=== PATIENT | female | born 1935 | race Caucasian/White ===

== ENCOUNTER → 2016-08-26 | Outpatient (CLI) | payer MEDICARE, BC ==
--- NOTE | 2016-08-26 12:56 | ECHOF ---
Referral Reason:Valvular Heart Disease I51.9 MEASUREMENTS -------- HEIGHT: 160.0 cm WEIGHT: 65.8 kg BP: 171/73 RVIDd: 2.7 cm (< 3.3) IVSd: 1.0 cm (0.6 - 1.1) LVIDd: 4.8 cm (3.9 - 5.3) LVPWd: 1.1 cm (0.6 - 1.1) IVSs: 1.6 cm LVIDs: 3.1 cm LVPWs: 1.4 cm LA Diam: 3.8 cm (2.7 - 3.8) LAESV Index (A-L): 23.24 ml/m Ao Diam: 3.0 cm (2.0 - 3.7) MV EXCURSION: 14.924 mm (> 18.000) MV EF SLOPE: 31 mm/s (70 - 150) EPSS: 1.2 cm MV E Tato: 1.25 m/s MV DecT: 300 ms MV A Tato: 0.86 m/s MV E/A Ratio: 1.45 AV maxP.49 mmHg AV meanP.32 mmHg RAP: 5.00 mmHg RVSP: 31.30 mmHg FINDINGS -------- Sinus rhythm. This was a technically adequate study. The left ventricular size is normal. Left ventricular wall thickness is normal. Overall left ventricular systolic function is normal with, an EF between 60 - 65 %. The right ventricle is normal in size. The left atrium is normal in size. Normal LA size by volume 22+/-6 ml/m2. The right atrium is normal in size. Trace amount of aortic regurgitation. Peak/mean gradient across the Aortic Valve is 22.49mmHg / 12.32mmHg. Normally functioning mechanical prosthetic valve. The mitral valve leaflets are mildly thickened. Mild mitral annular calcification present. Mild mitral regurgitation is present. Mild tricuspid regurgitation present. Right ventricular systolic pressure is normal at < 35 mmHg. The pulmonic valve was not well visualized. The aortic root size is normal. Normal inferior vena cava with normal inspiratory collapse consistent with estimated right atrial pressure of 5 mmHg. There is no pericardial effusion. CONCLUSIONS -------- 1. Sinus rhythm. 2. Peak/mean gradient across the Aortic Valve is 22.49mmHg / 12.32mmHg. 3. Normally functioning mechanical prosthetic valve. 4. The mitral valve leaflets are mildly thickened. 5. Mild mitral annular calcification present. 6. Mild mitral regurgitation is present. 7. Mild tricuspid regurgitation present. 8. Right ventricular systolic pressure is normal at < 35 mmHg. 9. The pulmonic valve was not well visualized. 10. The aortic root size is normal. 11. Normal inferior vena cava with normal inspiratory collapse consistent with estimated right atrial pressure of 5 mmHg. 12. This was a technically adequate study. 13. There is no pericardial effusion. 14. The left ventricular size is normal. 15. Left ventricular wall thickness is normal. 16. Overall left ventricular systolic function is normal with, an EF between 60 - 65 %. 17. The right ventricle is normal in size. 18. Normal LA size by volume 22+/-6 ml/m2. 19. The right atrium is normal in size. 20. Trace amount of aortic regurgitation. HOUSE DECORATOR: Gini Harry RDCS
== END | disposition home or self-care (01) ==
LOC: RADECHMAIN 11:22
PROVIDERS: ATTEND Internal Medicine Cardiovascular Disease
DX: I08.3 Combined rheumatic disorders of mitral, aortic and tricuspid valves (principal)
CPT/HCPCS: 93306

== ENCOUNTER → 2017-02-16 | Outpatient (CLI) | payer MEDICARE, BC ==
--- NOTE | 2017-02-17 09:28 | ECHOF ---
Referral Reason:I27.0 pulmonary hypertention MEASUREMENTS -------- HEIGHT: 160.0 cm WEIGHT: 65.8 kg BP: 133/63 IVSd: 1.3 cm (0.6 - 1.1) LVIDd: 3.2 cm (3.9 - 5.3) LVPWd: 1.3 cm (0.6 - 1.1) IVSs: 1.8 cm LVIDs: 1.6 cm LVPWs: 1.9 cm LAESV Index (A-L): 21.55 ml/m Ao Diam: 3.4 cm (2.0 - 3.7) AV Cusp: 1.8 cm (1.5 - 2.6) LA Diam: 3.4 cm (2.7 - 3.8) MV EXCURSION: 12.148 mm (> 18.000) MV EF SLOPE: 64 mm/s (70 - 150) EPSS: 1.3 cm MV E Tato: 1.34 m/s MV DecT: 246 ms MV A Tato: 0.53 m/s MV E/A Ratio: 2.53 AV maxP.93 mmHg AV meanP.58 mmHg AR PHT: 245 ms RAP: 5.00 mmHg RVSP: 44.89 mmHg FINDINGS -------- Sinus rhythm. This was a technically good study. There is mild concentric left ventricular hypertrophy. Overall left ventricular systolic function is normal with, an EF between 55 - 60 %. The right ventricle is normal in size and function. Normal LA size by volume 22+/-6 ml/m2. The right atrium is normal in size. Peak/mean gradient across the Aortic Valve is 23.93mmHg / 13.58mmHg. Normally functioning mechanical prosthetic valve. The mitral valve leaflets are mildly thickened. Moderate mitral regurgitation is present. Moderate to severe tricuspid regurgitation present. There is mild pulmonary hypertension. The right ventricular systolic pressure, as measured by Doppler, is 44.89mmHg. Pulmonic valve appears structurally normal. The aortic root size is normal. There is a small, generalized pericardial effusion present. CONCLUSIONS -------- 1. Sinus rhythm. 2. The mitral valve leaflets are mildly thickened. 3. Moderate mitral regurgitation is present. 4. Moderate to severe tricuspid regurgitation present. 5. There is mild pulmonary hypertension. 6. The right ventricular systolic pressure, as measured by Doppler, is 44.89mmHg. 7. Pulmonic valve appears structurally normal. 8. The aortic root size is normal. 9. There is a small, generalized pericardial effusion present. 10. This was a technically good study. 11. There is mild concentric left ventricular hypertrophy. 12. Overall left ventricular systolic function is normal with, an EF between 55 - 60 %. 13. The right ventricle is normal in size and function. 14. Normal LA size by volume 22+/-6 ml/m2. 15. The right atrium is normal in size. 16. Peak/mean gradient across the Aortic Valve is 23.93mmHg / 13.58mmHg. 17. Normally functioning mechanical prosthetic valve. JAMB CUTTER: Anabela Sinclair RDCS
== END | disposition home or self-care (01) ==
LOC: RADECHMAIN 14:38
PROVIDERS: ATTEND Internal Medicine Cardiovascular Disease
DX: I27.2 Other secondary pulmonary hypertension (principal); I08.1 Rheumatic disorders of both mitral and tricuspid valves; Z95.2 Presence of prosthetic heart valve
CPT/HCPCS: 93306

== ENCOUNTER 2017-04-12 13:58 | Inpatient (IN) | payer MEDICARE, BC ==
[2017-04-12 14:55] LABS: Blood Urea Nitrogen 18 mg/dL (7-17); Non-African American GFR(MDRD) >60 (>60 ml/min/1.73 sqM)
[2017-04-12 15:50] LABS: Glucose,Whole Blood 241 mg/dL (75-99)
[2017-04-12] MEDS ORDERED: ENALAPRILAT 1.25 MG/ML 1 ML VIAL IVP STA (15:50)
[2017-04-12] MEDS ORDERED: IPRATROPIUM-ALBUTEROL 3 ML NEB INHALATION STA ×2 (15:50→16:21)
--- NOTE | 2017-04-12 16:05 | ED ---
General Adult HPI - General Chief complaint: Arrhythmia/Palpitations Source: patient, RN/MD, RN notes reviewed, old records reviewed Mode of arrival: wheelchair Limitations: no limitations - History of Present Illness Initial comments: This is an 81-year-old female the ER for evaluation. This patient presents to ER for evaluation regarding syncopal event unresponsive at [facility] patient was down in CAT scan. Patient was in outpatient CAT scan per records for evaluation and possible recent CVA. She was seen by her family doctor and scheduled for outpatient CAT scan earlier today. Patient in per witness and patient had a unresponsive episode while she was being delivered out of CAT scan after the CAT scan was finished, she began to stop breathing and change color. Patient never lost pulse. Code BLue was paged - Related Data Home Medications Medication Instructions Recorded Confirmed ALPRAZolam [Xanax] 0.25 mg PO TID PRN 04/12/17 04/12/17 Aspirin 81 mg PO DAILY 04/12/17 04/12/17 Donepezil [Aricept] 5 mg PO HS 04/12/17 04/12/17 Furosemide [Lasix] 20 mg PO DAILY 04/12/17 04/12/17 Glimepiride [Amaryl] 2 mg PO [id number] 04/12/17 04/12/17 Levothyroxine Sodium [Synthroid] 88 mcg PO DAILY 04/12/17 04/12/17 Liothyronine Sodium [Cytomel] 5 mcg PO DAILY 04/12/17 04/12/17 Losartan/Hydrochlorothiazide 1 tab PO DAILY 04/12/17 04/12/17 [Hyzaar 100-25 Tablet] Meclizine [Antivert] 12.5 mg PO HS PRN 04/12/17 04/12/17 Metoprolol Tartrate [Lopressor] 75 mg PO TID 04/12/17 04/12/17 Ranitidine HCl [Zantac] 150 mg PO BID 04/12/17 04/12/17 Simvastatin [Zocor] 20 mg PO HS 04/12/17 04/12/17 Verapamil HCl [Verelan Pm] 300 mg PO HS 04/12/17 04/12/17 Warfarin [Coumadin] 2.5 mg PO HS 04/12/17 04/12/17 metFORMIN HCL [Glucophage] 1,000 mg PO BID 04/12/17 04/12/17 Allergies Allergy/AdvReac Type Severity Reaction Status Date / Time codeine AdvReac Unknown Verified 04/12/17 16:20 Review of Systems ROS Statement: Those systems with pertinent positive or pertinent negative responses have been documented in the HPI. ROS Other: All systems not noted in ROS Statement are negative. Past Medical History Past Medical History: Atrial Fibrillation, CVA/TIA, Diabetes Mellitus History of Any Multi-Drug Resistant Organisms: None Reported Past Surgical History: Heart Catheterization With Stent, Pacemaker Past Psychological History: No Psychological Hx Reported Smoking Status: Current every day smoker Past Alcohol Use History: None Reported Past Drug Use History: None Reported General Exam Limitations: no limitations General appearance: alert, in no apparent distress, anxious, in distress Head exam: Present: atraumatic, normocephalic, normal inspection Eye exam: Present: normal appearance, PERRL, EOMI. Absent: scleral icterus, conjunctival injection, periorbital swelling ENT exam: Present: normal exam, mucous membranes moist Neck exam: Present: normal inspection. Absent: tenderness, meningismus, lymphadenopathy Respiratory exam: Present: respiratory distress, wheezes, accessory muscle use, decreased breath sounds, prolonged expiratory. Absent: rales, rhonchi, stridor Cardiovascular Exam: Present: tachycardia, irregular rhythm, normal heart sounds. Absent: systolic murmur, diastolic murmur, rubs, gallop, clicks GI/Abdominal exam: Present: soft, normal bowel sounds. Absent: distended, tenderness, guarding, rebound, rigid Extremities exam: Present: normal inspection, full ROM, normal capillary refill. Absent: tenderness, pedal edema, joint swelling, calf tenderness Back exam: Present: normal inspection Neurological exam: Present: alert, oriented X3, CN II-XII intact Psychiatric exam: Present: normal affect, normal mood Skin exam: Present: warm, dry, intact, normal color. Absent: rash Course Vital Signs 04/12/17 04/12/17 04/12/17 15:48 16:04 16:10 Pulse Rate 107 H 94 93 Respiratory 22 24 Rate Blood Pressure 235/121 152/78 O2 Sat by Pulse 96 98 Oximetry 04/12/17 04/12/17 04/12/17 16:14 16:15 16:26 Pulse Rate 86 86 88 Respiratory Rate Blood Pressure O2 Sat by Pulse Oximetry - Reevaluation(s) Reevaluation #1: 04/12/17 16:52 Patient was resuscitated with bag valve mask for 5 minutes during syncopal event , during this event patient was cyanotic and unresponsive. As patient's color improved and mentation improved she began to breathe again on her own. This happened while patient was getting outpatient CAT scan. Reevaluation #2: 04/12/17 16:54 This is improving breathing with breathing treatments, by [id number] DuoNeb breathing treatments, oxygenation is improving, patient is denying headache denying chest pain denies significant abdominal pain and states shortness of breath is continuing to improve EKG Findings - EKG Comments: EKG Findings:: EKG shows A. fib with RVR rate 110, QRS 82, QTc 522 Medical Decision Making - Medical Decision Making A1cNow date ER after syncopal, unresponsive and cyanotic event, hypoxic event, patient will be admitted for monitoring of arrhythmia versus severe COPD exacerbation with hypoxia, computed tomography scan was negative, chest x-ray is negative - Lab Data Result diagrams: 04/12/17 15:51 04/12/17 15:51 Lab Results 04/12/17 04/12/17 04/12/17 Range/Units 14:40 15:40 15:51 WBC (3.8-10.6) k/uL RBC (3.80-5.40) m/uL Hgb (11.4-16.0) gm/dL Hct (34.0-46.0) % MCV (80.0-100.0) fL MCH (25.0-35.0) pg MCHC (31.0-37.0) g/dL RDW (11.5-15.5) % Plt Count (150-450) k/uL PT (9.0-12.0) sec INR (<1.2) APTT (22.0-30.0) sec Sodium (137-145) mmol/L Potassium (3.5-5.1) mmol/L Chloride (98-107) mmol/L Carbon Dioxide (22-30) mmol/L Anion Gap mmol/L BUN 18 H (7-17) mg/dL Creatinine 0.70 (0.52-1.04) mg/dL Est GFR (MDRD) Af Amer >60 (>60 ml/min/1.73 sqM) Est GFR (MDRD) Non-Af >60 (>60 ml/min/1.73 sqM) Glucose (74-99) mg/dL POC Glucose (mg/dL) 241 H (75-99) mg/dL POC Glu Plastic Eye Technician ID Keya Guerrier Calcium (8.4-10.2) mg/dL Phosphorus (2.5-4.5) mg/dL Magnesium (1.6-2.3) mg/dL Total Bilirubin (0.2-1.3) mg/dL AST (14-36) U/L ALT (9-52) U/L Alkaline Phosphatase (38-126) U/L Total Creatine Kinase 24 L (30-135) U/L CK-MB (CK-2) 0.5 (0.0-2.4) ng/mL CK-MB (CK-2) Rel Index 2.1 Troponin I <0.012 (0.000-0.034) ng/mL Total Protein (6.3-8.2) g/dL Albumin (3.5-5.0) g/dL 04/12/17 04/12/17 04/12/17 Range/Units 15:51 15:51 15:51 WBC 11.3 H (3.8-10.6) k/uL RBC 4.74 (3.80-5.40) m/uL Hgb 13.5 (11.4-16.0) gm/dL Hct 41.9 (34.0-46.0) % MCV 88.4 (80.0-100.0) fL MCH 28.5 (25.0-35.0) pg MCHC 32.2 (31.0-37.0) g/dL RDW 14.7 (11.5-15.5) % Plt Count 456 H (150-450) k/uL PT 14.7 H (9.0-12.0) sec INR 1.5 H (<1.2) APTT 24.0 (22.0-30.0) sec Sodium 130 L (137-145) mmol/L Potassium 3.0 L* (3.5-5.1) mmol/L Chloride 90 L (98-107) mmol/L Carbon Dioxide 30 (22-30) mmol/L Anion Gap 10 mmol/L BUN 17 (7-17) mg/dL Creatinine 0.60 (0.52-1.04) mg/dL Est GFR (MDRD) Af Amer >60 (>60 ml/min/1.73 sqM) Est GFR (MDRD) Non-Af >60 (>60 ml/min/1.73 sqM) Glucose 251 H (74-99) mg/dL POC Glucose (mg/dL) (75-99) mg/dL POC Glu Plastic Eye Technician ID Calcium 8.7 (8.4-10.2) mg/dL Phosphorus 4.0 (2.5-4.5) mg/dL Magnesium 1.3 L (1.6-2.3) mg/dL Total Bilirubin 0.6 (0.2-1.3) mg/dL AST 22 (14-36) U/L ALT 27 (9-52) U/L Alkaline Phosphatase 86 (38-126) U/L Total Creatine Kinase (30-135) U/L CK-MB (CK-2) (0.0-2.4) ng/mL CK-MB (CK-2) Rel Index Troponin I (0.000-0.034) ng/mL Total Protein 6.0 L (6.3-8.2) g/dL Albumin 3.5 (3.5-5.0) g/dL - Radiology Data Radiology results: report reviewed (X-ray and CT brain are negative for acute disease), image reviewed Critical Care Time Critical Care Time: Yes Disposition Clinical Impression: Atrial fibrillation, TIA (transient ischemic attack), Hypoxia, Syncope, COPD ( chronic obstructive pulmonary disease) Disposition: ADMITTED IP TO THIS HOSP Condition: Fair Referrals: Loni Saxena DO [Primary Care Provider] - 1-2 days
[2017-04-12 16:09] LABS: ALT 27 U/L (9-52); AST 22 U/L (14-36); Alkaline Phosphatase 86 U/L (38-126); Anion Gap 10 mmol/L; Blood Urea Nitrogen 17 mg/dL (7-17); Calcium 8.7 mg/dL (8.4-10.2); Carbon Dioxide 30 mmol/L (22-30); Chloride 90 mmol/L (98-107); Glucose 251 mg/dL (74-99); Magnesium 1.3 mg/dL (1.6-2.3); Non-African American GFR(MDRD) >60 (>60 ml/min/1.73 sqM); Sodium 130 mmol/L (137-145); Total Bilirubin 0.6 mg/dL (0.2-1.3)
[2017-04-12 16:10] LABS: INR 1.5 (<1.2); Prothrombin Time 14.7 sec (9.0-12.0)
[2017-04-12] MEDS ORDERED: POTASSIUM BICARB-CITRIC ACID 25 MEQ TABLET.EFF PO STA (16:13)
[2017-04-12] MEDS ORDERED: MAGNESIUM OXIDE 400 MG TAB PO STA (16:13)
[2017-04-12 16:20] LABS: Creatine Kinase 24 U/L (30-135)
--- NOTE | 2017-04-12 16:20 | XR ---
EXAMINATION TYPE: XR chest 1V portable DATE OF EXAM: 04/12/2017 COMPARISON: NONE HISTORY: Shortness of breath TECHNIQUE: Single frontal view of the chest is obtained. FINDINGS: There is no focal air space opacity, pleural effusion, or pneumothorax seen. The cardiac silhouette size is within normal limits. Patient is post median sternotomy. Pacemaker leads are prese nt in the right atrium and ventricle, generator in the left pectoral region. The osseous structures are intact. IMPRESSION: No acute process.
--- NOTE | 2017-04-12 16:21 | CT ---
EXAMINATION TYPE: CT brain w con DATE OF EXAM: 04/12/2017 COMPARISON: NONE HISTORY: Numbness/Tingling upper extremities CT DLP: 892.1 mGycm Automated exposure control for dose reduction was used. CONTRAST: CT scan of the head is performed with IV Contrast, patient injected with 100 mL of Omnipaque 300. FINDINGS: There is no abnormal enhancing mass or midline shift identified. The ventricles and sulci are within normal limits in size. There is cortical atrophy. White matter low attenuation likely due to chronic small vessel ischemia. The globes are intact and the visualized sinuses are clear. IMPRESSION: Age-related changes of atrophy and probable chronic small vessel ischemia.
[2017-04-12 16:28] LABS: Basophils # (A) 0.1 k/uL (0-0.2); Basophils % (A) 1 %; CH 27.8; CHCM 31.6; Eosinophils # (A) 0.1 k/uL (0-0.7); Eosinophils % (A) 1 %; HCT 41.9 % (34.0-46.0); HDW 3.12; HGB 13.5 gm/dL (11.4-16.0); Hypochromasia Moderate; Luc % (Auto) 3; Lymphocytes # (A) 5.8 k/uL (1.0-4.8); Lymphocytes % (A) 51 %; MCH 28.5 pg (25.0-35.0); MCHC 32.2 g/dL (31.0-37.0); MCV 88.4 fL (80.0-100.0); Monocytes # (A) 0.2 k/uL (0-1.0); Monocytes % (A) 2 %; Neutrophils # (A) 4.9 k/uL (1.3-7.7); Neutrophils % (A) 43 %; RBC 4.74 m/uL (3.80-5.40); RDW 14.7 % (11.5-15.5); WBC 11.3 k/uL (3.8-10.6); WBC (Perox) 10.97
[2017-04-12 16:33] LABS: Creatine Kinase MB 0.5 ng/mL (0.0-2.4); Troponin I <0.012 ng/mL (0.000-0.034)
[2017-04-12] MEDS ORDERED: ASPIRIN 81 MG CHEW PO STA (16:45)
[2017-04-12] MEDS ORDERED: NITROGLYCERIN SL TABS 0.4 MG TAB SUBLINGUAL PRN (16:45)
[2017-04-12] MEDS ORDERED: methylPREDNISolone SOD SUCCI 125 MG/2 ML VIAL IV STA (16:45)
[2017-04-12] MEDS: POTASSIUM CHLORIDE 10 MEQ, LIDOCAINE 2% INJ 10 MG in SODIUM CHLORIDE 0.9% 100 ML IVPB SCH ×4 (16:45→20:10)
[2017-04-12] MEDS: MAGNESIUM SULFATE-D5W PMX 1 GM in DEXTROSE/WATER 1 100ML.BAG IVPB SCH ×2 (16:47→17:48)
[2017-04-12 16:51] LABS: Manual Review Performed
[2017-04-12] MEDS ORDERED: RX INFO: IV CONTRAST WAS GIVEN 1 EACH MISC MISCELLANE PRN (18:24)
[2017-04-12 20:59] LABS: Appearance,Urine Clear (Clear); Bacteria,Urine Occasional /hpf; Bilirubin,Urine Negative (Negative); Glucose,Urine (UA) 1+ (Negative); Ketones,Urine Negative (Negative); Leukocyte Esterase,Urine Trace (Negative); Mucus,Urine Rare /hpf; Nitrite,Urine Negative (Negative); Particle Count 59066; Protein,Urine Negative (Negative); RBC,Urine 4 /hpf (0-5); Squamous Epithelial Cell,Urine 3 /hpf (0-4); UA Billing (MACRO vs. MICRO) MICRO; Urobilinogen,Urine <2.0 mg/dL (<2.0); WBC,Urine 5 /hpf (0-5)
[2017-04-12 21:02] LABS: Glucose,Whole Blood 332 mg/dL (75-99)
--- NOTE | 2017-04-12 21:19 | US ---
EXAMINATION TYPE: US carotid duplex BILAT DATE OF EXAM: 04/12/2017 COMPARISON: NONE CLINICAL HISTORY: Stenosis. Syncope EXAM MEASUREMENTS: RIGHT: Peak Systolic Velocity (PSV) cm/sec ----- Right CCA: 49.6 ----- Right ICA: 115.1 ----- Right ECA: 68.5 ICA/CCA ratio: 2.3 RIGHT: End Diastole cm/sec ----- Right CCA: 11.3 ----- Right ICA: 30.9 ----- Right ECA: 0 LEFT: Peak Systolic Velocity (PSV) cm/sec ----- Left CCA: 46.1 ----- Left ICA: 106.0 ----- Left ECA: 52.9 ICA/CCA ratio: 2.3 LEFT: End Diastole cm/sec ----- Left CCA: 12.0 ----- Left ICA: 36.1 ----- Left ECA: 0 VERTEBRALS (direction of flow): Right Vertebral: Antegrade Left Vertebral: Antegrade Valiente scale plaquing is noted within both internal carotid arteries and carotid bulbs. 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 Further evaluation with CTA neck could be performed if clinically indicated.
[2017-04-12 21:56] LABS: Creatine Kinase MB 0.9 ng/mL (0.0-2.4)
[2017-04-12 21:59] LABS: Troponin I 0.161 ng/mL (0.000-0.034)
[2017-04-12] MEDS ORDERED: MECLIZINE 12.5 MG TAB PO PRN (23:15)
[2017-04-13] MEDS: methylPREDNISolone SOD SUCCI 125 MG/2 ML VIAL IV SCH ×4 (00:27→17:16)
[2017-04-13] MEDS: INSULIN LISPRO (humaLOG) 300 UNIT/3 ML VIAL SQ SCH ×4 (03:03→17:14)
[2017-04-13 03:53] LABS: ALT 21 U/L (9-52); AST 26 U/L (14-36); Alkaline Phosphatase 65 U/L (38-126); Anion Gap 9 mmol/L; Blood Urea Nitrogen 23 mg/dL (7-17); Calcium 8.8 mg/dL (8.4-10.2); Carbon Dioxide 27 mmol/L (22-30); Chloride 93 mmol/L (98-107); Cholesterol 110 mg/dL (<200); Glucose 384 mg/dL (74-99); HDL Cholesterol 49 mg/dL (40-60); Non-African American GFR(MDRD) >60 (>60 ml/min/1.73 sqM); Sodium 129 mmol/L (137-145); Total Bilirubin 0.6 mg/dL (0.2-1.3); Total Protein 5.8 g/dL (6.3-8.2)
[2017-04-13 04:11] LABS: Creatine Kinase MB 0.9 ng/mL (0.0-2.4)
[2017-04-13 04:13] LABS: Troponin I 0.322 ng/mL (0.000-0.034)
[2017-04-13 06:03] LABS: Glucose,Whole Blood 389 mg/dL (75-99)
[2017-04-13] MEDS: LEVOTHYROXINE 88 MCG TAB PO SCH (06:26)
[2017-04-13] MEDS: metFORMIN 500 MG TAB PO SCH ×2 (06:27→17:16)
[2017-04-13] MEDS ORDERED: GLIMEPIRIDE 2 MG TAB PO SCH (07:30)
[2017-04-13] MEDS: LOSARTAN-HCTZ 50-12.5 MG 1 EACH TAB PO SCH (08:11)
[2017-04-13] MEDS: LIOTHYRONINE SODIUM 5 MCG TAB PO SCH (08:11)
[2017-04-13] MEDS: METOPROLOL TARTRATE 25 MG TAB PO SCH ×3 (08:12→20:37)
[2017-04-13] MEDS: FAMOTIDINE 20 MG TAB PO SCH ×2 (08:12→20:37)
[2017-04-13] MEDS: IPRATROPIUM-ALBUTEROL 3 ML NEB INHALATION PRN ×2 (08:57→20:06)
[2017-04-13] MEDS ORDERED: ASPIRIN 325 MG TAB PO SCH (09:00)
[2017-04-13] MEDS ORDERED: FUROSEMIDE 20 MG TAB PO SCH (09:00)
[2017-04-13 09:04] LABS: Basophils % (A) 0 %; CH 27.6; CHCM 31.4; Eosinophils % (A) 0 %; HCT 34.7 % (34.0-46.0); HDW 3.05; HGB 11.1 gm/dL (11.4-16.0); Hypochromasia Moderate; Luc # (Auto) 0.05; Luc % (Auto) 1; Lymphocytes # (A) 0.5 k/uL (1.0-4.8); Lymphocytes % (A) 5 %; MCH 28.3 pg (25.0-35.0); MCHC 32.1 g/dL (31.0-37.0); MCV 88.1 fL (80.0-100.0); Mean Platelet Volume 7.6; Monocytes # (A) 0.1 k/uL (0-1.0); Monocytes % (A) 1 %; Neutrophils # (A) 9.4 k/uL (1.3-7.7); Neutrophils % (A) 92 %; RBC 3.94 m/uL (3.80-5.40); RDW 14.7 % (11.5-15.5); WBC 10.2 k/uL (3.8-10.6); WBC (Perox) 10.63
[2017-04-13 09:11] LABS: INR 1.4 (<1.2); Prothrombin Time 13.6 sec (9.0-12.0)
[2017-04-13] MEDS ORDERED: LACTULOSE 20 GM/30 ML CUP PO ONE (11:14)
--- NOTE | 2017-04-13 11:25 | P.CRDCN ---
History of Present Illness Consult date: 04/13/17 Requesting physician: Mary Weston Consult reason: [email or web address] Chief complaint: Syncope History of present illness: This is a pleasant 81-year-old female with history of aortic valve replacement 20 years ago, hypertension, hypothyroidism, permanent pacemaker, nicotine dependence, who follows with Dr. Melton for her cardiac needs. Patient was in CAT scan yesterday having an outpatient CAT scan performed, she states that following the CAT scan, they had taken her IV out and she was sitting in a chair when all of a sudden she began seeing floaters before her eyes, and she states she was seeing black dots, she told the nurse she didn't feel well, became extremely dizzy and then couldn't breathe, and passed out. She denies having any chest discomfort. For this reason patient was admitted to the hospital for further evaluation. EKG on arrival here showed atrial fibrillation with nonspecific ST-T wave changes and occasional PVCs. Repeat EKG this morning showed a normal sinus rhythm with nonspecific ST-T wave changes. Blood pressure on arrival here to 35/120, heart rate of 107. White blood cell count on arrival 11.3, platelet count 456, d-dimer 0.9, INR 1.4, potassium on arrival 3.0, 4.0 this morning. Sodium 129. Glucose on arrival 332 , 389 this morning. Magnesium on arrival 1.3, 2.0 this morning. Troponins 0.012, 0.161, 0.322. CAT scan of the brain revealed age-related changes of atrophy and small vessel ischemia. Chest x-ray no acute process. Carotid Doppler study revealed bilateral stenosis of 50%. Patient did have an echocardiogram with Doppler study performed in January which revealed an ejection fraction of 55-60%, moderate MR, severe TR, normally functioning mechanical prosthetic valve. Past Medical History Past Medical History: Atrial Fibrillation, Asthma, CVA/TIA, Dementia, Diabetes Mellitus, Eye Disorder, GERD/Reflux, Hyperlipidemia, Hypertension, Pneumonia, Thyroid Disorder Additional Past Medical History / Comment(s): Cataract removal History of Any Multi-Drug Resistant Organisms: None Reported Past Surgical History: Appendectomy, Cardiac Valve Replacement, Pacemaker, Tonsillectomy Additional Past Surgical History / Comment(s): Aortic valve replacement Past Anesthesia/Blood Transfusion Reactions: No Reported Reaction Type of Cardiac Device: Unknown Device Placement Date:: unsure Past Psychological History: No Psychological Hx Reported Smoking Status: Current every day smoker Past Alcohol Use History: None Reported Past Drug Use History: None Reported - Past Family History Father Family Medical History: Myocardial Infarction ([place]) Sister(s) Family Medical History: Cancer Medications and Allergies Home Medications Medication Instructions Recorded Confirmed Type ALPRAZolam [Xanax] 0.25 mg PO TID PRN 04/12/17 04/12/17 History Aspirin 81 mg PO DAILY 04/12/17 04/12/17 History Donepezil [Aricept] 5 mg PO HS 04/12/17 04/12/17 History Furosemide [Lasix] 20 mg PO DAILY 04/12/17 04/12/17 History Glimepiride [Amaryl] 2 mg PO AC-BRKFST 04/12/17 04/12/17 History Levothyroxine Sodium [Synthroid] 88 mcg PO DAILY 04/12/17 04/12/17 History Liothyronine Sodium [Cytomel] 5 mcg PO DAILY 04/12/17 04/12/17 History Losartan/Hydrochlorothiazide 1 tab PO DAILY 04/12/17 04/12/17 History [Hyzaar 100-25 Tablet] Meclizine [Antivert] 12.5 mg PO HS PRN 04/12/17 04/12/17 History Metoprolol Tartrate [Lopressor] 75 mg PO TID 04/12/17 04/12/17 History Ranitidine HCl [Zantac] 150 mg PO BID 04/12/17 04/12/17 History Simvastatin [Zocor] 20 mg PO HS 04/12/17 04/12/17 History Verapamil HCl [Verelan Pm] 300 mg PO HS 04/12/17 04/12/17 History Warfarin [Coumadin] 2.5 mg PO HS 04/12/17 04/12/17 History metFORMIN HCL [Glucophage] 1,000 mg PO BID 04/12/17 04/12/17 History Allergies Allergy/AdvReac Type Severity Reaction Status Date / Time codeine AdvReac Unknown Verified 04/12/17 16:20 Physical Exam Vitals: Vital Signs Temp Pulse Pulse Resp BP BP Pulse Ox 04/13/17 09:06 94 04/13/17 08:59 94 04/13/17 08:00 98.2 F 95 16 143/65 98 04/13/17 04:00 98.2 F 94 16 144/64 96 04/13/17 00:00 98.0 F 95 18 148/65 98 04/12/17 20:00 98.8 F 80 18 122/56 98 04/12/17 18:52 97.1 F L 77 18 152/68 100 04/12/17 17:46 98.8 F 80 16 122/56 98 04/12/17 17:00 97.5 F L 04/12/17 16:50 81 20 133/69 100 04/12/17 16:26 88 04/12/17 16:15 86 04/12/17 16:14 86 04/12/17 16:10 93 24 152/78 98 04/12/17 16:04 94 04/12/17 15:48 107 H 22 235/121 96 Intake and Output 04/12/17 04/13/17 04/13/17 22:59 06:59 14:59 Output Total 100 200 Balance -100 -200 Output: Urine 100 200 Other: Voiding Method Bedpan Bedpan Bedpan # Voids 1 2 Weight 68.039 kg 65.5 kg PHYSICAL EXAMINATION: HEENT: Head is atraumatic, normocephalic. Pupils equal, round. Neck is supple. There is no elevated jugular venous pressure. HEART EXAMINATION: Heart S1 and S2 systolic murmur is heard. CHEST EXAMINATION: Lungs are clear to auscultation and precussion. No chest wall tenderness is noted on palpation or with deep breathing. ABDOMEN: Soft, nontender. Bowel sounds are heard. No organomegaly noted. EXTREMITIES: 2+ peripheral pulses with trace evidence of peripheral edema and no calf tenderness noted. NEUROLOGIC [patient is awake, alert and oriented -3.] . Results 04/13/17 03:22 04/13/17 03:22 Cardiac Enzymes 04/12/17 04/12/17 04/12/17 Range/Units 15:51 15:51 21:05 AST 22 (14-36) U/L CK-MB (CK-2) 0.5 0.9 (0.0-2.4) ng/mL Troponin I <0.012 0.161 H* (0.000-0.034) ng/mL 04/13/17 04/13/17 Range/Units 03:22 03:22 AST 26 (14-36) U/L CK-MB (CK-2) 0.9 (0.0-2.4) ng/mL Troponin I 0.322 H* (0.000-0.034) ng/mL Coagulation 04/12/17 04/13/17 Range/Units 15:51 03:22 PT 14.7 H 13.6 H (9.0-12.0) sec APTT 24.0 (22.0-30.0) sec Lipids 04/13/17 Range/Units 03:22 Triglycerides 43 (<150) mg/dL Cholesterol 110 (<200) mg/dL HDL Cholesterol 49 (40-60) mg/dL CBC 04/12/17 04/13/17 Range/Units 15:51 03:22 WBC 11.3 H 10.2 (3.8-10.6) k/uL RBC 4.74 3.94 (3.80-5.40) m/uL Hgb 13.5 11.1 L (11.4-16.0) gm/dL Hct 41.9 34.7 (34.0-46.0) % Plt Count 456 H 410 (150-450) k/uL Comprehensive Metabolic Panel 04/12/17 04/12/17 04/13/17 Range/Units 14:40 15:51 03:22 Sodium 130 L 129 L (137-145) mmol/L Potassium 3.0 L* 4.0 (3.5-5.1) mmol/L Chloride 90 L 93 L (98-107) mmol/L Carbon Dioxide 30 27 (22-30) mmol/L BUN 18 H 17 23 H (7-17) mg/dL Creatinine 0.70 0.60 0.70 (0.52-1.04) mg/dL Glucose 251 H 384 H (74-99) mg/dL Calcium 8.7 8.8 (8.4-10.2) mg/dL AST 22 26 (14-36) U/L ALT 27 21 (9-52) U/L Alkaline Phosphatase 86 65 (38-126) U/L Total Protein 6.0 L 5.8 L (6.3-8.2) g/dL Albumin 3.5 3.3 L (3.5-5.0) g/dL Current Medications Generic Name Dose Route Start Last Admin Trade Name Freq PRN Reason Stop Dose Admin Albuterol/Ipratropium 3 ml 04/12/17 16:45 04/13/17 08:57 Duoneb 0.5 Mg-3 Mg/3 Ml Soln INHALATION 3 ml RT-Q4H PRN Administration Shortness Of Breath Or Wheezing Alprazolam 0.25 mg 04/12/17 23:15 Xanax PO TID PRN Anxiety Aspirin 325 mg 04/13/17 09:00 04/13/17 08:12 Aspirin PO 325 mg DAILY JUSTINA Administration Atorvastatin Calcium 10 mg 04/13/17 21:00 Lipitor PO HS JUSTINA Donepezil HCl 5 mg 04/13/17 21:00 Aricept PO HS JUSTINA Famotidine 20 mg 04/13/17 09:00 04/13/17 08:12 Pepcid PO 20 mg BID JUSTINA Administration Furosemide 20 mg 04/13/17 09:00 04/13/17 08:12 Lasix PO 20 mg DAILY JUSTINA Administration Glimepiride 2 mg 04/13/17 07:30 04/13/17 06:27 Amaryl PO 2 mg AC-BRKFST JUSTINA Administration HCTZ/Losartan Potassium 2 each 04/13/17 09:00 04/13/17 08:11 Hyzaar 50-12.5 PO 2 each DAILY JUSTINA Administration Insulin Human Lispro 0 unit 04/12/17 23:22 04/13/17 06:27 Humalog SQ 8 unit ACHS JUSTINA Administration Protocol Levothyroxine Sodium 88 mcg 04/13/17 06:30 04/13/17 06:26 Synthroid PO 88 mcg 0630 JUSTINA Administration Liothyronine Sodium 5 mcg 04/13/17 09:00 04/13/17 08:11 Cytomel PO 5 mcg DAILY JUSTINA Administration Meclizine HCl 12.5 mg 04/12/17 23:15 Antivert PO HS PRN Vertigo Metformin HCl 1,000 mg 04/13/17 07:30 04/13/17 06:27 Glucophage PO 1,000 mg AC-BID JUSTINA Administration Methylprednisolone Sodium Succinate 60 mg 04/13/17 00:00 04/13/17 05:54 Solu-Medrol IV 60 mg Q6HR JUSTINA Administration Metoprolol Tartrate 75 mg 04/13/17 09:00 04/13/17 08:12 Lopressor PO 75 mg TID JUSTINA Administration Miscellaneous Information 1 each 04/12/17 18:24 Rx Info: Iv Contrast Was Given MISCELLANE 04/14/17 18:24 DAILY PRN Per Protocol Nitroglycerin 0.4 mg 04/12/17 16:45 Nitrostat SUBLINGUAL Q5M PRN Chest Pain Verapamil HCl 360 mg 04/13/17 21:00 Isoptin Sr PO HS JUSTINA Intake and Output 04/12/17 04/13/17 04/13/17 22:59 06:59 14:59 Output Total 100 200 Balance -100 -200 Output: Urine 100 200 Other: Voiding Method Bedpan Bedpan Bedpan # Voids 1 2 Weight 68.039 kg 65.5 kg 04/13/17 03:22 04/13/17 03:22 EKG Interpretations (text) Initial EKG shows atrial fibrillation with occasional PVCs and nonspecific ST-T wave changes. EKG from this morning shows a normal sinus rhythm with nonspecific ST-T wave changes Assessment and Plan Plan: Assessment and plan #1 syncope, rule out cardiac causes #2 history of aortic valve replacement 20 years ago, subtherapeutic on Coumadin #3 paroxysmal atrial fibrillation, on Coumadin, #4 accelerated hypertension #5 diabetes #6 hyperlipidemia #7 nicotine dependence #8 hypothyroidism #9 asthma #10 hypokalemia, replaced #11 hypomagnesemia, replaced #12 abnormal troponins, patient denies having any chest discomfort. Upward trend concerning for possible acute coronary syndrome. #13 abnormal d-dimer #14 pacemaker Plan We will repeat an echocardiogram with Doppler study, most recent echo was performed in January which revealed an ejection fraction of 55-60%. Moderate MR and moderate to severe TR, normally functioning mechanical valve. We will also start the patient on IV heparin as she is subtherapeutic with her Coumadin. We will interrogate the patient's pacemaker. Obtain records from her senior c web developer. Patient has been recommended to undergo stress test tomorrow, Kandi scan will be ordered. We'll continue to monitor for any arrhythmias. Decrease aspirin to 81 mg daily. Further recommendations to follow. DNP note has been reviewed, I agree with a documented findings and plan of care. Patient was seen and examined.
[2017-04-13] MEDS ORDERED: HEPARIN SODIUM,PORCINE 5,000 UNIT/ML 1 ML VIAL IV PRN (11:26)
[2017-04-13] MEDS ORDERED: HEPARIN SODIUM,PORCINE 5,000 UNIT/ML 1 ML VIAL IV ONE (11:30)
[2017-04-13 11:46] LABS: Hemoglobin A1C 9.1 % (4.2-6.1)
[2017-04-13] MEDS: DOCUSATE 100 MG CAP PO SCH ×2 (11:47→22:48)
[2017-04-13] MEDS: NYSTATIN 100,000 UNIT/ML SUSP 500,000 UNIT/5 ML CUP PO SCH ×2 (11:47→17:18)
[2017-04-13] MEDS: SODIUM CHLORIDE 0.9% 1,000 ML IV SCH (11:50)
[2017-04-13] MEDS: NICOTINE 14MG/24HR PATCH TRANSDERM SCH (11:50)
--- NOTE | 2017-04-13 11:50 | P.HPIM ---
History of Present Illness H&P Date: 04/13/17 Chief Complaint: Syncope This is a 81-year-old female, patient of [facility]. She has a known past medical history of paroxysmal atrial fibrillation, aortic valve replacement, hypertension, hypothyroidism, permanent pacemaker, nicotine dependence, coronary artery disease with stent, diabetes mellitus type 2, and CVA. Patient was having an outpatient computed tomography scan of the brain with IV contrast completed. Computed tomography scan was being performed because patient has been having numbness in her fingertips and some drooling from the right side of her mouth. Computed tomography scan was completed IV was taken outpatient setting up in the bench and then was a seated in her wheelchair. She started to see floaters in her eyes and seeing black dots. She told the nurse that she didn't feel well and that she might pass out. And then she started having difficulty breathing and passed out. Patient had passed out for a few seconds. However she continued to be have difficulty breathing and became hypoxic. A CODE BLUE was called. The patient was brought into the emergency admitted to the hospital. She was brought to the sixth floor. Cardiology and neurology consulted. EKG on arrival had shown atrial fibrillation with occasional PVCs. She did convert back to normal sinus rhythm. Patient did have elevation in her troponin 0.61-0.3-2. Denies any chest pain. White count was 11.3, d-dimer elevated at 0.94, sodium 129 and she was subtherapeutic on her INR of 1.4. Echo shows an EF of 55-60% and moderate mitral regurgitation with moderate to severe tricuspid regurgitation and mild pulmonary hypertension noted on echo from January 2017. Patient was also started on IV steroids in the emergency room. Carotid Doppler shows bilateral stenosis of 50%. Computed tomography scan of the brain shows age-related changes of atrophy and probable chronic small vessel ischemia. Patient denies any fevers chills or sweats. Denies any cough. Denies any chest pain. Denies any nausea or vomiting. Denies any bowel movement changes or urinary symptoms. Shortness of breath has improved. Case discussed with cardiology. Since patient's INR is subtherapeutic and there is concern about acute coronary syndrome patient will be started on IV heparin and they're planning on stress test tomorrow. D- dimer elevated VQ scan will be ordered patient just had IV dye to CT Scan of the brain yesterday. Review of Systems Please refer to HPI otherwise unremarkable Past Medical History Past Medical History: Atrial Fibrillation, Asthma, CVA/TIA, Dementia, Diabetes Mellitus, Eye Disorder, GERD/Reflux, Hyperlipidemia, Hypertension, Pneumonia, Thyroid Disorder Additional Past Medical History / Comment(s): Cataract removal History of Any Multi-Drug Resistant Organisms: None Reported Past Surgical History: Appendectomy, Cardiac Valve Replacement, Pacemaker, Tonsillectomy Additional Past Surgical History / Comment(s): Aortic valve replacement Past Anesthesia/Blood Transfusion Reactions: No Reported Reaction Type of Cardiac Device: Unknown Device Placement Date:: unsure Past Psychological History: No Psychological Hx Reported Smoking Status: Current every day smoker Past Alcohol Use History: None Reported Past Drug Use History: None Reported - Past Family History Father Family Medical History: Myocardial Infarction ([place]) Sister(s) Family Medical History: Cancer Medications and Allergies Home Medications Medication Instructions Recorded Confirmed Type ALPRAZolam [Xanax] 0.25 mg PO TID PRN 04/12/17 04/12/17 History Aspirin 81 mg PO DAILY 04/12/17 04/12/17 History Donepezil [Aricept] 5 mg PO HS 04/12/17 04/12/17 History Furosemide [Lasix] 20 mg PO DAILY 04/12/17 04/12/17 History Glimepiride [Amaryl] 2 mg PO AC-BRKFST 04/12/17 04/12/17 History Levothyroxine Sodium [Synthroid] 88 mcg PO DAILY 04/12/17 04/12/17 History Liothyronine Sodium [Cytomel] 5 mcg PO DAILY 04/12/17 04/12/17 History Losartan/Hydrochlorothiazide 1 tab PO DAILY 04/12/17 04/12/17 History [Hyzaar 100-25 Tablet] Meclizine [Antivert] 12.5 mg PO HS PRN 04/12/17 04/12/17 History Metoprolol Tartrate [Lopressor] 75 mg PO TID 04/12/17 04/12/17 History Ranitidine HCl [Zantac] 150 mg PO BID 04/12/17 04/12/17 History Simvastatin [Zocor] 20 mg PO HS 04/12/17 04/12/17 History Verapamil HCl [Verelan Pm] 300 mg PO HS 04/12/17 04/12/17 History Warfarin [Coumadin] 2.5 mg PO HS 04/12/17 04/12/17 History metFORMIN HCL [Glucophage] 1,000 mg PO BID 04/12/17 04/12/17 History Allergies Allergy/AdvReac Type Severity Reaction Status Date / Time codeine AdvReac Unknown Verified 04/12/17 16:20 Physical Exam Vitals: Vital Signs Temp Pulse Pulse Resp BP BP Pulse Ox 04/13/17 09:06 94 04/13/17 08:59 94 04/13/17 08:00 98.2 F 95 16 143/65 98 04/13/17 04:00 98.2 F 94 16 144/64 96 04/13/17 00:00 98.0 F 95 18 148/65 98 04/12/17 20:00 98.8 F 80 18 122/56 98 04/12/17 18:52 97.1 F L 77 18 152/68 100 04/12/17 17:46 98.8 F 80 16 122/56 98 04/12/17 17:00 97.5 F L 04/12/17 16:50 81 20 133/69 100 04/12/17 16:26 88 04/12/17 16:15 86 04/12/17 16:14 86 04/12/17 16:10 93 24 152/78 98 04/12/17 16:04 94 04/12/17 15:48 107 H 22 235/121 96 Intake and Output 04/12/17 04/13/17 04/13/17 22:59 06:59 14:59 Output Total 100 200 Balance -100 -200 Output: Urine 100 200 Other: Voiding Method Bedpan Bedpan Bedpan # Voids 1 2 Weight 68.039 kg 65.5 kg Head normocephalic Neck supple Lungs clear to auscultation bilaterally no wheezing or crackles Heart regular rate and rhythm S1-S2, no rub or gallop Abdomen is soft nontender nondistended positive bowel sounds no hepatosplenomegaly Extremities no edema Neuro alert and orientated to 3 Results CBC & Chem 7: 04/13/17 03:22 04/13/17 03:22 Labs: Abnormal Lab Results - Last 24 Hours (Table) 04/12/17 04/12/17 04/12/17 Range/Units 14:40 15:40 15:51 WBC (3.8-10.6) k/uL Hgb (11.4-16.0) gm/dL Plt Count (150-450) k/uL Neutrophils # (1.3-7.7) k/uL Lymphocytes # (1.0-4.8) k/uL PT (9.0-12.0) sec INR (<1.2) D-Dimer (<0.60) mg/L FEU Sodium (137-145) mmol/L Potassium (3.5-5.1) mmol/L Chloride (98-107) mmol/L BUN 18 H (7-17) mg/dL Glucose (74-99) mg/dL POC Glucose (mg/dL) 241 H (75-99) mg/dL Magnesium (1.6-2.3) mg/dL Total Creatine Kinase 24 L (30-135) U/L Troponin I (0.000-0.034) ng/mL Total Protein (6.3-8.2) g/dL Albumin (3.5-5.0) g/dL Ur Specific [place] (1.001-1.035) Urine Glucose (UA) (Negative) Ur Leukocyte Esterase (Negative) Urine Bacteria (None) /hpf Urine Mucus (None) /hpf 04/12/17 04/12/17 04/12/17 Range/Units 15:51 15:51 15:51 WBC 11.3 H (3.8-10.6) k/uL Hgb (11.4-16.0) gm/dL Plt Count 456 H (150-450) k/uL Neutrophils # (1.3-7.7) k/uL Lymphocytes # 5.8 H (1.0-4.8) k/uL PT 14.7 H (9.0-12.0) sec INR 1.5 H (<1.2) D-Dimer (<0.60) mg/L FEU Sodium 130 L (137-145) mmol/L Potassium 3.0 L* (3.5-5.1) mmol/L Chloride 90 L (98-107) mmol/L BUN (7-17) mg/dL Glucose 251 H (74-99) mg/dL POC Glucose (mg/dL) (75-99) mg/dL Magnesium 1.3 L (1.6-2.3) mg/dL Total Creatine Kinase (30-135) U/L Troponin I (0.000-0.034) ng/mL Total Protein 6.0 L (6.3-8.2) g/dL Albumin (3.5-5.0) g/dL Ur Specific [place] (1.001-1.035) Urine Glucose (UA) (Negative) Ur Leukocyte Esterase (Negative) Urine Bacteria (None) /hpf Urine Mucus (None) /hpf 04/12/17 04/12/17 04/12/17 Range/Units 15:51 20:15 21:00 WBC (3.8-10.6) k/uL Hgb (11.4-16.0) gm/dL Plt Count (150-450) k/uL Neutrophils # (1.3-7.7) k/uL Lymphocytes # (1.0-4.8) k/uL PT (9.0-12.0) sec INR (<1.2) D-Dimer 0.94 H (<0.60) mg/L FEU Sodium (137-145) mmol/L Potassium (3.5-5.1) mmol/L Chloride (98-107) mmol/L BUN (7-17) mg/dL Glucose (74-99) mg/dL POC Glucose (mg/dL) 332 H (75-99) mg/dL Magnesium (1.6-2.3) mg/dL Total Creatine Kinase (30-135) U/L Troponin I (0.000-0.034) ng/mL Total Protein (6.3-8.2) g/dL Albumin (3.5-5.0) g/dL Ur Specific [place] 1.050 H (1.001-1.035) Urine Glucose (UA) 1+ H (Negative) Ur Leukocyte Esterase Trace H (Negative) Urine Bacteria Occasional H (None) /hpf Urine Mucus Rare H (None) /hpf 04/12/17 04/13/17 04/13/17 Range/Units 21:05 03:22 03:22 WBC (3.8-10.6) k/uL Hgb (11.4-16.0) gm/dL Plt Count (150-450) k/uL Neutrophils # (1.3-7.7) k/uL Lymphocytes # (1.0-4.8) k/uL PT (9.0-12.0) sec INR (<1.2) D-Dimer (<0.60) mg/L FEU Sodium 129 L (137-145) mmol/L Potassium (3.5-5.1) mmol/L Chloride 93 L (98-107) mmol/L BUN 23 H (7-17) mg/dL Glucose 384 H (74-99) mg/dL POC Glucose (mg/dL) (75-99) mg/dL Magnesium (1.6-2.3) mg/dL Total Creatine Kinase 29 L (30-135) U/L Troponin I 0.161 H* 0.322 H* (0.000-0.034) ng/mL Total Protein 5.8 L (6.3-8.2) g/dL Albumin 3.3 L (3.5-5.0) g/dL Ur Specific [place] (1.001-1.035) Urine Glucose (UA) (Negative) Ur Leukocyte Esterase (Negative) Urine Bacteria (None) /hpf Urine Mucus (None) /hpf 04/13/17 04/13/17 04/13/17 Range/Units 03:22 03:22 06:00 WBC (3.8-10.6) k/uL Hgb 11.1 L (11.4-16.0) gm/dL Plt Count (150-450) k/uL Neutrophils # 9.4 H (1.3-7.7) k/uL Lymphocytes # 0.5 L (1.0-4.8) k/uL PT 13.6 H (9.0-12.0) sec INR 1.4 H (<1.2) D-Dimer (<0.60) mg/L FEU Sodium (137-145) mmol/L Potassium (3.5-5.1) mmol/L Chloride (98-107) mmol/L BUN (7-17) mg/dL Glucose (74-99) mg/dL POC Glucose (mg/dL) 389 H (75-99) mg/dL Magnesium (1.6-2.3) mg/dL Total Creatine Kinase (30-135) U/L Troponin I (0.000-0.034) ng/mL Total Protein (6.3-8.2) g/dL Albumin (3.5-5.0) g/dL Ur Specific [place] (1.001-1.035) Urine Glucose (UA) (Negative) Ur Leukocyte Esterase (Negative) Urine Bacteria (None) /hpf Urine Mucus (None) /hpf Microbiology - Last 24 Hours (Table) 04/12/17 20:15 Urine Culture - Preliminary Urine,Voided Thrombosis Risk Factor Assmnt - Choose All That Apply Any of the Below Risk Factors Present?: Yes Each Factor Represents 1 point: Abnormal pulmonary function (COPD), Medical pt on bed rest Other Risk Factors: Yes Each Risk Factor Represents 3 Points: Age 75 years or older Thrombosis Risk Factor Assessment Total Risk Factor Score: 5 Thrombosis Risk Factor Assessment Level: High Risk Assessment and Plan Plan: 1. Syncopal episode: Rule out cardiac causes. Cardiology and neurology consulted. Continue telemetry monitoring. Pacemaker interrogation ordered by cardiology. Carotid Doppler shows bilateral stenosis of 50% 2. Elevated troponins with concern of a possible acute coronary syndrome. Patient started on IV heparin and cardiology has ordered a stress test 3. Elevated d-dimer with shortness of breath and subtherapeutic INR. Order VQ scan. Patient recently received IV dye with her computed tomography scan of the brain. 4. Accelerated hypertension on admission. Now resolved. 5. Nicotine dependence: Discussed smoking cessation. Order nicotine patch. 6. History of mechanical aortic valve replacement with subtherapeutic INR 7. History of paroxysmal atrial fibrillation 8. History of CVA with concerns of a possible stroke outpatient due to the numbness at the tip of her fingers on the right hand and drooling from the right side of her mouth. 9. Hyponatremia: Sodium 129. Hold Lasix. start Normal saline at 50 mL an hour. Repeat labs in a.m. 10. Acute COPD exacerbation with hypoxia: Patient started on IV steroids in the emergency room. And given nebulizer treatments. Symptoms have improved. 11. Diabetes mellitus type 2 with elevated blood sugars secondary to steroids. Blood sugars are remaining in the 300s. Add insulin drip. 12. Constipation add Colace and lactulose 13. Oral thrush start nystatin swish and swallow DVT prophylaxis IV heparin Time with Patient: Greater than 30 (Greater than 50% of the total time spent in counseling and coordination of care.I performed an examination of the patient and discussed their management with the physician Modeling Instructor. I have reviewed the Physician Modeling Instructor's notes and agree with the documented findings and plan of care)
[2017-04-13 11:54] LABS: Glucose,Whole Blood 386 mg/dL (75-99)
[2017-04-13 12:39] LABS: Basophils % (A) 0 %; CHCM 30.3; Eosinophils % (A) 0 %; HCT 36.7 % (34.0-46.0); HDW 3.01; HGB 11.1 gm/dL (11.4-16.0); Hypochromasia Marked; Luc # (Auto) 0.15; Luc % (Auto) 1; Lymphocytes % (A) 4 %; MCH 27.9 pg (25.0-35.0); MCHC 30.2 g/dL (31.0-37.0); MCV 92.6 fL (80.0-100.0); Mean Platelet Volume 8.3; Monocytes # (A) 0.6 k/uL (0-1.0); Monocytes % (A) 2 %; Neutrophils # (A) 24.6 k/uL (1.3-7.7); Neutrophils % (A) 94 %; RBC 3.96 m/uL (3.80-5.40); WBC (Perox) 27.48
[2017-04-13 12:42] LABS: WBC 26.3 k/uL (3.8-10.6)
[2017-04-13 12:43] LABS: INR 1.6 (<1.2); Prothrombin Time 15.2 sec (9.0-12.0)
--- NOTE | 2017-04-13 12:44 | P.CRDCN ---
History of Present Illness History of present illness: Episode of syncope after a computed tomography scan but without any skin reaction. She complained of shortness of breath she was found to be in atrial fibrillation. 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 Past Medical History Past Medical History: Atrial Fibrillation, Asthma, CVA/TIA, Dementia, Diabetes Mellitus, Eye Disorder, GERD/Reflux, Hyperlipidemia, Hypertension, Pneumonia, Thyroid Disorder Additional Past Medical History / Comment(s): Cataract removal History of Any Multi-Drug Resistant Organisms: None Reported Past Surgical History: Appendectomy, Cardiac Valve Replacement, Pacemaker, Tonsillectomy Additional Past Surgical History / Comment(s): Aortic valve replacement Past Anesthesia/Blood Transfusion Reactions: No Reported Reaction Type of Cardiac Device: Unknown Device Placement Date:: unsure Past Psychological History: No Psychological Hx Reported Smoking Status: Current every day smoker Past Alcohol Use History: None Reported Past Drug Use History: None Reported - Past Family History Father Family Medical History: Myocardial Infarction (MD) Sister(s) Family Medical History: Cancer Medications and Allergies Home Medications Medication Instructions Recorded Confirmed Type ALPRAZolam [Xanax] 0.25 mg PO TID PRN 04/12/17 04/12/17 History Aspirin 81 mg PO DAILY 04/12/17 04/12/17 History Donepezil [Aricept] 5 mg PO HS 04/12/17 04/12/17 History Furosemide [Lasix] 20 mg PO DAILY 04/12/17 04/12/17 History Glimepiride [Amaryl] 2 mg PO AC-BRKFST 04/12/17 04/12/17 History Levothyroxine Sodium [Synthroid] 88 mcg PO DAILY 04/12/17 04/12/17 History Liothyronine Sodium [Cytomel] 5 mcg PO DAILY 04/12/17 04/12/17 History Losartan/Hydrochlorothiazide 1 tab PO DAILY 04/12/17 04/12/17 History [Hyzaar 100-25 Tablet] Meclizine [Antivert] 12.5 mg PO HS PRN 04/12/17 04/12/17 History Metoprolol Tartrate [Lopressor] 75 mg PO TID 04/12/17 04/12/17 History Ranitidine HCl [Zantac] 150 mg PO BID 04/12/17 04/12/17 History Simvastatin [Zocor] 20 mg PO HS 04/12/17 04/12/17 History Verapamil HCl [Verelan Pm] 300 mg PO HS 04/12/17 04/12/17 History Warfarin [Coumadin] 2.5 mg PO HS 04/12/17 04/12/17 History metFORMIN HCL [Glucophage] 1,000 mg PO BID 04/12/17 04/12/17 History Allergies Allergy/AdvReac Type Severity Reaction Status Date / Time codeine AdvReac Unknown Verified 04/12/17 16:20 Physical Exam Vitals: Vital Signs Temp Pulse Pulse Resp BP BP Pulse Ox 04/13/17 12:00 98.2 F 90 16 134/62 94 L 04/13/17 09:06 94 04/13/17 08:59 94 04/13/17 08:00 98.2 F 95 16 143/65 98 04/13/17 04:00 98.2 F 94 16 144/64 96 04/13/17 00:00 98.0 F 95 18 148/65 98 04/12/17 20:00 98.8 F 80 18 122/56 98 04/12/17 18:52 97.1 F L 77 18 152/68 100 04/12/17 17:46 98.8 F 80 16 122/56 98 04/12/17 17:00 97.5 F L 04/12/17 16:50 81 20 133/69 100 04/12/17 16:26 88 04/12/17 16:15 86 04/12/17 16:14 86 04/12/17 16:10 93 24 152/78 98 04/12/17 16:04 94 04/12/17 15:48 107 H 22 235/121 96 Intake and Output 04/12/17 04/13/17 04/13/17 22:59 06:59 14:59 Intake Total 350 Output Total 100 200 300 Balance -100 -200 50 Intake: Intake, IV Titration 350 Amount Sodium Chloride 0.9% 1, 350 000 ml @ 50 mls/hr IV . Q20H [facility] Rx#:[id number] Output: Urine 100 200 300 Other: Voiding Method Bedpan Bedpan Bedpan # Voids 1 2 1 # Bowel Movements 1 Weight 68.039 kg 65.5 kg Results 04/13/17 11:57 04/13/17 03:22 Cardiac Enzymes 04/12/17 04/12/17 04/12/17 Range/Units 15:51 15:51 21:05 AST 22 (14-36) U/L CK-MB (CK-2) 0.5 0.9 (0.0-2.4) ng/mL Troponin I <0.012 0.161 H* (0.000-0.034) ng/mL 04/13/17 04/13/17 Range/Units 03:22 03:22 AST 26 (14-36) U/L CK-MB (CK-2) 0.9 (0.0-2.4) ng/mL Troponin I 0.322 H* (0.000-0.034) ng/mL Coagulation 04/12/17 04/13/17 Range/Units 15:51 03:22 PT 14.7 H 13.6 H (9.0-12.0) sec APTT 24.0 (22.0-30.0) sec Lipids 04/13/17 Range/Units 03:22 Triglycerides 43 (<150) mg/dL Cholesterol 110 (<200) mg/dL HDL Cholesterol 49 (40-60) mg/dL CBC 04/12/17 04/13/17 04/13/17 Range/Units 15:51 03:22 11:57 WBC 11.3 H 10.2 26.3 H* (3.8-10.6) k/uL RBC 4.74 3.94 3.96 (3.80-5.40) m/uL Hgb 13.5 11.1 L 11.1 L (11.4-16.0) gm/dL Hct 41.9 34.7 36.7 (34.0-46.0) % Plt Count 456 H 410 379 (150-450) k/uL Comprehensive Metabolic Panel 04/12/17 04/12/17 04/13/17 Range/Units 14:40 15:51 03:22 Sodium 130 L 129 L (137-145) mmol/L Potassium 3.0 L* 4.0 (3.5-5.1) mmol/L Chloride 90 L 93 L (98-107) mmol/L Carbon Dioxide 30 27 (22-30) mmol/L BUN 18 H 17 23 H (7-17) mg/dL Creatinine 0.70 0.60 0.70 (0.52-1.04) mg/dL Glucose 251 H 384 H (74-99) mg/dL Calcium 8.7 8.8 (8.4-10.2) mg/dL AST 22 26 (14-36) U/L ALT 27 21 (9-52) U/L Alkaline Phosphatase 86 65 (38-126) U/L Total Protein 6.0 L 5.8 L (6.3-8.2) g/dL Albumin 3.5 3.3 L (3.5-5.0) g/dL Current Medications Generic Name Dose Route Start Last Admin Trade Name Freq PRN Reason Stop Dose Admin Albuterol/Ipratropium 3 ml 04/12/17 16:45 04/13/17 08:57 Duoneb 0.5 Mg-3 Mg/3 Ml Soln INHALATION 3 ml RT-Q4H PRN Administration Shortness Of Breath Or Wheezing Alprazolam 0.25 mg 04/12/17 23:15 Xanax PO TID PRN Anxiety Aspirin 81 mg 04/14/17 09:00 Aspirin PO DAILY [facility] Atorvastatin Calcium 10 mg 04/13/17 21:00 Lipitor PO HS [facility] Docusate Sodium 100 mg 04/13/17 11:15 04/13/17 11:47 Colace PO 100 mg BID [facility] Administration Donepezil HCl 5 mg 04/13/17 21:00 Aricept PO HS [facility] Famotidine 20 mg 04/13/17 09:00 04/13/17 08:12 Pepcid PO 20 mg BID [facility] Administration Glimepiride 2 mg 04/13/17 07:30 04/13/17 06:27 Amaryl PO 2 mg AC-BRKFST [facility] Administration HCTZ/Losartan Potassium 2 each 04/13/17 09:00 04/13/17 08:11 Hyzaar 50-12.5 PO 2 each DAILY [facility] Administration Heparin Sodium (Porcine) 0 unit 04/13/17 11:26 Heparin IV PER PROTOCOL PRN Low PTT Protocol Sodium Chloride 1,000 mls @ 50 mls/hr 04/13/17 11:30 04/13/17 11:50 Saline 0.9% IV 50 mls/hr .Q20H [facility] Administration Heparin Sodium/Dextrose 25,000 500 mls @ 15.72 mls/hr 04/13/17 12:00 unit/ IV Solution IV .Q24H [facility] Protocol 12 UNITS/KG/HR Insulin Human Lispro 0 unit 04/12/17 23:22 04/13/17 11:55 Humalog SQ 8 unit ACHS [facility] Administration Protocol Levothyroxine Sodium 88 mcg 04/13/17 06:30 04/13/17 06:26 Synthroid PO 88 mcg 0630 [facility] Administration Liothyronine Sodium 5 mcg 04/13/17 09:00 04/13/17 08:11 Cytomel PO 5 mcg DAILY [facility] Administration Meclizine HCl 12.5 mg 04/12/17 23:15 Antivert PO HS PRN Vertigo Metformin HCl 1,000 mg 04/13/17 07:30 04/13/17 06:27 Glucophage PO 1,000 mg AC-BID [facility] Administration Methylprednisolone Sodium Succinate 60 mg 04/13/17 00:00 04/13/17 11:52 Solu-Medrol IV 60 mg Q6HR [facility] Administration Metoprolol Tartrate 75 mg 04/13/17 09:00 04/13/17 08:12 Lopressor PO 75 mg TID [facility] Administration Miscellaneous Information 1 each 04/12/17 18:24 Rx Info: Iv Contrast Was Given MISCELLANE 04/14/17 18:24 DAILY PRN Per Protocol Nicotine 1 patch 04/13/17 11:30 04/13/17 11:50 Habitrol 14mg/24hr Patch TRANSDERM 1 patch DAILY [facility] Administration Nitroglycerin 0.4 mg 04/12/17 16:45 Nitrostat SUBLINGUAL Q5M PRN Chest Pain Nystatin 500,000 unit 04/13/17 13:00 04/13/17 11:47 Mycostatin Oral Susp PO 500,000 unit QID [facility] Administration Verapamil HCl 360 mg 04/13/17 21:00 Isoptin Sr PO HS [facility] Intake and Output 04/12/17 04/13/17 04/13/17 22:59 06:59 14:59 Intake Total 350 Output Total 100 200 300 Balance -100 -200 50 Intake: Intake, IV Titration 350 Amount Sodium Chloride 0.9% 1, 350 000 ml @ 50 mls/hr IV . Q20H [facility] Rx#:[id number] Output: Urine 100 200 300 Other: Voiding Method Bedpan Bedpan Bedpan # Voids 1 2 1 # Bowel Movements 1 Weight 68.039 kg 65.5 kg 04/13/17 11:57 04/13/17 03:22
--- NOTE | 2017-04-13 12:44 | ECHOF ---
Referral Reason:Thrombus MEASUREMENTS -------- HEIGHT: 160.0 cm WEIGHT: 65.3 kg BP: 144/64 RVIDd: 2.3 cm (< 3.3) IVSd: 1.2 cm (0.6 - 1.1) LVIDd: 3.9 cm (3.9 - 5.3) LVPWd: 1.2 cm (0.6 - 1.1) IVSs: 2.0 cm LVIDs: 2.6 cm LVPWs: 1.6 cm LAESV Index (A-L): 27.80 ml/m MV EXCURSION: 18.221 mm (> 18.000) MV EF SLOPE: 87 mm/s (70 - 150) EPSS: 1.1 cm MV E Tato: 1.54 m/s MV DecT: 272 ms MV A Tato: 1.20 m/s MV E/A Ratio: 1.27 AV maxP.78 mmHg AV meanP.84 mmHg RAP: 5.00 mmHg RVSP: 50.68 mmHg FINDINGS -------- Resting tachycardia (HR>100bpm). This was a technically adequate study. There is mild concentric left ventricular hypertrophy. Overall left ventricular systolic function is normal with, an EF between 55 - 60 %. The right ventricle is normal in size and function. LA is midly dilated 29-33ml/m2. The right atrium is normal in size. Contrast study was performed with 1 iv injection of 8 ccs of agitated normal saline at rest. There is mild aortic valve sclerosis. There is no evidence of aortic regurgitation. There is no evidence of aortic stenosis. Normally functioning mechanical prosthetic valve. The mitral valve leaflets are moderately thickened. Mild mitral annular calcification present. Mild mitral regurgitation is present. Mild tricuspid regurgitation present. There is mild to moderate pulmonary hypertension. The right ventricular systolic pressure, as measured by Doppler, is 50.68mmHg. The pulmonic valve was not well visualized. The aortic root size is normal. Normal inferior vena cava with less than 50% inspiratory collapse consistent with estimated right atrial pressure of 15 mmHg. The pericardium is normal. There is no pericardial effusion. CONCLUSIONS -------- 1. Resting tachycardia (HR>100bpm). 2. Mild mitral annular calcification present. 3. Mild mitral regurgitation is present. 4. Mild tricuspid regurgitation present. 5. There is mild to moderate pulmonary hypertension. 6. The right ventricular systolic pressure, as measured by Doppler, is 50.68mmHg. 7. The pulmonic valve was not well visualized. 8. The aortic root size is normal. 9. There is no pericardial effusion. 10. This was a technically adequate study. 11. There is mild concentric left ventricular hypertrophy. 12. Overall left ventricular systolic function is normal with, an EF between 55 - 60 %. 13. LA is midly dilated 29-33ml/m2. 14. Contrast study was performed with 1 iv injection of 8 ccs of agitated normal saline at rest and with cough. 15. There is mild aortic valve sclerosis. 16. Normally functioning mechanical prosthetic valve. 17. The mitral valve leaflets are moderately thickened. [employer]ORE MANAGER: Lauri Byrd RDCS
[2017-04-13 12:51] LABS: Partial Thromboplastin Time 155.5 sec (22.0-30.0)
[2017-04-13] MEDS ORDERED: INSULIN REGULAR BOLUS (FROM DRIP BAG) IV ONE (14:25)
[2017-04-13 15:35] LABS: Glucose,Whole Blood 358 mg/dL (75-99)
[2017-04-13] MEDS: INSULIN REGULAR 100 UNIT in SODIUM CHLORIDE 0.9% 100 ML IV SCH (15:41)
--- NOTE | 2017-04-13 15:50 | NM ---
EXAMINATION TYPE: NM pul vent and perfuse DATE OF EXAM: 04/13/2017 COMPARISON: NONE HISTORY: Chest pain concern for pulmonary embolus. TECHNIQUE: Utilizing inhalation of 71.5 mCi Tc 99m DTPA aerosol and intravenous injection of 5.48 mC i of Tc 99m MAA, ventilation and perfusion images are acquired post injection in multiple projections . FINDINGS: Radiotracer clumping is seen within the large airways, partially limiting evaluation. Patchy radiotra cer distribution on ventilation imaging is seen throughout both lungs and paucity of radiotracer in t he lung apices is thought to relate to air trapping. Multifocal small segment defects bilaterally are appreciated as well as moderate matched defects on t he left with no radiographic correlate. IMPRESSION: Intermediate probability for pulmonary embolism. Scattered nonsegmental defects, radiotracer clumping , and apical air trapping also favor underlying COPD.
[2017-04-13] MEDS: HEPARIN SODIUM,PORCINE/D5W PMX 25,000 UNIT in DEXTROSE/WATER 1 500ML.BAG IV SCH (16:16)
[2017-04-13 16:30] LABS: Glucose,Whole Blood 350 mg/dL (75-99)
[2017-04-13 17:26] LABS: Glucose,Whole Blood 292 mg/dL (75-99)
[2017-04-13 17:38] LABS: Glucose,Whole Blood 266 mg/dL (75-99)
[2017-04-13 18:25] LABS: Glucose,Whole Blood 237 mg/dL (75-99)
[2017-04-13 18:52] LABS: Glucose,Whole Blood 244 mg/dL (75-99)
[2017-04-13 20:09] LABS: Glucose,Whole Blood 141 mg/dL (75-99)
[2017-04-13] MEDS: ATORVASTATIN 10 MG TAB PO SCH (20:36)
[2017-04-13] MEDS: VERAPAMIL SR 180 MG TABLET.ER PO SCH (20:37)
[2017-04-13] MEDS: DONEPEZIL 5 MG TAB PO SCH (20:37)
[2017-04-13 22:27] LABS: Glucose,Whole Blood 118 mg/dL (75-99)
[2017-04-14 00:15] LABS: Glucose,Whole Blood 94 mg/dL (75-99)
[2017-04-14] MEDS: methylPREDNISolone SOD SUCCI 125 MG/2 ML VIAL IV SCH ×3 (00:52→12:15)
[2017-04-14] MEDS: NYSTATIN 100,000 UNIT/ML SUSP 500,000 UNIT/5 ML CUP PO SCH ×5 (00:52→21:39)
[2017-04-14 02:06] LABS: Glucose,Whole Blood 120 mg/dL (75-99)
[2017-04-14 04:38] LABS: Glucose,Whole Blood 239 mg/dL (75-99)
[2017-04-14] MEDS: IPRATROPIUM-ALBUTEROL 3 ML NEB INHALATION PRN (06:07)
[2017-04-14 06:08] LABS: Glucose,Whole Blood 241 mg/dL (75-99)
[2017-04-14 06:39] LABS: Basophils % (A) 0 %; CH 28.4; CHCM 31.8; Eosinophils % (A) 0 %; HCT 32.4 % (34.0-46.0); HDW 3.04; HGB 10.2 gm/dL (11.4-16.0); Hypochromasia Slight; Luc % (Auto) 1; Lymphocytes % (A) 4 %; MCH 28.2 pg (25.0-35.0); MCHC 31.5 g/dL (31.0-37.0); MCV 89.5 fL (80.0-100.0); Monocytes # (A) 0.9 k/uL (0-1.0); Monocytes % (A) 3 %; Neutrophils # (A) 25.2 k/uL (1.3-7.7); Neutrophils % (A) 92 %; RBC 3.62 m/uL (3.80-5.40); RDW 15.4 % (11.5-15.5); WBC (Perox) 29.25
[2017-04-14 06:48] LABS: WBC 27.3 k/uL (3.8-10.6)
[2017-04-14 07:05] LABS: INR 1.3 (<1.2); Partial Thromboplastin Time 51.2 sec (22.0-30.0); Prothrombin Time 13.2 sec (9.0-12.0)
[2017-04-14 07:06] LABS: ALT 27 U/L (9-52); AST 35 U/L (14-36); Alkaline Phosphatase 64 U/L (38-126); Anion Gap 10 mmol/L; Blood Urea Nitrogen 26 mg/dL (7-17); Calcium 9.1 mg/dL (8.4-10.2); Carbon Dioxide 27 mmol/L (22-30); Chloride 95 mmol/L (98-107); Glucose 220 mg/dL (74-99); Non-African American GFR(MDRD) >60 (>60 ml/min/1.73 sqM); Potassium 3.1 mmol/L (3.5-5.1); Sodium 132 mmol/L (137-145); Total Bilirubin 0.8 mg/dL (0.2-1.3); Total Protein 5.8 g/dL (6.3-8.2)
[2017-04-14 08:00] LABS: Glucose,Whole Blood 168 mg/dL (75-99)
[2017-04-14] MEDS: HEPARIN SODIUM,PORCINE/D5W PMX 25,000 UNIT in DEXTROSE/WATER 1 500ML.BAG IV SCH (08:05)
[2017-04-14] MEDS: INSULIN REGULAR 100 UNIT in SODIUM CHLORIDE 0.9% 100 ML IV SCH (08:06)
[2017-04-14] MEDS: SODIUM CHLORIDE 0.9% 1,000 ML IV SCH (08:09)
[2017-04-14] MEDS: INSULIN LISPRO (humaLOG) 300 UNIT/3 ML VIAL SQ SCH ×3 (08:20→17:31)
[2017-04-14] MEDS ORDERED: REGADENOSON 0.4 MG/5 ML SYRINGE IV ONE (09:29)
[2017-04-14] MEDS ORDERED: AMINOPHYLLINE 500 MG/20 ML VIAL IV PRN (09:29)
[2017-04-14 10:04] LABS: Glucose,Whole Blood 149 mg/dL (75-99)
[2017-04-14 10:15] LABS: % Iron Saturation 6.9 % (20-50)
[2017-04-14] MEDS: metFORMIN 500 MG TAB PO SCH ×2 (10:19→17:30)
[2017-04-14] MEDS: LIOTHYRONINE SODIUM 5 MCG TAB PO SCH (10:19)
[2017-04-14] MEDS: NICOTINE 14MG/24HR PATCH TRANSDERM SCH (10:19)
[2017-04-14] MEDS: LOSARTAN-HCTZ 50-12.5 MG 1 EACH TAB PO SCH (10:19)
[2017-04-14] MEDS: METOPROLOL TARTRATE 25 MG TAB PO SCH ×3 (10:19→21:39)
[2017-04-14] MEDS: DOCUSATE 100 MG CAP PO SCH ×2 (10:20→22:21)
[2017-04-14] MEDS: ASPIRIN 81 MG CHEW PO SCH (10:20)
[2017-04-14] MEDS: LEVOTHYROXINE 88 MCG TAB PO SCH (10:20)
[2017-04-14] MEDS: FAMOTIDINE 20 MG TAB PO SCH ×2 (10:21→21:38)
[2017-04-14] MEDS ORDERED: POTASSIUM CHLORIDE ER 20 MEQ TAB.ER PO STA (11:59)
[2017-04-14 12:00] LABS: Glucose,Whole Blood 315 mg/dL (75-99)
--- NOTE | 2017-04-14 12:06 | P.PN ---
Subjective This is a 81-year-old female, patient of [facility]. She has a known past medical history of paroxysmal atrial fibrillation, aortic valve replacement, hypertension, hypothyroidism, permanent pacemaker, nicotine dependence, coronary artery disease with stent, diabetes mellitus type 2, and CVA. Patient was having an outpatient computed tomography scan of the brain with IV contrast completed. Computed tomography scan was being performed because patient has been having numbness in her fingertips and some drooling from the right side of her mouth. Computed tomography scan was completed IV was taken outpatient setting up in the bench and then was a seated in her wheelchair. She started to see floaters in her eyes and seeing black dots. She told the nurse that she didn't feel well and that she might pass out. And then she started having difficulty breathing and passed out. Patient had passed out for a few seconds. However she continued to be have difficulty breathing and became hypoxic. A CODE BLUE was called. The patient was brought into the emergency admitted to the hospital. She was brought to the sixth floor. Cardiology and neurology consulted. EKG on arrival had shown atrial fibrillation with occasional PVCs. She did convert back to normal sinus rhythm. Patient did have elevation in her troponin 0.61-0.3-2. Denies any chest pain. White count was 11.3, d-dimer elevated at 0.94, sodium 129 and she was subtherapeutic on her INR of 1.4. Echo shows an EF of 55-60% and moderate mitral regurgitation with moderate to severe tricuspid regurgitation and mild pulmonary hypertension noted on echo from January 2017. Patient was also started on IV steroids in the emergency room. Carotid Doppler shows bilateral stenosis of 50%. Computed tomography scan of the brain shows age-related changes of atrophy and probable chronic small vessel ischemia. Patient denies any fevers chills or sweats. Denies any cough. Denies any chest pain. Denies any nausea or vomiting. Denies any bowel movement changes or urinary symptoms. Shortness of breath has improved. Case discussed with cardiology. Since patient's INR is subtherapeutic and there is concern about acute coronary syndrome patient will be started on IV heparin and they're planning on stress test tomorrow. D- dimer elevated VQ scan will be ordered patient just had IV dye to CT Scan of the brain yesterday. 04/14/2017 patient lying in bed comfortably. She occasionally has shortness of breath. Requiring oxygen. VQ scan shows intermediate probability for PE. Patient has stress test scheduled for Monday. Started on antibiotics today for UTI. Patient denies any chest pain. Denies any nausea or vomiting. Denies any bowel movement changes or urinary symptoms. Objective - Vital Signs Vital signs: Vital Signs Temp 97.3 F L 04/14/17 11:50 Pulse 89 04/14/17 11:50 Resp 18 04/14/17 11:50 BP 140/60 04/14/17 11:50 Pulse Ox 98 04/14/17 11:50 Intake & Output 04/13/17 04/14/17 04/14/17 18:59 06:59 18:59 Intake Total 711.617 523.464 695.453 Output Total 700 Balance 11.617 523.464 695.453 Weight 65.8 kg Intake: IV 567 Heparin Sodium,Porcine/ 160 D5w Pmx 25,000 unit In Dextrose/Water 1 500ml. bag @ 12 UNITS/KG/HR 15. 72 mls/hr IV .Q24H [facility] Rx #:[id number] Insulin Regular 100 unit 7 In Sodium Chloride 0.9% 100 ml @ Titrate IV .Q0M [facility] Rx#:[id number] Sodium Chloride 0.9% 1, 400 000 ml @ 50 mls/hr IV . Q20H [facility] Rx#:[id number] Intake, IV Titration 371.617 198.464 128.453 Amount Heparin Sodium,Porcine/ 154.056 118.228 D5w Pmx 25,000 unit In Dextrose/Water 1 500ml. bag @ 12 UNITS/KG/HR 15. 72 mls/hr IV .Q24H [facility] Rx #:[id number] Insulin Regular 100 unit 21.617 44.408 10.225 In Sodium Chloride 0.9% 100 ml @ Titrate IV .Q0M [facility] Rx#:[id number] Sodium Chloride 0.9% 1, 350 000 ml @ 50 mls/hr IV . Q20H [facility] Rx#:[id number] Oral 340 325 Output: Urine 700 Other: Voiding Method Bedpan Toilet Toilet # Voids 1 2 # Bowel Movements 1 - Exam Head normocephalic Neck supple Lungs wheezing bilaterally Heart regular rate and rhythm S1-S2, no rub or gallop Abdomen is soft nontender nondistended positive bowel sounds no hepatosplenomegaly Extremities no edema Neuro alert and orientated to 3 - Labs CBC & Chem 7: 04/14/17 06:18 04/14/17 06:18 Labs: Abnormal Lab Results - Last 24 Hours (Table) 04/13/17 04/13/17 04/13/17 Range/Units 03:22 11:57 11:57 WBC 26.3 H* (3.8-10.6) k/uL RBC (3.80-5.40) m/uL Hgb 11.1 L (11.4-16.0) gm/dL Hct (34.0-46.0) % MCHC 30.2 L (31.0-37.0) g/dL Neutrophils # 24.6 H (1.3-7.7) k/uL PT 15.2 H (9.0-12.0) sec INR 1.6 H (<1.2) APTT 155.5 H* (22.0-30.0) sec Sodium (137-145) mmol/L Potassium (3.5-5.1) mmol/L Chloride (98-107) mmol/L BUN (7-17) mg/dL Glucose (74-99) mg/dL POC Glucose (mg/dL) (75-99) mg/dL Hemoglobin A1c 9.1 H (4.2-6.1) % Iron (37-170) ug/dL % Saturation (20-50) % Total Protein (6.3-8.2) g/dL Albumin (3.5-5.0) g/dL TSH (0.465-4.680) mIU/L 04/13/17 04/13/17 04/13/17 Range/Units 11:57 14:21 15:32 WBC (3.8-10.6) k/uL RBC (3.80-5.40) m/uL Hgb (11.4-16.0) gm/dL Hct (34.0-46.0) % MCHC (31.0-37.0) g/dL Neutrophils # (1.3-7.7) k/uL PT (9.0-12.0) sec INR (<1.2) APTT 41.7 H (22.0-30.0) sec Sodium (137-145) mmol/L Potassium (3.5-5.1) mmol/L Chloride (98-107) mmol/L BUN (7-17) mg/dL Glucose (74-99) mg/dL POC Glucose (mg/dL) 358 H (75-99) mg/dL Hemoglobin A1c (4.2-6.1) % Iron (37-170) ug/dL % Saturation (20-50) % Total Protein (6.3-8.2) g/dL Albumin (3.5-5.0) g/dL TSH 0.250 L (0.465-4.680) mIU/L 04/13/17 04/13/17 04/13/17 Range/Units 16:20 17:10 17:36 WBC (3.8-10.6) k/uL RBC (3.80-5.40) m/uL Hgb (11.4-16.0) gm/dL Hct (34.0-46.0) % MCHC (31.0-37.0) g/dL Neutrophils # (1.3-7.7) k/uL PT (9.0-12.0) sec INR (<1.2) APTT (22.0-30.0) sec Sodium (137-145) mmol/L Potassium (3.5-5.1) mmol/L Chloride (98-107) mmol/L BUN (7-17) mg/dL Glucose (74-99) mg/dL POC Glucose (mg/dL) 350 H 292 H 266 H (75-99) mg/dL Hemoglobin A1c (4.2-6.1) % Iron (37-170) ug/dL % Saturation (20-50) % Total Protein (6.3-8.2) g/dL Albumin (3.5-5.0) g/dL TSH (0.465-4.680) mIU/L 04/13/17 04/13/17 04/13/17 Range/Units 18:10 18:34 20:00 WBC (3.8-10.6) k/uL RBC (3.80-5.40) m/uL Hgb (11.4-16.0) gm/dL Hct (34.0-46.0) % MCHC (31.0-37.0) g/dL Neutrophils # (1.3-7.7) k/uL PT (9.0-12.0) sec INR (<1.2) APTT (22.0-30.0) sec Sodium (137-145) mmol/L Potassium (3.5-5.1) mmol/L Chloride (98-107) mmol/L BUN (7-17) mg/dL Glucose (74-99) mg/dL POC Glucose (mg/dL) 237 H 244 H 141 H (75-99) mg/dL Hemoglobin A1c (4.2-6.1) % Iron (37-170) ug/dL % Saturation (20-50) % Total Protein (6.3-8.2) g/dL Albumin (3.5-5.0) g/dL TSH (0.465-4.680) mIU/L 04/13/17 04/13/17 04/14/17 Range/Units 22:15 22:39 02:04 WBC (3.8-10.6) k/uL RBC (3.80-5.40) m/uL Hgb (11.4-16.0) gm/dL Hct (34.0-46.0) % MCHC (31.0-37.0) g/dL Neutrophils # (1.3-7.7) k/uL PT (9.0-12.0) sec INR (<1.2) APTT 34.6 H (22.0-30.0) sec Sodium (137-145) mmol/L Potassium (3.5-5.1) mmol/L Chloride (98-107) mmol/L BUN (7-17) mg/dL Glucose (74-99) mg/dL POC Glucose (mg/dL) 118 H 120 H (75-99) mg/dL Hemoglobin A1c (4.2-6.1) % Iron (37-170) ug/dL % Saturation (20-50) % Total Protein (6.3-8.2) g/dL Albumin (3.5-5.0) g/dL TSH (0.465-4.680) mIU/L 04/14/17 04/14/17 04/14/17 Range/Units 04:00 06:07 06:18 WBC 27.3 H* (3.8-10.6) k/uL RBC 3.62 L (3.80-5.40) m/uL Hgb 10.2 L (11.4-16.0) gm/dL Hct 32.4 L (34.0-46.0) % MCHC (31.0-37.0) g/dL Neutrophils # 25.2 H (1.3-7.7) k/uL PT (9.0-12.0) sec INR (<1.2) APTT (22.0-30.0) sec Sodium (137-145) mmol/L Potassium (3.5-5.1) mmol/L Chloride (98-107) mmol/L BUN (7-17) mg/dL Glucose (74-99) mg/dL POC Glucose (mg/dL) 239 H 241 H (75-99) mg/dL Hemoglobin A1c (4.2-6.1) % Iron (37-170) ug/dL % Saturation (20-50) % Total Protein (6.3-8.2) g/dL Albumin (3.5-5.0) g/dL TSH (0.465-4.680) mIU/L 04/14/17 04/14/17 04/14/17 Range/Units 06:18 06:18 06:18 WBC (3.8-10.6) k/uL RBC (3.80-5.40) m/uL Hgb (11.4-16.0) gm/dL Hct (34.0-46.0) % MCHC (31.0-37.0) g/dL Neutrophils # (1.3-7.7) k/uL PT 13.2 H (9.0-12.0) sec INR 1.3 H (<1.2) APTT 51.2 H (22.0-30.0) sec Sodium 132 L (137-145) mmol/L Potassium 3.1 L (3.5-5.1) mmol/L Chloride 95 L (98-107) mmol/L BUN 26 H (7-17) mg/dL Glucose 220 H (74-99) mg/dL POC Glucose (mg/dL) (75-99) mg/dL Hemoglobin A1c (4.2-6.1) % Iron 27 L (37-170) ug/dL % Saturation 6.9 L (20-50) % Total Protein 5.8 L (6.3-8.2) g/dL Albumin 3.3 L (3.5-5.0) g/dL TSH (0.465-4.680) mIU/L 04/14/17 04/14/17 04/14/17 Range/Units 07:59 10:02 11:59 WBC (3.8-10.6) k/uL RBC (3.80-5.40) m/uL Hgb (11.4-16.0) gm/dL Hct (34.0-46.0) % MCHC (31.0-37.0) g/dL Neutrophils # (1.3-7.7) k/uL PT (9.0-12.0) sec INR (<1.2) APTT (22.0-30.0) sec Sodium (137-145) mmol/L Potassium (3.5-5.1) mmol/L Chloride (98-107) mmol/L BUN (7-17) mg/dL Glucose (74-99) mg/dL POC Glucose (mg/dL) 168 H 149 H 315 H (75-99) mg/dL Hemoglobin A1c (4.2-6.1) % Iron (37-170) ug/dL % Saturation (20-50) % Total Protein (6.3-8.2) g/dL Albumin (3.5-5.0) g/dL TSH (0.465-4.680) mIU/L Microbiology - Last 24 Hours (Table) 04/12/17 20:15 Urine Culture - Preliminary Urine,Voided Gram Neg Bacilli Assessment and Plan Plan: 1. Syncopal episode: Rule out cardiac causes. Cardiology and neurology consulted. Continue telemetry monitoring. Pacemaker was interrogated. Showed evidence of atrial fibrillation.. Carotid Doppler shows bilateral stenosis of 50%. Echo shows an EF of 55-60% and moderate pulmonary hypertension 2. Elevated troponins with concern of a possible acute coronary syndrome. Patient started on IV heparin and cardiology has ordered a stress test 3. VQ scan showing intermediate probability of PE: Continue IV heparin. Await pulmonary service evaluation . Elevated d-dimer with shortness of breath and subtherapeutic INR. Order VQ scan. Patient recently received IV dye with her computed tomography scan of the brain. 4. Accelerated hypertension on admission. Now resolved. 5. Nicotine dependence: Discussed smoking cessation. Order nicotine patch. 6. History of mechanical aortic valve replacement with subtherapeutic INR area did will give Coumadin 5 mg tonight. Check PT/INR in a.m. 7. History of paroxysmal atrial fibrillation 8. History of CVA with concerns of a possible stroke outpatient due to the numbness at the tip of her fingers on the right hand and drooling from the right side of her mouth. 9. Hyponatremia: Sodium 129. Hold Lasix. start Normal saline at 50 mL an hour. Repeat labs in a.m. 10. Acute COPD exacerbation with hypoxia: Patient started on IV steroids in the emergency room. And given nebulizer treatments. Patient still having some wheezing. Awaiting cardiology evaluation 11. Diabetes mellitus type 2 with elevated blood sugars secondary to steroids. Blood sugars are remaining in the 300s. Add insulin drip. Blood sugars have shown improvement after adding insulin drip 12. Constipation add Colace and lactulose 13. Oral thrush start nystatin swish and swallow 14 UTI start patient on Rocephin urine culture growing gram-negative bacilli DVT prophylaxis IV heparin I performed an examination of the patient and discussed their management with the physician Cellar Pumper. I have reviewed the Physician Cellar Pumper's notes and agree with the documented findings and plan of care
[2017-04-14 12:08] VITALS: BMI 25.7
--- NOTE | 2017-04-14 12:36 | P.CNPUL ---
History of Present Illness Consult date: 04/14/17 Requesting physician: Mary Weston Reason for consult: dyspnea (Abnormal VQ scan) Chief complaint: Shortness of breath History of present illness: This is a very pleasant 81-year-old female patient who follows at Dr. Saxena' s office for her primary care needs. She has a history of diabetes mellitus, CVA/TIA, coronary artery disease with previous stent placement, atrial fibrillation, mechanical aortic valve replacement chronically on warfarin, lower extremity edema. She also has a history of chronic obstructive pulmonary disease and has chronic and ongoing tobacco dependence. She was recently started on nebulized treatments for increasing shortness of breath. Recently she had complaints of tingling and numbness of the right hand and right face and she was sent here for an outpatient computed tomography scan of the brain on 04/12/2017 and as she was being removed from the CAT scan machine she became unresponsive stopped breathing and was cyanotic. According to staff she never lost her pulse and she was seen in the emergency room subsequent to that. EKG revealed nonspecific ST and T-wave abnormalities. Chest x-ray revealed no acute process. Computed tomography scan of the brain revealed no acute intracranial process. Carotid Dopplers revealed bilateral 50% stenosis. Echocardiogram revealed preserved left ventricular systolic function with estimated ejection fraction 55-60%. There was noted mild to moderate pulmonary hypertension with an RVSP of 50.68 mmHg. Mechanical aortic valve functioning normally. She was found to be subtherapeutic with an INR of 1.5. There was a d -dimer of 0.94 and a VQ scan revealed in intermediate probability for pulmonary embolism in the nonsegmental branches. There is also apical air trapping consistent with chronic obstructive pulmonary disease. We're consulted for the same. She is seen today in consultation on the selective care unit. She is awake and alert in no acute distress. She denies any worsening shortness of breath, cough or congestion. She denies any recent travels, no recent surgery, no cancer, no previous history of PE/DVT. She has had ongoing issues with lower extremity edema being treated with diuretics in the outpatient setting. She does have some dyspnea on exertion but able to carry on conversation. She is up ambulating in the hallway without distress. She is maintaining good O2 saturations in the high 90s on 2 L/m per nasal cannula. She is afebrile. Hemodynamically stable. She remains on heparin drip for now. Current INR 1.3. Cardiology is on the case and was planning a stress test based on borderline troponin elevation. She denies any chest pain, palpitations, lightheadedness or dizziness. She is also noted to have gram-negative bacilli in her urine. She is on Rocephin. Due to the initial shortness of breath and wheezing the patient was initiated on IV Solu-Medrol. She has had significant leukocytosis and hyperglycemia and is currently on a insulin drip at 7.5 units per hour. Review of Systems 14 point review of system was conducted. All negative other than as mentioned in HPI. Past Medical History Past Medical History: Atrial Fibrillation, Asthma, CVA/TIA, Dementia, Diabetes Mellitus, Eye Disorder, GERD/Reflux, Hyperlipidemia, Hypertension, Pneumonia, Thyroid Disorder, Vascular Disorder (Aortic mechanical valve replacement) Additional Past Medical History / Comment(s): Cataract removal History of Any Multi-Drug Resistant Organisms: None Reported Past Surgical History: Appendectomy, Cardiac Valve Replacement, Pacemaker, Tonsillectomy Additional Past Surgical History / Comment(s): Aortic valve replacement Past Anesthesia/Blood Transfusion Reactions: No Reported Reaction Type of Cardiac Device: Unknown Device Placement Date:: unsure Past Psychological History: No Psychological Hx Reported Smoking Status: Current every day smoker Past Alcohol Use History: None Reported Past Drug Use History: None Reported - Past Family History Father Family Medical History: Myocardial Infarction ([place]) Sister(s) Family Medical History: Cancer Medications and Allergies Home Medications Medication Instructions Recorded Confirmed Type ALPRAZolam [Xanax] 0.25 mg PO TID PRN 04/12/17 04/12/17 History Aspirin 81 mg PO DAILY 04/12/17 04/12/17 History Donepezil [Aricept] 5 mg PO HS 04/12/17 04/12/17 History Furosemide [Lasix] 20 mg PO DAILY 04/12/17 04/12/17 History Glimepiride [Amaryl] 2 mg PO [id number] 04/12/17 04/12/17 History Levothyroxine Sodium [Synthroid] 88 mcg PO DAILY 04/12/17 04/12/17 History Liothyronine Sodium [Cytomel] 5 mcg PO DAILY 04/12/17 04/12/17 History Losartan/Hydrochlorothiazide 1 tab PO DAILY 04/12/17 04/12/17 History [Hyzaar 100-25 Tablet] Meclizine [Antivert] 12.5 mg PO HS PRN 04/12/17 04/12/17 History Metoprolol Tartrate [Lopressor] 75 mg PO TID 04/12/17 04/12/17 History Ranitidine HCl [Zantac] 150 mg PO BID 04/12/17 04/12/17 History Simvastatin [Zocor] 20 mg PO HS 04/12/17 04/12/17 History Verapamil HCl [Verelan Pm] 300 mg PO HS 04/12/17 04/12/17 History Warfarin [Coumadin] 2.5 mg PO HS 04/12/17 04/12/17 History metFORMIN HCL [Glucophage] 1,000 mg PO BID 04/12/17 04/12/17 History Allergies Allergy/AdvReac Type Severity Reaction Status Date / Time codeine AdvReac Unknown Verified 04/12/17 16:20 Physical Exam Vitals: Vital Signs Temp Pulse Pulse Resp BP BP Pulse Ox 04/14/17 11:50 97.3 F L 89 18 140/60 98 04/14/17 11:49 84 18 04/14/17 08:00 97.0 F L 84 18 122/56 98 04/14/17 06:18 63 04/14/17 06:07 68 04/14/17 04:00 97.4 F L 85 18 135/63 90 L 04/14/17 00:00 84 16 120/61 96 04/13/17 20:17 112 H 04/13/17 20:06 111 H 04/13/17 20:00 98.2 F 98 16 122/65 95 04/13/17 16:00 98.6 F 104 H 16 138/78 95 Intake and Output 04/13/17 04/14/17 04/14/17 22:59 06:59 14:59 Intake Total 586.617 198.464 697.303 Output Total 400 Balance 186.617 198.464 697.303 Intake: IV 567 Heparin Sodium,Porcine/ 160 D5w Pmx 25,000 unit In Dextrose/Water 1 500ml. bag @ 12 UNITS/KG/HR 15. 72 mls/hr IV .Q24H [facility] Rx #:[id number] Insulin Regular 100 unit 7 In Sodium Chloride 0.9% 100 ml @ Titrate IV .Q0M [facility] Rx#:[id number] Sodium Chloride 0.9% 1, 400 000 ml @ 50 mls/hr IV . Q20H [facility] Rx#:[id number] Intake, IV Titration 21.617 198.464 130.303 Amount Heparin Sodium,Porcine/ 154.056 118.228 D5w Pmx 25,000 unit In Dextrose/Water 1 500ml. bag @ 12 UNITS/KG/HR 15. 72 mls/hr IV .Q24H [facility] Rx #:[id number] Insulin Regular 100 unit 21.617 44.408 12.075 In Sodium Chloride 0.9% 100 ml @ Titrate IV .Q0M [facility] Rx#:[id number] Oral 565 Output: Urine 400 Other: Voiding Method Bedpan Toilet Toilet # Voids 1 2 # Bowel Movements 1 Weight 65.8 kg 65.8 kg Patient Weight 04/15/17 06:59 Weight 65.8 kg GENERAL EXAM: Alert, active, comfortable in no apparent distress. HEAD: Normocephalic. EYES: Normal reaction of pupils, equal size. NOSE: Clear with pink turbinates. THROAT: No erythema or exudates. NECK: No masses, no JVD. CHEST: No chest wall deformity. LUNGS: Equal air entry with no crackles, wheeze, rhonchi or dullness. Diminished. CVS: S1 and S2 normal with no audible murmurs, regular rhythm. Click. ABDOMEN: No hepatosplenomegaly, normal bowel sounds, no guarding or rigidity. SPINE: No scoliosis or deformity SKIN: No rashes CENTRAL NERVOUS SYSTEM: No focal deficits, tone is normal in all 4 extremities. Extremities: There is no significant peripheral edema. No clubbing, no cyanosis. Peripheral pulses are intact. Results - Laboratory Findings CBC and BMP: 04/14/17 06:18 04/14/17 06:18 PT/INR, D-dimer PT 13.2 sec (9.0-12.0) H 04/14/17 06:18 INR 1.3 (<1.2) H 04/14/17 06:18 D-Dimer 0.94 mg/L FEU (<0.60) H 04/12/17 15:51 Abnormal lab findings: Abnormal Labs 04/12/17 04/12/17 04/12/17 14:40 15:40 15:51 WBC RBC Hgb Hct MCHC Plt Count Neutrophils # Lymphocytes # PT INR APTT D-Dimer Sodium Potassium Chloride BUN 18 H Glucose POC Glucose (mg/dL) 241 H Hemoglobin A1c Magnesium Iron % Saturation Total Creatine Kinase 24 L Troponin I Total Protein Albumin TSH Ur Specific Keo Urine Glucose (UA) Ur Leukocyte Esterase Urine Bacteria Urine Mucus 04/12/17 04/12/17 04/12/17 15:51 15:51 15:51 WBC 11.3 H RBC Hgb Hct MCHC Plt Count 456 H Neutrophils # Lymphocytes # 5.8 H PT 14.7 H INR 1.5 H APTT D-Dimer Sodium 130 L Potassium 3.0 L* Chloride 90 L BUN Glucose 251 H POC Glucose (mg/dL) Hemoglobin A1c Magnesium 1.3 L Iron % Saturation Total Creatine Kinase Troponin I Total Protein 6.0 L Albumin TSH Ur Specific Keo Urine Glucose (UA) Ur Leukocyte Esterase Urine Bacteria Urine Mucus 04/12/17 04/12/17 04/12/17 15:51 20:15 21:00 WBC RBC Hgb Hct MCHC Plt Count Neutrophils # Lymphocytes # PT INR APTT D-Dimer 0.94 H Sodium Potassium Chloride BUN Glucose POC Glucose (mg/dL) 332 H Hemoglobin A1c Magnesium Iron % Saturation Total Creatine Kinase Troponin I Total Protein Albumin TSH Ur Specific Keo 1.050 H Urine Glucose (UA) 1+ H Ur Leukocyte Esterase Trace H Urine Bacteria Occasional H Urine Mucus Rare H 04/12/17 04/13/17 04/13/17 21:05 03:22 03:22 WBC RBC Hgb Hct MCHC Plt Count Neutrophils # Lymphocytes # PT INR APTT D-Dimer Sodium 129 L Potassium Chloride 93 L BUN 23 H Glucose 384 H POC Glucose (mg/dL) Hemoglobin A1c Magnesium Iron % Saturation Total Creatine Kinase 29 L Troponin I 0.161 H* 0.322 H* Total Protein 5.8 L Albumin 3.3 L TSH Ur Specific Keo Urine Glucose (UA) Ur Leukocyte Esterase Urine Bacteria Urine Mucus 04/13/17 04/13/17 04/13/17 03:22 03:22 03:22 WBC RBC Hgb 11.1 L Hct MCHC Plt Count Neutrophils # 9.4 H Lymphocytes # 0.5 L PT 13.6 H INR 1.4 H APTT D-Dimer Sodium Potassium Chloride BUN Glucose POC Glucose (mg/dL) Hemoglobin A1c 9.1 H Magnesium Iron % Saturation Total Creatine Kinase Troponin I Total Protein Albumin TSH Ur Specific Keo Urine Glucose (UA) Ur Leukocyte Esterase Urine Bacteria Urine Mucus 04/13/17 04/13/17 04/13/17 06:00 11:52 11:57 WBC 26.3 H* RBC Hgb 11.1 L Hct MCHC 30.2 L Plt Count Neutrophils # 24.6 H Lymphocytes # PT INR APTT D-Dimer Sodium Potassium Chloride BUN Glucose POC Glucose (mg/dL) 389 H 386 H Hemoglobin A1c Magnesium Iron % Saturation Total Creatine Kinase Troponin I Total Protein Albumin TSH Ur Specific Keo Urine Glucose (UA) Ur Leukocyte Esterase Urine Bacteria Urine Mucus 04/13/17 04/13/17 04/13/17 11:57 11:57 14:21 WBC RBC Hgb Hct MCHC Plt Count Neutrophils # Lymphocytes # PT 15.2 H INR 1.6 H APTT 155.5 H* 41.7 H D-Dimer Sodium Potassium Chloride BUN Glucose POC Glucose (mg/dL) Hemoglobin A1c Magnesium Iron % Saturation Total Creatine Kinase Troponin I Total Protein Albumin TSH 0.250 L Ur Specific Keo Urine Glucose (UA) Ur Leukocyte Esterase Urine Bacteria Urine Mucus 04/13/17 04/13/17 04/13/17 15:32 16:20 17:10 WBC RBC Hgb Hct MCHC Plt Count Neutrophils # Lymphocytes # PT INR APTT D-Dimer Sodium Potassium Chloride BUN Glucose POC Glucose (mg/dL) 358 H 350 H 292 H Hemoglobin A1c Magnesium Iron % Saturation Total Creatine Kinase Troponin I Total Protein Albumin TSH Ur Specific Keo Urine Glucose (UA) Ur Leukocyte Esterase Urine Bacteria Urine Mucus 04/13/17 04/13/17 04/13/17 17:36 18:10 18:34 WBC RBC Hgb Hct MCHC Plt Count Neutrophils # Lymphocytes # PT INR APTT D-Dimer Sodium Potassium Chloride BUN Glucose POC Glucose (mg/dL) 266 H 237 H 244 H Hemoglobin A1c Magnesium Iron % Saturation Total Creatine Kinase Troponin I Total Protein Albumin TSH Ur Specific Keo Urine Glucose (UA) Ur Leukocyte Esterase Urine Bacteria Urine Mucus 04/13/17 04/13/17 04/13/17 20:00 22:15 22:39 WBC RBC Hgb Hct MCHC Plt Count Neutrophils # Lymphocytes # PT INR APTT 34.6 H D-Dimer Sodium Potassium Chloride BUN Glucose POC Glucose (mg/dL) 141 H 118 H Hemoglobin A1c Magnesium Iron % Saturation Total Creatine Kinase Troponin I Total Protein Albumin TSH Ur Specific Keo Urine Glucose (UA) Ur Leukocyte Esterase Urine Bacteria Urine Mucus 04/14/17 04/14/17 04/14/17 02:04 04:00 06:07 WBC RBC Hgb Hct MCHC Plt Count Neutrophils # Lymphocytes # PT INR APTT D-Dimer Sodium Potassium Chloride BUN Glucose POC Glucose (mg/dL) 120 H 239 H 241 H Hemoglobin A1c Magnesium Iron % Saturation Total Creatine Kinase Troponin I Total Protein Albumin TSH Ur Specific Keo Urine Glucose (UA) Ur Leukocyte Esterase Urine Bacteria Urine Mucus 04/14/17 04/14/17 04/14/17 06:18 06:18 06:18 WBC 27.3 H* RBC 3.62 L Hgb 10.2 L Hct 32.4 L MCHC Plt Count Neutrophils # 25.2 H Lymphocytes # PT 13.2 H INR 1.3 H APTT 51.2 H D-Dimer Sodium 132 L Potassium 3.1 L Chloride 95 L BUN 26 H Glucose 220 H POC Glucose (mg/dL) Hemoglobin A1c Magnesium Iron % Saturation Total Creatine Kinase Troponin I Total Protein 5.8 L Albumin 3.3 L TSH Ur Specific Keo Urine Glucose (UA) Ur Leukocyte Esterase Urine Bacteria Urine Mucus 04/14/17 04/14/17 04/14/17 06:18 07:59 10:02 WBC RBC Hgb Hct MCHC Plt Count Neutrophils # Lymphocytes # PT INR APTT D-Dimer Sodium Potassium Chloride BUN Glucose POC Glucose (mg/dL) 168 H 149 H Hemoglobin A1c Magnesium Iron 27 L % Saturation 6.9 L Total Creatine Kinase Troponin I Total Protein Albumin TSH Ur Specific Keo Urine Glucose (UA) Ur Leukocyte Esterase Urine Bacteria Urine Mucus 04/14/17 11:59 WBC RBC Hgb Hct MCHC Plt Count Neutrophils # Lymphocytes # PT INR APTT D-Dimer Sodium Potassium Chloride BUN Glucose POC Glucose (mg/dL) 315 H Hemoglobin A1c Magnesium Iron % Saturation Total Creatine Kinase Troponin I Total Protein Albumin TSH Ur Specific Keo Urine Glucose (UA) Ur Leukocyte Esterase Urine Bacteria Urine Mucus - Diagnostic Findings Chest x-ray: image reviewed Assessment and Plan Plan: Impression: #1 Acute hypoxic respiratory failure with syncopal and unresponsive episode following a computed tomography scan of the brain. Suspect IV contrast reaction. #2 Tingling and numbness of the right hand, suspect CVA/TIA. Computed tomography scan of the brain showed no acute intracranial process. #3 Troponin leak. #4 Mildly elevated d-dimer with VQ scan revealing an intermediate probability for pulmonary embolism. #5 Chronic atrial fibrillation, status post pacemaker insertion, anticoagulated with warfarin, subtherapeutic. #6 History of mechanical aortic valve replacement, anticoagulated with warfarin , subtherapeutic. #7 Chronic and ongoing tobacco dependence with suspected chronic obstructive pulmonary disease. #8 Diabetes mellitus with steroid-induced hyperglycemia requiring insulin drip. #9 Coronary artery disease with previous stent placement. Plan: The patient was seen and evaluated by Dr. George. Her chest x-ray VQ scan and labs were all reviewed. She remains on a heparin drip for now. Cardiology is planning a stress test to rule out recurrent coronary artery disease based on her syncopal episode. Her INR was subtherapeutic and she remains on warfarin as well. Cannot totally exclude pulmonary embolism. A venous Doppler of the lower extremities could be performed however the patient is committed to lifelong anticoagulation based on her atrial fibrillation and mechanical valve anyways. We will decrease her IV Solu-Medrol as she is not wheezing currently. She has had issues with significant leukocytosis and hyperglycemia. She remains on ceftriaxone for her gram-negative bacilli urinary tract infection. Will increase her activity as tolerated. She would benefit from a workup in our office including full pulmonary function testing to evaluate the severity of her COPD and make recommendations for maintenance medications. She'll continue on bronchodilators for now. She is educated regarding the importance of complete smoking cessation. A NicoDerm patch will be applied. We will continue to follow make further recommendations based on her clinical status. Time with Patient: Greater than 30
[2017-04-14] MEDS: IPRATROPIUM-ALBUTEROL 3 ML NEB INHALATION SCH ×4 (13:20→23:40)
[2017-04-14 14:22] LABS: Glucose,Whole Blood 166 mg/dL (75-99)
--- NOTE | 2017-04-14 15:09 | P.PN ---
Subjective Principal diagnosis: This is a pleasant 81-year-old female with history of aortic valve replacement 20 years ago, hypertension, hypothyroidism, permanent pacemaker, nicotine dependence, who follows with Dr. Melton for her cardiac needs. Patient had an outpatient CAT scan performed, she states that following the CAT scan, they had taken her IV out and she was sitting in a chair when all of a sudden she began seeing floaters before her eyes, and she states she was seeing black dots, she told the nurse she didn't feel well, became extremely dizzy and then couldn't breathe, and passed out. She denies having any chest discomfort. For this reason patient was admitted to the hospital for further evaluation. EKG on arrival here showed atrial fibrillation with nonspecific ST-T wave changes and occasional PVCs. Repeat EKG this morning showed a normal sinus rhythm with nonspecific ST-T wave changes. Blood pressure on arrival here to 35 /120, heart rate of 107. White blood cell count on arrival 11.3, platelet count 456, d-dimer 0.9, INR 1.4, potassium on arrival 3.0, 4.0 this morning. Sodium 129. Glucose on arrival 332, 389 this morning. Magnesium on arrival 1.3 , 2.0 this morning. Troponins 0.012, 0.161, 0.322. CAT scan of the brain revealed age-related changes of atrophy and small vessel ischemia. Chest x- ray no acute process. Carotid Doppler study revealed bilateral stenosis of 50% . A VQ scan showed intermediate probability for PE and patient is being treated appropriately with heparin she is on Coumadin at home however her INR is subtherapeutic. Patient did have an echocardiogram with Doppler study performed in January which revealed an ejection fraction of 55-60%, moderate MR, severe TR, normally functioning mechanical prosthetic valve. Objective - Vital Signs Vital signs: Vital Signs Temp 97.3 F L 04/14/17 11:50 Pulse 98 04/14/17 13:22 Resp 18 04/14/17 11:50 BP 140/60 04/14/17 11:50 Pulse Ox 98 04/14/17 11:50 Intake & Output 04/13/17 04/14/17 04/14/17 18:59 06:59 18:59 Intake Total 711.617 523.464 892.303 Output Total 700 Balance 11.617 523.464 892.303 Weight 65.8 kg 65.8 kg Intake: IV 567 Heparin Sodium,Porcine/ 160 D5w Pmx 25,000 unit In Dextrose/Water 1 500ml. bag @ 12 UNITS/KG/HR 15. 72 mls/hr IV .Q24H [facility] Rx #:[id number] Insulin Regular 100 unit 7 In Sodium Chloride 0.9% 100 ml @ Titrate IV .Q0M [facility] Rx#:[id number] Sodium Chloride 0.9% 1, 400 000 ml @ 50 mls/hr IV . Q20H [facility] Rx#:[id number] Intake, IV Titration 371.617 198.464 145.303 Amount Heparin Sodium,Porcine/ 154.056 118.228 D5w Pmx 25,000 unit In Dextrose/Water 1 500ml. bag @ 12 UNITS/KG/HR 15. 72 mls/hr IV .Q24H [facility] Rx #:[id number] Insulin Regular 100 unit 21.617 44.408 27.075 In Sodium Chloride 0.9% 100 ml @ Titrate IV .Q0M [facility] Rx#:[id number] Sodium Chloride 0.9% 1, 350 000 ml @ 50 mls/hr IV . Q20H [facility] Rx#:[id number] Oral 340 325 180 Output: Urine 700 Other: Voiding Method Bedpan Toilet Toilet # Voids 1 2 # Bowel Movements 1 - Exam PHYSICAL EXAMINATION: HEENT: Head is atraumatic, normocephalic. Pupils equal, round. Neck is supple. There is no elevated jugular venous pressure. HEART EXAMINATION: Heart sounds regular, S1 and S2 normal with a systolic murmur. CHEST EXAMINATION: Lungs expiratory wheezing throughout. No chest wall tenderness is noted on palpation or with deep breathing. ABDOMEN: Soft, nontender. Bowel sounds are heard. No organomegaly noted. EXTREMITIES: 2+ peripheral pulses with no evidence of peripheral edema and no calf tenderness noted. NEUROLOGIC patient is awake, alert and oriented x3. . - Labs CBC & Chem 7: 04/14/17 06:18 04/14/17 06:18 Labs: Abnormal Lab Results - Last 24 Hours (Table) 04/13/17 04/13/17 04/13/17 Range/Units 15:32 16:20 17:10 WBC (3.8-10.6) k/uL RBC (3.80-5.40) m/uL Hgb (11.4-16.0) gm/dL Hct (34.0-46.0) % Neutrophils # (1.3-7.7) k/uL PT (9.0-12.0) sec INR (<1.2) APTT (22.0-30.0) sec Sodium (137-145) mmol/L Potassium (3.5-5.1) mmol/L Chloride (98-107) mmol/L BUN (7-17) mg/dL Glucose (74-99) mg/dL POC Glucose (mg/dL) 358 H 350 H 292 H (75-99) mg/dL Iron (37-170) ug/dL % Saturation (20-50) % Total Protein (6.3-8.2) g/dL Albumin (3.5-5.0) g/dL 04/13/17 04/13/17 04/13/17 Range/Units 17:36 18:10 18:34 WBC (3.8-10.6) k/uL RBC (3.80-5.40) m/uL Hgb (11.4-16.0) gm/dL Hct (34.0-46.0) % Neutrophils # (1.3-7.7) k/uL PT (9.0-12.0) sec INR (<1.2) APTT (22.0-30.0) sec Sodium (137-145) mmol/L Potassium (3.5-5.1) mmol/L Chloride (98-107) mmol/L BUN (7-17) mg/dL Glucose (74-99) mg/dL POC Glucose (mg/dL) 266 H 237 H 244 H (75-99) mg/dL Iron (37-170) ug/dL % Saturation (20-50) % Total Protein (6.3-8.2) g/dL Albumin (3.5-5.0) g/dL 04/13/17 04/13/17 04/13/17 Range/Units 20:00 22:15 22:39 WBC (3.8-10.6) k/uL RBC (3.80-5.40) m/uL Hgb (11.4-16.0) gm/dL Hct (34.0-46.0) % Neutrophils # (1.3-7.7) k/uL PT (9.0-12.0) sec INR (<1.2) APTT 34.6 H (22.0-30.0) sec Sodium (137-145) mmol/L Potassium (3.5-5.1) mmol/L Chloride (98-107) mmol/L BUN (7-17) mg/dL Glucose (74-99) mg/dL POC Glucose (mg/dL) 141 H 118 H (75-99) mg/dL Iron (37-170) ug/dL % Saturation (20-50) % Total Protein (6.3-8.2) g/dL Albumin (3.5-5.0) g/dL 04/14/17 04/14/17 04/14/17 Range/Units 02:04 04:00 06:07 WBC (3.8-10.6) k/uL RBC (3.80-5.40) m/uL Hgb (11.4-16.0) gm/dL Hct (34.0-46.0) % Neutrophils # (1.3-7.7) k/uL PT (9.0-12.0) sec INR (<1.2) APTT (22.0-30.0) sec Sodium (137-145) mmol/L Potassium (3.5-5.1) mmol/L Chloride (98-107) mmol/L BUN (7-17) mg/dL Glucose (74-99) mg/dL POC Glucose (mg/dL) 120 H 239 H 241 H (75-99) mg/dL Iron (37-170) ug/dL % Saturation (20-50) % Total Protein (6.3-8.2) g/dL Albumin (3.5-5.0) g/dL 04/14/17 04/14/17 04/14/17 Range/Units 06:18 06:18 06:18 WBC 27.3 H* (3.8-10.6) k/uL RBC 3.62 L (3.80-5.40) m/uL Hgb 10.2 L (11.4-16.0) gm/dL Hct 32.4 L (34.0-46.0) % Neutrophils # 25.2 H (1.3-7.7) k/uL PT 13.2 H (9.0-12.0) sec INR 1.3 H (<1.2) APTT 51.2 H (22.0-30.0) sec Sodium 132 L (137-145) mmol/L Potassium 3.1 L (3.5-5.1) mmol/L Chloride 95 L (98-107) mmol/L BUN 26 H (7-17) mg/dL Glucose 220 H (74-99) mg/dL POC Glucose (mg/dL) (75-99) mg/dL Iron (37-170) ug/dL % Saturation (20-50) % Total Protein 5.8 L (6.3-8.2) g/dL Albumin 3.3 L (3.5-5.0) g/dL 04/14/17 04/14/17 04/14/17 Range/Units 06:18 07:59 10:02 WBC (3.8-10.6) k/uL RBC (3.80-5.40) m/uL Hgb (11.4-16.0) gm/dL Hct (34.0-46.0) % Neutrophils # (1.3-7.7) k/uL PT (9.0-12.0) sec INR (<1.2) APTT (22.0-30.0) sec Sodium (137-145) mmol/L Potassium (3.5-5.1) mmol/L Chloride (98-107) mmol/L BUN (7-17) mg/dL Glucose (74-99) mg/dL POC Glucose (mg/dL) 168 H 149 H (75-99) mg/dL Iron 27 L (37-170) ug/dL % Saturation 6.9 L (20-50) % Total Protein (6.3-8.2) g/dL Albumin (3.5-5.0) g/dL 04/14/17 04/14/17 Range/Units 11:59 14:20 WBC (3.8-10.6) k/uL RBC (3.80-5.40) m/uL Hgb (11.4-16.0) gm/dL Hct (34.0-46.0) % Neutrophils # (1.3-7.7) k/uL PT (9.0-12.0) sec INR (<1.2) APTT (22.0-30.0) sec Sodium (137-145) mmol/L Potassium (3.5-5.1) mmol/L Chloride (98-107) mmol/L BUN (7-17) mg/dL Glucose (74-99) mg/dL POC Glucose (mg/dL) 315 H 166 H (75-99) mg/dL Iron (37-170) ug/dL % Saturation (20-50) % Total Protein (6.3-8.2) g/dL Albumin (3.5-5.0) g/dL Microbiology - Last 24 Hours (Table) 04/12/17 20:15 Urine Culture - Preliminary Urine,Voided Gram Neg Bacilli Assessment and Plan Plan: Assessment and plan #1 syncope, VQ scan showed intermediate probability for PE, patient is being treated appropriately #2 history of aortic valve replacement 20 years ago 3 paroxysmal atrial fibrillation, on Coumadin, INR subtherapeutic #4 hypertension #5 diabetes #6 hyperlipidemia #7 nicotine dependence #8 hypothyroidism #9 asthma #10 hypokalemia, replaced #11 hypomagnesemia, replaced #12 pacemaker From cardiology's perspective, continue treatment for PE. From our standpoint, patient may be discharged home once INR is therapeutic. She has a follow-up appointment scheduled with her lacing cutter within the next one to 2 weeks. She will keep that appointment and pursue further cardiac workup as directed by Dr. Melton. We will see the patient on an as-needed basis for the remainder of this admission. Please do not hesitate to contact us with questions. MACHINE SANDER note has been reviewed, I agree with a documented findings and plan of care. Patient was seen and examined.
[2017-04-14 16:10] LABS: Glucose,Whole Blood 126 mg/dL (75-99)
[2017-04-14 17:16] LABS: Glucose,Whole Blood 185 mg/dL (75-99)
[2017-04-14] MEDS ORDERED: WARFARIN 5 MG TAB PO ONE (18:00)
[2017-04-14 18:01] LABS: Glucose,Whole Blood 206 mg/dL (75-99)
[2017-04-14 20:05] LABS: Glucose,Whole Blood 111 mg/dL (75-99)
[2017-04-14] MEDS: ATORVASTATIN 10 MG TAB PO SCH (21:38)
[2017-04-14] MEDS: VERAPAMIL SR 180 MG TABLET.ER PO SCH (21:38)
[2017-04-14] MEDS: DONEPEZIL 5 MG TAB PO SCH (21:39)
[2017-04-14] MEDS: methylPREDNISolone SOD SUCCI 40 MG/ML 1 ML VIAL IV SCH (21:43)
[2017-04-14 22:04] LABS: Glucose,Whole Blood 158 mg/dL (75-99)
[2017-04-14] MEDS: ALPRAZolam 0.25 MG TAB PO PRN (22:21)
[2017-04-15 00:08] LABS: Glucose,Whole Blood 238 mg/dL (75-99)
[2017-04-15 02:13] LABS: Glucose,Whole Blood 255 mg/dL (75-99)
[2017-04-15] MEDS: IPRATROPIUM-ALBUTEROL 3 ML NEB INHALATION SCH ×6 (03:11→23:26)
[2017-04-15 04:17] LABS: Glucose,Whole Blood 194 mg/dL (75-99)
[2017-04-15] MEDS: LEVOTHYROXINE 88 MCG TAB PO SCH (06:05)
[2017-04-15 06:21] LABS: Glucose,Whole Blood 36 mg/dL (75-99)
[2017-04-15 06:21] LABS: Glucose,Whole Blood 42 mg/dL (75-99)
[2017-04-15 06:43] LABS: Basophils % (A) 0 %; CH 28.1; Eosinophils # (A) 0.1 k/uL (0-0.7); Eosinophils % (A) 0 %; HCT 31.5 % (34.0-46.0); HDW 3.07; HGB 9.7 gm/dL (11.4-16.0); Hypochromasia Moderate; Luc # (Auto) 0.18; Luc % (Auto) 1; Lymphocytes # (A) 1.9 k/uL (1.0-4.8); Lymphocytes % (A) 13 %; MCH 27.9 pg (25.0-35.0); MCHC 30.7 g/dL (31.0-37.0); MCV 90.8 fL (80.0-100.0); Mean Platelet Volume 7.9; Monocytes # (A) 0.7 k/uL (0-1.0); Monocytes % (A) 5 %; Neutrophils # (A) 12.2 k/uL (1.3-7.7); Neutrophils % (A) 81 %; RBC 3.47 m/uL (3.80-5.40); RDW 15.5 % (11.5-15.5); WBC 15.1 k/uL (3.8-10.6); WBC (Perox) 15.58
[2017-04-15] MEDS: INSULIN LISPRO (humaLOG) 300 UNIT/3 ML VIAL SQ SCH ×6 (06:48→23:19)
[2017-04-15] MEDS: metFORMIN 500 MG TAB PO SCH ×3 (06:48→17:44)
[2017-04-15 06:53] LABS: INR 1.3 (<1.2)
[2017-04-15 06:57] LABS: Glucose,Whole Blood 52 mg/dL (75-99)
[2017-04-15 07:04] LABS: ALT 30 U/L (9-52); AST 22 U/L (14-36); Alkaline Phosphatase 58 U/L (38-126); Anion Gap 9 mmol/L; Blood Urea Nitrogen 25 mg/dL (7-17); Calcium 9.2 mg/dL (8.4-10.2); Carbon Dioxide 24 mmol/L (22-30); Chloride 100 mmol/L (98-107); Non-African American GFR(MDRD) >60 (>60 ml/min/1.73 sqM); Potassium 3.5 mmol/L (3.5-5.1); Sodium 133 mmol/L (137-145); Total Bilirubin 0.7 mg/dL (0.2-1.3); Total Protein 5.5 g/dL (6.3-8.2)
[2017-04-15 07:17] LABS: Glucose 40 mg/dL (74-99)
[2017-04-15 07:19] LABS: Glucose,Whole Blood 126 mg/dL (75-99)
[2017-04-15] MEDS: methylPREDNISolone SOD SUCCI 40 MG/ML 1 ML VIAL IV SCH ×2 (08:53→21:40)
[2017-04-15] MEDS: NYSTATIN 100,000 UNIT/ML SUSP 500,000 UNIT/5 ML CUP PO SCH ×3 (08:53→17:44)
[2017-04-15] MEDS: NICOTINE 14MG/24HR PATCH TRANSDERM SCH (08:53)
[2017-04-15] MEDS: HEPARIN SODIUM,PORCINE/D5W PMX 25,000 UNIT in DEXTROSE/WATER 1 500ML.BAG IV SCH (08:54)
[2017-04-15] MEDS: FAMOTIDINE 20 MG TAB PO SCH ×2 (08:54→21:39)
[2017-04-15] MEDS: LOSARTAN-HCTZ 50-12.5 MG 1 EACH TAB PO SCH (08:54)
[2017-04-15] MEDS: ASPIRIN 81 MG CHEW PO SCH (08:54)
[2017-04-15] MEDS: DOCUSATE 100 MG CAP PO SCH ×2 (08:54→21:51)
[2017-04-15] MEDS: METOPROLOL TARTRATE 25 MG TAB PO SCH ×3 (08:54→21:39)
[2017-04-15] MEDS: LIOTHYRONINE SODIUM 5 MCG TAB PO SCH (08:55)
[2017-04-15] MEDS: SODIUM CHLORIDE 0.9% 1,000 ML IV SCH (08:55)
[2017-04-15 11:07] LABS: Glucose,Whole Blood 340 mg/dL (75-99)
--- NOTE | 2017-04-15 12:25 | P.PN ---
Subjective This is a very pleasant 81-year-old female patient who follows at Dr. Saxena' s office for her primary care needs. She has a history of diabetes mellitus, CVA/TIA, coronary artery disease with previous stent placement, atrial fibrillation, mechanical aortic valve replacement chronically on warfarin, lower extremity edema. She also has a history of chronic obstructive pulmonary disease and has chronic and ongoing tobacco dependence. She was recently started on nebulized treatments for increasing shortness of breath. Recently she had complaints of tingling and numbness of the right hand and right face and she was sent here for an outpatient computed tomography scan of the brain on 04/12/2017 and as she was being removed from the CAT scan machine she became unresponsive stopped breathing and was cyanotic. According to staff she never lost her pulse and she was seen in the emergency room subsequent to that. EKG revealed nonspecific ST and T-wave abnormalities. Chest x-ray revealed no acute process. Computed tomography scan of the brain revealed no acute intracranial process. Carotid Dopplers revealed bilateral 50% stenosis. Echocardiogram revealed preserved left ventricular systolic function with estimated ejection fraction 55-60%. There was noted mild to moderate pulmonary hypertension with an RVSP of 50.68 mmHg. Mechanical aortic valve functioning normally. She was found to be subtherapeutic with an INR of 1.5. There was a d -dimer of 0.94 and a VQ scan revealed in intermediate probability for pulmonary embolism in the nonsegmental branches. There is also apical air trapping consistent with chronic obstructive pulmonary disease. We're consulted for the same. She is seen today in consultation on the selective care unit. She is awake and alert in no acute distress. She denies any worsening shortness of breath, cough or congestion. She denies any recent travels, no recent surgery, no cancer, no previous history of PE/DVT. She has had ongoing issues with lower extremity edema being treated with diuretics in the outpatient setting. She does have some dyspnea on exertion but able to carry on conversation. She is up ambulating in the hallway without distress. She is maintaining good O2 saturations in the high 90s on 2 L/m per nasal cannula. She is afebrile. Hemodynamically stable. She remains on heparin drip for now. Current INR 1.3. Cardiology is on the case and was planning a stress test based on borderline troponin elevation. She denies any chest pain, palpitations, lightheadedness or dizziness. She is also noted to have gram-negative bacilli in her urine. She is on Rocephin. Due to the initial shortness of breath and wheezing the patient was initiated on IV Solu-Medrol. She has had significant leukocytosis and hyperglycemia and is currently on a insulin drip at 7.5 units per hour. The patient is seen again today 04/15/2017 in follow-up on the selective care unit area she is awake and alert in no acute distress. She is sitting up in the chair at the bedside. She has no pulmonary complaints at this time. She is maintaining good O2 saturations in the high 90s on room air. She is afebrile. Her white count has improved to 15.1. Hemoglobin 9.7. INR 1.3. She remains on a heparin drip. She denies any further tingling or numbness of the extremities. The plan is for stress test on Monday. Objective - Vital Signs Vital signs: Vital Signs Temp 97.0 F L 04/15/17 12:00 Pulse 96 04/15/17 12:00 Resp 18 04/15/17 12:00 BP 140/76 04/15/17 12:00 Pulse Ox 98 04/15/17 12:00 Intake & Output 04/14/17 04/15/17 04/15/17 18:59 06:59 18:59 Intake Total 1766.745 483.751 888.972 Output Total 450 900 Balance 1316.745 483.751 -11.028 Weight 65.8 kg 67 kg Intake: IV 807 240 Heparin Sodium,Porcine/ 160 D5w Pmx 25,000 unit In Dextrose/Water 1 500ml. bag @ 12 UNITS/KG/HR 15. 72 mls/hr IV .Q24H [facility] Rx #:[id number] Insulin Regular 100 unit 7 In Sodium Chloride 0.9% 100 ml @ Titrate IV .Q0M [facility] Rx#:[id number] Sodium Chloride 0.9% 1, 640 240 000 ml @ 50 mls/hr IV . Q20H [facility] Rx#:[id number] Intake, IV Titration 199.745 483.751 88.972 Amount Heparin Sodium,Porcine/ 118.228 448.675 38.972 D5w Pmx 25,000 unit In Dextrose/Water 1 500ml. bag @ 12 UNITS/KG/HR 15. 72 mls/hr IV .Q24H [facility] Rx #:[id number] Insulin Regular 100 unit 31.517 35.076 In Sodium Chloride 0.9% 100 ml @ Titrate IV .Q0M [facility] Rx#:[id number] cefTRIAXone 1,000 mg In 50 50 Sodium Chloride 0.9% 50 ml @ 100 mls/hr IVPB Q24HR [facility] Rx#:[id number] Oral 760 560 Output: Urine 450 900 Other: Voiding Method Toilet Toilet Toilet # Voids 1 2 2 # Bowel Movements 1 3 - Exam GENERAL EXAM: Alert, active, comfortable in no apparent distress. HEAD: Normocephalic. EYES: Normal reaction of pupils, equal size. NOSE: Clear with pink turbinates. THROAT: No erythema or exudates. NECK: No masses, no JVD. CHEST: No chest wall deformity. LUNGS: Equal air entry with no crackles, wheeze, rhonchi or dullness. Diminished. CVS: S1 and S2 normal with no audible murmurs, regular rhythm. Click. ABDOMEN: No hepatosplenomegaly, normal bowel sounds, no guarding or rigidity. SPINE: No scoliosis or deformity SKIN: No rashes CENTRAL NERVOUS SYSTEM: No focal deficits, tone is normal in all 4 extremities. Extremities: There is no significant peripheral edema. No clubbing, no cyanosis. Peripheral pulses are intact. - Labs CBC & Chem 7: 04/15/17 05:53 04/15/17 05:53 Labs: Abnormal Lab Results - Last 24 Hours (Table) 04/14/17 04/14/17 04/14/17 Range/Units 14:20 15:58 17:14 WBC (3.8-10.6) k/uL RBC (3.80-5.40) m/uL Hgb (11.4-16.0) gm/dL Hct (34.0-46.0) % MCHC (31.0-37.0) g/dL Neutrophils # (1.3-7.7) k/uL PT (9.0-12.0) sec INR (<1.2) APTT (22.0-30.0) sec Sodium (137-145) mmol/L BUN (7-17) mg/dL Glucose (74-99) mg/dL POC Glucose (mg/dL) 166 H 126 H 185 H (75-99) mg/dL Total Protein (6.3-8.2) g/dL Albumin (3.5-5.0) g/dL 04/14/17 04/14/17 04/14/17 Range/Units 17:59 20:04 22:02 WBC (3.8-10.6) k/uL RBC (3.80-5.40) m/uL Hgb (11.4-16.0) gm/dL Hct (34.0-46.0) % MCHC (31.0-37.0) g/dL Neutrophils # (1.3-7.7) k/uL PT (9.0-12.0) sec INR (<1.2) APTT (22.0-30.0) sec Sodium (137-145) mmol/L BUN (7-17) mg/dL Glucose (74-99) mg/dL POC Glucose (mg/dL) 206 H 111 H 158 H (75-99) mg/dL Total Protein (6.3-8.2) g/dL Albumin (3.5-5.0) g/dL 04/14/17 04/15/17 04/15/17 Range/Units 23:56 02:05 04:15 WBC (3.8-10.6) k/uL RBC (3.80-5.40) m/uL Hgb (11.4-16.0) gm/dL Hct (34.0-46.0) % MCHC (31.0-37.0) g/dL Neutrophils # (1.3-7.7) k/uL PT (9.0-12.0) sec INR (<1.2) APTT (22.0-30.0) sec Sodium (137-145) mmol/L BUN (7-17) mg/dL Glucose (74-99) mg/dL POC Glucose (mg/dL) 238 H 255 H 194 H (75-99) mg/dL Total Protein (6.3-8.2) g/dL Albumin (3.5-5.0) g/dL 04/15/17 04/15/17 04/15/17 Range/Units 05:53 05:53 05:53 WBC 15.1 H (3.8-10.6) k/uL RBC 3.47 L (3.80-5.40) m/uL Hgb 9.7 L (11.4-16.0) gm/dL Hct 31.5 L (34.0-46.0) % MCHC 30.7 L (31.0-37.0) g/dL Neutrophils # 12.2 H (1.3-7.7) k/uL PT 13.0 H (9.0-12.0) sec INR 1.3 H (<1.2) APTT 49.0 H (22.0-30.0) sec Sodium 133 L (137-145) mmol/L BUN 25 H (7-17) mg/dL Glucose 40 L* (74-99) mg/dL POC Glucose (mg/dL) (75-99) mg/dL Total Protein 5.5 L (6.3-8.2) g/dL Albumin 3.1 L (3.5-5.0) g/dL 04/15/17 04/15/17 04/15/17 Range/Units 06:17 06:19 06:36 WBC (3.8-10.6) k/uL RBC (3.80-5.40) m/uL Hgb (11.4-16.0) gm/dL Hct (34.0-46.0) % MCHC (31.0-37.0) g/dL Neutrophils # (1.3-7.7) k/uL PT (9.0-12.0) sec INR (<1.2) APTT (22.0-30.0) sec Sodium (137-145) mmol/L BUN (7-17) mg/dL Glucose (74-99) mg/dL POC Glucose (mg/dL) 36 L 42 L 52 L (75-99) mg/dL Total Protein (6.3-8.2) g/dL Albumin (3.5-5.0) g/dL 04/15/17 04/15/17 Range/Units 07:09 11:02 WBC (3.8-10.6) k/uL RBC (3.80-5.40) m/uL Hgb (11.4-16.0) gm/dL Hct (34.0-46.0) % MCHC (31.0-37.0) g/dL Neutrophils # (1.3-7.7) k/uL PT (9.0-12.0) sec INR (<1.2) APTT (22.0-30.0) sec Sodium (137-145) mmol/L BUN (7-17) mg/dL Glucose (74-99) mg/dL POC Glucose (mg/dL) 126 H 340 H (75-99) mg/dL Total Protein (6.3-8.2) g/dL Albumin (3.5-5.0) g/dL Microbiology - Last 24 Hours (Table) 04/12/17 20:15 Urine Culture - Final Urine,Voided Escherichia coli Assessment and Plan Plan: Impression: #1 Acute hypoxic respiratory failure with syncopal and unresponsive episode following a computed tomography scan of the brain. Suspect IV contrast reaction. #2 Tingling and numbness of the right hand, suspect CVA/TIA. Computed tomography scan of the brain showed no acute intracranial process. #3 Troponin leak. #4 Mildly elevated d-dimer with VQ scan revealing an intermediate probability for pulmonary embolism. #5 Chronic atrial fibrillation, status post pacemaker insertion, anticoagulated with warfarin, subtherapeutic. #6 History of mechanical aortic valve replacement, anticoagulated with warfarin , subtherapeutic. #7 Chronic and ongoing tobacco dependence with suspected chronic obstructive pulmonary disease. #8 Diabetes mellitus with steroid-induced hyperglycemia requiring insulin drip. #9 Coronary artery disease with previous stent placement. Plan: The patient was seen and evaluated by Dr. George. She is stable from the pulmonary standpoint. It is still unclear whether there is specifically pulmonary emboli or not. Anyway the patient remains anticoagulated on heparin. The plan is for stress test per cardiology on Monday. In the interim we'll continue to follow make further recommendations based on her clinical status.
--- NOTE | 2017-04-15 13:46 | P.PN ---
Subjective Patient is a 81-year-old female, patient of [facility]. She has a known past medical history of paroxysmal atrial fibrillation, aortic valve replacement, hypertension, hypothyroidism, permanent pacemaker, nicotine dependence, coronary artery disease with stent, diabetes mellitus type 2, and CVA. Patient was having an outpatient computed tomography scan of the brain with IV contrast completed. Computed tomography scan was being performed because patient has been having numbness in her fingertips and some drooling from the right side of her mouth. Computed tomography scan was completed IV was taken outpatient setting up in the bench and then was a seated in her wheelchair. She started to see floaters in her eyes and seeing black dots. She told the nurse that she didn't feel well and that she might pass out. And then she started having difficulty breathing and passed out. Patient had passed out for a few seconds. However she continued to be have difficulty breathing and became hypoxic. A CODE BLUE was called. The patient was brought into the emergency admitted to the hospital. She was brought to the sixth floor. Cardiology and neurology consulted. EKG on arrival had shown atrial fibrillation with occasional PVCs. She did convert back to normal sinus rhythm. Patient did have elevation in her troponin 0.61-0.3-2. Denies any chest pain. White count was 11.3, d-dimer elevated at 0.94, sodium 129 and she was subtherapeutic on her INR of 1.4. Echo shows an EF of 55-60% and moderate mitral regurgitation with moderate to severe tricuspid regurgitation and mild pulmonary hypertension noted on echo from January 2017. Patient was also started on IV steroids in the emergency room. Carotid Doppler shows bilateral stenosis of 50%. Computed tomography scan of the brain shows age-related changes of atrophy and probable chronic small vessel ischemia. Patient denies any fevers chills or sweats. Denies any cough. Denies any chest pain. Denies any nausea or vomiting. Denies any bowel movement changes or urinary symptoms. Shortness of breath has improved. Case discussed with cardiology. Since patient's INR is subtherapeutic and there is concern about acute coronary syndrome patient will be started on IV heparin and they're planning on stress test tomorrow. D- dimer elevated VQ scan will be ordered patient just had IV dye to CT Scan of the brain yesterday. 04/14/2017 patient lying in bed comfortably. She occasionally has shortness of breath. Requiring oxygen. VQ scan shows intermediate probability for PE. Patient has stress test scheduled for Monday. Started on antibiotics today for UTI. Patient denies any chest pain. Denies any nausea or vomiting. Denies any bowel movement changes or urinary symptoms. On 04/15/2017 patient sitting up in a chair she states she is having shortness of breath while ambulating otherwise she denies any symptoms there is no chest pain no shortness of breath at rest no cough no nausea or vomiting no abdominal pain and no urinary symptoms. Objective - Vital Signs Vital signs: Vital Signs Temp 97.0 F L 04/15/17 12:00 Pulse 96 04/15/17 12:00 Resp 18 04/15/17 12:00 BP 140/76 04/15/17 12:00 Pulse Ox 98 04/15/17 12:00 Intake & Output 04/14/17 04/15/17 04/15/17 18:59 06:59 18:59 Intake Total 1766.745 551.507 0932.972 Output Total 450 900 Balance 1316.745 483.751 168.972 Weight 65.8 kg 67 kg Intake: IV 807 240 Heparin Sodium,Porcine/ 160 D5w Pmx 25,000 unit In Dextrose/Water 1 500ml. bag @ 12 UNITS/KG/HR 15. 72 mls/hr IV .Q24H [facility] Rx #:[id number] Insulin Regular 100 unit 7 In Sodium Chloride 0.9% 100 ml @ Titrate IV .Q0M [facility] Rx#:[id number] Sodium Chloride 0.9% 1, 640 240 000 ml @ 50 mls/hr IV . Q20H [facility] Rx#:[id number] Intake, IV Titration 199.745 483.751 88.972 Amount Heparin Sodium,Porcine/ 118.228 448.675 38.972 D5w Pmx 25,000 unit In Dextrose/Water 1 500ml. bag @ 12 UNITS/KG/HR 15. 72 mls/hr IV .Q24H [facility] Rx #:[id number] Insulin Regular 100 unit 31.517 35.076 In Sodium Chloride 0.9% 100 ml @ Titrate IV .Q0M [facility] Rx#:[id number] cefTRIAXone 1,000 mg In 50 50 Sodium Chloride 0.9% 50 ml @ 100 mls/hr IVPB Q24HR [facility] Rx#:[id number] Oral 760 740 Output: Urine 450 900 Other: Voiding Method Toilet Toilet Toilet # Voids 1 2 2 # Bowel Movements 1 3 - Exam In general patient is alert and oriented 3 in no apparent distress HEENT head normocephalic and atraumatic Neck is supple no JVD no goiter no lymphadenopathy Chest exam reveals a scattered crackles in both bases no wheezing Cardiac exam reveals regular heart sounds S1 and S2 no gallops no murmurs Abdomen is soft nontender no organomegaly with normal bowel sounds Extremity exam reveals no edema no cyanosis or clubbing - Labs CBC & Chem 7: 04/15/17 05:53 04/15/17 05:53 Labs: Abnormal Lab Results - Last 24 Hours (Table) 04/14/17 04/14/17 04/14/17 Range/Units 14:20 15:58 17:14 WBC (3.8-10.6) k/uL RBC (3.80-5.40) m/uL Hgb (11.4-16.0) gm/dL Hct (34.0-46.0) % MCHC (31.0-37.0) g/dL Neutrophils # (1.3-7.7) k/uL PT (9.0-12.0) sec INR (<1.2) APTT (22.0-30.0) sec Sodium (137-145) mmol/L BUN (7-17) mg/dL Glucose (74-99) mg/dL POC Glucose (mg/dL) 166 H 126 H 185 H (75-99) mg/dL Total Protein (6.3-8.2) g/dL Albumin (3.5-5.0) g/dL 04/14/17 04/14/17 04/14/17 Range/Units 17:59 20:04 22:02 WBC (3.8-10.6) k/uL RBC (3.80-5.40) m/uL Hgb (11.4-16.0) gm/dL Hct (34.0-46.0) % MCHC (31.0-37.0) g/dL Neutrophils # (1.3-7.7) k/uL PT (9.0-12.0) sec INR (<1.2) APTT (22.0-30.0) sec Sodium (137-145) mmol/L BUN (7-17) mg/dL Glucose (74-99) mg/dL POC Glucose (mg/dL) 206 H 111 H 158 H (75-99) mg/dL Total Protein (6.3-8.2) g/dL Albumin (3.5-5.0) g/dL 04/14/17 04/15/17 04/15/17 Range/Units 23:56 02:05 04:15 WBC (3.8-10.6) k/uL RBC (3.80-5.40) m/uL Hgb (11.4-16.0) gm/dL Hct (34.0-46.0) % MCHC (31.0-37.0) g/dL Neutrophils # (1.3-7.7) k/uL PT (9.0-12.0) sec INR (<1.2) APTT (22.0-30.0) sec Sodium (137-145) mmol/L BUN (7-17) mg/dL Glucose (74-99) mg/dL POC Glucose (mg/dL) 238 H 255 H 194 H (75-99) mg/dL Total Protein (6.3-8.2) g/dL Albumin (3.5-5.0) g/dL 04/15/17 04/15/17 04/15/17 Range/Units 05:53 05:53 05:53 WBC 15.1 H (3.8-10.6) k/uL RBC 3.47 L (3.80-5.40) m/uL Hgb 9.7 L (11.4-16.0) gm/dL Hct 31.5 L (34.0-46.0) % MCHC 30.7 L (31.0-37.0) g/dL Neutrophils # 12.2 H (1.3-7.7) k/uL PT 13.0 H (9.0-12.0) sec INR 1.3 H (<1.2) APTT 49.0 H (22.0-30.0) sec Sodium 133 L (137-145) mmol/L BUN 25 H (7-17) mg/dL Glucose 40 L* (74-99) mg/dL POC Glucose (mg/dL) (75-99) mg/dL Total Protein 5.5 L (6.3-8.2) g/dL Albumin 3.1 L (3.5-5.0) g/dL 04/15/17 04/15/17 04/15/17 Range/Units 06:17 06:19 06:36 WBC (3.8-10.6) k/uL RBC (3.80-5.40) m/uL Hgb (11.4-16.0) gm/dL Hct (34.0-46.0) % MCHC (31.0-37.0) g/dL Neutrophils # (1.3-7.7) k/uL PT (9.0-12.0) sec INR (<1.2) APTT (22.0-30.0) sec Sodium (137-145) mmol/L BUN (7-17) mg/dL Glucose (74-99) mg/dL POC Glucose (mg/dL) 36 L 42 L 52 L (75-99) mg/dL Total Protein (6.3-8.2) g/dL Albumin (3.5-5.0) g/dL 04/15/17 04/15/17 Range/Units 07:09 11:02 WBC (3.8-10.6) k/uL RBC (3.80-5.40) m/uL Hgb (11.4-16.0) gm/dL Hct (34.0-46.0) % MCHC (31.0-37.0) g/dL Neutrophils # (1.3-7.7) k/uL PT (9.0-12.0) sec INR (<1.2) APTT (22.0-30.0) sec Sodium (137-145) mmol/L BUN (7-17) mg/dL Glucose (74-99) mg/dL POC Glucose (mg/dL) 126 H 340 H (75-99) mg/dL Total Protein (6.3-8.2) g/dL Albumin (3.5-5.0) g/dL Microbiology - Last 24 Hours (Table) 04/12/17 20:15 Urine Culture - Final Urine,Voided Escherichia coli Assessment and Plan Plan: 1. Syncopal episode: Rule out cardiac causes. Cardiology and neurology consulted. Continue telemetry monitoring. Pacemaker was interrogated. Showed evidence of atrial fibrillation.. Carotid Doppler shows bilateral stenosis of 50%. Echo shows an EF of 55-60% and moderate pulmonary hypertension 2. Elevated troponins with concern of a possible acute coronary syndrome. Patient started on IV heparin and cardiology has ordered a stress test 3. VQ scan showing intermediate probability of PE: Continue IV heparin. Await pulmonary service evaluation . Elevated d-dimer with shortness of breath and subtherapeutic INR. Order VQ scan. Patient recently received IV dye with her computed tomography scan of the brain. 4. Accelerated hypertension on admission. Now resolved. 5. Nicotine dependence: Discussed smoking cessation. Order nicotine patch. 6. History of mechanical aortic valve replacement with subtherapeutic INR area did will give Coumadin 5 mg tonight. Check PT/INR in a.m. 7. History of paroxysmal atrial fibrillation 8. History of CVA with concerns of a possible stroke outpatient due to the numbness at the tip of her fingers on the right hand and drooling from the right side of her mouth. 9. Hyponatremia: Sodium 129. Hold Lasix. start Normal saline at 50 mL an hour. Repeat labs in a.m. 10. Acute COPD exacerbation with hypoxia: Patient started on IV steroids in the emergency room. And given nebulizer treatments. Patient still having some wheezing. Awaiting cardiology evaluation 11. Diabetes mellitus type 2 with elevated blood sugars secondary to steroids. Blood sugars are remaining in the 300s. Add insulin drip. Blood sugars have shown improvement after adding insulin drip, insulin drip discontinued this morning due to hypoglycemia 12. Constipation add Colace and lactulose 13. Oral thrush start nystatin swish and swallow 14 UTI start patient on Rocephin urine culture growing gram-negative bacilli DVT prophylaxis IV heparin
[2017-04-15 16:59] LABS: Glucose,Whole Blood 306 mg/dL (75-99)
[2017-04-15] MEDS ORDERED: WARFARIN 7.5 MG TAB PO ONE (18:00)
[2017-04-15 21:26] LABS: Glucose,Whole Blood 282 mg/dL (75-99)
[2017-04-15] MEDS: ATORVASTATIN 10 MG TAB PO SCH (21:38)
[2017-04-15] MEDS: VERAPAMIL SR 180 MG TABLET.ER PO SCH (21:39)
[2017-04-15] MEDS: ALPRAZolam 0.25 MG TAB PO PRN (23:42)
[2017-04-16] MEDS: NYSTATIN 100,000 UNIT/ML SUSP 500,000 UNIT/5 ML CUP PO SCH ×5 (01:44→21:03)
[2017-04-16] MEDS: DONEPEZIL 5 MG TAB PO SCH ×2 (02:18→21:03)
[2017-04-16 02:46] LABS: Glucose,Whole Blood 172 mg/dL (75-99)
[2017-04-16] MEDS: IPRATROPIUM-ALBUTEROL 3 ML NEB INHALATION SCH ×7 (03:51→22:35)
[2017-04-16 06:09] LABS: Glucose,Whole Blood 294 mg/dL (75-99)
[2017-04-16] MEDS: LEVOTHYROXINE 88 MCG TAB PO SCH (06:31)
[2017-04-16] MEDS: metFORMIN 500 MG TAB PO SCH ×2 (06:31→17:28)
[2017-04-16 06:52] LABS: Basophils % (A) 0 %; CH 28.1; CHCM 31.6; Eosinophils % (A) 0 %; HCT 31.8 % (34.0-46.0); HDW 2.98; HGB 9.9 gm/dL (11.4-16.0); Hypochromasia Slight; Luc # (Auto) 0.28; Luc % (Auto) 2; Lymphocytes # (A) 1.6 k/uL (1.0-4.8); Lymphocytes % (A) 12 %; MCH 27.9 pg (25.0-35.0); MCHC 31.2 g/dL (31.0-37.0); MCV 89.4 fL (80.0-100.0); Mean Platelet Volume 8.1; Monocytes # (A) 0.8 k/uL (0-1.0); Monocytes % (A) 6 %; Neutrophils # (A) 10.7 k/uL (1.3-7.7); Neutrophils % (A) 80 %; RBC 3.55 m/uL (3.80-5.40); RDW 15.3 % (11.5-15.5); WBC 13.4 k/uL (3.8-10.6); WBC (Perox) 14.22
[2017-04-16 07:00] LABS: Partial Thromboplastin Time 65.2 sec (22.0-30.0); Prothrombin Time 19.4 sec (9.0-12.0)
[2017-04-16] MEDS: INSULIN LISPRO (humaLOG) 300 UNIT/3 ML VIAL SQ SCH ×7 (07:12→21:25)
[2017-04-16 07:26] LABS: ALT 33 U/L (9-52); AST 22 U/L (14-36); Alkaline Phosphatase 58 U/L (38-126); Anion Gap 7 mmol/L; Blood Urea Nitrogen 20 mg/dL (7-17); Calcium 9.2 mg/dL (8.4-10.2); Carbon Dioxide 27 mmol/L (22-30); Chloride 96 mmol/L (98-107); Glucose 256 mg/dL (74-99); Non-African American GFR(MDRD) >60 (>60 ml/min/1.73 sqM); Potassium 3.9 mmol/L (3.5-5.1); Sodium 130 mmol/L (137-145); Total Bilirubin 0.7 mg/dL (0.2-1.3); Total Protein 5.4 g/dL (6.3-8.2)
[2017-04-16] MEDS: methylPREDNISolone SOD SUCCI 40 MG/ML 1 ML VIAL IV SCH ×2 (08:53→21:03)
[2017-04-16] MEDS: NICOTINE 14MG/24HR PATCH TRANSDERM SCH (08:53)
[2017-04-16] MEDS: DOCUSATE 100 MG CAP PO SCH ×2 (08:53→21:04)
[2017-04-16] MEDS: FAMOTIDINE 20 MG TAB PO SCH ×2 (08:54→21:03)
[2017-04-16] MEDS: LOSARTAN-HCTZ 50-12.5 MG 1 EACH TAB PO SCH (08:54)
[2017-04-16] MEDS: ASPIRIN 81 MG CHEW PO SCH (08:54)
[2017-04-16] MEDS: LIOTHYRONINE SODIUM 5 MCG TAB PO SCH (08:54)
[2017-04-16] MEDS: METOPROLOL TARTRATE 25 MG TAB PO SCH (08:54)
[2017-04-16] MEDS: SODIUM CHLORIDE 0.9% 1,000 ML IV SCH ×2 (09:03→17:28)
[2017-04-16] MEDS: HEPARIN SODIUM,PORCINE/D5W PMX 25,000 UNIT in DEXTROSE/WATER 1 500ML.BAG IV SCH (09:08)
[2017-04-16] MEDS ORDERED: Magnesium Replacement Protocol 1 EACH MISC MISCELLANE PRN (10:14)
--- NOTE | 2017-04-16 11:01 | P.PN ---
Subjective Progress note dated 04/16/2017 81-year-old female doing well. Resting comfortably on 6 selective. Sitting up at at the bedside. She has no pulmonary complaints at this time. Saturations on room air in the mid to high 90s. She's afebrile. Hemoglobin is stable. INR is not back yet. White count is stable. She remains on the heparin drip. No further tingling or numbness of her extremities.. The plan is for a stress test on Monday. Her diagnoses include hypoxemic respiratory failure with syncope,, possibly related to IV contrast reaction, tingling and numbness of the right hand with suspected CVA/TIA although computed tomography scan of the brain was negative, troponin leak, mildly elevated d-dimer with an indeterminate VQ scan, atrial fibrillation, pacemaker insertion, mechanical aortic valve, chronic and ongoing tobacco dependence, diabetes, and CAD with previous stent placement. Objective - Vital Signs Vital signs: Vital Signs Temp 97.0 F L 04/16/17 08:00 Pulse 68 04/16/17 08:52 Resp 18 04/16/17 08:00 BP 127/67 04/16/17 08:00 Pulse Ox 97 04/16/17 08:00 Intake & Output 04/15/17 04/16/17 04/16/17 18:59 06:59 18:59 Intake Total 1548.972 601.185 Output Total 1150 Balance 398.972 601.185 Intake: IV 240 Sodium Chloride 0.9% 1, 240 000 ml @ 50 mls/hr IV . Q20H [facility] Rx#:[id number] Intake, IV Titration 88.972 476.185 Amount Heparin Sodium,Porcine/ 38.972 476.185 D5w Pmx 25,000 unit In Dextrose/Water 1 500ml. bag @ 12 UNITS/KG/HR 15. 72 mls/hr IV .Q24H [facility] Rx #:[id number] cefTRIAXone 1,000 mg In 50 Sodium Chloride 0.9% 50 ml @ 100 mls/hr IVPB Q24HR [facility] Rx#:[id number] Oral 1220 125 Output: Urine 1150 Other: Voiding Method Toilet Toilet Toilet # Voids 1 2 # Bowel Movements 3 1 - Exam No acute distress, oriented 3. HEENT examination is grossly unremarkable. Next memory to moist. No oral lesions. Pupils equal round and respond to light. Neck supple. Full range of motion. No adenopathy or thyromegaly. Neck veins are flat. Cardiovascular examination reveals regular rhythm rate. S1-S2 normal. No murmur. Systolic click is noted. Lungs reveal clear breath sounds. No wheezes or rhonchi. No crackles. Breath sounds are equal bilaterally. Abdomen soft bowel sounds are heard. Extremities are intact. No cyanosis clubbing or edema. Skin without rash. Neurologic examination is now normal. - Labs CBC & Chem 7: 04/16/17 05:52 04/16/17 05:52 Labs: Abnormal Lab Results - Last 24 Hours (Table) 04/15/17 04/15/17 04/15/17 Range/Units 11:02 16:57 21:24 WBC (3.8-10.6) k/uL RBC (3.80-5.40) m/uL Hgb (11.4-16.0) gm/dL Hct (34.0-46.0) % Neutrophils # (1.3-7.7) k/uL PT (9.0-12.0) sec INR (<1.2) APTT (22.0-30.0) sec Sodium (137-145) mmol/L Chloride (98-107) mmol/L BUN (7-17) mg/dL Glucose (74-99) mg/dL POC Glucose (mg/dL) 340 H 306 H 282 H (75-99) mg/dL Magnesium (1.6-2.3) mg/dL Total Protein (6.3-8.2) g/dL Albumin (3.5-5.0) g/dL 04/16/17 04/16/17 04/16/17 Range/Units 02:44 05:52 05:52 WBC 13.4 H (3.8-10.6) k/uL RBC 3.55 L (3.80-5.40) m/uL Hgb 9.9 L (11.4-16.0) gm/dL Hct 31.8 L (34.0-46.0) % Neutrophils # 10.7 H (1.3-7.7) k/uL PT (9.0-12.0) sec INR (<1.2) APTT (22.0-30.0) sec Sodium 130 L (137-145) mmol/L Chloride 96 L (98-107) mmol/L BUN 20 H (7-17) mg/dL Glucose 256 H (74-99) mg/dL POC Glucose (mg/dL) 172 H (75-99) mg/dL Magnesium (1.6-2.3) mg/dL Total Protein 5.4 L (6.3-8.2) g/dL Albumin 3.1 L (3.5-5.0) g/dL 04/16/17 04/16/17 04/16/17 Range/Units 05:52 05:52 06:04 WBC (3.8-10.6) k/uL RBC (3.80-5.40) m/uL Hgb (11.4-16.0) gm/dL Hct (34.0-46.0) % Neutrophils # (1.3-7.7) k/uL PT 19.4 H (9.0-12.0) sec INR 2.0 H (<1.2) APTT 65.2 H (22.0-30.0) sec Sodium (137-145) mmol/L Chloride (98-107) mmol/L BUN (7-17) mg/dL Glucose (74-99) mg/dL POC Glucose (mg/dL) 294 H (75-99) mg/dL Magnesium 1.3 L (1.6-2.3) mg/dL Total Protein (6.3-8.2) g/dL Albumin (3.5-5.0) g/dL Assessment and Plan (1) CAD (coronary artery disease) Status: Acute (2) Pacemaker Status: Acute (3) Diabetes Status: Acute (4) H/O aortic valve replacement Status: Acute (5) Atrial fibrillation Status: Acute (6) COPD (chronic obstructive pulmonary disease) Status: Acute (7) Syncope Status: Acute (8) TIA (transient ischemic attack) Status: Acute Plan: Plan dated 04/16/2017 The patient seemed be doing relatively well. Stable from the pulmonary standpoint. Likely not a pulmonary embolism present in this patient. The patient remains anticoagulated on heparin. Stress test per cardiology on Monday. We will continue to follow. Additional recommendations suggestions are forthcoming. Time with Patient: Less than 30
[2017-04-16] MEDS: MAGNESIUM SULFATE-D5W PMX 1 GM in DEXTROSE/WATER 1 100ML.BAG IVPB SCH ×3 (11:03→14:15)
[2017-04-16 12:02] LABS: Glucose,Whole Blood 174 mg/dL (75-99)
--- NOTE | 2017-04-16 13:11 | P.PN ---
Subjective Patient is a 81-year-old female, patient of [facility]. She has a known past medical history of paroxysmal atrial fibrillation, aortic valve replacement, hypertension, hypothyroidism, permanent pacemaker, nicotine dependence, coronary artery disease with stent, diabetes mellitus type 2, and CVA. Patient was having an outpatient computed tomography scan of the brain with IV contrast completed. Computed tomography scan was being performed because patient has been having numbness in her fingertips and some drooling from the right side of her mouth. Computed tomography scan was completed IV was taken outpatient setting up in the bench and then was a seated in her wheelchair. She started to see floaters in her eyes and seeing black dots. She told the nurse that she didn't feel well and that she might pass out. And then she started having difficulty breathing and passed out. Patient had passed out for a few seconds. However she continued to be have difficulty breathing and became hypoxic. A CODE BLUE was called. The patient was brought into the emergency admitted to the hospital. She was brought to the sixth floor. Cardiology and neurology consulted. EKG on arrival had shown atrial fibrillation with occasional PVCs. She did convert back to normal sinus rhythm. Patient did have elevation in her troponin 0.61-0.3-2. Denies any chest pain. White count was 11.3, d-dimer elevated at 0.94, sodium 129 and she was subtherapeutic on her INR of 1.4. Echo shows an EF of 55-60% and moderate mitral regurgitation with moderate to severe tricuspid regurgitation and mild pulmonary hypertension noted on echo from January 2017. Patient was also started on IV steroids in the emergency room. Carotid Doppler shows bilateral stenosis of 50%. Computed tomography scan of the brain shows age-related changes of atrophy and probable chronic small vessel ischemia. Patient denies any fevers chills or sweats. Denies any cough. Denies any chest pain. Denies any nausea or vomiting. Denies any bowel movement changes or urinary symptoms. Shortness of breath has improved. Case discussed with cardiology. Since patient's INR is subtherapeutic and there is concern about acute coronary syndrome patient will be started on IV heparin and they're planning on stress test tomorrow. D- dimer elevated VQ scan will be ordered patient just had IV dye to CT Scan of the brain yesterday. 04/14/2017 patient lying in bed comfortably. She occasionally has shortness of breath. Requiring oxygen. VQ scan shows intermediate probability for PE. Patient has stress test scheduled for Monday. Started on antibiotics today for UTI. Patient denies any chest pain. Denies any nausea or vomiting. Denies any bowel movement changes or urinary symptoms. On 04/15/2017 patient sitting up in a chair she states she is having shortness of breath while ambulating otherwise she denies any symptoms there is no chest pain no shortness of breath at rest no cough no nausea or vomiting no abdominal pain and no urinary symptoms. On 04/16/2017 patient is doing well she complained of an episode of nausea and upset stomach this morning otherwise she denies any chest pain no shortness of breath no cough and no urinary symptoms Objective - Vital Signs Vital signs: Vital Signs Temp 97.6 F 04/16/17 12:00 Pulse 84 04/16/17 12:00 Resp 18 04/16/17 12:00 BP 142/66 04/16/17 12:00 Pulse Ox 97 04/16/17 08:00 Intake & Output 04/15/17 04/16/17 04/16/17 18:59 06:59 18:59 Intake Total 4046.372 6978.185 Output Total 1150 300 Balance 768.475 6421.185 Intake: IV 240 420 Sodium Chloride 0.9% 1, 240 420 000 ml @ 50 mls/hr IV . Q20H [facility] Rx#:[id number] Intake, IV Titration 88.972 826.185 Amount Heparin Sodium,Porcine/ 38.972 476.185 D5w Pmx 25,000 unit In Dextrose/Water 1 500ml. bag @ 12 UNITS/KG/HR 15. 72 mls/hr IV .Q24H [facility] Rx #:[id number] Magnesium Sulfate-D5w Pmx 300 1 gm In Dextrose/Water 1 100ml.bag @ 100 mls/hr IVPB Q1H [facility] Rx#: [id number] cefTRIAXone 1,000 mg In 50 50 Sodium Chloride 0.9% 50 ml @ 100 mls/hr IVPB Q24HR [facility] Rx#:[id number] Oral 1220 325 Output: Urine 1150 300 Other: Voiding Method Toilet Toilet Toilet # Voids 1 2 1 # Bowel Movements 3 1 1 - Exam In general patient is alert and oriented 3 in no apparent distress HEENT head normocephalic and atraumatic Neck is supple no JVD no goiter no lymphadenopathy Chest exam reveals a scattered crackles in both bases no wheezing Cardiac exam reveals regular heart sounds S1 and S2 no gallops no murmurs Abdomen is soft nontender no organomegaly with normal bowel sounds Extremity exam reveals no edema no cyanosis or clubbing - Labs CBC & Chem 7: 04/16/17 05:52 04/16/17 05:52 Labs: Abnormal Lab Results - Last 24 Hours (Table) 04/15/17 04/15/17 04/16/17 Range/Units 16:57 21:24 02:44 WBC (3.8-10.6) k/uL RBC (3.80-5.40) m/uL Hgb (11.4-16.0) gm/dL Hct (34.0-46.0) % Neutrophils # (1.3-7.7) k/uL PT (9.0-12.0) sec INR (<1.2) APTT (22.0-30.0) sec Sodium (137-145) mmol/L Chloride (98-107) mmol/L BUN (7-17) mg/dL Glucose (74-99) mg/dL POC Glucose (mg/dL) 306 H 282 H 172 H (75-99) mg/dL Magnesium (1.6-2.3) mg/dL Total Protein (6.3-8.2) g/dL Albumin (3.5-5.0) g/dL 04/16/17 04/16/17 04/16/17 Range/Units 05:52 05:52 05:52 WBC 13.4 H (3.8-10.6) k/uL RBC 3.55 L (3.80-5.40) m/uL Hgb 9.9 L (11.4-16.0) gm/dL Hct 31.8 L (34.0-46.0) % Neutrophils # 10.7 H (1.3-7.7) k/uL PT 19.4 H (9.0-12.0) sec INR 2.0 H (<1.2) APTT 65.2 H (22.0-30.0) sec Sodium 130 L (137-145) mmol/L Chloride 96 L (98-107) mmol/L BUN 20 H (7-17) mg/dL Glucose 256 H (74-99) mg/dL POC Glucose (mg/dL) (75-99) mg/dL Magnesium (1.6-2.3) mg/dL Total Protein 5.4 L (6.3-8.2) g/dL Albumin 3.1 L (3.5-5.0) g/dL 04/16/17 04/16/17 04/16/17 Range/Units 05:52 06:04 12:00 WBC (3.8-10.6) k/uL RBC (3.80-5.40) m/uL Hgb (11.4-16.0) gm/dL Hct (34.0-46.0) % Neutrophils # (1.3-7.7) k/uL PT (9.0-12.0) sec INR (<1.2) APTT (22.0-30.0) sec Sodium (137-145) mmol/L Chloride (98-107) mmol/L BUN (7-17) mg/dL Glucose (74-99) mg/dL POC Glucose (mg/dL) 294 H 174 H (75-99) mg/dL Magnesium 1.3 L (1.6-2.3) mg/dL Total Protein (6.3-8.2) g/dL Albumin (3.5-5.0) g/dL Assessment and Plan Plan: 1. Syncopal episode: Rule out cardiac causes. Cardiology and neurology consulted. Continue telemetry monitoring. Pacemaker was interrogated. Showed evidence of atrial fibrillation.. Carotid Doppler shows bilateral stenosis of 50%. Echo shows an EF of 55-60% and moderate pulmonary hypertension 2. Elevated troponins with concern of a possible acute coronary syndrome. Patient started on IV heparin and cardiology has ordered a stress test. Patient is scheduled for a stress test tomorrow, further management will depend on test results 3. VQ scan showing intermediate probability of PE: Continue IV heparin. Await pulmonary service evaluation . Elevated d-dimer with shortness of breath and subtherapeutic INR. Order VQ scan. Patient recently received IV dye with her computed tomography scan of the brain. 4. Accelerated hypertension on admission. Now resolved. 5. Nicotine dependence: Discussed smoking cessation. Order nicotine patch. 6. History of mechanical aortic valve replacement with subtherapeutic INR area did will give Coumadin 5 mg tonight. Check PT/INR in a.m. 7. History of paroxysmal atrial fibrillation 8. History of CVA with concerns of a possible stroke outpatient due to the numbness at the tip of her fingers on the right hand and drooling from the right side of her mouth. 9. Hyponatremia: Sodium 129. Hold Lasix. start Normal saline at 50 mL an hour. Repeat labs in a.m. 10. Acute COPD exacerbation with hypoxia: Patient started on IV steroids in the emergency room. And given nebulizer treatments. Patient still having some wheezing. Awaiting cardiology evaluation 11. Diabetes mellitus type 2 with elevated blood sugars secondary to steroids. Blood sugars are remaining in the 300s. Add insulin drip. Blood sugars have shown improvement after adding insulin drip, insulin drip discontinued this morning due to hypoglycemia 12. Constipation add Colace and lactulose 13. Oral thrush start nystatin swish and swallow 14 UTI start patient on Rocephin urine culture growing gram-negative bacilli DVT prophylaxis IV heparin
--- NOTE | 2017-04-16 13:52 | P.PN ---
Subjective This patient is a 81 year old female being evaluated for syncope and collapse. As noted earlier the patient was undergoing CAT scan of the brain and following this had a CODE BLUE called due to unresponsive state. She does have history of atrial fibrillation with frequent PVCs and is being followed closely by cardiology at this time. She underwent a carotid Doppler ultrasound which revealed only 50% stenosis. Computed tomography scan of the brain was done and revealed only age-related atrophy and chronic small vessel ischemic changes. Her d-dimer was elevated and she underwent a VQ scan which showed intermediate probability for PE. Patient is to undergo a stress test on Monday. She is currently on antibiotics for treatment of a urinary tract infection. Patient has been having some mild shortness of breath. We will continue close neurological follow-up of this patient during this admission. Objective - Vital Signs Vital signs: Vital Signs Temp 97.0 F L 04/15/17 14:59 Pulse 115 H 04/15/17 20:17 Resp 18 04/15/17 15:20 BP 148/70 04/15/17 14:59 Pulse Ox 97 04/15/17 14:59 Intake & Output 04/15/17 04/15/17 04/16/17 06:59 18:59 06:59 Intake Total 672.171 3844.972 Output Total 1150 Balance 483.751 398.972 Weight 67 kg Intake: IV 240 Sodium Chloride 0.9% 1, 240 000 ml @ 50 mls/hr IV . Q20H [facility] Rx#:[id number] Intake, IV Titration 483.751 88.972 Amount Heparin Sodium,Porcine/ 448.675 38.972 D5w Pmx 25,000 unit In Dextrose/Water 1 500ml. bag @ 12 UNITS/KG/HR 15. 72 mls/hr IV .Q24H [facility] Rx #:[id number] Insulin Regular 100 unit 35.076 In Sodium Chloride 0.9% 100 ml @ Titrate IV .Q0M [facility] Rx#:[id number] cefTRIAXone 1,000 mg In 50 Sodium Chloride 0.9% 50 ml @ 100 mls/hr IVPB Q24HR [facility] Rx#:[id number] Oral 1220 Output: Urine 1150 Other: Voiding Method Toilet Toilet # Voids 2 1 # Bowel Movements 1 3 - Exam Physical Examination: PHYSICAL EXAMINATION: Patient is resting comfortably in bed. VITAL SIGNS: Blood pressure is [148/70]. Heart rate is [110]. Respiration is [18 ]. Temperature is [97.0]. HEENT: Head is atraumatic, neck is supple, there were no carotid bruits. CHEST: Lungs are clear to auscultation and percussion. CARDIAC: S1, S2 normal rate and rhythm. There is no murmur. ABDOMEN: Soft and nontender. Bowel sounds are present. EXTREMITIES: There is no pedal edema. Peripheral pulses are present. Neurological examination: Patient's neurological examination is unchanged from yesterday. - Labs CBC & Chem 7: 04/16/17 05:52 04/16/17 05:52 Labs: Abnormal Lab Results - Last 24 Hours (Table) 04/14/17 04/15/17 04/15/17 Range/Units 23:56 02:05 04:15 WBC (3.8-10.6) k/uL RBC (3.80-5.40) m/uL Hgb (11.4-16.0) gm/dL Hct (34.0-46.0) % MCHC (31.0-37.0) g/dL Neutrophils # (1.3-7.7) k/uL PT (9.0-12.0) sec INR (<1.2) APTT (22.0-30.0) sec Sodium (137-145) mmol/L BUN (7-17) mg/dL Glucose (74-99) mg/dL POC Glucose (mg/dL) 238 H 255 H 194 H (75-99) mg/dL Total Protein (6.3-8.2) g/dL Albumin (3.5-5.0) g/dL 04/15/17 04/15/17 04/15/17 Range/Units 05:53 05:53 05:53 WBC 15.1 H (3.8-10.6) k/uL RBC 3.47 L (3.80-5.40) m/uL Hgb 9.7 L (11.4-16.0) gm/dL Hct 31.5 L (34.0-46.0) % MCHC 30.7 L (31.0-37.0) g/dL Neutrophils # 12.2 H (1.3-7.7) k/uL PT 13.0 H (9.0-12.0) sec INR 1.3 H (<1.2) APTT 49.0 H (22.0-30.0) sec Sodium 133 L (137-145) mmol/L BUN 25 H (7-17) mg/dL Glucose 40 L* (74-99) mg/dL POC Glucose (mg/dL) (75-99) mg/dL Total Protein 5.5 L (6.3-8.2) g/dL Albumin 3.1 L (3.5-5.0) g/dL 04/15/17 04/15/17 04/15/17 Range/Units 06:17 06:19 06:36 WBC (3.8-10.6) k/uL RBC (3.80-5.40) m/uL Hgb (11.4-16.0) gm/dL Hct (34.0-46.0) % MCHC (31.0-37.0) g/dL Neutrophils # (1.3-7.7) k/uL PT (9.0-12.0) sec INR (<1.2) APTT (22.0-30.0) sec Sodium (137-145) mmol/L BUN (7-17) mg/dL Glucose (74-99) mg/dL POC Glucose (mg/dL) 36 L 42 L 52 L (75-99) mg/dL Total Protein (6.3-8.2) g/dL Albumin (3.5-5.0) g/dL 04/15/17 04/15/17 04/15/17 Range/Units 07:09 11:02 16:57 WBC (3.8-10.6) k/uL RBC (3.80-5.40) m/uL Hgb (11.4-16.0) gm/dL Hct (34.0-46.0) % MCHC (31.0-37.0) g/dL Neutrophils # (1.3-7.7) k/uL PT (9.0-12.0) sec INR (<1.2) APTT (22.0-30.0) sec Sodium (137-145) mmol/L BUN (7-17) mg/dL Glucose (74-99) mg/dL POC Glucose (mg/dL) 126 H 340 H 306 H (75-99) mg/dL Total Protein (6.3-8.2) g/dL Albumin (3.5-5.0) g/dL 04/15/17 Range/Units 21:24 WBC (3.8-10.6) k/uL RBC (3.80-5.40) m/uL Hgb (11.4-16.0) gm/dL Hct (34.0-46.0) % MCHC (31.0-37.0) g/dL Neutrophils # (1.3-7.7) k/uL PT (9.0-12.0) sec INR (<1.2) APTT (22.0-30.0) sec Sodium (137-145) mmol/L BUN (7-17) mg/dL Glucose (74-99) mg/dL POC Glucose (mg/dL) 282 H (75-99) mg/dL Total Protein (6.3-8.2) g/dL Albumin (3.5-5.0) g/dL Microbiology - Last 24 Hours (Table) 04/12/17 20:15 Urine Culture - Final Urine,Voided Escherichia coli Assessment and Plan (1) Atrial fibrillation Status: Acute Code(s): I48.91 - UNSPECIFIED ATRIAL FIBRILLATION (2) Diabetes Status: Acute Code(s): E11.9 - TYPE 2 DIABETES MELLITUS WITHOUT COMPLICATIONS (3) Syncope Status: Acute Code(s): R55 - SYNCOPE AND COLLAPSE (4) TIA (transient ischemic attack) Status: Acute Code(s): G45.9 - TRANSIENT CEREBRAL ISCHEMIC ATTACK, UNSPECIFIED Plan: This patient is a 81-year-old female who is being evaluated for episode of syncope and possible cardiogenic syncope. Patient has been seen by cardiology. She underwent a V/Q scan which reveals intermediate probability for PE. She is to undergo further cardiac workup with a stress test on Monday. We will obtain an EEG for further evaluation to rule out partial seizure as a cause of her recent episode. She does have a history of paroxysmal atrial fibrillation and will await further recommendations from cardiology. Her overall prognosis at this time remains very guarded. Time with Patient: Greater than 30
[2017-04-16 17:46] LABS: Glucose,Whole Blood 224 mg/dL (75-99)
[2017-04-16] MEDS ORDERED: WARFARIN 2.5 MG TAB PO ONE (18:00)
[2017-04-16] MEDS: VERAPAMIL SR 180 MG TABLET.ER PO SCH (21:03)
[2017-04-16] MEDS: ATORVASTATIN 10 MG TAB PO SCH (21:03)
[2017-04-16] MEDS: METOPROLOL SUCCINATE (ER) 100 MG TAB.ER.24H PO SCH (21:03)
[2017-04-16] MEDS: ALPRAZolam 0.25 MG TAB PO PRN (21:11)
[2017-04-16 21:20] LABS: Glucose,Whole Blood 71 mg/dL (75-99)
[2017-04-16] MEDS ORDERED: IPRATROPIUM-ALBUTEROL 3 ML NEB INHALATION PRN (22:35)
--- NOTE | 2017-04-17 00:25 | P.PN ---
Subjective This patient is a 81 year old female being evaluated for syncope and collapse. As noted earlier the patient was undergoing CAT scan of the brain and following this had a CODE BLUE called due to unresponsive state. She does have history of atrial fibrillation with frequent PVCs and is being followed closely by cardiology at this time. She underwent a carotid Doppler ultrasound which revealed only 50% stenosis. Computed tomography scan of the brain was done and revealed only age-related atrophy and chronic small vessel ischemic changes. Her d-dimer was elevated and she underwent a VQ scan which showed intermediate probability for PE. Patient is to undergo a stress test on Monday. She is currently on antibiotics for treatment of a urinary tract infection. Patient has been having some mild shortness of breath. The patient states she is scheduled to undergo a stress test tomorrow. She will be following up with her regular loss prevention lead who is in [place] for further management once she is discharged. Patient has had no further episodes of syncope or collapse. We will continue close neurological follow-up of this patient during this admission. Objective - Vital Signs Vital signs: Vital Signs Temp 97.6 F 04/16/17 12:00 Pulse 84 04/16/17 12:00 Resp 18 04/16/17 12:00 BP 142/66 04/16/17 12:00 Pulse Ox 97 04/16/17 08:00 Intake & Output 04/15/17 04/16/17 04/16/17 18:59 06:59 18:59 Intake Total 7235.077 1265.185 Output Total 1150 300 Balance 782.093 7685.185 Intake: IV 240 420 Sodium Chloride 0.9% 1, 240 420 000 ml @ 50 mls/hr IV . Q20H [facility] Rx#:[id number] Intake, IV Titration 88.972 826.185 Amount Heparin Sodium,Porcine/ 38.972 476.185 D5w Pmx 25,000 unit In Dextrose/Water 1 500ml. bag @ 12 UNITS/KG/HR 15. 72 mls/hr IV .Q24H [facility] Rx #:[id number] Magnesium Sulfate-D5w Pmx 300 1 gm In Dextrose/Water 1 100ml.bag @ 100 mls/hr IVPB Q1H [facility] Rx#: [id number] cefTRIAXone 1,000 mg In 50 50 Sodium Chloride 0.9% 50 ml @ 100 mls/hr IVPB Q24HR [facility] Rx#:[id number] Oral 1220 325 Output: Urine 1150 300 Other: Voiding Method Toilet Toilet Toilet # Voids 1 2 1 # Bowel Movements 3 1 1 - Exam Physical Examination: PHYSICAL EXAMINATION: Patient is resting comfortably in bed. VITAL SIGNS: Blood pressure is [135/62]. Heart rate is [81]. Respiration is [18] . Temperature is [97.0]. HEENT: Head is atraumatic, neck is supple, there were no carotid bruits. CHEST: Lungs are clear to auscultation and percussion. CARDIAC: S1, S2 normal rate and rhythm. There is no murmur. ABDOMEN: Soft and nontender. Bowel sounds are present. EXTREMITIES: There is no pedal edema. Peripheral pulses are present. Neurological examination: Patient's neurological examination is unchanged from yesterday. - Labs CBC & Chem 7: 04/16/17 05:52 04/16/17 05:52 Labs: Abnormal Lab Results - Last 24 Hours (Table) 04/15/17 04/15/17 04/16/17 Range/Units 16:57 21:24 02:44 WBC (3.8-10.6) k/uL RBC (3.80-5.40) m/uL Hgb (11.4-16.0) gm/dL Hct (34.0-46.0) % Neutrophils # (1.3-7.7) k/uL PT (9.0-12.0) sec INR (<1.2) APTT (22.0-30.0) sec Sodium (137-145) mmol/L Chloride (98-107) mmol/L BUN (7-17) mg/dL Glucose (74-99) mg/dL POC Glucose (mg/dL) 306 H 282 H 172 H (75-99) mg/dL Magnesium (1.6-2.3) mg/dL Total Protein (6.3-8.2) g/dL Albumin (3.5-5.0) g/dL 04/16/17 04/16/17 04/16/17 Range/Units 05:52 05:52 05:52 WBC 13.4 H (3.8-10.6) k/uL RBC 3.55 L (3.80-5.40) m/uL Hgb 9.9 L (11.4-16.0) gm/dL Hct 31.8 L (34.0-46.0) % Neutrophils # 10.7 H (1.3-7.7) k/uL PT 19.4 H (9.0-12.0) sec INR 2.0 H (<1.2) APTT 65.2 H (22.0-30.0) sec Sodium 130 L (137-145) mmol/L Chloride 96 L (98-107) mmol/L BUN 20 H (7-17) mg/dL Glucose 256 H (74-99) mg/dL POC Glucose (mg/dL) (75-99) mg/dL Magnesium (1.6-2.3) mg/dL Total Protein 5.4 L (6.3-8.2) g/dL Albumin 3.1 L (3.5-5.0) g/dL 04/16/17 04/16/17 04/16/17 Range/Units 05:52 06:04 12:00 WBC (3.8-10.6) k/uL RBC (3.80-5.40) m/uL Hgb (11.4-16.0) gm/dL Hct (34.0-46.0) % Neutrophils # (1.3-7.7) k/uL PT (9.0-12.0) sec INR (<1.2) APTT (22.0-30.0) sec Sodium (137-145) mmol/L Chloride (98-107) mmol/L BUN (7-17) mg/dL Glucose (74-99) mg/dL POC Glucose (mg/dL) 294 H 174 H (75-99) mg/dL Magnesium 1.3 L (1.6-2.3) mg/dL Total Protein (6.3-8.2) g/dL Albumin (3.5-5.0) g/dL Assessment and Plan (1) Atrial fibrillation Status: Acute Code(s): I48.91 - UNSPECIFIED ATRIAL FIBRILLATION (2) Diabetes Status: Acute Code(s): E11.9 - TYPE 2 DIABETES MELLITUS WITHOUT COMPLICATIONS (3) Syncope Status: Acute Code(s): R55 - SYNCOPE AND COLLAPSE (4) TIA (transient ischemic attack) Status: Acute Code(s): G45.9 - TRANSIENT CEREBRAL ISCHEMIC ATTACK, UNSPECIFIED Plan: This patient is a 81-year-old female who is being evaluated for episode of syncope and possible cardiogenic syncope. Patient has been seen by cardiology. She underwent a V/Q scan which reveals intermediate probability for PE. She is to undergo further cardiac workup with a stress test on Monday. We will obtain an EEG for further evaluation to rule out partial seizure as a cause of her recent episode. She does have a history of paroxysmal atrial fibrillation and will await further recommendations from cardiology. The patient states she is being scheduled for a stress test tomorrow. We will need to await those results and further recommendations from cardiology. Her overall prognosis at this time remains very guarded.
[2017-04-17 05:46] LABS: Glucose,Whole Blood 418 mg/dL (75-99)
[2017-04-17 05:49] LABS: Glucose,Whole Blood 391 mg/dL (75-99)
[2017-04-17] MEDS: IPRATROPIUM-ALBUTEROL 3 ML NEB INHALATION SCH ×4 (06:00→20:22)
[2017-04-17] MEDS: DOCUSATE 100 MG CAP PO SCH ×2 (06:03→21:27)
[2017-04-17] MEDS: LOSARTAN-HCTZ 50-12.5 MG 1 EACH TAB PO SCH (06:07)
[2017-04-17] MEDS: LIOTHYRONINE SODIUM 5 MCG TAB PO SCH (06:07)
[2017-04-17] MEDS: METOPROLOL SUCCINATE (ER) 100 MG TAB.ER.24H PO SCH ×2 (06:07→21:28)
[2017-04-17] MEDS: LEVOTHYROXINE 88 MCG TAB PO SCH (06:07)
[2017-04-17] MEDS: ASPIRIN 81 MG CHEW PO SCH (06:07)
[2017-04-17] MEDS: FAMOTIDINE 20 MG TAB PO SCH (06:07)
[2017-04-17] MEDS: INSULIN LISPRO (humaLOG) 300 UNIT/3 ML VIAL SQ SCH ×5 (06:39→21:29)
[2017-04-17] MEDS: NICOTINE 14MG/24HR PATCH TRANSDERM SCH (06:40)
[2017-04-17] MEDS: ALPRAZolam 0.25 MG TAB PO PRN ×2 (06:41→21:27)
[2017-04-17 07:02] LABS: Basophils % (A) 0 %; CH 26.9; CHCM 29.9; Eosinophils % (A) 0 %; HCT 33.5 % (34.0-46.0); HDW 2.96; HGB 10.4 gm/dL (11.4-16.0); Hypochromasia Marked; Luc # (Auto) 0.11; Luc % (Auto) 1; Lymphocytes # (A) 0.9 k/uL (1.0-4.8); Lymphocytes % (A) 8 %; MCH 28.1 pg (25.0-35.0); MCHC 31.1 g/dL (31.0-37.0); MCV 90.3 fL (80.0-100.0); Monocytes # (A) 0.3 k/uL (0-1.0); Monocytes % (A) 3 %; Neutrophils # (A) 9.9 k/uL (1.3-7.7); Neutrophils % (A) 88 %; RBC 3.71 m/uL (3.80-5.40); WBC 11.3 k/uL (3.8-10.6); WBC (Perox) 12.16
[2017-04-17 07:11] LABS: ALT 74 U/L (9-52); AST 66 U/L (14-36); Alkaline Phosphatase 62 U/L (38-126); Anion Gap 11 mmol/L; Blood Urea Nitrogen 27 mg/dL (7-17); Calcium 9.5 mg/dL (8.4-10.2); Carbon Dioxide 22 mmol/L (22-30); Chloride 97 mmol/L (98-107); Glucose 432 mg/dL (74-99); Magnesium 1.7 mg/dL (1.6-2.3); Non-African American GFR(MDRD) >60 (>60 ml/min/1.73 sqM); Potassium 5.7 mmol/L (3.5-5.1); Sodium 130 mmol/L (137-145); Total Bilirubin 0.7 mg/dL (0.2-1.3); Total Protein 5.7 g/dL (6.3-8.2)
[2017-04-17 07:25] LABS: INR 2.5 (<1.2); Prothrombin Time 23.6 sec (9.0-12.0)
[2017-04-17] MEDS ORDERED: SODIUM POLYSTYRENE SULFONATE 15 GM/60 ML BOTTLE PO STA (08:10)
[2017-04-17] MEDS ORDERED: AMINOPHYLLINE 500 MG/20 ML VIAL IV PRN (09:00)
[2017-04-17] MEDS ORDERED: REGADENOSON 0.4 MG/5 ML SYRINGE IV ONE (09:00)
[2017-04-17] MEDS: metFORMIN 500 MG TAB PO SCH ×2 (10:40→18:54)
--- NOTE | 2017-04-17 11:34 | P.STRESS ---
- Stress Test Note Stress Test Results/Findings: Exam Performed: NM stress lexiscan cardiolite Exam Date: 04/17/17 Reason for Exam: CVA Height: 5 ft 3 in Weight: 67.132 kg Protocol: LEXISCAN Stage: Duration of Exercise: 5 Resting Heart Rate: 63 Resting Blood Pressure: 126/59 Maximum Achieved Heart Rate: 86 Maximum Achieved Blood Pressure: 141/67 85% PMHR: 100% PMHR: METS: Technologist Comment: Stress Test Results/Findings: This 81-year-old female is admitted to the hospital with dyspnea. Patient has history of hypertension, diabetes and hypercholesterolemia baseline EKG actually showed atrial paced rhythm with a heart rate of 63 and blood pressure 126/59. A standard dose of Lexiscan was infused. Patient continued to show atrial paced rhythm without any changes from the baseline. Final impression: #1 Negative legs scan stress test #2. Report on the nuclear images to begin with the radiologist
[2017-04-17 12:11] LABS: Glucose,Whole Blood 338 mg/dL (75-99)
--- NOTE | 2017-04-17 12:24 | P.PN ---
Subjective This is a 81-year-old female, patient of [facility]. She has a known past medical history of paroxysmal atrial fibrillation, aortic valve replacement, hypertension, hypothyroidism, permanent pacemaker, nicotine dependence, coronary artery disease with stent, diabetes mellitus type 2, and CVA. Patient was having an outpatient computed tomography scan of the brain with IV contrast completed. Computed tomography scan was being performed because patient has been having numbness in her fingertips and some drooling from the right side of her mouth. Computed tomography scan was completed IV was taken outpatient setting up in the bench and then was a seated in her wheelchair. She started to see floaters in her eyes and seeing black dots. She told the nurse that she didn't feel well and that she might pass out. And then she started having difficulty breathing and passed out. Patient had passed out for a few seconds. However she continued to be have difficulty breathing and became hypoxic. A CODE BLUE was called. The patient was brought into the emergency admitted to the hospital. She was brought to the sixth floor. Cardiology and neurology consulted. EKG on arrival had shown atrial fibrillation with occasional PVCs. She did convert back to normal sinus rhythm. Patient did have elevation in her troponin 0.61-0.3-2. Denies any chest pain. White count was 11.3, d-dimer elevated at 0.94, sodium 129 and she was subtherapeutic on her INR of 1.4. Echo shows an EF of 55-60% and moderate mitral regurgitation with moderate to severe tricuspid regurgitation and mild pulmonary hypertension noted on echo from January 2017. Patient was also started on IV steroids in the emergency room. Carotid Doppler shows bilateral stenosis of 50%. Computed tomography scan of the brain shows age-related changes of atrophy and probable chronic small vessel ischemia. Patient denies any fevers chills or sweats. Denies any cough. Denies any chest pain. Denies any nausea or vomiting. Denies any bowel movement changes or urinary symptoms. Shortness of breath has improved. Case discussed with cardiology. Since patient's INR is subtherapeutic and there is concern about acute coronary syndrome patient will be started on IV heparin and they're planning on stress test tomorrow. D- dimer elevated VQ scan will be ordered patient just had IV dye to CT Scan of the brain yesterday. 04/14/2017 patient lying in bed comfortably. She occasionally has shortness of breath. Requiring oxygen. VQ scan shows intermediate probability for PE. Patient has stress test scheduled for Monday. Started on antibiotics today for UTI. Patient denies any chest pain. Denies any nausea or vomiting. Denies any bowel movement changes or urinary symptoms. 04/17/2017 patient had stress test this morning that was negative. Patient reports that she is feeling better. She denies any chest pain. She did require breathing treatment after the stress test. However now she no shortness of breath. No wheezing. Denies any nausea or vomiting. She has been having bowel movements. She has been eating a lot of prunes which may have continued contributed to her elevated potassium level. She did receive Kayexalate this morning. Patient denies any burning with urination. Objective - Vital Signs Vital signs: Vital Signs Temp 97.0 F L 04/17/17 11:33 Pulse 76 04/17/17 11:54 Resp 18 04/17/17 11:33 BP 142/63 04/17/17 11:33 Pulse Ox 96 04/17/17 11:33 Intake & Output 04/16/17 04/17/17 04/17/17 18:59 06:59 18:59 Intake Total 1691.185 Output Total 600 Balance 1091.185 Weight 67.4 kg 67.132 kg Intake: IV 420 Sodium Chloride 0.9% 1, 420 000 ml @ 50 mls/hr IV . Q20H [facility] Rx#:[id number] Intake, IV Titration 826.185 Amount Heparin Sodium,Porcine/ 476.185 D5w Pmx 25,000 unit In Dextrose/Water 1 500ml. bag @ 12 UNITS/KG/HR 15. 72 mls/hr IV .Q24H [facility] Rx #:[id number] Magnesium Sulfate-D5w Pmx 300 1 gm In Dextrose/Water 1 100ml.bag @ 100 mls/hr IVPB Q1H [facility] Rx#: [id number] cefTRIAXone 1,000 mg In 50 Sodium Chloride 0.9% 50 ml @ 100 mls/hr IVPB Q24HR [facility] Rx#:[id number] Oral 445 Output: Urine 600 Other: Voiding Method Toilet Toilet Toilet # Voids 1 2 # Bowel Movements 1 1 - Exam Head normocephalic Neck supple Lungs clear to auscultation bilaterally Heart regular rate and rhythm S1-S2, no rub or gallop Abdomen is soft nontender nondistended positive bowel sounds no hepatosplenomegaly Extremities no edema Neuro alert and orientated to 3 - Labs CBC & Chem 7: 04/17/17 06:13 04/17/17 06:13 Labs: Abnormal Lab Results - Last 24 Hours (Table) 04/16/17 04/16/17 04/17/17 Range/Units 17:25 21:18 05:44 WBC (3.8-10.6) k/uL RBC (3.80-5.40) m/uL Hgb (11.4-16.0) gm/dL Hct (34.0-46.0) % Neutrophils # (1.3-7.7) k/uL Lymphocytes # (1.0-4.8) k/uL PT (9.0-12.0) sec INR (<1.2) Sodium (137-145) mmol/L Potassium (3.5-5.1) mmol/L Chloride (98-107) mmol/L BUN (7-17) mg/dL Glucose (74-99) mg/dL POC Glucose (mg/dL) 224 H 71 L 418 H (75-99) mg/dL AST (14-36) U/L ALT (9-52) U/L Total Protein (6.3-8.2) g/dL Albumin (3.5-5.0) g/dL 04/17/17 04/17/17 04/17/17 Range/Units 05:47 05:47 06:13 WBC 11.3 H (3.8-10.6) k/uL RBC 3.71 L (3.80-5.40) m/uL Hgb 10.4 L (11.4-16.0) gm/dL Hct 33.5 L (34.0-46.0) % Neutrophils # 9.9 H (1.3-7.7) k/uL Lymphocytes # 0.9 L (1.0-4.8) k/uL PT (9.0-12.0) sec INR (<1.2) Sodium (137-145) mmol/L Potassium (3.5-5.1) mmol/L Chloride (98-107) mmol/L BUN (7-17) mg/dL Glucose (74-99) mg/dL POC Glucose (mg/dL) 391 H 391 H (75-99) mg/dL AST (14-36) U/L ALT (9-52) U/L Total Protein (6.3-8.2) g/dL Albumin (3.5-5.0) g/dL 04/17/17 04/17/17 04/17/17 Range/Units 06:13 06:13 11:59 WBC (3.8-10.6) k/uL RBC (3.80-5.40) m/uL Hgb (11.4-16.0) gm/dL Hct (34.0-46.0) % Neutrophils # (1.3-7.7) k/uL Lymphocytes # (1.0-4.8) k/uL PT 23.6 H (9.0-12.0) sec INR 2.5 H (<1.2) Sodium 130 L (137-145) mmol/L Potassium 5.7 H (3.5-5.1) mmol/L Chloride 97 L (98-107) mmol/L BUN 27 H (7-17) mg/dL Glucose 432 H (74-99) mg/dL POC Glucose (mg/dL) 338 H (75-99) mg/dL AST 66 H (14-36) U/L ALT 74 H (9-52) U/L Total Protein 5.7 L (6.3-8.2) g/dL Albumin 3.4 L (3.5-5.0) g/dL Assessment and Plan Plan: 1. Syncopal episode: Rule out cardiac causes. Cardiology and neurology consulted. Continue telemetry monitoring. Pacemaker was interrogated. Showed evidence of atrial fibrillation.. Carotid Doppler shows bilateral stenosis of 50%. Echo shows an EF of 55-60% and moderate pulmonary hypertension 2. Elevated troponins with concern of a possible acute coronary syndrome. Negative stress test 3. VQ scan showing intermediate probability of PE: Evaluated by pulmonary service. They felt this is less likely to be a PE. Currently off of the IV heparin. INR is therapeutic at 2.5. 4. Accelerated hypertension on admission. Now resolved. 5. Nicotine dependence: Discussed smoking cessation. Order nicotine patch. 6. History of mechanical aortic valve replacement with subtherapeutic INR on admission. Give Coumadin 2.5 mg tonight 7. History of paroxysmal atrial fibrillation 8. History of CVA with concerns of a possible stroke outpatient due to the numbness at the tip of her fingers on the right hand and drooling from the right side of her mouth. 9. Hyponatremia: Sodium 129. Hold Lasix. start Normal saline at 50 mL an hour. Repeat labs in a.m. sodium level is 130 10. Acute COPD exacerbation with hypoxia: Patient started on IV steroids in the emergency room. And given nebulizer treatments. Patient still having some wheezing. Evaluated by pulmonary service. Patient no longer wheezing. We'll discontinue the IV Solu-Medrol and start prednisone 40 by mouth daily 11. Diabetes mellitus type 2 with elevated blood sugars secondary to steroids. He should insulin drip discontinued due to hypoglycemia. Blood sugars are now elevated again due to steroids. Patient's IV site medical be discontinued and she'll be placed on prednisone. At this time we'll resume her home oral hypoglycemics and continue with sliding scale coverage. 12. Constipation add Colace and lactulose 13. Oral thrush start nystatin swish and swallow 14 UTI : Urine culture growing E. coli. It only had intermediate sensitivity to Rocephin. Rocephin discontinued. Patient started on Macrobid 100 mg by mouth every 6 hours 15. Hyperkalemia: Likely secondary to prunes. Patient reports eating about 4 prunes a day. Recommended the patient decreases how many prunes she eats. She' ll give Kayexalate 30 g by mouth 1. Repeat potassium level in the morning Anticipate discharge possibly tomorrow DVT prophylaxis Coumadin I performed an examination of the patient and discussed their management with the physician Passenger Solicitor. I have reviewed the Physician Passenger Solicitor's notes and agree with the documented findings and plan of care
[2017-04-17] MEDS: NITROFURANTOIN MONOHYD/M-CRYST 100 MG CAP PO SCH ×2 (12:26→12:37)
[2017-04-17] MEDS: NYSTATIN 100,000 UNIT/ML SUSP 500,000 UNIT/5 ML CUP PO SCH ×4 (12:26→21:28)
--- NOTE | 2017-04-17 12:33 | NM ---
EXAMINATION TYPE: NM stress lexiscan cardiolite DATE OF EXAM: 04/17/2017 COMPARISON: 08/07/2013 HISTORY: Elevated troponin with history of hypertension, shortness of breath, diabetes, CVA, hyperlip idemia, and prior cardiac catheterization. TECHNIQUE: After the intravenous administration of 11 mCi Tc 99m Sestamibi - Cardiolite resting SPEC T images acquired 70 minutes post injection. The patient received 0.4mg Lexiscan, 27 mCi Tc 99m Sestamibi - Stress images obtained 35 minutes post injection FINDINGS: Review of stress and rest SPECT images demonstrates fixed perfusion defect in the ventricular apex, w hich may relate to prior infarct or physiologic ventricular apical thinning. Gated analysis shows nor mal wall motion with an estimated left ventricular ejection fraction of 67 %. 3 times a day is within normal limits measuring 0.93. IMPRESSION: No scintigraphic evidence for reversible ischemia.
--- NOTE | 2017-04-17 15:22 | P.PN ---
Subjective This is a very pleasant 81-year-old female patient who follows at Dr. Saxena' s office for her primary care needs. She has a history of diabetes mellitus, CVA/TIA, coronary artery disease with previous stent placement, atrial fibrillation, mechanical aortic valve replacement chronically on warfarin, lower extremity edema. She also has a history of chronic obstructive pulmonary disease and has chronic and ongoing tobacco dependence. She was recently started on nebulized treatments for increasing shortness of breath. Recently she had complaints of tingling and numbness of the right hand and right face and she was sent here for an outpatient computed tomography scan of the brain on 04/12/2017 and as she was being removed from the CAT scan machine she became unresponsive stopped breathing and was cyanotic. According to staff she never lost her pulse and she was seen in the emergency room subsequent to that. EKG revealed nonspecific ST and T-wave abnormalities. Chest x-ray revealed no acute process. Computed tomography scan of the brain revealed no acute intracranial process. Carotid Dopplers revealed bilateral 50% stenosis. Echocardiogram revealed preserved left ventricular systolic function with estimated ejection fraction 55-60%. There was noted mild to moderate pulmonary hypertension with an RVSP of 50.68 mmHg. Mechanical aortic valve functioning normally. She was found to be subtherapeutic with an INR of 1.5. There was a d -dimer of 0.94 and a VQ scan revealed in intermediate probability for pulmonary embolism in the nonsegmental branches. There is also apical air trapping consistent with chronic obstructive pulmonary disease. We're consulted for the same. She is seen today in consultation on the selective care unit. She is awake and alert in no acute distress. She denies any worsening shortness of breath, cough or congestion. She denies any recent travels, no recent surgery, no cancer, no previous history of PE/DVT. She has had ongoing issues with lower extremity edema being treated with diuretics in the outpatient setting. She does have some dyspnea on exertion but able to carry on conversation. She is up ambulating in the hallway without distress. She is maintaining good O2 saturations in the high 90s on 2 L/m per nasal cannula. She is afebrile. Hemodynamically stable. She remains on heparin drip for now. Current INR 1.3. Cardiology is on the case and was planning a stress test based on borderline troponin elevation. She denies any chest pain, palpitations, lightheadedness or dizziness. She is also noted to have gram-negative bacilli in her urine. She is on Rocephin. Due to the initial shortness of breath and wheezing the patient was initiated on IV Solu-Medrol. She has had significant leukocytosis and hyperglycemia and is currently on a insulin drip at 7.5 units per hour. The patient is seen again today 04/15/2017 in follow-up on the selective care unit area she is awake and alert in no acute distress. She is sitting up in the chair at the bedside. She has no pulmonary complaints at this time. She is maintaining good O2 saturations in the high 90s on room air. She is afebrile. Her white count has improved to 15.1. Hemoglobin 9.7. INR 1.3. She remains on a heparin drip. She denies any further tingling or numbness of the extremities. The plan is for stress test on Monday. On 04/17/2017 I'm seeing this patient in follow-up. The patient is doing well. She underwent a cardiac stress test today and the results were essentially negative and there is no evidence of any reversible ischemia. The patient is also being articulated warfarin and her INR currently therapeutic at 2.5. No evidence of any acute bleeding for now. Hemoglobin is stable at 10.4. Sodium is at 130. The patient is resting comfortably in bed. Blood sugar was noted to be elevated today and the patient is on metformin 1 g twice a day and Humalog sliding scale coverage. This is essentially a steroid-induced hyperglycemia as the patient was started on a prednisone burst taper starting with 40 mg to be taken by 10 mg every 4 days. No syncope. No focal neurological deficit. No headache. No change in mental status. No other complaints otherwise. Objective - Vital Signs Vital signs: Vital Signs Temp 97.0 F L 04/17/17 11:33 Pulse 76 04/17/17 11:54 Resp 18 04/17/17 11:33 BP 142/63 04/17/17 11:33 Pulse Ox 96 04/17/17 11:33 Intake & Output 04/16/17 04/17/17 04/17/17 18:59 06:59 18:59 Intake Total 1691.185 Output Total 600 Balance 1091.185 Weight 67.4 kg 67.132 kg Intake: IV 420 Sodium Chloride 0.9% 1, 420 000 ml @ 50 mls/hr IV . Q20H [facility] Rx#:[id number] Intake, IV Titration 826.185 Amount Heparin Sodium,Porcine/ 476.185 D5w Pmx 25,000 unit In Dextrose/Water 1 500ml. bag @ 12 UNITS/KG/HR 15. 72 mls/hr IV .Q24H [facility] Rx #:[id number] Magnesium Sulfate-D5w Pmx 300 1 gm In Dextrose/Water 1 100ml.bag @ 100 mls/hr IVPB Q1H [facility] Rx#: [id number] cefTRIAXone 1,000 mg In 50 Sodium Chloride 0.9% 50 ml @ 100 mls/hr IVPB Q24HR [facility] Rx#:[id number] Oral 445 Output: Urine 600 Other: Voiding Method Toilet Toilet Toilet # Voids 1 2 # Bowel Movements 1 1 - Exam GENERAL EXAM: Alert, active, comfortable in no apparent distress. HEAD: Normocephalic. EYES: Normal reaction of pupils, equal size. NOSE: Clear with pink turbinates. THROAT: No erythema or exudates. NECK: No masses, no JVD. CHEST: No chest wall deformity. LUNGS: Equal air entry with no crackles, wheeze, rhonchi or dullness. Diminished. CVS: S1 and S2 normal with no audible murmurs, regular rhythm. Click. ABDOMEN: No hepatosplenomegaly, normal bowel sounds, no guarding or rigidity. SPINE: No scoliosis or deformity SKIN: No rashes CENTRAL NERVOUS SYSTEM: No focal deficits, tone is normal in all 4 extremities. Extremities: There is no significant peripheral edema. No clubbing, no cyanosis. Peripheral pulses are intact. - Labs CBC & Chem 7: 04/17/17 06:13 04/17/17 06:13 Labs: Abnormal Lab Results - Last 24 Hours (Table) 04/16/17 04/16/17 04/17/17 Range/Units 17:25 21:18 05:44 WBC (3.8-10.6) k/uL RBC (3.80-5.40) m/uL Hgb (11.4-16.0) gm/dL Hct (34.0-46.0) % Neutrophils # (1.3-7.7) k/uL Lymphocytes # (1.0-4.8) k/uL PT (9.0-12.0) sec INR (<1.2) Sodium (137-145) mmol/L Potassium (3.5-5.1) mmol/L Chloride (98-107) mmol/L BUN (7-17) mg/dL Glucose (74-99) mg/dL POC Glucose (mg/dL) 224 H 71 L 418 H (75-99) mg/dL AST (14-36) U/L ALT (9-52) U/L Total Protein (6.3-8.2) g/dL Albumin (3.5-5.0) g/dL 04/17/17 04/17/17 04/17/17 Range/Units 05:47 05:47 06:13 WBC 11.3 H (3.8-10.6) k/uL RBC 3.71 L (3.80-5.40) m/uL Hgb 10.4 L (11.4-16.0) gm/dL Hct 33.5 L (34.0-46.0) % Neutrophils # 9.9 H (1.3-7.7) k/uL Lymphocytes # 0.9 L (1.0-4.8) k/uL PT (9.0-12.0) sec INR (<1.2) Sodium (137-145) mmol/L Potassium (3.5-5.1) mmol/L Chloride (98-107) mmol/L BUN (7-17) mg/dL Glucose (74-99) mg/dL POC Glucose (mg/dL) 391 H 391 H (75-99) mg/dL AST (14-36) U/L ALT (9-52) U/L Total Protein (6.3-8.2) g/dL Albumin (3.5-5.0) g/dL 04/17/17 04/17/17 04/17/17 Range/Units 06:13 06:13 11:59 WBC (3.8-10.6) k/uL RBC (3.80-5.40) m/uL Hgb (11.4-16.0) gm/dL Hct (34.0-46.0) % Neutrophils # (1.3-7.7) k/uL Lymphocytes # (1.0-4.8) k/uL PT 23.6 H (9.0-12.0) sec INR 2.5 H (<1.2) Sodium 130 L (137-145) mmol/L Potassium 5.7 H (3.5-5.1) mmol/L Chloride 97 L (98-107) mmol/L BUN 27 H (7-17) mg/dL Glucose 432 H (74-99) mg/dL POC Glucose (mg/dL) 338 H (75-99) mg/dL AST 66 H (14-36) U/L ALT 74 H (9-52) U/L Total Protein 5.7 L (6.3-8.2) g/dL Albumin 3.4 L (3.5-5.0) g/dL Assessment and Plan Plan: Impression: #1 Acute hypoxic respiratory failure with syncopal and unresponsive episode following a computed tomography scan of the brain. The patient's pulmonary status is stable for now. She is on a prednisone burst taper in regards to her acute COPD exacerbation. Continue the DuoNeb nebulized treatments around-the- clock. Nicotine patch and smoking cessation counseling was also done. #2 Tingling and numbness of the right hand, suspect CVA/TIA. Computed tomography scan of the brain showed no acute intracranial process. #3 Troponin leak. #4 Mildly elevated d-dimer with VQ scan revealing an intermediate probability for pulmonary embolism. Pulmonary embolus is doubtful. #5 Chronic atrial fibrillation, status post pacemaker insertion, anticoagulated with warfarin, therapeutic. #6 History of mechanical aortic valve replacement, anticoagulated with warfarin , subtherapeutic. #7 Chronic and ongoing tobacco dependence with suspected chronic obstructive pulmonary disease. #8 Diabetes mellitus with steroid-induced hyperglycemia #9 Coronary artery disease with previous stent placement. The most recent cardiac stress test shows no evidence of any reversible ischemia. #10 syncope, still under investigation. The workup has been negative thus far. The carotid Doppler shows bilateral stenosis approximately 50% involving the internal carotid arteries. Plan Continue not to coagulation with Coumadin and the PT/INR is therapeutic for now. Cardiac stress test results were noted. Neurologically stable. Follow pulmonary standpoint the patient is recovering from her acute respiratory failure due to COPD exacerbation. The patient is on DuoNeb about treatments, prednisone burst taper and a nicotine patch. Smoking cessation counseling was done. The monitor blood sugar. Cover with sliding scale coverage and may consider stepping up the insulin treatment if the blood sugar remains elevated. We'll continue to follow.
[2017-04-17 17:08] LABS: Glucose,Whole Blood 272 mg/dL (75-99)
[2017-04-17] MEDS ORDERED: WARFARIN 2.5 MG TAB PO SCH (18:00)
[2017-04-17] MEDS: SODIUM CHLORIDE 0.9% 1,000 ML IV SCH (18:57)
[2017-04-17 21:22] LABS: Glucose,Whole Blood 215 mg/dL (75-99)
[2017-04-17] MEDS: DONEPEZIL 5 MG TAB PO SCH (21:27)
[2017-04-17] MEDS: VERAPAMIL SR 180 MG TABLET.ER PO SCH (21:28)
[2017-04-17] MEDS: methylPREDNISolone SOD SUCCI 40 MG/ML 1 ML VIAL IV SCH (21:45)
[2017-04-18 06:01] LABS: Glucose,Whole Blood 236 mg/dL (75-99)
[2017-04-18 06:10] LABS: Basophils % (A) 0 %; CH 27.4; CHCM 31.3; Eosinophils # (A) 0.2 k/uL (0-0.7); Eosinophils % (A) 2 %; HCT 29.4 % (34.0-46.0); HDW 2.91; HGB 9.4 gm/dL (11.4-16.0); Hypochromasia Moderate; Luc # (Auto) 0.34; Luc % (Auto) 3; Lymphocytes # (A) 1.8 k/uL (1.0-4.8); Lymphocytes % (A) 16 %; MCHC 31.8 g/dL (31.0-37.0); Mean Platelet Volume 7.3; Monocytes # (A) 0.8 k/uL (0-1.0); Monocytes % (A) 8 %; Neutrophils # (A) 7.7 k/uL (1.3-7.7); Neutrophils % (A) 71 %; RBC 3.34 m/uL (3.80-5.40); RDW 15.4 % (11.5-15.5); WBC 10.8 k/uL (3.8-10.6); WBC (Perox) 11.56
[2017-04-18] MEDS: NICOTINE 14MG/24HR PATCH TRANSDERM SCH (06:21)
[2017-04-18] MEDS: LEVOTHYROXINE 88 MCG TAB PO SCH (06:21)
[2017-04-18 06:23] LABS: ALT 59 U/L (9-52); AST 28 U/L (14-36); Alkaline Phosphatase 53 U/L (38-126); Anion Gap 6 mmol/L; Blood Urea Nitrogen 28 mg/dL (7-17); Calcium 9.1 mg/dL (8.4-10.2); Carbon Dioxide 26 mmol/L (22-30); Chloride 97 mmol/L (98-107); Glucose 222 mg/dL (74-99); Non-African American GFR(MDRD) >60 (>60 ml/min/1.73 sqM); Potassium 3.9 mmol/L (3.5-5.1); Sodium 129 mmol/L (137-145); Total Bilirubin 0.7 mg/dL (0.2-1.3)
[2017-04-18] MEDS ORDERED: GLIMEPIRIDE 2 MG TAB PO SCH (07:30)
[2017-04-18] MEDS: metFORMIN 500 MG TAB PO SCH (07:46)
[2017-04-18] MEDS: INSULIN LISPRO (humaLOG) 300 UNIT/3 ML VIAL SQ SCH ×2 (07:46→12:32)
[2017-04-18] MEDS: IPRATROPIUM-ALBUTEROL 3 ML NEB INHALATION SCH ×3 (08:00→15:29)
[2017-04-18 08:14] VITALS: TEMP 97.9
[2017-04-18] MEDS ORDERED: predniSONE 20 MG TAB PO SCH (09:00)
[2017-04-18] MEDS ORDERED: FAMOTIDINE 20 MG TAB PO SCH (09:00)
[2017-04-18] MEDS: DOCUSATE 100 MG CAP PO SCH (09:33)
[2017-04-18] MEDS: ASPIRIN 81 MG CHEW PO SCH (09:33)
[2017-04-18] MEDS: NYSTATIN 100,000 UNIT/ML SUSP 500,000 UNIT/5 ML CUP PO SCH ×2 (09:34→12:32)
[2017-04-18] MEDS: LOSARTAN-HCTZ 50-12.5 MG 1 EACH TAB PO SCH (09:34)
[2017-04-18] MEDS: LIOTHYRONINE SODIUM 5 MCG TAB PO SCH (09:34)
[2017-04-18] MEDS: METOPROLOL SUCCINATE (ER) 100 MG TAB.ER.24H PO SCH (09:34)
[2017-04-18 12:03] LABS: Glucose,Whole Blood 204 mg/dL (75-99)
--- NOTE | 2017-04-18 12:09 | P.PN ---
Subjective This is a very pleasant 81-year-old female patient who follows at Dr. Saxena' s office for her primary care needs. She has a history of diabetes mellitus, CVA/TIA, coronary artery disease with previous stent placement, atrial fibrillation, mechanical aortic valve replacement chronically on warfarin, lower extremity edema. She also has a history of chronic obstructive pulmonary disease and has chronic and ongoing tobacco dependence. She was recently started on nebulized treatments for increasing shortness of breath. Recently she had complaints of tingling and numbness of the right hand and right face and she was sent here for an outpatient computed tomography scan of the brain on 04/12/2017 and as she was being removed from the CAT scan machine she became unresponsive stopped breathing and was cyanotic. According to staff she never lost her pulse and she was seen in the emergency room subsequent to that. EKG revealed nonspecific ST and T-wave abnormalities. Chest x-ray revealed no acute process. Computed tomography scan of the brain revealed no acute intracranial process. Carotid Dopplers revealed bilateral 50% stenosis. Echocardiogram revealed preserved left ventricular systolic function with estimated ejection fraction 55-60%. There was noted mild to moderate pulmonary hypertension with an RVSP of 50.68 mmHg. Mechanical aortic valve functioning normally. She was found to be subtherapeutic with an INR of 1.5. There was a d -dimer of 0.94 and a VQ scan revealed in intermediate probability for pulmonary embolism in the nonsegmental branches. There is also apical air trapping consistent with chronic obstructive pulmonary disease. We're consulted for the same. She is seen today in consultation on the selective care unit. She is awake and alert in no acute distress. She denies any worsening shortness of breath, cough or congestion. She denies any recent travels, no recent surgery, no cancer, no previous history of PE/DVT. She has had ongoing issues with lower extremity edema being treated with diuretics in the outpatient setting. She does have some dyspnea on exertion but able to carry on conversation. She is up ambulating in the hallway without distress. She is maintaining good O2 saturations in the high 90s on 2 L/m per nasal cannula. She is afebrile. Hemodynamically stable. She remains on heparin drip for now. Current INR 1.3. Cardiology is on the case and was planning a stress test based on borderline troponin elevation. She denies any chest pain, palpitations, lightheadedness or dizziness. She is also noted to have gram-negative bacilli in her urine. She is on Rocephin. Due to the initial shortness of breath and wheezing the patient was initiated on IV Solu-Medrol. She has had significant leukocytosis and hyperglycemia and is currently on a insulin drip at 7.5 units per hour. The patient is seen again today 04/15/2017 in follow-up on the selective care unit area she is awake and alert in no acute distress. She is sitting up in the chair at the bedside. She has no pulmonary complaints at this time. She is maintaining good O2 saturations in the high 90s on room air. She is afebrile. Her white count has improved to 15.1. Hemoglobin 9.7. INR 1.3. She remains on a heparin drip. She denies any further tingling or numbness of the extremities. The plan is for stress test on Monday. On 04/17/2017 I'm seeing this patient in follow-up. The patient is doing well. She underwent a cardiac stress test today and the results were essentially negative and there is no evidence of any reversible ischemia. The patient is also being articulated warfarin and her INR currently therapeutic at 2.5. No evidence of any acute bleeding for now. Hemoglobin is stable at 10.4. Sodium is at 130. The patient is resting comfortably in bed. Blood sugar was noted to be elevated today and the patient is on metformin 1 g twice a day and Humalog sliding scale coverage. This is essentially a steroid-induced hyperglycemia as the patient was started on a prednisone burst taper starting with 40 mg to be taken by 10 mg every 4 days. No syncope. No focal neurological deficit. No headache. No change in mental status. No other complaints otherwise. The patient is seen again today 04/16/2017 in follow-up on the selective care unit. She is currently sitting up in a chair at the bedside. She denies any shortness of breath, cough or congestion. No pulmonary complaints. She is maintaining good O2 saturations in the 90s on room air. Her white count continues to improve currently at 10.8. INR 3.0. Sodium 129. She remains on ceftriaxone for her urinary tract infection of E. coli. She has not had any further syncopal episodes. Objective - Vital Signs Vital signs: Vital Signs Temp 97.9 F 04/18/17 08:00 Pulse 72 04/18/17 11:55 Resp 16 04/18/17 08:00 BP 129/61 04/18/17 08:00 Pulse Ox 95 04/18/17 08:03 Intake & Output 04/17/17 04/18/17 04/18/17 18:59 06:59 18:59 Intake Total 260 500 Balance 260 500 Weight 67.132 kg 68.4 kg 68.4 kg Intake: IV 500 Sodium Chloride 0.9% 1, 500 000 ml @ 50 mls/hr IV . Q20H [facility] Rx#:[id number] Oral 260 Other: Voiding Method Toilet Toilet Toilet # Voids 0 1 # Bowel Movements 1 - Exam GENERAL EXAM: Alert, active, comfortable in no apparent distress. HEAD: Normocephalic. EYES: Normal reaction of pupils, equal size. NOSE: Clear with pink turbinates. THROAT: No erythema or exudates. NECK: No masses, no JVD. CHEST: No chest wall deformity. LUNGS: Equal air entry with no crackles, wheeze, rhonchi or dullness. Diminished. CVS: S1 and S2 normal with no audible murmurs, regular rhythm. Click. ABDOMEN: No hepatosplenomegaly, normal bowel sounds, no guarding or rigidity. SPINE: No scoliosis or deformity SKIN: No rashes CENTRAL NERVOUS SYSTEM: No focal deficits, tone is normal in all 4 extremities. Extremities: There is no significant peripheral edema. No clubbing, no cyanosis. Peripheral pulses are intact. - Labs CBC & Chem 7: 04/18/17 05:53 04/18/17 05:53 Labs: Abnormal Lab Results - Last 24 Hours (Table) 04/17/17 04/17/17 04/17/17 Range/Units 11:59 16:56 21:10 WBC (3.8-10.6) k/uL RBC (3.80-5.40) m/uL Hgb (11.4-16.0) gm/dL Hct (34.0-46.0) % PT (9.0-12.0) sec INR (<1.2) Sodium (137-145) mmol/L Chloride (98-107) mmol/L BUN (7-17) mg/dL Glucose (74-99) mg/dL POC Glucose (mg/dL) 338 H 272 H 215 H (75-99) mg/dL ALT (9-52) U/L Total Protein (6.3-8.2) g/dL Albumin (3.5-5.0) g/dL 04/18/17 04/18/17 04/18/17 Range/Units 05:49 05:53 05:53 WBC 10.8 H (3.8-10.6) k/uL RBC 3.34 L (3.80-5.40) m/uL Hgb 9.4 L (11.4-16.0) gm/dL Hct 29.4 L (34.0-46.0) % PT 29.0 H (9.0-12.0) sec INR 3.0 H (<1.2) Sodium (137-145) mmol/L Chloride (98-107) mmol/L BUN (7-17) mg/dL Glucose (74-99) mg/dL POC Glucose (mg/dL) 236 H (75-99) mg/dL ALT (9-52) U/L Total Protein (6.3-8.2) g/dL Albumin (3.5-5.0) g/dL 04/18/17 04/18/17 Range/Units 05:53 12:01 WBC (3.8-10.6) k/uL RBC (3.80-5.40) m/uL Hgb (11.4-16.0) gm/dL Hct (34.0-46.0) % PT (9.0-12.0) sec INR (<1.2) Sodium 129 L (137-145) mmol/L Chloride 97 L (98-107) mmol/L BUN 28 H (7-17) mg/dL Glucose 222 H (74-99) mg/dL POC Glucose (mg/dL) 204 H (75-99) mg/dL ALT 59 H (9-52) U/L Total Protein 5.0 L (6.3-8.2) g/dL Albumin 2.8 L (3.5-5.0) g/dL Assessment and Plan Plan: Impression: #1 Acute hypoxic respiratory failure with syncopal and unresponsive episode following a computed tomography scan of the brain. Suspect IV contrast reaction. #2 Tingling and numbness of the right hand, suspect CVA/TIA. Computed tomography scan of the brain showed no acute intracranial process. #3 Troponin leak. #4 Mildly elevated d-dimer with VQ scan revealing an intermediate probability for pulmonary embolism. #5 Chronic atrial fibrillation, status post pacemaker insertion, anticoagulated with warfarin, subtherapeutic. #6 History of mechanical aortic valve replacement, anticoagulated with warfarin , subtherapeutic. #7 Chronic and ongoing tobacco dependence with suspected chronic obstructive pulmonary disease. #8 Diabetes mellitus with steroid-induced hyperglycemia requiring insulin drip, recovered. #9 Coronary artery disease with previous stent placement. Plan: The patient was seen and evaluated by Dr. Villalpando. Her stress test revealed no reversible ischemia. She is stable from the pulmonary standpoint as well. She' ll continue with her prednisone taper. Complete her course of antibiotics. Continue with anticoagulation. She will follow-up in our office in 1-2 weeks' time. We'll perform full pulmonary function testing to evaluate the severity of her COPD and make recommendations for maintenance medications. She is again educated regarding the importance of complete smoking cessation. NicoDerm patches in place. She is however encouraged to call sooner if any recurrence of symptoms or other questions or concerns.
[2017-04-18] MEDS: SODIUM CHLORIDE 0.9% 1,000 ML IV SCH (12:32)
[2017-04-18 13:42] VITALS: BP 133/56; PULSE 79; RESP 18
--- NOTE | 2017-04-18 13:42 | P.DS ---
Providers Date of admission: 04/12/17 16:45 Expected date of discharge: 04/18/17 Attending physician: Mary Weston Consults: 04/12/17 16:45 Consult Physician Urgent Consulting Provider: Telma Acevedo Consult Reason/Comments: arrhythmia Do you want consulting provider notified?: Yes Consult Physician Urgent Consulting Provider: Clarissa Rollins Consult Reason/Comments: cva Do you want consulting provider notified?: Yes 04/13/17 15:46 Consult Physician Routine Consulting Provider: Lindy Worthington Consult Reason/Comments: COPD exacerbation, hypoxia Do you want consulting provider notified?: Yes Primary care physician: Loni Saxena Pertinent Studies: Diagnoses on discharge: 1. Syncopal episode: Rule out cardiac causes. Cardiology and neurology consulted. Continue telemetry monitoring. Pacemaker was interrogated. Showed evidence of atrial fibrillation.. Carotid Doppler shows bilateral stenosis of 50%. Echo shows an EF of 55-60% and moderate pulmonary hypertension 2. Elevated troponins with concern of a possible acute coronary syndrome. Negative stress test 3. VQ scan showing intermediate probability of PE: Evaluated by pulmonary service. They felt this is less likely to be a PE. Currently off of the IV heparin. INR is therapeutic at 2.5. 4. Accelerated hypertension on admission. Now resolved. 5. Nicotine dependence: Discussed smoking cessation. Order nicotine patch. 6. History of mechanical aortic valve replacement with subtherapeutic INR on admission. Give Coumadin 2.5 mg tonight 7. History of paroxysmal atrial fibrillation 8. History of CVA with concerns of a possible stroke outpatient due to the numbness at the tip of her fingers on the right hand and drooling from the right side of her mouth. 9. Hyponatremia: Sodium 129. Hold Lasix. start Normal saline at 50 mL an hour. Repeat labs in a.m. sodium level is 130 10. Acute COPD exacerbation with hypoxia: Patient started on IV steroids in the emergency room. And given nebulizer treatments. Patient still having some wheezing. Evaluated by pulmonary service. Patient no longer wheezing. We'll discontinue the IV Solu-Medrol and start prednisone 40 by mouth daily 11. Diabetes mellitus type 2 with elevated blood sugars secondary to steroids. He should insulin drip discontinued due to hypoglycemia. Blood sugars are now elevated again due to steroids. Patient's IV site medical be discontinued and she'll be placed on prednisone. At this time we'll resume her home oral hypoglycemics and continue with sliding scale coverage. 12. Constipation add Colace and lactulose 13. Oral thrush start nystatin swish and swallow 14 UTI : Urine culture growing E. coli. It only had intermediate sensitivity to Rocephin. Rocephin discontinued. Patient started on Macrobid 100 mg by mouth every 6 hours 15. Hyperkalemia: Likely secondary to prunes. Patient reports eating about 4 prunes a day. Recommended the patient decreases how many prunes she eats. She' ll give Kayexalate 30 g by mouth 1. Repeat potassium level in the morning Hospital course: This is a 81-year-old female, patient of [facility]. She has a known past medical history of paroxysmal atrial fibrillation, aortic valve replacement, hypertension, hypothyroidism, permanent pacemaker, nicotine dependence, coronary artery disease with stent, diabetes mellitus type 2, and CVA. Patient was having an outpatient computed tomography scan of the brain with IV contrast completed. Computed tomography scan was being performed because patient has been having numbness in her fingertips and some drooling from the right side of her mouth. Computed tomography scan was completed IV was taken outpatient setting up in the bench and then was a seated in her wheelchair. She started to see floaters in her eyes and seeing black dots. She told the nurse that she didn't feel well and that she might pass out. And then she started having difficulty breathing and passed out. Patient had passed out for a few seconds. However she continued to be have difficulty breathing and became hypoxic. A CODE BLUE was called. The patient was brought into the emergency admitted to the hospital. She was brought to the sixth floor. Cardiology and neurology consulted. EKG on arrival had shown atrial fibrillation with occasional PVCs. She did convert back to normal sinus rhythm. Patient did have elevation in her troponin 0.61-0.3-2. Denies any chest pain. White count was 11.3, d-dimer elevated at 0.94, sodium 129 and she was subtherapeutic on her INR of 1.4. Echo shows an EF of 55-60% and moderate mitral regurgitation with moderate to severe tricuspid regurgitation and mild pulmonary hypertension noted on echo from January 2017. Patient was also started on IV steroids in the emergency room. Carotid Doppler shows bilateral stenosis of 50%. Computed tomography scan of the brain shows age-related changes of atrophy and probable chronic small vessel ischemia. Patient denies any fevers chills or sweats. Denies any cough. Denies any chest pain. Denies any nausea or vomiting. Denies any bowel movement changes or urinary symptoms. Shortness of breath has improved. Case discussed with cardiology. Since patient's INR is subtherapeutic and there is concern about acute coronary syndrome patient will be started on IV heparin and they're planning on stress test tomorrow. D- dimer elevated VQ scan will be ordered patient just had IV dye to CT Scan of the brain yesterday. 04/14/2017 patient lying in bed comfortably. She occasionally has shortness of breath. Requiring oxygen. VQ scan shows intermediate probability for PE. Patient has stress test scheduled for Monday. Started on antibiotics today for UTI. Patient denies any chest pain. Denies any nausea or vomiting. Denies any bowel movement changes or urinary symptoms. 04/17/2017 patient had stress test this morning that was negative. Patient reports that she is feeling better. She denies any chest pain. She did require breathing treatment after the stress test. However now she no shortness of breath. No wheezing. Denies any nausea or vomiting. She has been having bowel movements. She has been eating a lot of prunes which may have continued contributed to her elevated potassium level. She did receive Kayexalate this morning. Patient denies any burning with urination. On 04/18/2000 1017 patient is alert and oriented 3 in no apparent distress she is sitting up in bed she was evaluated by cardiology and was cleared for discharge she was also evaluated by pulmonary Dr. Villalpando and was cleared for discharge she will need to follow-up with pulmonary for outpatient complete pulmonary function test and adjustment of her pulmonary medications. Patient had evidence of atrial fibrillation she is maintained on Coumadin her INR is therapeutic at the time of discharge. She will follow-up with her primary care physician at [facility] in the [facility] within 1 week Patient Condition at Discharge: Fair Plan - Discharge Summary New Discharge Prescriptions: New Docusate [Colace] 100 mg PO BID cap Ipratropium-Albuterol Nebulize [Duoneb 0.5 mg-3 mg/3 ml Soln] 3 ml INHALATION RT-QID neb Ipratropium-Albuterol Nebulize [Duoneb 0.5 mg-3 mg/3 ml Soln] 3 ml INHALATION RT-Q2H PRN neb PRN Reason: Shortness Of Breath Or Wheezing Metoprolol Succinate (ER) [Toprol XL] 150 mg PO BID tab Nicotine 14Mg/24Hr Patch [Habitrol] 1 patch TRANSDERM DAILY patch Nitroglycerin Sl Tabs [Nitrostat] 0.4 mg SUBLINGUAL Q5M PRN tab PRN Reason: Chest Pain Nystatin 100,000 Unit/ml Susp [Mycostatin Oral Susp] 500,000 unit PO QID dose predniSONE 40 mg PO DAILY tab Verapamil Sr [Isoptin Sr] 360 mg PO HS tab Continue Simvastatin [Zocor] 20 mg PO HS metFORMIN HCL [Glucophage] 1,000 mg PO BID Ranitidine HCl [Zantac] 150 mg PO BID Glimepiride [Amaryl] 2 mg PO AC-BRKFST Donepezil [Aricept] 5 mg PO HS Warfarin [Coumadin] 2.5 mg PO HS Liothyronine Sodium [Cytomel] 5 mcg PO DAILY Meclizine [Antivert] 12.5 mg PO HS PRN PRN Reason: Vertigo Furosemide [Lasix] 20 mg PO DAILY Aspirin 81 mg PO DAILY Losartan/Hydrochlorothiazide [Hyzaar 100-25 Tablet] 1 tab PO DAILY Levothyroxine Sodium [Synthroid] 88 mcg PO DAILY ALPRAZolam [Xanax] 0.25 mg PO TID PRN PRN Reason: Anxiety Discontinued Metoprolol Tartrate [Lopressor] 75 mg PO TID Verapamil HCl [Verelan Pm] 300 mg PO HS Discharge Medication List ALPRAZolam [Xanax] 0.25 mg PO TID PRN 04/12/17 [History] Aspirin 81 mg PO DAILY 04/12/17 [History] Donepezil [Aricept] 5 mg PO HS 04/12/17 [History] Furosemide [Lasix] 20 mg PO DAILY 04/12/17 [History] Glimepiride [Amaryl] 2 mg PO AC-BRKFST 04/12/17 [History] Levothyroxine Sodium [Synthroid] 88 mcg PO DAILY 04/12/17 [History] Liothyronine Sodium [Cytomel] 5 mcg PO DAILY 04/12/17 [History] Losartan/Hydrochlorothiazide [Hyzaar 100-25 Tablet] 1 tab PO DAILY 04/12/17 [ History] Meclizine [Antivert] 12.5 mg PO HS PRN 04/12/17 [History] Ranitidine HCl [Zantac] 150 mg PO BID 04/12/17 [History] Simvastatin [Zocor] 20 mg PO HS 04/12/17 [History] Warfarin [Coumadin] 2.5 mg PO HS 04/12/17 [History] metFORMIN HCL [Glucophage] 1,000 mg PO BID 04/12/17 [History] Docusate [Colace] 100 mg PO BID cap 04/18/17 [Rx] Ipratropium-Albuterol Nebulize [Duoneb 0.5 mg-3 mg/3 ml Soln] 3 ml INHALATION RT -Q2H PRN neb 04/18/17 [Rx] Ipratropium-Albuterol Nebulize [Duoneb 0.5 mg-3 mg/3 ml Soln] 3 ml INHALATION RT -QID neb 04/18/17 [Rx] Metoprolol Succinate (ER) [Toprol XL] 150 mg PO BID tab 04/18/17 [Rx] Nicotine 14Mg/24Hr Patch [Habitrol] 1 patch TRANSDERM DAILY patch 04/18/17 [Rx] Nitroglycerin Sl Tabs [Nitrostat] 0.4 mg SUBLINGUAL Q5M PRN tab 04/18/17 [Rx] Nystatin 100,000 Unit/ml Susp [Mycostatin Oral Susp] 500,000 unit PO QID dose 04/18/17 [Rx] Verapamil Sr [Isoptin Sr] 360 mg PO HS tab 04/18/17 [Rx] predniSONE 40 mg PO DAILY tab 04/18/17 [Rx] Follow up Appointment(s)/Referral(s): Loni Saxena DO [Primary Care Provider] - 1-2 days Activity/Diet/Wound Care/Special Instructions: [facility] #[phone]
== END 2017-04-18 15:49 | disposition home health service (06) | DRG 312 ==
LOC: EC 13:58 → RADCTMAIN 13:58 → EDSTATUS 15:00 → 6SEL 16:45
PROVIDERS: ADMIT Internal Medicine; ATTEND Internal Medicine
DX: R55 Syncope and collapse (principal); J96.01 Acute respiratory failure with hypoxia; B37.0 Candidal stomatitis; E87.1 Hypo-osmolality and hyponatremia; E11.65 Type 2 diabetes mellitus with hyperglycemia; I27.2 Other secondary pulmonary hypertension; J44.1 Chronic obstructive pulmonary disease with (acute) exacerbation; N39.0 Urinary tract infection, site not specified; I48.0 Paroxysmal atrial fibrillation; E87.5 Hyperkalemia; I65.23 Occlusion and stenosis of bilateral carotid arteries; I08.1 Rheumatic disorders of both mitral and tricuspid valves; E83.42 Hypomagnesemia; F03.90 Unspecified dementia, unspecified severity, without behavioral disturbance, psychotic disturbance, mood disturbance, and anxiety; K21.9 Gastro-esophageal reflux disease without esophagitis; I10 Essential (primary) hypertension; F17.200 Nicotine dependence, unspecified, uncomplicated; E03.9 Hypothyroidism, unspecified; I25.10 Atherosclerotic heart disease of native coronary artery without angina pectoris; T38.0X5A Adverse effect of glucocorticoids and synthetic analogues, initial encounter; K59.00 Constipation, unspecified; E78.5 Hyperlipidemia, unspecified; E87.6 Hypokalemia; I49.3 Ventricular premature depolarization; B96.20 Unspecified Escherichia coli [E. coli] as the cause of diseases classified elsewhere; Z79.82 Long term (current) use of aspirin; Z79.84 Long term (current) use of oral hypoglycemic drugs; Z79.01 Long term (current) use of anticoagulants; Z79.899 Other long term (current) drug therapy; Z95.2 Presence of prosthetic heart valve; Z86.73 Personal history of transient ischemic attack (TIA), and cerebral infarction without residual deficits; Z98.49 Cataract extraction status, unspecified eye; Z95.0 Presence of cardiac pacemaker; Z95.5 Presence of coronary angioplasty implant and graft; Z88.5 Allergy status to narcotic agent; Z82.49 Family history of ischemic heart disease and other diseases of the circulatory system
CPT/HCPCS: 36415; 70460; 71010; 78452; 78582; 80053; 80061; 81001; 82550; 82553; 82565; 83036; 83540; 83550; 83735; 84100; 84439; 84443; 84484; 84520; 85025; 85379; 85610; 85730; 87077; 87086; 87186; 93017; 93306; 93880; 94640; 94760; 96365; 96366; 96375; 99285

== ENCOUNTER 2017-12-07 20:53 | Inpatient (IN) | payer MEDICARE, BC ==
[2017-12-07 21:39] LABS: Glucose,Whole Blood 396 mg/dL (75-99)
--- NOTE | 2017-12-07 21:49 | ED ---
General Adult HPI - General Chief complaint: Recheck/Abnormal Lab/Rx Stated complaint: DKA, General Weakness Time Seen by Provider: 12/07/17 21:27 Source: patient, family, EMS, RN notes reviewed Mode of arrival: EMS Limitations: no limitations - History of Present Illness Initial comments: Patient is a pleasant 82-year-old female presenting to the emergency Department as a transfer from [facility]. Patient was transferred secondary to concern for DKA and level of care. Patient states she went to the emergency department there for dyspnea. Patient states dyspnea is similar to chronic COPD. Patient states dyspnea is only mild at this time and the oxygen does help. No fevers. Occasional mild cough. No chest pain. Patient has been fatigued. Patient has had some polydipsia. No polyuria. Blood sugar and [facility] was elevated at 556. Patient was determined to be in diabetic ketoacidosis and was transferred. Patient was given a liter of saline bolus and started on insulin drip. - Related Data Home Medications Medication Instructions Recorded Confirmed ALPRAZolam [Xanax] 0.25 mg PO TID PRN 04/12/17 04/12/17 Aspirin 81 mg PO DAILY 04/12/17 04/12/17 Donepezil [Aricept] 5 mg PO HS 04/12/17 04/12/17 Furosemide [Lasix] 20 mg PO DAILY 04/12/17 04/12/17 Glimepiride [Amaryl] 2 mg PO AC-BRKFST 04/12/17 04/12/17 Levothyroxine Sodium [Synthroid] 88 mcg PO DAILY 04/12/17 04/12/17 Liothyronine Sodium [Cytomel] 5 mcg PO DAILY 04/12/17 04/12/17 Losartan/Hydrochlorothiazide 1 tab PO DAILY 04/12/17 04/12/17 [Hyzaar 100-25 Tablet] Meclizine [Antivert] 12.5 mg PO HS PRN 04/12/17 04/12/17 Ranitidine HCl [Zantac] 150 mg PO BID 04/12/17 04/12/17 Simvastatin [Zocor] 20 mg PO HS 04/12/17 04/12/17 Warfarin [Coumadin] 2.5 mg PO HS 04/12/17 04/12/17 metFORMIN HCL [Glucophage] 1,000 mg PO BID 04/12/17 04/12/17 Previous Rx's Medication Instructions Recorded Docusate [Colace] 100 mg PO BID cap 04/18/17 Ipratropium-Albuterol Nebulize 3 ml INHALATION RT-Q2H PRN neb 04/18/17 [Duoneb 0.5 mg-3 mg/3 ml Soln] Ipratropium-Albuterol Nebulize 3 ml INHALATION RT-QID neb 04/18/17 [Duoneb 0.5 mg-3 mg/3 ml Soln] Metoprolol Succinate (ER) [Toprol 150 mg PO BID tab 04/18/17 XL] Nicotine 14Mg/24Hr Patch [Habitrol] 1 patch TRANSDERM DAILY patch 04/18/17 Nitroglycerin Sl Tabs [Nitrostat] 0.4 mg SUBLINGUAL Q5M PRN tab 04/18/17 Nystatin 100,000 Unit/ml Susp 500,000 unit PO QID dose 04/18/17 [Mycostatin Oral Susp] Verapamil Sr [Isoptin Sr] 360 mg PO HS tab 04/18/17 predniSONE 40 mg PO DAILY tab 04/18/17 Allergies Allergy/AdvReac Type Severity Reaction Status Date / Time codeine AdvReac Unknown Verified 12/07/17 21:46 Review of Systems ROS Statement: Those systems with pertinent positive or pertinent negative responses have been documented in the HPI. ROS Other: All systems not noted in ROS Statement are negative. Constitutional: Denies: fever Eyes: Denies: eye pain ENT: Denies: ear pain Respiratory: Reports: cough, dyspnea Cardiovascular: Denies: chest pain Endocrine: Reports: fatigue Gastrointestinal: Denies: abdominal pain Genitourinary: Denies: dysuria Musculoskeletal: Denies: back pain Skin: Denies: rash Neurological: Denies: headache Past Medical History Past Medical History: Atrial Fibrillation, Asthma, CVA/TIA, Dementia, Diabetes Mellitus, Eye Disorder, GERD/Reflux, Hyperlipidemia, Hypertension, Pneumonia, Thyroid Disorder Additional Past Medical History / Comment(s): Cataract removal History of Any Multi-Drug Resistant Organisms: None Reported Past Surgical History: Appendectomy, Cardiac Valve Replacement, Pacemaker, Tonsillectomy Additional Past Surgical History / Comment(s): Aortic valve replacement Past Anesthesia/Blood Transfusion Reactions: No Reported Reaction Type of Cardiac Device: Unknown Device Placement Date:: unsure Past Psychological History: No Psychological Hx Reported Smoking Status: Current every day smoker Past Alcohol Use History: None Reported Past Drug Use History: None Reported - Past Family History Father Family Medical History: Myocardial Infarction ([place]) Sister(s) Family Medical History: Cancer General Exam Limitations: no limitations General appearance: alert, in no apparent distress Head exam: Present: atraumatic Eye exam: Present: normal appearance, PERRL ENT exam: Present: normal oropharynx Neck exam: Present: normal inspection Respiratory exam: Present: wheezes Cardiovascular Exam: Present: regular rate, normal rhythm GI/Abdominal exam: Present: soft. Absent: tenderness Extremities exam: Present: normal inspection. Absent: pedal edema, calf tenderness Neurological exam: Present: alert Psychiatric exam: Present: normal affect, normal mood Skin exam: Present: normal color Course Vital Signs 12/07/17 20:59 Temperature 99.0 F Pulse Rate 72 Respiratory 18 Rate Blood Pressure 151/77 O2 Sat by Pulse 95 Oximetry Medical Decision Making - Medical Decision Making Dr. 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
[2017-12-07] MEDS ORDERED: IPRATROPIUM-ALBUTEROL 3 ML NEB INHALATION PRN (21:50)
[2017-12-07] MEDS ORDERED: INSULIN REGULAR 100 UNIT in SODIUM CHLORIDE 0.9% 100 ML IV SCH (22:00)
[2017-12-07] MEDS: SODIUM CHLORIDE 0.9% 1,000 ML IV SCH (22:07)
[2017-12-07 23:02] LABS: Glucose,Whole Blood 361 mg/dL (75-99)
[2017-12-08] LABS: Glucose,Whole Blood 326 mg/dL (75-99)
[2017-12-08 01:05] LABS: Phosphorus 5.4 mg/dL (2.5-4.5); Potassium 3.9 mmol/L (3.5-5.1)
[2017-12-08 01:06] LABS: Glucose,Whole Blood 263 mg/dL (75-99)
[2017-12-08 02:07] LABS: Glucose,Whole Blood 189 mg/dL (75-99)
[2017-12-08] MEDS: SODIUM CHLORIDE 0.9% 1,000 ML IV SCH ×2 (03:00→10:34)
[2017-12-08 03:02] LABS: Glucose,Whole Blood 147 mg/dL (75-99)
[2017-12-08 04:14] LABS: Glucose,Whole Blood 109 mg/dL (75-99)
[2017-12-08 04:43] LABS: Potassium 3.5 mmol/L (3.5-5.1)
[2017-12-08 05:14] LABS: Glucose,Whole Blood 117 mg/dL (75-99)
[2017-12-08 06:08] LABS: Glucose,Whole Blood 132 mg/dL (75-99)
[2017-12-08 07:06] LABS: Glucose,Whole Blood 143 mg/dL (75-99)
[2017-12-08] MEDS: IPRATROPIUM-ALBUTEROL 3 ML NEB INHALATION SCH ×4 (07:07→20:27)
[2017-12-08 08:32] LABS: Prothrombin Time 35.9 sec (9.0-12.0)
[2017-12-08] MEDS ORDERED: D5-0.45% NACL WITH KCL 20MEQ/L 1,000 ML IV SCH (09:00)
[2017-12-08] MEDS ORDERED: NON-FORMULARY DRUG (Tiotropium Bromide [Spiriva] 1 CAP) INHALATION SCH (09:00)
[2017-12-08] MEDS: INSULIN ASPART 100 UNIT/ML 1 ML 10 ML VIAL SQ SCH ×4 (09:11→21:23)
[2017-12-08] MEDS: LEVOTHYROXINE 88 MCG TAB PO SCH (09:16)
[2017-12-08] MEDS: ASPIRIN 81 MG PO SCH (09:16)
[2017-12-08] MEDS: GLIMEPIRIDE 4 MG TAB PO SCH (09:16)
[2017-12-08] MEDS: FAMOTIDINE 20 MG TAB PO SCH (09:17)
[2017-12-08] MEDS: FUROSEMIDE 40 MG TAB PO SCH ×2 (09:17→17:48)
[2017-12-08] MEDS: NON-FORMULARY DRUG (Empagliflozin [Jardiance] 25 MG) PO SCH (09:18)
[2017-12-08] MEDS: metFORMIN 500 MG TAB PO SCH ×2 (09:18→21:24)
[2017-12-08] MEDS: MECLIZINE 12.5 MG TAB PO SCH ×3 (09:18→21:25)
[2017-12-08] MEDS: ALPRAZolam 0.25 MG TAB PO SCH ×2 (09:27→21:23)
[2017-12-08 09:43] LABS: Anisocytosis Slight; Basophils # (A) 0.1 k/uL (0-0.2); Basophils % (A) 0 %; Eosinophils # (A) 0.1 k/uL (0-0.7); Eosinophils % (A) 1 %; HCT 30.2 % (34.0-46.0); HGB 8.7 gm/dL (11.4-16.0); Hypochromasia Marked; Lymphocytes # (A) 2.2 k/uL (1.0-4.8); Lymphocytes % (A) 17 %; MCH 22.5 pg (25.0-35.0); MCHC 28.7 g/dL (31.0-37.0); MCV 78.2 fL (80.0-100.0); Mean Platelet Volume 7.2; Microcytosis Slight; Monocytes # (A) 0.7 k/uL (0-1.0); Monocytes % (A) 5 %; Neutrophils # (A) 9.3 k/uL (1.3-7.7); Neutrophils % (A) 74 %; Platelet Count 337 k/uL (150-450); RBC 3.86 m/uL (3.80-5.40); RDW 17.5 % (11.5-15.5); WBC 12.6 k/uL (3.8-10.6)
[2017-12-08] MEDS: SYMBICORT 80-4.5 MCG INHALER INHALATION SCH ×2 (11:09→20:27)
[2017-12-08 12:03] LABS: Glucose,Whole Blood 295 mg/dL (75-99)
[2017-12-08 13:10] LABS: Hemoglobin A1C 11.2 % (4.0-6.0)
--- NOTE | 2017-12-08 14:28 | P.HPIM ---
History of Present Illness H&P Date: 12/08/17 Chief Complaint: Hyperglycemia This is a 82-year-old female, patient of [facility]. She has a known past medical history of mechanical aortic valve, paroxysmal atrial fibrillation, COPD, diabetes mellitus type 2, hypertension, dementia and hypothyroidism. She was a transfer from [facility] secondary to concerns for a DKA and a higher level of care. Patient states that she went to the emergency room for worsening shortness of breath for the past 2 days. But then states that her shortness of breath is similar to her chronic COPD. Patient does admit to a dry cough. Denies any fever or chills or sweats. Has been having some diarrhea. Stool is been ordered for C. diff. She was recently treated about a month ago for a bronchitis and had been on steroids and antibiotics. Nebulizer treatments have been continued. White count and Jamilah was 15.25 and here 12.6. Acetone also reported as negative. She did require an insulin drip on admission due to a blood sugar of 556 at [facility]. Blood sugars have improved. And she is currently off of the insulin drip. Patient denies any chest pain. Denies any nausea or vomiting. Denies any burning with urination. Patient is wheezing during exam. She does not use home oxygen. Past Medical History Past Medical History: Atrial Fibrillation, Asthma, CVA/TIA, Dementia, Diabetes Mellitus, Eye Disorder, GERD/Reflux, Hyperlipidemia, Hypertension, Pneumonia, Thyroid Disorder Additional Past Medical History / Comment(s): Cataract removal, hay fever History of Any Multi-Drug Resistant Organisms: None Reported Past Surgical History: Appendectomy, Cardiac Valve Replacement, Pacemaker, Tonsillectomy Additional Past Surgical History / Comment(s): Aortic valve replacement Past Anesthesia/Blood Transfusion Reactions: No Reported Reaction Type of Cardiac Device: Unknown Device Placement Date:: unsure Past Psychological History: No Psychological Hx Reported Smoking Status: Former smoker Past Alcohol Use History: None Reported Past Drug Use History: None Reported - Past Family History Father Family Medical History: Myocardial Infarction ([place]) Sister(s) Family Medical History: Cancer Medications and Allergies Home Medications Medication Instructions Recorded Confirmed Type ALPRAZolam [Xanax] 0.25 mg PO BID 04/12/17 12/07/17 History Aspirin 81 mg PO DAILY 04/12/17 12/07/17 History Levothyroxine Sodium [Synthroid] 88 mcg PO DAILY 04/12/17 12/07/17 History Meclizine [Antivert] 12.5 mg PO TID 04/12/17 12/07/17 History Ranitidine HCl [Zantac] 150 mg PO BID 04/12/17 12/07/17 History Simvastatin [Zocor] 20 mg PO HS 04/12/17 12/07/17 History metFORMIN HCL [Glucophage] 500 mg PO BID 04/12/17 12/07/17 History Nitroglycerin Sl Tabs [Nitrostat] 0.4 mg SUBLINGUAL Q5M PRN tab 04/18/17 Rx Empagliflozin [Jardiance] 25 mg PO DAILY 12/07/17 12/07/17 History Fluticasone/Vilanterol [Breo 1 inhalation PO Q24HR 12/07/17 12/07/17 History Ellipta 100-25 Mcg Inhaler] Furosemide [Lasix] 40 mg PO BID 12/07/17 12/07/17 History Glimepiride [Amaryl] 4 mg PO AC-BRKFST 12/07/17 12/07/17 History Ipratropium-Albuterol Nebulize 3 ml INHALATION RT-QID PRN 12/07/17 12/07/17 History [Duoneb 0.5 mg-3 mg/3 ml Soln] Metoprolol Succinate (ER) [Toprol 100 mg PO HS 12/07/17 12/07/17 History XL] Metoprolol Succinate (ER) [Toprol 50 mg PO HS 12/07/17 12/07/17 History Xl] Tiotropium [place] [Spiriva] 1 cap INHALATION DAILY 12/07/17 12/07/17 History Verapamil HCl [Verelan] 360 mg PO HS 12/07/17 12/07/17 History Warfarin [Coumadin] 2.5 mg PO HS 12/07/17 12/07/17 History Allergies Allergy/AdvReac Type Severity Reaction Status Date / Time codeine AdvReac Unknown Verified 12/07/17 21:46 Physical Exam Vitals: Vital Signs Temp Pulse Pulse Resp BP BP Pulse Ox 12/08/17 12:00 122 H 185/81 95 12/08/17 11:33 108 H 12/08/17 11:17 108 H 12/08/17 08:00 97.4 F L 107 H 138/63 97 12/08/17 07:20 112 H 12/08/17 07:07 112 H 97 12/08/17 04:00 97.6 F 74 18 132/58 98 12/08/17 00:00 97.1 F L 74 16 136/65 99 12/07/17 23:35 71 20 146/72 99 12/07/17 20:59 99.0 F 72 18 151/77 95 Intake and Output 12/07/17 12/08/17 12/08/17 22:59 06:59 14:59 Intake Total 45.605 220.477 Output Total 300 Balance 45.605 -79.523 Intake: Intake, IV Titration 45.605 0.477 Amount Insulin Regular 100 unit 45.605 0.477 In Sodium Chloride 0.9% 100 ml @ 0.1 UNITS/KG/HR 6.73 mls/hr IV .Q15H1M [facility] Rx#:[id number] Oral 220 Output: Urine 300 Other: Weight 66.678 kg 71 kg 71 kg Results CBC & Chem 7: 12/08/17 08:03 12/08/17 04:01 Labs: Abnormal Lab Results - Last 24 Hours (Table) 12/07/17 12/07/17 12/07/17 Range/Units 21:37 23:00 23:49 WBC (3.8-10.6) k/uL Hgb (11.4-16.0) gm/dL Hct (34.0-46.0) % MCV (80.0-100.0) fL MCH (25.0-35.0) pg MCHC (31.0-37.0) g/dL RDW (11.5-15.5) % Neutrophils # (1.3-7.7) k/uL PT (9.0-12.0) sec INR (<1.2) Carbon Dioxide (22-30) mmol/L BUN (7-17) mg/dL Glucose (74-99) mg/dL POC Glucose (mg/dL) 396 H 361 H 326 H (75-99) mg/dL Phosphorus (2.5-4.5) mg/dL 12/07/17 12/08/17 12/08/17 Range/Units 23:51 00:54 01:55 WBC (3.8-10.6) k/uL Hgb (11.4-16.0) gm/dL Hct (34.0-46.0) % MCV (80.0-100.0) fL MCH (25.0-35.0) pg MCHC (31.0-37.0) g/dL RDW (11.5-15.5) % Neutrophils # (1.3-7.7) k/uL PT (9.0-12.0) sec INR (<1.2) Carbon Dioxide 19 L (22-30) mmol/L BUN 29 H (7-17) mg/dL Glucose 297 H (74-99) mg/dL POC Glucose (mg/dL) 263 H 189 H (75-99) mg/dL Phosphorus 5.4 H (2.5-4.5) mg/dL 12/08/17 12/08/17 12/08/17 Range/Units 02:50 04:01 04:13 WBC (3.8-10.6) k/uL Hgb (11.4-16.0) gm/dL Hct (34.0-46.0) % MCV (80.0-100.0) fL MCH (25.0-35.0) pg MCHC (31.0-37.0) g/dL RDW (11.5-15.5) % Neutrophils # (1.3-7.7) k/uL PT (9.0-12.0) sec INR (<1.2) Carbon Dioxide (22-30) mmol/L BUN 26 H (7-17) mg/dL Glucose 107 H (74-99) mg/dL POC Glucose (mg/dL) 147 H 109 H (75-99) mg/dL Phosphorus (2.5-4.5) mg/dL 12/08/17 12/08/17 12/08/17 Range/Units 05:13 06:07 06:58 WBC (3.8-10.6) k/uL Hgb (11.4-16.0) gm/dL Hct (34.0-46.0) % MCV (80.0-100.0) fL MCH (25.0-35.0) pg MCHC (31.0-37.0) g/dL RDW (11.5-15.5) % Neutrophils # (1.3-7.7) k/uL PT (9.0-12.0) sec INR (<1.2) Carbon Dioxide (22-30) mmol/L BUN (7-17) mg/dL Glucose (74-99) mg/dL POC Glucose (mg/dL) 117 H 132 H 143 H (75-99) mg/dL Phosphorus (2.5-4.5) mg/dL 12/08/17 12/08/17 12/08/17 Range/Units 08:03 08:03 11:59 WBC 12.6 H (3.8-10.6) k/uL Hgb 8.7 L (11.4-16.0) gm/dL Hct 30.2 L (34.0-46.0) % MCV 78.2 L (80.0-100.0) fL MCH 22.5 L (25.0-35.0) pg MCHC 28.7 L (31.0-37.0) g/dL RDW 17.5 H (11.5-15.5) % Neutrophils # 9.3 H (1.3-7.7) k/uL PT 35.9 H (9.0-12.0) sec INR 4.0 H (<1.2) Carbon Dioxide (22-30) mmol/L BUN (7-17) mg/dL Glucose (74-99) mg/dL POC Glucose (mg/dL) 295 H (75-99) mg/dL Phosphorus (2.5-4.5) mg/dL Thrombosis Risk Factor Assmnt - Choose All That Apply Each Risk Factor Represents 3 Points: Age 75 years or older Thrombosis Risk Factor Assessment Total Risk Factor Score: 3 Thrombosis Risk Factor Assessment Level: Moderate Risk Assessment and Plan Assessment: 1. Diabetes mellitus type 2, with uncontrolled blood sugars and evidence of hyperglycemia. Patient required insulin drip. Acetone was negative at [facility]. Blood sugars have improved. Insulin drip discontinued. Patient's home diabetic medications have been restarted 2. Acute tracheobronchitis: Patient has cough and wheezing. Check chest x- ray. Will start Rocephin. Unable to start azithromycin interacts with the Symbicort. Consult pulmonary service. 3. Acute COPD exacerbation: Continue nebulizer treatments. While patient evaluated by pulmonary service. Hesitant to start steroids due to elevated blood sugars 4. Diarrhea: Appears to have resolved. Stool ordered for C. diff 5. History of mechanical aortic valve anticoagulated with Coumadin INR 4.0 6. Essential hypertension 7. Hypothyroidism GI prophylaxis Pepcid and DVT prophylaxis Coumadin Time with Patient: Greater than 30 (Greater than 50% of the total time spent in counseling and coordination of care.I performed an examination of the patient and discussed their management with the physician Building Carpenter Helper. I have reviewed the Physician Building Carpenter Helper's notes and agree with the documented findings and plan of care)
[2017-12-08 16:54] LABS: Glucose,Whole Blood 299 mg/dL (75-99)
[2017-12-08] MEDS: cefTRIAXone IN SWFI 1,000 MG/10 ML SYRINGE IVP SCH (17:47)
--- NOTE | 2017-12-08 17:50 | XR ---
EXAMINATION TYPE: XR chest 2V DATE OF EXAM: 12/08/2017 COMPARISON: Yesterday HISTORY: Short of breath TECHNIQUE: Frontal and lateral views of the chest are obtained. FINDINGS: Heart size is normal. There is mild blunting of costophrenic angles. There is no gross hea rt failure. Thoracic aorta is atheromatous. There is left axillary pacemaker with the the tips over t he right ventricle. There are sternal wires. There are chest leads. IMPRESSION: Bilateral pleural effusions. Atheromatous aorta. There is clearing of mild pulmonary con gestion compared to yesterday.
[2017-12-08] MEDS ORDERED: WARFARIN 1 MG TAB PO ONE (18:00)
[2017-12-08 19:21] LABS: Iron Saturation 3.04 (12.00-45.00)
[2017-12-08] MEDS ORDERED: WARFARIN 2.5 MG TAB PO SCH (21:00)
[2017-12-08 21:02] LABS: Glucose,Whole Blood 368 mg/dL (75-99)
[2017-12-08] MEDS: ATORVASTATIN 10 MG TAB PO SCH (21:23)
[2017-12-08] MEDS: METOPROLOL SUCCINATE (ER) 50 MG TAB.ER.24H PO SCH (21:24)
[2017-12-08] MEDS: VERAPAMIL SR 180 MG TABLET.ER PO SCH (21:24)
[2017-12-08] MEDS: METOPROLOL SUCCINATE (ER) 100 MG TAB.ER.24H PO SCH (21:24)
[2017-12-09 05:48] LABS: Glucose,Whole Blood 264 mg/dL (75-99)
[2017-12-09 06:31] LABS: Anisocytosis Slight; Basophils % (A) 0 %; Eosinophils # (A) 0.2 k/uL (0-0.7); Eosinophils % (A) 2 %; HCT 30.5 % (34.0-46.0); HGB 8.7 gm/dL (11.4-16.0); Hypochromasia Marked; Lymphocytes # (A) 1.4 k/uL (1.0-4.8); Lymphocytes % (A) 15 %; MCH 21.9 pg (25.0-35.0); MCHC 28.5 g/dL (31.0-37.0); MCV 77.1 fL (80.0-100.0); Mean Platelet Volume 7.9; Microcytosis Slight; Monocytes # (A) 0.6 k/uL (0-1.0); Monocytes % (A) 6 %; Neutrophils % (A) 73 %; Platelet Count 343 k/uL (150-450); Poikilocytosis Slight; RBC 3.96 m/uL (3.80-5.40); WBC 9.5 k/uL (3.8-10.6)
[2017-12-09 06:37] LABS: INR 2.1 (<1.2); Prothrombin Time 18.9 sec (9.0-12.0)
[2017-12-09 06:46] LABS: Calcium 8.8 mg/dL (8.4-10.2); Potassium 3.6 mmol/L (3.5-5.1); Total Bilirubin 0.7 mg/dL (0.2-1.3); Total Protein 5.4 g/dL (6.3-8.2)
[2017-12-09] MEDS: LEVOTHYROXINE 88 MCG TAB PO SCH (06:49)
[2017-12-09] MEDS: GLIMEPIRIDE 4 MG TAB PO SCH (06:49)
[2017-12-09] MEDS: INSULIN ASPART 100 UNIT/ML 1 ML 10 ML VIAL SQ SCH ×4 (06:52→21:18)
[2017-12-09] MEDS: IPRATROPIUM-ALBUTEROL 3 ML NEB INHALATION SCH ×4 (07:56→20:08)
[2017-12-09] MEDS: SYMBICORT 80-4.5 MCG INHALER INHALATION SCH (07:56)
[2017-12-09] MEDS: ASPIRIN 81 MG PO SCH (08:14)
[2017-12-09] MEDS: cefTRIAXone IN SWFI 1,000 MG/10 ML SYRINGE IVP SCH (08:14)
[2017-12-09] MEDS: FAMOTIDINE 20 MG TAB PO SCH (08:14)
[2017-12-09] MEDS: MECLIZINE 12.5 MG TAB PO SCH ×3 (08:16→20:28)
[2017-12-09] MEDS: NON-FORMULARY DRUG (Empagliflozin [Jardiance] 25 MG) PO SCH (08:16)
[2017-12-09] MEDS: FUROSEMIDE 40 MG TAB PO SCH ×2 (08:16→17:15)
[2017-12-09] MEDS: ALPRAZolam 0.25 MG TAB PO SCH ×2 (08:24→20:27)
--- NOTE | 2017-12-09 08:47 | P.CNPUL ---
History of Present Illness Consult date: 12/09/17 Reason for consult: dyspnea, cough, COPD Chief complaint: Cough shortness of breath History of present illness: 22-year-old female seen eval examined on the selective care this patient sees Dr. Loni Saxena for primary care activity has been admitted into service of Dr. Weston the patient has a significant cardiovascular disease and significant for mechanical aortic valve, paroxysmal atrial fibrillation, COPD, diabetes mellitus type 2, hypertension, dementia and hypothyroidism. She was a transfer from [facility] secondary to concerns for a DKA and a higher level of care. Patient states that she went to the emergency room for worsening shortness of breath for the past 2 days. But then states that her shortness of breath is similar to her chronic COPD. Patient does admit to a dry cough. Denies any fever or chills or sweats. She has a history of recent the COPD exacerbation and tracheobronchitis was treated with oral steroids and antibiotics on outpatient basis about a month ago patient does take nebulizer treatment at home, patient has history of intermittent wheezing When patient was transferred into the hospital the sugars were over 500 however they are more stabilized and currently she is off of insulin drip Review of Systems All systems: negative Past Medical History Past Medical History: Atrial Fibrillation, Asthma, CVA/TIA, Dementia, Diabetes Mellitus, Eye Disorder, GERD/Reflux, Hyperlipidemia, Hypertension, Pneumonia, Thyroid Disorder Additional Past Medical History / Comment(s): Cataract removal, hay fever History of Any Multi-Drug Resistant Organisms: None Reported Past Surgical History: Appendectomy, Cardiac Valve Replacement, Pacemaker, Tonsillectomy Additional Past Surgical History / Comment(s): Aortic valve replacement Past Anesthesia/Blood Transfusion Reactions: No Reported Reaction Type of Cardiac Device: Unknown Device Placement Date:: unsure Past Psychological History: No Psychological Hx Reported Smoking Status: Former smoker Past Alcohol Use History: None Reported Past Drug Use History: None Reported - Past Family History Father Family Medical History: Myocardial Infarction ([place]) Sister(s) Family Medical History: Cancer Medications and Allergies Home Medications Medication Instructions Recorded Confirmed Type ALPRAZolam [Xanax] 0.25 mg PO BID 04/12/17 12/07/17 History Aspirin 81 mg PO DAILY 04/12/17 12/07/17 History Levothyroxine Sodium [Synthroid] 88 mcg PO DAILY 04/12/17 12/07/17 History Meclizine [Antivert] 12.5 mg PO TID 04/12/17 12/07/17 History Ranitidine HCl [Zantac] 150 mg PO BID 04/12/17 12/07/17 History Simvastatin [Zocor] 20 mg PO HS 04/12/17 12/07/17 History metFORMIN HCL [Glucophage] 500 mg PO BID 04/12/17 12/07/17 History Nitroglycerin Sl Tabs [Nitrostat] 0.4 mg SUBLINGUAL Q5M PRN tab 04/18/17 Rx Empagliflozin [Jardiance] 25 mg PO DAILY 12/07/17 12/07/17 History Fluticasone/Vilanterol [Breo 1 inhalation PO Q24HR 12/07/17 12/07/17 History Ellipta 100-25 Mcg Inhaler] Furosemide [Lasix] 40 mg PO BID 12/07/17 12/07/17 History Glimepiride [Amaryl] 4 mg PO AC-BRKFST 12/07/17 12/07/17 History Ipratropium-Albuterol Nebulize 3 ml INHALATION RT-QID PRN 12/07/17 12/07/17 History [Duoneb 0.5 mg-3 mg/3 ml Soln] Metoprolol Succinate (ER) [Toprol 100 mg PO HS 12/07/17 12/07/17 History XL] Metoprolol Succinate (ER) [Toprol 50 mg PO HS 12/07/17 12/07/17 History Xl] Tiotropium [place] [Spiriva] 1 cap INHALATION DAILY 12/07/17 12/07/17 History Verapamil HCl [Verelan] 360 mg PO HS 12/07/17 12/07/17 History Warfarin [Coumadin] 2.5 mg PO HS 12/07/17 12/07/17 History Allergies Allergy/AdvReac Type Severity Reaction Status Date / Time codeine AdvReac Unknown Verified 12/07/17 21:46 Physical Exam Vitals: Vital Signs Temp Pulse Pulse Resp BP Pulse Ox 12/09/17 08:10 104 H 12/09/17 08:00 97.9 F 69 18 96/58 96 12/09/17 07:56 100 12/09/17 04:00 98.4 F 84 18 101/53 92 L 04/21/18 00:00 98.5 F 86 18 120/57 96 12/08/17 20:39 106 H 12/08/17 20:28 106 H 12/08/17 20:00 97.8 F 116 H 18 116/56 94 L 12/08/17 16:40 100 12/08/17 16:28 100 12/08/17 16:00 120 H 137/65 96 12/08/17 12:00 122 H 185/81 95 12/08/17 11:33 108 H 12/08/17 11:17 108 H Intake and Output 12/08/17 12/09/17 12/09/17 22:59 06:59 14:59 Intake Total 200 Balance 200 Intake: Intake, IV Titration 20 Amount Sodium Chloride 0.9% 1, 20 000 ml @ 200 mls/hr IV . Q5H [facility] Rx#:[id number] Oral 180 Other: # Voids 1 Weight 67 kg - Constitutional General appearance: average body habitus, cooperative, disheveled, no acute distress - EENT Eyes: PERRLA, normal appearance ENT: normal oropharynx Ears: bilateral: normal - Neck Carotids: bilateral: upstroke normal, bruit absent Thyroid: bilateral: normal size - Respiratory Respiratory: bilateral: diminished, wheezing (On forced expiration), prolonged expiration, negative: dullness, rales, rhonchi, prolonged inspiration - Cardiovascular Rhythm: regular Heart sounds: normal: S1, S2 - Integumentary Integumentary: normal, normal turgor - Neurologic Remarkable within normal limits Neurologic: CNII-XII intact - Musculoskeletal Musculoskeletal: gait normal, generalized weakness, strength equal bilaterally - Psychiatric Psychiatric: A&O x's 3, appropriate affect, intact judgment & insight Results - Laboratory Findings CBC and BMP: 12/09/17 05:35 12/09/17 05:35 PT/INR, D-dimer PT 18.9 sec (9.0-12.0) H 12/09/17 05:35 INR 2.1 (<1.2) H 12/09/17 05:35 Abnormal lab findings: Abnormal Labs 12/07/17 12/07/17 12/07/17 21:37 23:00 23:49 WBC Hgb Hct MCV MCH MCHC RDW Neutrophils # PT INR Carbon Dioxide BUN Glucose POC Glucose (mg/dL) 396 H 361 H 326 H Hemoglobin A1c Phosphorus AST ALT Total Protein Albumin 12/07/17 12/08/17 12/08/17 23:51 00:54 01:55 WBC Hgb Hct MCV MCH MCHC RDW Neutrophils # PT INR Carbon Dioxide 19 L BUN 29 H Glucose 297 H POC Glucose (mg/dL) 263 H 189 H Hemoglobin A1c Phosphorus 5.4 H AST ALT Total Protein Albumin 12/08/17 12/08/17 12/08/17 02:50 04:01 04:01 WBC Hgb Hct MCV MCH MCHC RDW Neutrophils # PT INR Carbon Dioxide BUN 26 H Glucose 107 H POC Glucose (mg/dL) 147 H Hemoglobin A1c 11.2 H Phosphorus AST ALT Total Protein Albumin 12/08/17 12/08/17 12/08/17 04:13 05:13 06:07 WBC Hgb Hct MCV MCH MCHC RDW Neutrophils # PT INR Carbon Dioxide BUN Glucose POC Glucose (mg/dL) 109 H 117 H 132 H Hemoglobin A1c Phosphorus AST ALT Total Protein Albumin 12/08/17 12/08/17 12/08/17 06:58 08:03 08:03 WBC 12.6 H Hgb 8.7 L Hct 30.2 L MCV 78.2 L MCH 22.5 L MCHC 28.7 L RDW 17.5 H Neutrophils # 9.3 H PT 35.9 H INR 4.0 H Carbon Dioxide BUN Glucose POC Glucose (mg/dL) 143 H Hemoglobin A1c Phosphorus AST ALT Total Protein Albumin 12/08/17 12/08/17 12/08/17 11:59 16:40 21:01 WBC Hgb Hct MCV MCH MCHC RDW Neutrophils # PT INR Carbon Dioxide BUN Glucose POC Glucose (mg/dL) 295 H 299 H 368 H Hemoglobin A1c Phosphorus AST ALT Total Protein Albumin 12/09/17 12/09/17 12/09/17 05:35 05:35 05:35 WBC Hgb 8.7 L Hct 30.5 L MCV 77.1 L MCH 21.9 L MCHC 28.5 L RDW 18.0 H Neutrophils # PT 18.9 H INR 2.1 H Carbon Dioxide BUN 23 H Glucose 248 H POC Glucose (mg/dL) Hemoglobin A1c Phosphorus AST 103 H ALT 123 H Total Protein 5.4 L Albumin 3.0 L 04/21/18 05:47 WBC Hgb Hct MCV MCH MCHC RDW Neutrophils # PT INR Carbon Dioxide BUN Glucose POC Glucose (mg/dL) 264 H Hemoglobin A1c Phosphorus AST ALT Total Protein Albumin - Diagnostic Findings Chest x-ray: report reviewed, image reviewed Assessment and Plan Assessment: COPD exacerbation Tracheobronchitis Uncontrolled diabetes and hyperglycemia Diabetic ketoacidosis resolved and improved History of mechanical valve on Coumadin Hypothyroidism Hypertension hypertensive cardiovascular disease Plan: Continue breathing treatments Continue deep breathing exercises incentive spirometry DC Symbicort Pulmicort via nebulizer 2 times a day She clinically appears to have responded with above therapy will hold on starting IV steroids Agree with IV antibiotics with Rocephin once daily Further recommendations pending plan of care as per clinical response of the patient Time with Patient: Greater than 30
[2017-12-09] MEDS: metFORMIN 500 MG TAB PO SCH ×2 (08:59→21:18)
[2017-12-09 11:33] LABS: Glucose,Whole Blood 442 mg/dL (75-99)
--- NOTE | 2017-12-09 12:36 | P.PN ---
Subjective Progress Note Date: 12/09/17 This is a 82-year-old female, patient of [facility]. She has a known past medical history of mechanical aortic valve, paroxysmal atrial fibrillation, COPD, diabetes mellitus type 2, hypertension, dementia and hypothyroidism. She was a transfer from [facility] secondary to concerns for a DKA and a higher level of care. Patient states that she went to the emergency room for worsening shortness of breath for the past 2 days. But then states that her shortness of breath is similar to her chronic COPD. Patient does admit to a dry cough. Denies any fever or chills or sweats. Has been having some diarrhea. Stool is been ordered for C. diff. She was recently treated about a month ago for a bronchitis and had been on steroids and antibiotics. Nebulizer treatments have been continued. White count and [place] was 15.25 and here 12.6. Acetone also reported as negative. She did require an insulin drip on admission due to a blood sugar of 556 at [facility]. Blood sugars have improved. And she is currently off of the insulin drip. Patient denies any chest pain. Denies any nausea or vomiting. Denies any burning with urination. Patient is wheezing during exam. She does not use home oxygen. On 12/09/2017 patient was seen and examined she is alert and oriented in no apparent distress she complains of chronic she complains of significant shortness of breath when she tries to ambulate otherwise she denies any complaints there is no fever or chills no dizziness no chest pain no nausea or vomiting no abdominal pain and no urinary symptoms Objective - Vital Signs Vital signs: Vital Signs Temp 98.0 F 12/09/17 11:58 Pulse 100 12/09/17 12:06 Resp 18 12/09/17 11:58 BP 121/57 12/09/17 11:58 Pulse Ox 99 12/09/17 11:58 Intake & Output 12/08/17 12/09/17 12/09/17 18:59 06:59 18:59 Intake Total 640.477 360 Output Total 300 Balance 340.477 360 Weight 71 kg 67 kg Intake: Intake, IV Titration 20.477 Amount Insulin Regular 100 unit 0.477 In Sodium Chloride 0.9% 100 ml @ 0.1 UNITS/KG/HR 6.73 mls/hr IV .Q15H1M JUSTINA Rx#:[id number] Sodium Chloride 0.9% 1, 20 000 ml @ 200 mls/hr IV . Q5H JUSTINA Rx#:[id number] Oral 620 360 Output: Urine 300 Other: # Voids 1 - Exam In general patient is alert and oriented in no apparent distress HEENT head normocephalic and atraumatic Neck is supple no JVD no goiter no lymphadenopathy Chest exam reveals a few scattered crackles no wheezing Cardiac exam reveals regular heart sounds S1 and S2 no gallops no murmurs Abdomen is soft nontender no organomegaly with normal bowel sounds Extremity exam reveals no edema no cyanosis or clubbing - Labs CBC & Chem 7: 12/09/17 05:35 12/09/17 05:35 Labs: Abnormal Lab Results - Last 24 Hours (Table) 12/08/17 12/08/17 12/08/17 Range/Units 04:01 16:40 21:01 Hgb (11.4-16.0) gm/dL Hct (34.0-46.0) % MCV (80.0-100.0) fL MCH (25.0-35.0) pg MCHC (31.0-37.0) g/dL RDW (11.5-15.5) % PT (9.0-12.0) sec INR (<1.2) BUN (7-17) mg/dL Glucose (74-99) mg/dL POC Glucose (mg/dL) 299 H 368 H (75-99) mg/dL Hemoglobin A1c 11.2 H (4.0-6.0) % AST (14-36) U/L ALT (9-52) U/L Total Protein (6.3-8.2) g/dL Albumin (3.5-5.0) g/dL 12/09/17 12/09/17 12/09/17 Range/Units 05:35 05:35 05:35 Hgb 8.7 L (11.4-16.0) gm/dL Hct 30.5 L (34.0-46.0) % MCV 77.1 L (80.0-100.0) fL MCH 21.9 L (25.0-35.0) pg MCHC 28.5 L (31.0-37.0) g/dL RDW 18.0 H (11.5-15.5) % PT 18.9 H (9.0-12.0) sec INR 2.1 H (<1.2) BUN 23 H (7-17) mg/dL Glucose 248 H (74-99) mg/dL POC Glucose (mg/dL) (75-99) mg/dL Hemoglobin A1c (4.0-6.0) % AST 103 H (14-36) U/L ALT 123 H (9-52) U/L Total Protein 5.4 L (6.3-8.2) g/dL Albumin 3.0 L (3.5-5.0) g/dL 12/09/17 12/09/17 Range/Units 05:47 11:31 Hgb (11.4-16.0) gm/dL Hct (34.0-46.0) % MCV (80.0-100.0) fL MCH (25.0-35.0) pg MCHC (31.0-37.0) g/dL RDW (11.5-15.5) % PT (9.0-12.0) sec INR (<1.2) BUN (7-17) mg/dL Glucose (74-99) mg/dL POC Glucose (mg/dL) 264 H 442 H (75-99) mg/dL Hemoglobin A1c (4.0-6.0) % AST (14-36) U/L ALT (9-52) U/L Total Protein (6.3-8.2) g/dL Albumin (3.5-5.0) g/dL Assessment and Plan Plan: 1. Diabetes mellitus type 2, with uncontrolled blood sugars and evidence of hyperglycemia. Patient required insulin drip. Acetone was negative at [facility]. Blood sugars have improved. Insulin drip discontinued. Patient's home diabetic medications have been restarted 2. Acute tracheobronchitis: Patient has cough and wheezing. Check chest x- ray. Will start Rocephin. Unable to start azithromycin interacts with the Symbicort. Consult pulmonary service. 3. Acute COPD exacerbation: Continue nebulizer treatments. While patient evaluated by pulmonary service. Hesitant to start steroids due to elevated blood sugars. If patient is not improving will proceed was insulin drip and IV steroids, will await 24 hours to reassess. 4. Diarrhea: Appears to have resolved. Stool ordered for C. diff 5. History of mechanical aortic valve anticoagulated with Coumadin INR 4.0 6. Essential hypertension 7. Hypothyroidism GI prophylaxis Pepcid and DVT prophylaxis Coumadin
[2017-12-09 16:49] LABS: Glucose,Whole Blood 269 mg/dL (75-99)
[2017-12-09] MEDS ORDERED: WARFARIN 2.5 MG TAB PO ONE (18:00)
[2017-12-09] MEDS: BUDESONIDE 0.5 MG/2 ML NEBU INHALATION SCH (20:07)
[2017-12-09] MEDS: ATORVASTATIN 10 MG TAB PO SCH (20:27)
[2017-12-09] MEDS: METOPROLOL SUCCINATE (ER) 100 MG TAB.ER.24H PO SCH (20:28)
[2017-12-09] MEDS: VERAPAMIL SR 180 MG TABLET.ER PO SCH (20:28)
[2017-12-09 20:55] LABS: Glucose,Whole Blood 322 mg/dL (75-99)
[2017-12-09] MEDS ORDERED: INSULIN DETEMIR 100 UNIT/ML 10 ML VIAL SQ SCH (21:00)
[2017-12-09] MEDS: METOPROLOL SUCCINATE (ER) 50 MG TAB.ER.24H PO SCH (21:19)
[2017-12-10 05:59] LABS: Glucose,Whole Blood 308 mg/dL (75-99)
[2017-12-10 06:18] LABS: INR 1.4 (<1.2); Prothrombin Time 13.4 sec (9.0-12.0)
[2017-12-10 06:38] LABS: Albumin 3.2 g/dL (3.5-5.0); Potassium 3.7 mmol/L (3.5-5.1); Total Bilirubin 0.7 mg/dL (0.2-1.3); Total Protein 5.7 g/dL (6.3-8.2)
[2017-12-10 06:41] LABS: Anisocytosis Slight; Basophils % (A) 0 %; Eosinophils # (A) 0.4 k/uL (0-0.7); Eosinophils % (A) 4 %; HCT 30.9 % (34.0-46.0); HGB 9.2 gm/dL (11.4-16.0); Hypochromasia Marked; Lymphocytes # (A) 1.6 k/uL (1.0-4.8); Lymphocytes % (A) 16 %; MCH 22.7 pg (25.0-35.0); MCHC 29.8 g/dL (31.0-37.0); MCV 76.2 fL (80.0-100.0); Mean Platelet Volume 7.2; Microcytosis Slight; Monocytes # (A) 0.8 k/uL (0-1.0); Monocytes % (A) 7 %; Neutrophils # (A) 7.2 k/uL (1.3-7.7); Neutrophils % (A) 70 %; Platelet Count 329 k/uL (150-450); Poikilocytosis Slight; RBC 4.06 m/uL (3.80-5.40); WBC 10.3 k/uL (3.8-10.6)
[2017-12-10] MEDS: GLIMEPIRIDE 4 MG TAB PO SCH (06:45)
[2017-12-10] MEDS: INSULIN ASPART 100 UNIT/ML 1 ML 10 ML VIAL SQ SCH (06:45)
[2017-12-10] MEDS: LEVOTHYROXINE 88 MCG TAB PO SCH (06:45)
[2017-12-10] MEDS: BUDESONIDE 0.5 MG/2 ML NEBU INHALATION SCH ×2 (08:22→20:24)
[2017-12-10] MEDS: IPRATROPIUM-ALBUTEROL 3 ML NEB INHALATION SCH ×4 (08:22→20:24)
[2017-12-10] MEDS: ASPIRIN 81 MG PO SCH (09:04)
[2017-12-10] MEDS: NON-FORMULARY DRUG (Empagliflozin [Jardiance] 25 MG) PO SCH (09:04)
[2017-12-10] MEDS: FUROSEMIDE 40 MG TAB PO SCH ×2 (09:04→17:08)
[2017-12-10] MEDS: metFORMIN 500 MG TAB PO SCH ×2 (09:04→20:06)
[2017-12-10] MEDS: cefTRIAXone IN SWFI 1,000 MG/10 ML SYRINGE IVP SCH (09:04)
[2017-12-10] MEDS: FAMOTIDINE 20 MG TAB PO SCH (09:04)
[2017-12-10] MEDS: MECLIZINE 12.5 MG TAB PO SCH ×3 (09:04→20:06)
[2017-12-10] MEDS: ALPRAZolam 0.25 MG TAB PO SCH ×2 (09:06→20:08)
[2017-12-10 11:42] LABS: Glucose,Whole Blood 286 mg/dL (75-99)
--- NOTE | 2017-12-10 11:44 | P.PN ---
Subjective Progress Note Date: 12/10/17 This is a 82-year-old female, patient of [facility]. She has a known past medical history of mechanical aortic valve, paroxysmal atrial fibrillation, COPD, diabetes mellitus type 2, hypertension, dementia and hypothyroidism. She was a transfer from [facility] secondary to concerns for a DKA and a higher level of care. Patient states that she went to the emergency room for worsening shortness of breath for the past 2 days. But then states that her shortness of breath is similar to her chronic COPD. Patient does admit to a dry cough. Denies any fever or chills or sweats. Has been having some diarrhea. Stool is been ordered for C. diff. She was recently treated about a month ago for a bronchitis and had been on steroids and antibiotics. Nebulizer treatments have been continued. White count and [place] was 15.25 and here 12.6. Acetone also reported as negative. She did require an insulin drip on admission due to a blood sugar of 556 at [facility]. Blood sugars have improved. And she is currently off of the insulin drip. Patient denies any chest pain. Denies any nausea or vomiting. Denies any burning with urination. Patient is wheezing during exam. She does not use home oxygen. On 12/09/2017 patient was seen and examined she is alert and oriented in no apparent distress she complains of chronic she complains of significant shortness of breath when she tries to ambulate otherwise she denies any complaints there is no fever or chills no dizziness no chest pain no nausea or vomiting no abdominal pain and no urinary symptoms. On 12/10/2017 Patient is alert and oriented in no distress, still reporting severe shortness of breath without any improvement, patient initially admitted with COPD exacerbation she was started on inhaled bronchodilators and inhaled steroids and IV antibiotics. IV steroids were was held due to significant hyperglycemia however in view of no significant improvement over the last 2 days at this time will proceed with IV Solu-Medrol and change insulin to insulin drip to control hyperglycemia, otherwise patient denies any other symptoms there is no fever or chills no dizziness no headache, no chest pain no nausea or vomiting no abdominal pain no diarrhea and no urinary symptoms. Objective - Vital Signs Vital signs: Vital Signs Temp 97.4 F L 12/10/17 08:00 Pulse 80 12/10/17 08:40 Resp 18 12/10/17 08:00 BP 112/59 12/10/17 08:00 Pulse Ox 98 12/10/17 08:00 Intake & Output 12/09/17 12/10/17 12/10/17 18:59 06:59 18:59 Intake Total 840 120 Output Total 1 Balance 840 -1 120 Weight 66.8 kg Intake: Oral 840 120 Output: Urine 1 Other: # Voids 3 1 - Exam In general patient is alert and oriented in no apparent distress HEENT head normocephalic and atraumatic Neck is supple no JVD no goiter no lymphadenopathy Chest exam reveals a few scattered crackles no wheezing Cardiac exam reveals regular heart sounds S1 and S2 no gallops no murmurs Abdomen is soft nontender no organomegaly with normal bowel sounds Extremity exam reveals no edema no cyanosis or clubbing - Labs CBC & Chem 7: 12/10/17 05:50 12/10/17 05:50 Labs: Abnormal Lab Results - Last 24 Hours (Table) 12/09/17 12/09/17 12/10/17 Range/Units 16:47 20:51 05:50 Hgb 9.2 L (11.4-16.0) gm/dL Hct 30.9 L (34.0-46.0) % MCV 76.2 L (80.0-100.0) fL MCH 22.7 L (25.0-35.0) pg MCHC 29.8 L (31.0-37.0) g/dL RDW 18.0 H (11.5-15.5) % PT (9.0-12.0) sec INR (<1.2) Sodium (137-145) mmol/L Chloride (98-107) mmol/L Carbon Dioxide (22-30) mmol/L BUN (7-17) mg/dL Glucose (74-99) mg/dL POC Glucose (mg/dL) 269 H 322 H (75-99) mg/dL AST (14-36) U/L ALT (9-52) U/L Total Protein (6.3-8.2) g/dL Albumin (3.5-5.0) g/dL 12/10/17 12/10/17 12/10/17 Range/Units 05:50 05:50 05:58 Hgb (11.4-16.0) gm/dL Hct (34.0-46.0) % MCV (80.0-100.0) fL MCH (25.0-35.0) pg MCHC (31.0-37.0) g/dL RDW (11.5-15.5) % PT 13.4 H (9.0-12.0) sec INR 1.4 H (<1.2) Sodium 136 L (137-145) mmol/L Chloride 94 L (98-107) mmol/L Carbon Dioxide 31 H (22-30) mmol/L BUN 28 H (7-17) mg/dL Glucose 289 H (74-99) mg/dL POC Glucose (mg/dL) 308 H (75-99) mg/dL AST 60 H (14-36) U/L ALT 109 H (9-52) U/L Total Protein 5.7 L (6.3-8.2) g/dL Albumin 3.2 L (3.5-5.0) g/dL Assessment and Plan Plan: 1. Diabetes mellitus type 2, with uncontrolled blood sugars and evidence of hyperglycemia. Patient required insulin drip. Acetone was negative at [facility]. Blood sugars have improved. Insulin drip discontinued. Patient's home diabetic medications have been restarted 2. Acute tracheobronchitis: Patient has cough and wheezing. Check chest x- ray. Will start Rocephin. Unable to start azithromycin interacts with the Symbicort. Consult pulmonary service. 3. Acute COPD exacerbation: Continue nebulizer treatments. While patient evaluated by pulmonary service. Hesitant to start steroids due to elevated blood sugars. Patient had no significant improvement over the last 2 days at this point will start IV Solu-Medrol 60 mg IV every 8 hours and change insulin to insulin drip. 4. Diarrhea: Appears to have resolved. Stool ordered for C. diff 5. History of mechanical aortic valve anticoagulated with Coumadin INR 4.0 6. Essential hypertension 7. Hypothyroidism GI prophylaxis Pepcid and DVT prophylaxis Coumadin
[2017-12-10] MEDS ORDERED: INSULIN REGULAR BOLUS (FROM DRIP BAG) IV ONE (12:30)
[2017-12-10] MEDS: INSULIN REGULAR 100 UNIT in SODIUM CHLORIDE 0.9% 100 ML IV SCH (14:32)
[2017-12-10] MEDS: ENOXAPARIN 60 MG/0.6 ML SYRINGE SQ SCH ×2 (14:43→20:05)
[2017-12-10] MEDS: methylPREDNISolone SOD SUCCI 125 MG/2 ML VIAL IV SCH ×3 (14:43→23:04)
[2017-12-10 14:48] LABS: Glucose,Whole Blood 291 mg/dL (75-99)
[2017-12-10 15:26] LABS: Glucose,Whole Blood 191 mg/dL (75-99)
[2017-12-10 16:00] LABS: Glucose,Whole Blood 81 mg/dL (75-99)
[2017-12-10 17:03] LABS: Glucose,Whole Blood 113 mg/dL (75-99)
[2017-12-10] MEDS ORDERED: WARFARIN 2.5 MG TAB PO ONE (18:00)
[2017-12-10 18:21] LABS: Glucose,Whole Blood 287 mg/dL (75-99)
[2017-12-10 18:46] LABS: Glucose,Whole Blood 283 mg/dL (75-99)
[2017-12-10 19:09] LABS: Glucose,Whole Blood 253 mg/dL (75-99)
[2017-12-10] MEDS: ATORVASTATIN 10 MG TAB PO SCH (20:05)
[2017-12-10] MEDS: VERAPAMIL SR 180 MG TABLET.ER PO SCH (20:06)
[2017-12-10] MEDS: METOPROLOL SUCCINATE (ER) 100 MG TAB.ER.24H PO SCH (20:06)
[2017-12-10] MEDS: METOPROLOL SUCCINATE (ER) 50 MG TAB.ER.24H PO SCH (20:06)
[2017-12-10 20:14] LABS: Glucose,Whole Blood 205 mg/dL (75-99)
[2017-12-10 21:08] LABS: Glucose,Whole Blood 197 mg/dL (75-99)
[2017-12-10 22:06] LABS: Glucose,Whole Blood 189 mg/dL (75-99)
[2017-12-10 23:02] LABS: Glucose,Whole Blood 142 mg/dL (75-99)
[2017-12-11 01:07] LABS: Glucose,Whole Blood 149 mg/dL (75-99)
[2017-12-11 03:21] LABS: Glucose,Whole Blood 62 mg/dL (75-99)
[2017-12-11 04:14] LABS: Glucose,Whole Blood 205 mg/dL (75-99)
[2017-12-11] MEDS: INSULIN REGULAR 100 UNIT in SODIUM CHLORIDE 0.9% 100 ML IV SCH ×2 (04:16→20:57)
[2017-12-11 05:58] LABS: Glucose,Whole Blood 284 mg/dL (75-99)
[2017-12-11] MEDS: LEVOTHYROXINE 88 MCG TAB PO SCH (05:58)
[2017-12-11] MEDS: GLIMEPIRIDE 4 MG TAB PO SCH (05:59)
[2017-12-11 06:46] LABS: INR 1.3 (<1.2); Prothrombin Time 12.7 sec (9.0-12.0)
[2017-12-11 06:48] LABS: Albumin 3.5 g/dL (3.5-5.0); Calcium 9.5 mg/dL (8.4-10.2); Potassium 3.7 mmol/L (3.5-5.1); Total Bilirubin 0.8 mg/dL (0.2-1.3); Total Protein 6.1 g/dL (6.3-8.2)
[2017-12-11 06:52] LABS: Anisocytosis Slight; Basophils % (A) 0 %; Eosinophils % (A) 0 %; HCT 33.7 % (34.0-46.0); HGB 9.8 gm/dL (11.4-16.0); Hypochromasia Marked; Lymphocytes # (A) 1.1 k/uL (1.0-4.8); Lymphocytes % (A) 7 %; MCH 22.3 pg (25.0-35.0); MCHC 29.2 g/dL (31.0-37.0); MCV 76.5 fL (80.0-100.0); Microcytosis Slight; Monocytes # (A) 0.3 k/uL (0-1.0); Monocytes % (A) 2 %; Neutrophils % (A) 91 %; Platelet Count 351 k/uL (150-450); RDW 18.4 % (11.5-15.5); WBC 16.5 k/uL (3.8-10.6)
[2017-12-11 08:19] LABS: Glucose,Whole Blood 355 mg/dL (75-99)
[2017-12-11] MEDS: IPRATROPIUM-ALBUTEROL 3 ML NEB INHALATION SCH ×4 (09:33→20:17)
[2017-12-11] MEDS: BUDESONIDE 0.5 MG/2 ML NEBU INHALATION SCH ×2 (09:34→20:17)
[2017-12-11] MEDS: NON-FORMULARY DRUG (Empagliflozin [Jardiance] 25 MG) PO SCH (09:52)
[2017-12-11] MEDS: ASPIRIN 81 MG PO SCH (09:58)
[2017-12-11] MEDS: cefTRIAXone IN SWFI 1,000 MG/10 ML SYRINGE IVP SCH (09:58)
[2017-12-11] MEDS: ALPRAZolam 0.25 MG TAB PO SCH ×2 (09:58→20:24)
[2017-12-11] MEDS: MECLIZINE 12.5 MG TAB PO SCH ×3 (09:58→20:22)
[2017-12-11] MEDS: FUROSEMIDE 40 MG TAB PO SCH ×2 (09:58→17:14)
[2017-12-11] MEDS: methylPREDNISolone SOD SUCCI 125 MG/2 ML VIAL IV SCH (09:58)
[2017-12-11] MEDS: metFORMIN 500 MG TAB PO SCH ×2 (09:58→20:21)
[2017-12-11] MEDS: ENOXAPARIN 60 MG/0.6 ML SYRINGE SQ SCH ×2 (09:58→20:21)
[2017-12-11] MEDS: FAMOTIDINE 20 MG TAB PO SCH (09:59)
[2017-12-11 10:19] LABS: Glucose,Whole Blood 296 mg/dL (75-99)
--- NOTE | 2017-12-11 10:46 | P.PN ---
Subjective Progress Note Date: 12/10/17 (Late entry note) Principal diagnosis: COPD exacerbation, tracheobronchitis, uncontrolled diabetes and hyperglycemia, diabetic ketoacidosis, generalized weakness and medical debility, hypothyroidism , hypertension hypertensive cardiovascular disease, history of the aortic valve replacement with mechanical valve 12/10/2017, patient seen and evaluated examined on 6 floor she is relatively more awake and alert breathing is still uncomfortable with intermittent wheezing and cough denies any chest pain wheezing has not improved significantly on current therapy, patient is being started on IV steroids 82-year-old female seen eval examined on the selective care this patient sees Dr. Loni Saxena for primary care activity has been admitted into service of Dr. Weston the patient has a significant cardiovascular disease and significant for mechanical aortic valve, paroxysmal atrial fibrillation, COPD, diabetes mellitus type 2, hypertension, dementia and hypothyroidism. She was a transfer from [facility] secondary to concerns for a DKA and a higher level of care. Patient states that she went to the emergency room for worsening shortness of breath for the past 2 days. But then states that her shortness of breath is similar to her chronic COPD. Patient does admit to a dry cough. Denies any fever or chills or sweats. She has a history of recent the COPD exacerbation and tracheobronchitis was treated with oral steroids and antibiotics on outpatient basis about a month ago patient does take nebulizer treatment at home, patient has history of intermittent wheezing When patient was transferred into the hospital the sugars were over 500 however they are more stabilized and currently she is off of insulin drip Objective - Vital Signs Vital signs: Vital Signs Temp 97.8 F 12/11/17 08:00 Pulse 92 12/11/17 09:51 Resp 18 12/11/17 08:00 BP 113/63 12/11/17 08:00 Pulse Ox 95 12/11/17 08:00 Intake & Output 12/10/17 12/11/17 12/11/17 18:59 06:59 18:59 Intake Total 841.481 91.500 373.75 Balance 841.481 91.500 373.75 Weight 66.5 kg Intake: Intake, IV Titration 1.481 91.500 13.75 Amount Insulin Regular 100 unit 1.481 91.500 13.75 In Sodium Chloride 0.9% 100 ml @ Titrate IV .Q0M UJSTINA Rx#:[id number] Oral 840 360 Other: Voiding Method Toilet # Voids 1 - Exam Constitutional General appearance: average body habitus, cooperative, disheveled, no acute distress - EENT Eyes: PERRLA, normal appearance ENT: normal oropharynx Ears: bilateral: normal - Neck Carotids: bilateral: upstroke normal, bruit absent Thyroid: bilateral: normal size - Respiratory Respiratory: bilateral: diminished, wheezing (On forced expiration), prolonged expiration, with expiratory wheezing no evidence of dullness, rales, however patient noted to have bilateral rhonchi which are scattered in nature - Cardiovascular Rhythm: regular Heart sounds: normal: S1, S2 - Integumentary Integumentary: normal, normal turgor - Neurologic Remarkable within normal limits Neurologic: CNII-XII intact - Musculoskeletal Musculoskeletal: gait normal, generalized weakness, strength equal bilaterally - Psychiatric Psychiatric: A&O x's 3, appropriate affect, intact judgment & insight - Labs CBC & Chem 7: 12/11/17 06:07 12/11/17 06:07 Labs: Abnormal Lab Results - Last 24 Hours (Table) 12/08/17 12/10/17 12/10/17 Range/Units 04:31 05:50 11:41 WBC (3.8-10.6) k/uL Hgb (11.4-16.0) gm/dL Hct (34.0-46.0) % MCV (80.0-100.0) fL MCH (25.0-35.0) pg MCHC (31.0-37.0) g/dL RDW (11.5-15.5) % Neutrophils # (1.3-7.7) k/uL PT 13.4 H (9.0-12.0) sec INR 1.4 H (<1.2) Chloride (98-107) mmol/L BUN (7-17) mg/dL Glucose (74-99) mg/dL POC Glucose (mg/dL) 286 H (75-99) mg/dL Iron 11 L (50-170) ug/dL Iron Saturation 3.04 L (12.00-45.00) AST (14-36) U/L ALT (9-52) U/L Total Protein (6.3-8.2) g/dL 12/10/17 12/10/17 12/10/17 Range/Units 14:36 15:19 17:01 WBC (3.8-10.6) k/uL Hgb (11.4-16.0) gm/dL Hct (34.0-46.0) % MCV (80.0-100.0) fL MCH (25.0-35.0) pg MCHC (31.0-37.0) g/dL RDW (11.5-15.5) % Neutrophils # (1.3-7.7) k/uL PT (9.0-12.0) sec INR (<1.2) Chloride (98-107) mmol/L BUN (7-17) mg/dL Glucose (74-99) mg/dL POC Glucose (mg/dL) 291 H 191 H 113 H (75-99) mg/dL Iron (50-170) ug/dL Iron Saturation (12.00-45.00) AST (14-36) U/L ALT (9-52) U/L Total Protein (6.3-8.2) g/dL 12/10/17 12/10/17 12/10/17 Range/Units 18:10 18:44 19:07 WBC (3.8-10.6) k/uL Hgb (11.4-16.0) gm/dL Hct (34.0-46.0) % MCV (80.0-100.0) fL MCH (25.0-35.0) pg MCHC (31.0-37.0) g/dL RDW (11.5-15.5) % Neutrophils # (1.3-7.7) k/uL PT (9.0-12.0) sec INR (<1.2) Chloride (98-107) mmol/L BUN (7-17) mg/dL Glucose (74-99) mg/dL POC Glucose (mg/dL) 287 H 283 H 253 H (75-99) mg/dL Iron (50-170) ug/dL Iron Saturation (12.00-45.00) AST (14-36) U/L ALT (9-52) U/L Total Protein (6.3-8.2) g/dL 12/10/17 12/10/17 12/10/17 Range/Units 20:02 21:07 22:03 WBC (3.8-10.6) k/uL Hgb (11.4-16.0) gm/dL Hct (34.0-46.0) % MCV (80.0-100.0) fL MCH (25.0-35.0) pg MCHC (31.0-37.0) g/dL RDW (11.5-15.5) % Neutrophils # (1.3-7.7) k/uL PT (9.0-12.0) sec INR (<1.2) Chloride (98-107) mmol/L BUN (7-17) mg/dL Glucose (74-99) mg/dL POC Glucose (mg/dL) 205 H 197 H 189 H (75-99) mg/dL Iron (50-170) ug/dL Iron Saturation (12.00-45.00) AST (14-36) U/L ALT (9-52) U/L Total Protein (6.3-8.2) g/dL 12/10/17 12/11/17 12/11/17 Range/Units 23:00 01:05 03:19 WBC (3.8-10.6) k/uL Hgb (11.4-16.0) gm/dL Hct (34.0-46.0) % MCV (80.0-100.0) fL MCH (25.0-35.0) pg MCHC (31.0-37.0) g/dL RDW (11.5-15.5) % Neutrophils # (1.3-7.7) k/uL PT (9.0-12.0) sec INR (<1.2) Chloride (98-107) mmol/L BUN (7-17) mg/dL Glucose (74-99) mg/dL POC Glucose (mg/dL) 142 H 149 H 62 L (75-99) mg/dL Iron (50-170) ug/dL Iron Saturation (12.00-45.00) AST (14-36) U/L ALT (9-52) U/L Total Protein (6.3-8.2) g/dL 12/11/17 12/11/17 12/11/17 Range/Units 04:12 05:46 06:07 WBC 16.5 H (3.8-10.6) k/uL Hgb 9.8 L (11.4-16.0) gm/dL Hct 33.7 L (34.0-46.0) % MCV 76.5 L (80.0-100.0) fL MCH 22.3 L (25.0-35.0) pg MCHC 29.2 L (31.0-37.0) g/dL RDW 18.4 H (11.5-15.5) % Neutrophils # 15.0 H (1.3-7.7) k/uL PT (9.0-12.0) sec INR (<1.2) Chloride (98-107) mmol/L BUN (7-17) mg/dL Glucose (74-99) mg/dL POC Glucose (mg/dL) 205 H 284 H (75-99) mg/dL Iron (50-170) ug/dL Iron Saturation (12.00-45.00) AST (14-36) U/L ALT (9-52) U/L Total Protein (6.3-8.2) g/dL 12/11/17 12/11/17 12/11/17 Range/Units 06:07 06:07 07:59 WBC (3.8-10.6) k/uL Hgb (11.4-16.0) gm/dL Hct (34.0-46.0) % MCV (80.0-100.0) fL MCH (25.0-35.0) pg MCHC (31.0-37.0) g/dL RDW (11.5-15.5) % Neutrophils # (1.3-7.7) k/uL PT 12.7 H (9.0-12.0) sec INR 1.3 H (<1.2) Chloride 94 L (98-107) mmol/L BUN 30 H (7-17) mg/dL Glucose 290 H (74-99) mg/dL POC Glucose (mg/dL) 355 H (75-99) mg/dL Iron (50-170) ug/dL Iron Saturation (12.00-45.00) AST 38 H (14-36) U/L ALT 95 H (9-52) U/L Total Protein 6.1 L (6.3-8.2) g/dL 12/11/17 Range/Units 09:59 WBC (3.8-10.6) k/uL Hgb (11.4-16.0) gm/dL Hct (34.0-46.0) % MCV (80.0-100.0) fL MCH (25.0-35.0) pg MCHC (31.0-37.0) g/dL RDW (11.5-15.5) % Neutrophils # (1.3-7.7) k/uL PT (9.0-12.0) sec INR (<1.2) Chloride (98-107) mmol/L BUN (7-17) mg/dL Glucose (74-99) mg/dL POC Glucose (mg/dL) 296 H (75-99) mg/dL Iron (50-170) ug/dL Iron Saturation (12.00-45.00) AST (14-36) U/L ALT (9-52) U/L Total Protein (6.3-8.2) g/dL Assessment and Plan Assessment: COPD exacerbation, acute Purulent Tracheobronchitis Uncontrolled diabetes and hyperglycemia Diabetic ketoacidosis resolved and improved History of aortic mechanical valve replacement on Coumadin Hypothyroidism Hypertension hypertensive cardiovascular disease Plan: Continue breathing treatments Continue deep breathing exercises incentive spirometry Pulmicort via nebulizer 2 times a day She clinically appears to have delayed responded with above therapy agree with starting IV steroids Continue IV antibiotics with Rocephin once daily Further recommendations pending plan of care as per clinical response of the patient Time with Patient: Greater than 30
--- NOTE | 2017-12-11 10:50 | P.PN ---
Subjective Progress Note Date: 12/11/17 Principal diagnosis: COPD exacerbation, tracheobronchitis, uncontrolled diabetes and hyperglycemia, diabetic ketoacidosis, generalized weakness and medical debility, hypothyroidism , hypertension hypertensive cardiovascular disease, history of the aortic valve replacement with mechanical valve 12/11/2017, patient seen and evaluated examined during the rounds clinically she is feels better no significant wheezing have been present breathing more comfortably, labs reviewed medications reviewed patient has been subtherapeutic with Coumadin, leukocytosis likely appears to be related to steroids 12/10/2017, patient seen and evaluated examined on 6 floor she is relatively more awake and alert breathing is still uncomfortable with intermittent wheezing and cough denies any chest pain wheezing has not improved significantly on current therapy, patient is being started on IV steroids 82-year-old female seen eval examined on the selective care this patient sees Dr. Loni Saxena for primary care activity has been admitted into service of Dr. Weston the patient has a significant cardiovascular disease and significant for mechanical aortic valve, paroxysmal atrial fibrillation, COPD, diabetes mellitus type 2, hypertension, dementia and hypothyroidism. She was a transfer from [facility] secondary to concerns for a DKA and a higher level of care. Patient states that she went to the emergency room for worsening shortness of breath for the past 2 days. But then states that her shortness of breath is similar to her chronic COPD. Patient does admit to a dry cough. Denies any fever or chills or sweats. She has a history of recent the COPD exacerbation and tracheobronchitis was treated with oral steroids and antibiotics on outpatient basis about a month ago patient does take nebulizer treatment at home, patient has history of intermittent wheezing When patient was transferred into the hospital the sugars were over 500 however they are more stabilized and currently she is off of insulin drip Objective - Vital Signs Vital signs: Vital Signs Temp 97.8 F 12/11/17 08:00 Pulse 92 12/11/17 09:51 Resp 18 12/11/17 08:00 BP 113/63 12/11/17 08:00 Pulse Ox 95 12/11/17 08:00 Intake & Output 12/10/17 12/11/17 12/11/17 18:59 06:59 18:59 Intake Total 841.481 91.500 373.75 Balance 841.481 91.500 373.75 Weight 66.5 kg Intake: Intake, IV Titration 1.481 91.500 13.75 Amount Insulin Regular 100 unit 1.481 91.500 13.75 In Sodium Chloride 0.9% 100 ml @ Titrate IV .Q0M JUSTINA Rx#:[id number] Oral 840 360 Other: Voiding Method Toilet # Voids 1 - Exam Constitutional General appearance: average body habitus, cooperative, disheveled, no acute distress - EENT Eyes: PERRLA, normal appearance ENT: normal oropharynx Ears: bilateral: normal - Neck Carotids: bilateral: upstroke normal, bruit absent Thyroid: bilateral: normal size - Respiratory Respiratory: Improved air entry compared to yesterday exam with very fine fours expiratory rhonchi - Cardiovascular Rhythm: regular Heart sounds: normal: S1, S2 - Integumentary Integumentary: normal, normal turgor - Neurologic Remarkable within normal limits Neurologic: CNII-XII intact - Musculoskeletal Musculoskeletal: gait normal, generalized weakness, strength equal bilaterally - Psychiatric Psychiatric: A&O x's 3, appropriate affect, intact judgment & insight - Labs CBC & Chem 7: 12/11/17 06:07 12/11/17 06:07 Labs: Abnormal Lab Results - Last 24 Hours (Table) 12/08/17 12/10/17 12/10/17 Range/Units 04:31 05:50 11:41 WBC (3.8-10.6) k/uL Hgb (11.4-16.0) gm/dL Hct (34.0-46.0) % MCV (80.0-100.0) fL MCH (25.0-35.0) pg MCHC (31.0-37.0) g/dL RDW (11.5-15.5) % Neutrophils # (1.3-7.7) k/uL PT 13.4 H (9.0-12.0) sec INR 1.4 H (<1.2) Chloride (98-107) mmol/L BUN (7-17) mg/dL Glucose (74-99) mg/dL POC Glucose (mg/dL) 286 H (75-99) mg/dL Iron 11 L (50-170) ug/dL Iron Saturation 3.04 L (12.00-45.00) AST (14-36) U/L ALT (9-52) U/L Total Protein (6.3-8.2) g/dL 12/10/17 12/10/17 12/10/17 Range/Units 14:36 15:19 17:01 WBC (3.8-10.6) k/uL Hgb (11.4-16.0) gm/dL Hct (34.0-46.0) % MCV (80.0-100.0) fL MCH (25.0-35.0) pg MCHC (31.0-37.0) g/dL RDW (11.5-15.5) % Neutrophils # (1.3-7.7) k/uL PT (9.0-12.0) sec INR (<1.2) Chloride (98-107) mmol/L BUN (7-17) mg/dL Glucose (74-99) mg/dL POC Glucose (mg/dL) 291 H 191 H 113 H (75-99) mg/dL Iron (50-170) ug/dL Iron Saturation (12.00-45.00) AST (14-36) U/L ALT (9-52) U/L Total Protein (6.3-8.2) g/dL 12/10/17 12/10/17 12/10/17 Range/Units 18:10 18:44 19:07 WBC (3.8-10.6) k/uL Hgb (11.4-16.0) gm/dL Hct (34.0-46.0) % MCV (80.0-100.0) fL MCH (25.0-35.0) pg MCHC (31.0-37.0) g/dL RDW (11.5-15.5) % Neutrophils # (1.3-7.7) k/uL PT (9.0-12.0) sec INR (<1.2) Chloride (98-107) mmol/L BUN (7-17) mg/dL Glucose (74-99) mg/dL POC Glucose (mg/dL) 287 H 283 H 253 H (75-99) mg/dL Iron (50-170) ug/dL Iron Saturation (12.00-45.00) AST (14-36) U/L ALT (9-52) U/L Total Protein (6.3-8.2) g/dL 12/10/17 12/10/17 12/10/17 Range/Units 20:02 21:07 22:03 WBC (3.8-10.6) k/uL Hgb (11.4-16.0) gm/dL Hct (34.0-46.0) % MCV (80.0-100.0) fL MCH (25.0-35.0) pg MCHC (31.0-37.0) g/dL RDW (11.5-15.5) % Neutrophils # (1.3-7.7) k/uL PT (9.0-12.0) sec INR (<1.2) Chloride (98-107) mmol/L BUN (7-17) mg/dL Glucose (74-99) mg/dL POC Glucose (mg/dL) 205 H 197 H 189 H (75-99) mg/dL Iron (50-170) ug/dL Iron Saturation (12.00-45.00) AST (14-36) U/L ALT (9-52) U/L Total Protein (6.3-8.2) g/dL 12/10/17 12/11/17 12/11/17 Range/Units 23:00 01:05 03:19 WBC (3.8-10.6) k/uL Hgb (11.4-16.0) gm/dL Hct (34.0-46.0) % MCV (80.0-100.0) fL MCH (25.0-35.0) pg MCHC (31.0-37.0) g/dL RDW (11.5-15.5) % Neutrophils # (1.3-7.7) k/uL PT (9.0-12.0) sec INR (<1.2) Chloride (98-107) mmol/L BUN (7-17) mg/dL Glucose (74-99) mg/dL POC Glucose (mg/dL) 142 H 149 H 62 L (75-99) mg/dL Iron (50-170) ug/dL Iron Saturation (12.00-45.00) AST (14-36) U/L ALT (9-52) U/L Total Protein (6.3-8.2) g/dL 12/11/17 12/11/17 12/11/17 Range/Units 04:12 05:46 06:07 WBC 16.5 H (3.8-10.6) k/uL Hgb 9.8 L (11.4-16.0) gm/dL Hct 33.7 L (34.0-46.0) % MCV 76.5 L (80.0-100.0) fL MCH 22.3 L (25.0-35.0) pg MCHC 29.2 L (31.0-37.0) g/dL RDW 18.4 H (11.5-15.5) % Neutrophils # 15.0 H (1.3-7.7) k/uL PT (9.0-12.0) sec INR (<1.2) Chloride (98-107) mmol/L BUN (7-17) mg/dL Glucose (74-99) mg/dL POC Glucose (mg/dL) 205 H 284 H (75-99) mg/dL Iron (50-170) ug/dL Iron Saturation (12.00-45.00) AST (14-36) U/L ALT (9-52) U/L Total Protein (6.3-8.2) g/dL 12/11/17 12/11/17 12/11/17 Range/Units 06:07 06:07 07:59 WBC (3.8-10.6) k/uL Hgb (11.4-16.0) gm/dL Hct (34.0-46.0) % MCV (80.0-100.0) fL MCH (25.0-35.0) pg MCHC (31.0-37.0) g/dL RDW (11.5-15.5) % Neutrophils # (1.3-7.7) k/uL PT 12.7 H (9.0-12.0) sec INR 1.3 H (<1.2) Chloride 94 L (98-107) mmol/L BUN 30 H (7-17) mg/dL Glucose 290 H (74-99) mg/dL POC Glucose (mg/dL) 355 H (75-99) mg/dL Iron (50-170) ug/dL Iron Saturation (12.00-45.00) AST 38 H (14-36) U/L ALT 95 H (9-52) U/L Total Protein 6.1 L (6.3-8.2) g/dL 12/11/17 Range/Units 09:59 WBC (3.8-10.6) k/uL Hgb (11.4-16.0) gm/dL Hct (34.0-46.0) % MCV (80.0-100.0) fL MCH (25.0-35.0) pg MCHC (31.0-37.0) g/dL RDW (11.5-15.5) % Neutrophils # (1.3-7.7) k/uL PT (9.0-12.0) sec INR (<1.2) Chloride (98-107) mmol/L BUN (7-17) mg/dL Glucose (74-99) mg/dL POC Glucose (mg/dL) 296 H (75-99) mg/dL Iron (50-170) ug/dL Iron Saturation (12.00-45.00) AST (14-36) U/L ALT (9-52) U/L Total Protein (6.3-8.2) g/dL Assessment and Plan Assessment: COPD exacerbation, acute Purulent Tracheobronchitis Uncontrolled diabetes and hyperglycemia Diabetic ketoacidosis resolved and improved History of aortic mechanical valve replacement was off of Coumadin now subtherapeutic PT/INR Hypothyroidism Hypertension hypertensive cardiovascular disease Plan: Continue breathing treatments Continue deep breathing exercises incentive spirometry Pulmicort via nebulizer 2 times a day She clinically appears to have responded with IV steroids, we will start tapering it down Continue IV antibiotics with Rocephin once daily Recommend to resume Coumadin Further recommendations pending plan of care as per clinical response of the patient Time with Patient: Greater than 30
[2017-12-11 12:47] LABS: Glucose,Whole Blood 213 mg/dL (75-99)
[2017-12-11 14:27] LABS: Glucose,Whole Blood 269 mg/dL (75-99)
[2017-12-11 16:06] LABS: Glucose,Whole Blood 306 mg/dL (75-99)
--- NOTE | 2017-12-11 16:56 | P.PN ---
Subjective Progress Note Date: 12/11/17 This is a 82-year-old female, patient of [facility]. She has a known past medical history of mechanical aortic valve, paroxysmal atrial fibrillation, COPD, diabetes mellitus type 2, hypertension, dementia and hypothyroidism. She was a transfer from [facility] secondary to concerns for a DKA and a higher level of care. Patient states that she went to the emergency room for worsening shortness of breath for the past 2 days. But then states that her shortness of breath is similar to her chronic COPD. Patient does admit to a dry cough. Denies any fever or chills or sweats. Has been having some diarrhea. Stool is been ordered for C. diff. She was recently treated about a month ago for a bronchitis and had been on steroids and antibiotics. Nebulizer treatments have been continued. White count and [place] was 15.25 and here 12.6. Acetone also reported as negative. She did require an insulin drip on admission due to a blood sugar of 556 at [facility]. Blood sugars have improved. And she is currently off of the insulin drip. Patient denies any chest pain. Denies any nausea or vomiting. Denies any burning with urination. Patient is wheezing during exam. She does not use home oxygen. On 12/09/2017 patient was seen and examined she is alert and oriented in no apparent distress she complains of chronic she complains of significant shortness of breath when she tries to ambulate otherwise she denies any complaints there is no fever or chills no dizziness no chest pain no nausea or vomiting no abdominal pain and no urinary symptoms. On 12/10/2017 Patient is alert and oriented in no distress, still reporting severe shortness of breath without any improvement, patient initially admitted with COPD exacerbation she was started on inhaled bronchodilators and inhaled steroids and IV antibiotics. IV steroids were was held due to significant hyperglycemia however in view of no significant improvement over the last 2 days at this time will proceed with IV Solu-Medrol and change insulin to insulin drip to control hyperglycemia, otherwise patient denies any other symptoms there is no fever or chills no dizziness no headache, no chest pain no nausea or vomiting no abdominal pain no diarrhea and no urinary symptoms. On 12/11/2017 patient is alert and oriented she states she is feeling better shortness of breath has improved significantly with the use of IV steroids she is currently maintained on insulin drip and her glucose is well-controlled. She is complaining of constipation, otherwise she denies any other complaints at this time. Objective - Vital Signs Vital signs: Vital Signs Temp 97.8 F 12/11/17 08:00 Pulse 92 12/11/17 16:17 Resp 18 12/11/17 12:00 BP 117/57 12/11/17 12:00 Pulse Ox 95 12/11/17 12:00 Intake & Output 12/10/17 12/11/17 12/11/17 18:59 06:59 18:59 Intake Total 841.481 91.500 768.00 Output Total 700 Balance 841.481 91.500 68.00 Weight 66.5 kg Intake: Intake, IV Titration 1.481 91.500 48.00 Amount Insulin Regular 100 unit 1.481 91.500 48.00 In Sodium Chloride 0.9% 100 ml @ Titrate IV .Q0M JUSTINA Rx#:[id number] Oral 840 720 Output: Urine 700 Other: Voiding Method Toilet Toilet # Voids 1 - Exam In general patient is alert and oriented in no apparent distress HEENT head normocephalic and atraumatic Neck is supple no JVD no goiter no lymphadenopathy Chest exam reveals a few scattered crackles no wheezing Cardiac exam reveals regular heart sounds S1 and S2 no gallops no murmurs Abdomen is soft nontender no organomegaly with normal bowel sounds Extremity exam reveals no edema no cyanosis or clubbing - Labs CBC & Chem 7: 12/11/17 06:07 12/11/17 06:07 Labs: Abnormal Lab Results - Last 24 Hours (Table) 12/10/17 12/10/17 12/10/17 Range/Units 17:01 18:10 18:44 WBC (3.8-10.6) k/uL Hgb (11.4-16.0) gm/dL Hct (34.0-46.0) % MCV (80.0-100.0) fL MCH (25.0-35.0) pg MCHC (31.0-37.0) g/dL RDW (11.5-15.5) % Neutrophils # (1.3-7.7) k/uL PT (9.0-12.0) sec INR (<1.2) Chloride (98-107) mmol/L BUN (7-17) mg/dL Glucose (74-99) mg/dL POC Glucose (mg/dL) 113 H 287 H 283 H (75-99) mg/dL AST (14-36) U/L ALT (9-52) U/L Total Protein (6.3-8.2) g/dL 12/10/17 12/10/17 12/10/17 Range/Units 19:07 20:02 21:07 WBC (3.8-10.6) k/uL Hgb (11.4-16.0) gm/dL Hct (34.0-46.0) % MCV (80.0-100.0) fL MCH (25.0-35.0) pg MCHC (31.0-37.0) g/dL RDW (11.5-15.5) % Neutrophils # (1.3-7.7) k/uL PT (9.0-12.0) sec INR (<1.2) Chloride (98-107) mmol/L BUN (7-17) mg/dL Glucose (74-99) mg/dL POC Glucose (mg/dL) 253 H 205 H 197 H (75-99) mg/dL AST (14-36) U/L ALT (9-52) U/L Total Protein (6.3-8.2) g/dL 12/10/17 12/10/17 12/11/17 Range/Units 22:03 23:00 01:05 WBC (3.8-10.6) k/uL Hgb (11.4-16.0) gm/dL Hct (34.0-46.0) % MCV (80.0-100.0) fL MCH (25.0-35.0) pg MCHC (31.0-37.0) g/dL RDW (11.5-15.5) % Neutrophils # (1.3-7.7) k/uL PT (9.0-12.0) sec INR (<1.2) Chloride (98-107) mmol/L BUN (7-17) mg/dL Glucose (74-99) mg/dL POC Glucose (mg/dL) 189 H 142 H 149 H (75-99) mg/dL AST (14-36) U/L ALT (9-52) U/L Total Protein (6.3-8.2) g/dL 12/11/17 12/11/17 12/11/17 Range/Units 03:19 04:12 05:46 WBC (3.8-10.6) k/uL Hgb (11.4-16.0) gm/dL Hct (34.0-46.0) % MCV (80.0-100.0) fL MCH (25.0-35.0) pg MCHC (31.0-37.0) g/dL RDW (11.5-15.5) % Neutrophils # (1.3-7.7) k/uL PT (9.0-12.0) sec INR (<1.2) Chloride (98-107) mmol/L BUN (7-17) mg/dL Glucose (74-99) mg/dL POC Glucose (mg/dL) 62 L 205 H 284 H (75-99) mg/dL AST (14-36) U/L ALT (9-52) U/L Total Protein (6.3-8.2) g/dL 12/11/17 12/11/17 12/11/17 Range/Units 06:07 06:07 06:07 WBC 16.5 H (3.8-10.6) k/uL Hgb 9.8 L (11.4-16.0) gm/dL Hct 33.7 L (34.0-46.0) % MCV 76.5 L (80.0-100.0) fL MCH 22.3 L (25.0-35.0) pg MCHC 29.2 L (31.0-37.0) g/dL RDW 18.4 H (11.5-15.5) % Neutrophils # 15.0 H (1.3-7.7) k/uL PT 12.7 H (9.0-12.0) sec INR 1.3 H (<1.2) Chloride 94 L (98-107) mmol/L BUN 30 H (7-17) mg/dL Glucose 290 H (74-99) mg/dL POC Glucose (mg/dL) (75-99) mg/dL AST 38 H (14-36) U/L ALT 95 H (9-52) U/L Total Protein 6.1 L (6.3-8.2) g/dL 12/11/17 12/11/17 12/11/17 Range/Units 07:59 09:59 12:26 WBC (3.8-10.6) k/uL Hgb (11.4-16.0) gm/dL Hct (34.0-46.0) % MCV (80.0-100.0) fL MCH (25.0-35.0) pg MCHC (31.0-37.0) g/dL RDW (11.5-15.5) % Neutrophils # (1.3-7.7) k/uL PT (9.0-12.0) sec INR (<1.2) Chloride (98-107) mmol/L BUN (7-17) mg/dL Glucose (74-99) mg/dL POC Glucose (mg/dL) 355 H 296 H 213 H (75-99) mg/dL AST (14-36) U/L ALT (9-52) U/L Total Protein (6.3-8.2) g/dL 12/11/17 12/11/17 Range/Units 14:07 16:04 WBC (3.8-10.6) k/uL Hgb (11.4-16.0) gm/dL Hct (34.0-46.0) % MCV (80.0-100.0) fL MCH (25.0-35.0) pg MCHC (31.0-37.0) g/dL RDW (11.5-15.5) % Neutrophils # (1.3-7.7) k/uL PT (9.0-12.0) sec INR (<1.2) Chloride (98-107) mmol/L BUN (7-17) mg/dL Glucose (74-99) mg/dL POC Glucose (mg/dL) 269 H 306 H (75-99) mg/dL AST (14-36) U/L ALT (9-52) U/L Total Protein (6.3-8.2) g/dL Assessment and Plan Plan: 1. Diabetes mellitus type 2, with uncontrolled blood sugars and evidence of hyperglycemia. Patient required insulin drip. Acetone was negative at [facility]. Blood sugars have improved. Insulin drip discontinued. Patient's home diabetic medications have been restarted 2. Acute tracheobronchitis: Patient has cough and wheezing. Check chest x- ray. Will start Rocephin. Unable to start azithromycin interacts with the Symbicort. Consult pulmonary service. 3. Acute COPD exacerbation: Continue nebulizer treatments. While patient evaluated by pulmonary service. Hesitant to start steroids due to elevated blood sugars. Patient had no significant improvement over the last 2 days at this point will start IV Solu-Medrol 60 mg IV every 8 hours and change insulin to insulin drip. 4. Constipation will give 1 dose of lactulose today 5. History of mechanical aortic valve anticoagulated with Coumadin INR 4.0 6. Essential hypertension 7. Hypothyroidism GI prophylaxis Pepcid and DVT prophylaxis Coumadin
[2017-12-11] MEDS: INSULIN ASPART 100 UNIT/ML 1 ML 10 ML VIAL SQ SCH (17:31)
[2017-12-11] MEDS ORDERED: WARFARIN 5 MG TAB PO ONE (18:00)
[2017-12-11 18:27] LABS: Glucose,Whole Blood 438 mg/dL (75-99)
[2017-12-11 20:07] LABS: Glucose,Whole Blood 254 mg/dL (75-99)
[2017-12-11] MEDS: ATORVASTATIN 10 MG TAB PO SCH (20:20)
[2017-12-11] MEDS: VERAPAMIL SR 180 MG TABLET.ER PO SCH (20:21)
[2017-12-11] MEDS: METOPROLOL SUCCINATE (ER) 50 MG TAB.ER.24H PO SCH (20:21)
[2017-12-11] MEDS: METOPROLOL SUCCINATE (ER) 100 MG TAB.ER.24H PO SCH (20:22)
[2017-12-11] MEDS: methylPREDNISolone SOD SUCCI 40 MG/ML 1 ML VIAL IV SCH (20:24)
[2017-12-11 22:22] LABS: Glucose,Whole Blood 258 mg/dL (75-99)
[2017-12-12 00:05] LABS: Glucose,Whole Blood 210 mg/dL (75-99)
[2017-12-12 02:14] LABS: Glucose,Whole Blood 165 mg/dL (75-99)
[2017-12-12 03:38] LABS: Glucose,Whole Blood 261 mg/dL (75-99)
[2017-12-12 05:13] LABS: Glucose,Whole Blood 232 mg/dL (75-99)
[2017-12-12 06:34] LABS: INR 2.3 (<1.2); Prothrombin Time 20.5 sec (9.0-12.0)
[2017-12-12] MEDS: LEVOTHYROXINE 88 MCG TAB PO SCH (06:36)
[2017-12-12] MEDS: GLIMEPIRIDE 4 MG TAB PO SCH (06:36)
[2017-12-12] MEDS: INSULIN ASPART 100 UNIT/ML 1 ML 10 ML VIAL SQ SCH ×3 (06:44→16:57)
[2017-12-12 06:46] LABS: Glucose,Whole Blood 179 mg/dL (75-99)
[2017-12-12 06:53] LABS: Anisocytosis Slight; Basophils % (A) 0 %; Eosinophils % (A) 0 %; HCT 30.2 % (34.0-46.0); HGB 8.9 gm/dL (11.4-16.0); Hypochromasia Marked; Lymphocytes # (A) 0.8 k/uL (1.0-4.8); Lymphocytes % (A) 3 %; MCH 22.5 pg (25.0-35.0); MCHC 29.5 g/dL (31.0-37.0); MCV 76.3 fL (80.0-100.0); Mean Platelet Volume 7.6; Microcytosis Slight; Monocytes # (A) 0.8 k/uL (0-1.0); Monocytes % (A) 3 %; Neutrophils # (A) 20.6 k/uL (1.3-7.7); Neutrophils % (A) 92 %; Platelet Count 378 k/uL (150-450); Poikilocytosis Slight; RBC 3.96 m/uL (3.80-5.40); RDW 18.1 % (11.5-15.5); WBC 22.3 k/uL (3.8-10.6)
[2017-12-12 07:22] LABS: Albumin 3.2 g/dL (3.5-5.0); Calcium 9.1 mg/dL (8.4-10.2); Total Bilirubin 0.3 mg/dL (0.2-1.3); Total Protein 5.6 g/dL (6.3-8.2)
[2017-12-12 07:35] LABS: Potassium 2.9 mmol/L (3.5-5.1)
--- NOTE | 2017-12-12 08:02 | XR ---
EXAMINATION TYPE: XR chest 1V portable DATE OF EXAM: 12/12/2017 CLINICAL HISTORY: Pneumonia per order progress study. COPD and hyperglycemia. TECHNIQUE: Single AP portable upright view of the chest is obtained. COMPARISON: Chest x-ray from 4 days earlier and older studies. FINDINGS: Osseous structures remain demineralized. There is persistent mild cardiomegaly with dual l ead pacemaker/AICD and atherosclerotic thoracic aorta. Overlying sternal wires are redemonstrated. Th ere is elevated right hemidiaphragm. There is interval improvement in tiny bilateral pleural effusion s. There is background chronic parenchymal change with patchy right basilar atelectasis and/or scarri ng. There is no suspicious new focal airspace opacity or pneumothorax seen bilaterally. IMPRESSION: Chronic changes with improved small to tiny bilateral pleural effusions, no new infiltrat e is present.
[2017-12-12] MEDS ORDERED: Magnesium Replacement Protocol 1 EACH MISC MISCELLANE PRN (08:13)
[2017-12-12] MEDS ORDERED: Potassium Replacement Protocol 1 EACH MISC MISCELLANE PRN (08:14)
[2017-12-12] MEDS: NON-FORMULARY DRUG (Empagliflozin [Jardiance] 25 MG) PO SCH (08:15)
[2017-12-12] MEDS: ALPRAZolam 0.25 MG TAB PO SCH ×2 (08:22→21:42)
[2017-12-12] MEDS: metFORMIN 500 MG TAB PO SCH ×2 (08:22→21:43)
[2017-12-12] MEDS: cefTRIAXone IN SWFI 1,000 MG/10 ML SYRINGE IVP SCH (08:22)
[2017-12-12] MEDS: FAMOTIDINE 20 MG TAB PO SCH (08:22)
[2017-12-12] MEDS: MECLIZINE 12.5 MG TAB PO SCH ×3 (08:22→21:42)
[2017-12-12] MEDS: ASPIRIN 81 MG PO SCH (08:22)
[2017-12-12] MEDS: methylPREDNISolone SOD SUCCI 40 MG/ML 1 ML VIAL IV SCH ×2 (08:22→21:43)
[2017-12-12] MEDS: BUDESONIDE 0.5 MG/2 ML NEBU INHALATION SCH ×2 (08:39→21:01)
[2017-12-12] MEDS: IPRATROPIUM-ALBUTEROL 3 ML NEB INHALATION SCH ×4 (08:39→21:01)
[2017-12-12] MEDS: MAGNESIUM SULFATE-D5W PMX 1 GM in DEXTROSE/WATER 1 100ML.BAG IVPB SCH ×3 (09:16→11:45)
[2017-12-12] MEDS: POTASSIUM CHLORIDE ER 20 MEQ TAB.ER PO SCH ×5 (09:17→16:57)
[2017-12-12] MEDS: FUROSEMIDE 40 MG TAB PO SCH ×2 (09:18→15:41)
[2017-12-12 09:27] LABS: Glucose,Whole Blood 186 mg/dL (75-99)
[2017-12-12 11:20] LABS: Glucose,Whole Blood 257 mg/dL (75-99)
[2017-12-12] MEDS ORDERED: LACTULOSE 20 GM/30 ML CUP PO ONE (12:47)
--- NOTE | 2017-12-12 12:55 | P.PN ---
Subjective Progress Note Date: 12/12/17 This is a 82-year-old female, patient of [facility]. She has a known past medical history of mechanical aortic valve, paroxysmal atrial fibrillation, COPD, diabetes mellitus type 2, hypertension, dementia and hypothyroidism. She was a transfer from [facility] secondary to concerns for a DKA and a higher level of care. Patient states that she went to the emergency room for worsening shortness of breath for the past 2 days. But then states that her shortness of breath is similar to her chronic COPD. Patient does admit to a dry cough. Denies any fever or chills or sweats. Has been having some diarrhea. Stool is been ordered for C. diff. She was recently treated about a month ago for a bronchitis and had been on steroids and antibiotics. Nebulizer treatments have been continued. White count and McMillin was 15.25 and here 12.6. Acetone also reported as negative. She did require an insulin drip on admission due to a blood sugar of 556 at [facility]. Blood sugars have improved. And she is currently off of the insulin drip. Patient denies any chest pain. Denies any nausea or vomiting. Denies any burning with urination. Patient is wheezing during exam. She does not use home oxygen. On 12/09/2017 patient was seen and examined she is alert and oriented in no apparent distress she complains of chronic she complains of significant shortness of breath when she tries to ambulate otherwise she denies any complaints there is no fever or chills no dizziness no chest pain no nausea or vomiting no abdominal pain and no urinary symptoms. On 12/10/2017 Patient is alert and oriented in no distress, still reporting severe shortness of breath without any improvement, patient initially admitted with COPD exacerbation she was started on inhaled bronchodilators and inhaled steroids and IV antibiotics. IV steroids were was held due to significant hyperglycemia however in view of no significant improvement over the last 2 days at this time will proceed with IV Solu-Medrol and change insulin to insulin drip to control hyperglycemia, otherwise patient denies any other symptoms there is no fever or chills no dizziness no headache, no chest pain no nausea or vomiting no abdominal pain no diarrhea and no urinary symptoms. On 12/11/2017 patient is alert and oriented she states she is feeling better shortness of breath has improved significantly with the use of IV steroids she is currently maintained on insulin drip and her glucose is well-controlled. She is complaining of constipation, otherwise she denies any other complaints at this time. 12/12/2017 patient is feeling better she is alert and oriented 3 she was seen and examined on the 6 floor she is able to ambulate easier without severe shortness of breath she is maintained on IV Solu-Medrol dose was decreased down to 40 mg IV every 12 hours she is also maintained on IV antibiotics and inhaled bronchodilators and insulin drip. This morning her potassium and magnesium levels are low and she was started on replacement protocols she is complaining of constipation and was given a dose of lactulose, INR is near therapeutic range at 2.3 Will stop subcu Lovenox and give a dose of Coumadin 2.5 mg today and recheck INR in a.m.. Objective - Vital Signs Vital signs: Vital Signs Temp 97.4 F L 12/12/17 08:22 Pulse 72 12/12/17 12:01 Resp 18 12/12/17 12:01 BP 131/66 12/12/17 12:01 Pulse Ox 100 12/12/17 12:01 Intake & Output 12/11/17 12/12/17 12/12/17 18:59 06:59 18:59 Intake Total 908.10 77.351 204.027 Output Total 700 400 Balance 208.10 -322.649 204.027 Weight 68 kg Intake: Intake, IV Titration 70.10 77.351 204.027 Amount Insulin Regular 100 unit 70.10 77.351 4.027 In Sodium Chloride 0.9% 100 ml @ Titrate IV .Q0M JUST[facility] Rx#:[id number] Magnesium Sulfate-D5w Pmx 200 1 gm In Dextrose/Water 1 100ml.bag @ 100 mls/hr IVPB Q1H JUSTINA Rx#: [id number] Oral 838 Output: Urine 700 400 Other: Voiding Method Toilet Toilet Toilet # Voids 1 - Exam In general patient is alert and oriented in no apparent distress HEENT head normocephalic and atraumatic Neck is supple no JVD no goiter no lymphadenopathy Chest exam reveals a few scattered crackles no wheezing Cardiac exam reveals regular heart sounds S1 and S2 no gallops no murmurs Abdomen is soft nontender no organomegaly with normal bowel sounds Extremity exam reveals no edema no cyanosis or clubbing - Labs CBC & Chem 7: 12/12/17 06:07 12/12/17 06:07 Labs: Abnormal Lab Results - Last 24 Hours (Table) 12/11/17 12/11/17 12/11/17 Range/Units 14:07 16:04 18:06 WBC (3.8-10.6) k/uL Hgb (11.4-16.0) gm/dL Hct (34.0-46.0) % MCV (80.0-100.0) fL MCH (25.0-35.0) pg MCHC (31.0-37.0) g/dL RDW (11.5-15.5) % Neutrophils # (1.3-7.7) k/uL Lymphocytes # (1.0-4.8) k/uL PT (9.0-12.0) sec INR (<1.2) Potassium (3.5-5.1) mmol/L Chloride (98-107) mmol/L BUN (7-17) mg/dL Glucose (74-99) mg/dL POC Glucose (mg/dL) 269 H 306 H 438 H (75-99) mg/dL Magnesium (1.6-2.3) mg/dL ALT (9-52) U/L Total Protein (6.3-8.2) g/dL Albumin (3.5-5.0) g/dL 12/11/17 12/11/17 12/12/17 Range/Units 20:05 22:19 00:03 WBC (3.8-10.6) k/uL Hgb (11.4-16.0) gm/dL Hct (34.0-46.0) % MCV (80.0-100.0) fL MCH (25.0-35.0) pg MCHC (31.0-37.0) g/dL RDW (11.5-15.5) % Neutrophils # (1.3-7.7) k/uL Lymphocytes # (1.0-4.8) k/uL PT (9.0-12.0) sec INR (<1.2) Potassium (3.5-5.1) mmol/L Chloride (98-107) mmol/L BUN (7-17) mg/dL Glucose (74-99) mg/dL POC Glucose (mg/dL) 254 H 258 H 210 H (75-99) mg/dL Magnesium (1.6-2.3) mg/dL ALT (9-52) U/L Total Protein (6.3-8.2) g/dL Albumin (3.5-5.0) g/dL 12/12/17 12/12/17 12/12/17 Range/Units 02:12 03:18 05:02 WBC (3.8-10.6) k/uL Hgb (11.4-16.0) gm/dL Hct (34.0-46.0) % MCV (80.0-100.0) fL MCH (25.0-35.0) pg MCHC (31.0-37.0) g/dL RDW (11.5-15.5) % Neutrophils # (1.3-7.7) k/uL Lymphocytes # (1.0-4.8) k/uL PT (9.0-12.0) sec INR (<1.2) Potassium (3.5-5.1) mmol/L Chloride (98-107) mmol/L BUN (7-17) mg/dL Glucose (74-99) mg/dL POC Glucose (mg/dL) 165 H 261 H 232 H (75-99) mg/dL Magnesium (1.6-2.3) mg/dL ALT (9-52) U/L Total Protein (6.3-8.2) g/dL Albumin (3.5-5.0) g/dL 12/12/17 12/12/17 12/12/17 Range/Units 06:07 06:07 06:07 WBC 22.3 H (3.8-10.6) k/uL Hgb 8.9 L (11.4-16.0) gm/dL Hct 30.2 L (34.0-46.0) % MCV 76.3 L (80.0-100.0) fL MCH 22.5 L (25.0-35.0) pg MCHC 29.5 L (31.0-37.0) g/dL RDW 18.1 H (11.5-15.5) % Neutrophils # 20.6 H (1.3-7.7) k/uL Lymphocytes # 0.8 L (1.0-4.8) k/uL PT 20.5 H (9.0-12.0) sec INR 2.3 H (<1.2) Potassium 2.9 L* (3.5-5.1) mmol/L Chloride 97 L (98-107) mmol/L BUN 37 H (7-17) mg/dL Glucose 178 H (74-99) mg/dL POC Glucose (mg/dL) (75-99) mg/dL Magnesium (1.6-2.3) mg/dL ALT 68 H (9-52) U/L Total Protein 5.6 L (6.3-8.2) g/dL Albumin 3.2 L (3.5-5.0) g/dL 12/12/17 12/12/17 12/12/17 Range/Units 06:07 06:39 09:14 WBC (3.8-10.6) k/uL Hgb (11.4-16.0) gm/dL Hct (34.0-46.0) % MCV (80.0-100.0) fL MCH (25.0-35.0) pg MCHC (31.0-37.0) g/dL RDW (11.5-15.5) % Neutrophils # (1.3-7.7) k/uL Lymphocytes # (1.0-4.8) k/uL PT (9.0-12.0) sec INR (<1.2) Potassium (3.5-5.1) mmol/L Chloride (98-107) mmol/L BUN (7-17) mg/dL Glucose (74-99) mg/dL POC Glucose (mg/dL) 179 H 186 H (75-99) mg/dL Magnesium 1.3 L (1.6-2.3) mg/dL ALT (9-52) U/L Total Protein (6.3-8.2) g/dL Albumin (3.5-5.0) g/dL 12/12/17 Range/Units 11:12 WBC (3.8-10.6) k/uL Hgb (11.4-16.0) gm/dL Hct (34.0-46.0) % MCV (80.0-100.0) fL MCH (25.0-35.0) pg MCHC (31.0-37.0) g/dL RDW (11.5-15.5) % Neutrophils # (1.3-7.7) k/uL Lymphocytes # (1.0-4.8) k/uL PT (9.0-12.0) sec INR (<1.2) Potassium (3.5-5.1) mmol/L Chloride (98-107) mmol/L BUN (7-17) mg/dL Glucose (74-99) mg/dL POC Glucose (mg/dL) 257 H (75-99) mg/dL Magnesium (1.6-2.3) mg/dL ALT (9-52) U/L Total Protein (6.3-8.2) g/dL Albumin (3.5-5.0) g/dL Assessment and Plan Plan: 1. Diabetes mellitus type 2, with uncontrolled blood sugars and evidence of hyperglycemia. Patient required insulin drip. Acetone was negative at [facility]. Blood sugars have improved. Insulin drip discontinued. Patient's home diabetic medications have been restarted 2. Acute tracheobronchitis: Patient has cough and wheezing. Check chest x- ray. Will start Rocephin. Unable to start azithromycin interacts with the Symbicort. Consult pulmonary service. 3. Acute COPD exacerbation: Continue nebulizer treatments. While patient evaluated by pulmonary service. Hesitant to start steroids due to elevated blood sugars. Patient had no significant improvement over the last 2 days at this point will start IV Solu-Medrol 60 mg IV every 8 hours and change insulin to insulin drip. 4. Constipation will give 1 dose of lactulose today 5. History of mechanical aortic valve anticoagulated with Coumadin INR 4.0 6. Essential hypertension 7. Hypothyroidism GI prophylaxis Pepcid and DVT prophylaxis Coumadin
[2017-12-12] MEDS: ENOXAPARIN 60 MG/0.6 ML SYRINGE SQ SCH (14:21)
[2017-12-12 14:22] LABS: Glucose,Whole Blood 378 mg/dL (75-99)
[2017-12-12 16:49] LABS: Glucose,Whole Blood 246 mg/dL (75-99)
--- NOTE | 2017-12-12 17:36 | P.PN ---
Subjective Progress Note Date: 12/12/17 Principal diagnosis: COPD exacerbation, tracheobronchitis, uncontrolled diabetes and hyperglycemia, diabetic ketoacidosis, generalized weakness and medical debility, hypothyroidism , hypertension hypertensive cardiovascular disease, history of the aortic valve replacement with mechanical valve 12/12/2017, patient seen eval examined during the rounds she is undergoing breathing treatment via nebulizer she is less short of breath cough congestion is improved significantly she remains on IV steroids breathing treatment antibiotics noted leukocytosis likely related to steroids which are being titrated, PT/INR is improved to 20.5 and 2.3, potassium is slightly low at 3.4 blood sugar is in mid 200 range 12/11/2017, patient seen and evaluated examined during the rounds clinically she is feels better no significant wheezing have been present breathing more comfortably, labs reviewed medications reviewed patient has been subtherapeutic with Coumadin, leukocytosis likely appears to be related to steroids 12/10/2017, patient seen and evaluated examined on 6 floor she is relatively more awake and alert breathing is still uncomfortable with intermittent wheezing and cough denies any chest pain wheezing has not improved significantly on current therapy, patient is being started on IV steroids 82-year-old female seen eval examined on the selective care this patient sees Dr. Loni Saxena for primary care activity has been admitted into service of Dr. Weston the patient has a significant cardiovascular disease and significant for mechanical aortic valve, paroxysmal atrial fibrillation, COPD, diabetes mellitus type 2, hypertension, dementia and hypothyroidism. She was a transfer from [facility] secondary to concerns for a DKA and a higher level of care. Patient states that she went to the emergency room for worsening shortness of breath for the past 2 days. But then states that her shortness of breath is similar to her chronic COPD. Patient does admit to a dry cough. Denies any fever or chills or sweats. She has a history of recent the COPD exacerbation and tracheobronchitis was treated with oral steroids and antibiotics on outpatient basis about a month ago patient does take nebulizer treatment at home, patient has history of intermittent wheezing When patient was transferred into the hospital the sugars were over 500 however they are more stabilized and currently she is off of insulin drip Objective - Vital Signs Vital signs: Vital Signs Temp 97.4 F L 12/12/17 15:42 Pulse 90 12/12/17 17:02 Resp 18 12/12/17 16:52 BP 131/72 12/12/17 15:42 Pulse Ox 95 12/12/17 15:42 Intake & Output 12/11/17 12/12/17 12/12/17 18:59 06:59 18:59 Intake Total 908.10 77.351 534.306 Output Total 700 400 Balance 208.10 -322.649 534.306 Weight 68 kg Intake: Intake, IV Titration 70.10 77.351 534.306 Amount Insulin Regular 100 unit 70.10 77.351 34.306 In Sodium Chloride 0.9% 100 ml @ Titrate IV .Q0M [facility] Rx#:[id number] Magnesium Sulfate-D5w Pmx 500 1 gm In Dextrose/Water 1 100ml.bag @ 100 mls/hr IVPB Q1H [facility] Rx#: [id number] Oral 838 Output: Urine 700 400 Other: Voiding Method Toilet Toilet Toilet # Voids 1 - Exam Constitutional General appearance: average body habitus, cooperative, disheveled, no acute distress - EENT Eyes: PERRLA, normal appearance ENT: normal oropharynx Ears: bilateral: normal - Neck Carotids: bilateral: upstroke normal, bruit absent Thyroid: bilateral: normal size - Respiratory Respiratory: Improved air entry compared to yesterday exam with very fine fours expiratory rhonchi - Cardiovascular Rhythm: regular Heart sounds: normal: S1, S2 - Integumentary Integumentary: normal, normal turgor - Neurologic Remarkable within normal limits Neurologic: CNII-XII intact - Musculoskeletal Musculoskeletal: gait normal, generalized weakness, strength equal bilaterally - Psychiatric Psychiatric: A&O x's 3, appropriate affect, intact judgment & insight - Labs CBC & Chem 7: 12/12/17 06:07 12/12/17 14:02 Labs: Abnormal Lab Results - Last 24 Hours (Table) 12/11/17 12/11/17 12/11/17 Range/Units 18:06 20:05 22:19 WBC (3.8-10.6) k/uL Hgb (11.4-16.0) gm/dL Hct (34.0-46.0) % MCV (80.0-100.0) fL MCH (25.0-35.0) pg MCHC (31.0-37.0) g/dL RDW (11.5-15.5) % Neutrophils # (1.3-7.7) k/uL Lymphocytes # (1.0-4.8) k/uL PT (9.0-12.0) sec INR (<1.2) Potassium (3.5-5.1) mmol/L Chloride (98-107) mmol/L BUN (7-17) mg/dL Glucose (74-99) mg/dL POC Glucose (mg/dL) 438 H 254 H 258 H (75-99) mg/dL Magnesium (1.6-2.3) mg/dL ALT (9-52) U/L Total Protein (6.3-8.2) g/dL Albumin (3.5-5.0) g/dL 12/12/17 12/12/17 12/12/17 Range/Units 00:03 02:12 03:18 WBC (3.8-10.6) k/uL Hgb (11.4-16.0) gm/dL Hct (34.0-46.0) % MCV (80.0-100.0) fL MCH (25.0-35.0) pg MCHC (31.0-37.0) g/dL RDW (11.5-15.5) % Neutrophils # (1.3-7.7) k/uL Lymphocytes # (1.0-4.8) k/uL PT (9.0-12.0) sec INR (<1.2) Potassium (3.5-5.1) mmol/L Chloride (98-107) mmol/L BUN (7-17) mg/dL Glucose (74-99) mg/dL POC Glucose (mg/dL) 210 H 165 H 261 H (75-99) mg/dL Magnesium (1.6-2.3) mg/dL ALT (9-52) U/L Total Protein (6.3-8.2) g/dL Albumin (3.5-5.0) g/dL 12/12/17 12/12/17 12/12/17 Range/Units 05:02 06:07 06:07 WBC 22.3 H (3.8-10.6) k/uL Hgb 8.9 L (11.4-16.0) gm/dL Hct 30.2 L (34.0-46.0) % MCV 76.3 L (80.0-100.0) fL MCH 22.5 L (25.0-35.0) pg MCHC 29.5 L (31.0-37.0) g/dL RDW 18.1 H (11.5-15.5) % Neutrophils # 20.6 H (1.3-7.7) k/uL Lymphocytes # 0.8 L (1.0-4.8) k/uL PT (9.0-12.0) sec INR (<1.2) Potassium 2.9 L* (3.5-5.1) mmol/L Chloride 97 L (98-107) mmol/L BUN 37 H (7-17) mg/dL Glucose 178 H (74-99) mg/dL POC Glucose (mg/dL) 232 H (75-99) mg/dL Magnesium (1.6-2.3) mg/dL ALT 68 H (9-52) U/L Total Protein 5.6 L (6.3-8.2) g/dL Albumin 3.2 L (3.5-5.0) g/dL 12/12/17 12/12/17 12/12/17 Range/Units 06:07 06:07 06:39 WBC (3.8-10.6) k/uL Hgb (11.4-16.0) gm/dL Hct (34.0-46.0) % MCV (80.0-100.0) fL MCH (25.0-35.0) pg MCHC (31.0-37.0) g/dL RDW (11.5-15.5) % Neutrophils # (1.3-7.7) k/uL Lymphocytes # (1.0-4.8) k/uL PT 20.5 H (9.0-12.0) sec INR 2.3 H (<1.2) Potassium (3.5-5.1) mmol/L Chloride (98-107) mmol/L BUN (7-17) mg/dL Glucose (74-99) mg/dL POC Glucose (mg/dL) 179 H (75-99) mg/dL Magnesium 1.3 L (1.6-2.3) mg/dL ALT (9-52) U/L Total Protein (6.3-8.2) g/dL Albumin (3.5-5.0) g/dL 12/12/17 12/12/17 12/12/17 Range/Units 09:14 11:12 14:02 WBC (3.8-10.6) k/uL Hgb (11.4-16.0) gm/dL Hct (34.0-46.0) % MCV (80.0-100.0) fL MCH (25.0-35.0) pg MCHC (31.0-37.0) g/dL RDW (11.5-15.5) % Neutrophils # (1.3-7.7) k/uL Lymphocytes # (1.0-4.8) k/uL PT (9.0-12.0) sec INR (<1.2) Potassium 3.4 L (3.5-5.1) mmol/L Chloride (98-107) mmol/L BUN (7-17) mg/dL Glucose (74-99) mg/dL POC Glucose (mg/dL) 186 H 257 H (75-99) mg/dL Magnesium (1.6-2.3) mg/dL ALT (9-52) U/L Total Protein (6.3-8.2) g/dL Albumin (3.5-5.0) g/dL 12/12/17 12/12/17 Range/Units 14:21 16:37 WBC (3.8-10.6) k/uL Hgb (11.4-16.0) gm/dL Hct (34.0-46.0) % MCV (80.0-100.0) fL MCH (25.0-35.0) pg MCHC (31.0-37.0) g/dL RDW (11.5-15.5) % Neutrophils # (1.3-7.7) k/uL Lymphocytes # (1.0-4.8) k/uL PT (9.0-12.0) sec INR (<1.2) Potassium (3.5-5.1) mmol/L Chloride (98-107) mmol/L BUN (7-17) mg/dL Glucose (74-99) mg/dL POC Glucose (mg/dL) 378 H 246 H (75-99) mg/dL Magnesium (1.6-2.3) mg/dL ALT (9-52) U/L Total Protein (6.3-8.2) g/dL Albumin (3.5-5.0) g/dL Assessment and Plan Assessment: COPD exacerbation, acute Purulent Tracheobronchitis Hypokalemia Uncontrolled diabetes and hyperglycemia Diabetic ketoacidosis resolved and improved History of aortic mechanical valve replacement now back on Coumadin now therapeutic PT/INR , a murmur around 2.5-3.5 Hypothyroidism Hypertension hypertensive cardiovascular disease Plan: Continue breathing treatments Continue deep breathing exercises incentive spirometry Pulmicort via nebulizer 2 times a day She clinically appears to have responded with IV steroids, we will start tapering it down we will change it to once daily starting tomorrow Continue IV antibiotics with Rocephin once daily Recommend to resume Coumadin Further recommendations pending plan of care as per clinical response of the patient Time with Patient: Greater than 30
[2017-12-12] MEDS ORDERED: WARFARIN 2.5 MG TAB PO ONE (18:00)
[2017-12-12] MEDS: INSULIN REGULAR 100 UNIT in SODIUM CHLORIDE 0.9% 100 ML IV SCH (18:38)
[2017-12-12 18:46] LABS: Glucose,Whole Blood 222 mg/dL (75-99)
[2017-12-12 21:02] LABS: Glucose,Whole Blood 381 mg/dL (75-99)
[2017-12-12] MEDS: ATORVASTATIN 10 MG TAB PO SCH (21:43)
[2017-12-12] MEDS: METOPROLOL SUCCINATE (ER) 50 MG TAB.ER.24H PO SCH (21:43)
[2017-12-12] MEDS: METOPROLOL SUCCINATE (ER) 100 MG TAB.ER.24H PO SCH (21:43)
[2017-12-12] MEDS: VERAPAMIL SR 180 MG TABLET.ER PO SCH (21:43)
[2017-12-12 22:59] LABS: Glucose,Whole Blood 430 mg/dL (75-99)
[2017-12-13 01:12] LABS: Glucose,Whole Blood 190 mg/dL (75-99)
[2017-12-13 03:52] LABS: Glucose,Whole Blood 141 mg/dL (75-99)
[2017-12-13 05:57] LABS: Glucose,Whole Blood 229 mg/dL (75-99)
[2017-12-13 06:07] LABS: INR 3.4 (<1.2); Prothrombin Time 30.7 sec (9.0-12.0)
[2017-12-13 06:12] LABS: Anisocytosis Slight; Basophils % (A) 0 %; Eosinophils % (A) 0 %; HCT 30.3 % (34.0-46.0); HGB 8.9 gm/dL (11.4-16.0); Hypochromasia Marked; Lymphocytes # (A) 0.7 k/uL (1.0-4.8); Lymphocytes % (A) 3 %; MCH 22.5 pg (25.0-35.0); MCHC 29.5 g/dL (31.0-37.0); MCV 76.2 fL (80.0-100.0); Microcytosis Slight; Monocytes # (A) 0.7 k/uL (0-1.0); Monocytes % (A) 4 %; Neutrophils # (A) 18.1 k/uL (1.3-7.7); Neutrophils % (A) 92 %; Platelet Count 347 k/uL (150-450); Poikilocytosis Slight; RBC 3.98 m/uL (3.80-5.40); RDW 18.2 % (11.5-15.5); WBC 19.7 k/uL (3.8-10.6)
[2017-12-13 06:27] LABS: Albumin 3.1 g/dL (3.5-5.0); Magnesium 1.9 mg/dL (1.6-2.3); Potassium 3.6 mmol/L (3.5-5.1); Total Bilirubin 0.3 mg/dL (0.2-1.3); Total Protein 5.6 g/dL (6.3-8.2)
[2017-12-13] MEDS: LEVOTHYROXINE 88 MCG TAB PO SCH (06:34)
[2017-12-13] MEDS: GLIMEPIRIDE 4 MG TAB PO SCH (06:35)
[2017-12-13] MEDS: INSULIN ASPART 100 UNIT/ML 1 ML 10 ML VIAL SQ SCH ×6 (07:05→22:29)
[2017-12-13 07:59] LABS: Glucose,Whole Blood 354 mg/dL (75-99)
[2017-12-13] MEDS: NON-FORMULARY DRUG (Empagliflozin [Jardiance] 25 MG) PO SCH (08:00)
[2017-12-13] MEDS: ALPRAZolam 0.25 MG TAB PO SCH ×2 (08:02→21:28)
[2017-12-13] MEDS: metFORMIN 500 MG TAB PO SCH ×2 (08:02→21:28)
[2017-12-13] MEDS: FUROSEMIDE 40 MG TAB PO SCH ×2 (08:02→15:14)
[2017-12-13] MEDS: MECLIZINE 12.5 MG TAB PO SCH ×3 (08:02→21:29)
[2017-12-13] MEDS: ASPIRIN 81 MG PO SCH (08:02)
[2017-12-13] MEDS: methylPREDNISolone SOD SUCCI 40 MG/ML 1 ML VIAL IV SCH (08:02)
[2017-12-13] MEDS: FAMOTIDINE 20 MG TAB PO SCH (08:02)
[2017-12-13] MEDS: cefTRIAXone IN SWFI 1,000 MG/10 ML SYRINGE IVP SCH (08:02)
[2017-12-13] MEDS: BUDESONIDE 0.5 MG/2 ML NEBU INHALATION SCH ×2 (08:45→20:35)
[2017-12-13] MEDS: IPRATROPIUM-ALBUTEROL 3 ML NEB INHALATION SCH ×4 (08:45→20:35)
--- NOTE | 2017-12-13 09:46 | P.PN ---
Subjective Progress Note Date: 12/13/17 Principal diagnosis: COPD exacerbation, tracheobronchitis, uncontrolled diabetes and hyperglycemia, diabetic ketoacidosis, generalized weakness and medical debility, hypothyroidism , hypertension hypertensive cardiovascular disease, history of the aortic valve replacement with mechanical valve 12/13/2017, patient seen eval examined during the rounds clinically doing well awake and alert breathing comfortably cuff congestion shortness breath is improved INR is well therapeutic, leukocytosis is improving we will lower down the Solu-Medrol further and after today's dose can be monitored off of his steroids on breathing treatments 12/12/2017, patient seen eval examined during the rounds she is undergoing breathing treatment via nebulizer she is less short of breath cough congestion is improved significantly she remains on IV steroids breathing treatment antibiotics noted leukocytosis likely related to steroids which are being titrated, PT/INR is improved to 20.5 and 2.3, potassium is slightly low at 3.4 blood sugar is in mid 200 range 12/11/2017, patient seen and evaluated examined during the rounds clinically she is feels better no significant wheezing have been present breathing more comfortably, labs reviewed medications reviewed patient has been subtherapeutic with Coumadin, leukocytosis likely appears to be related to steroids 12/10/2017, patient seen and evaluated examined on 6 floor she is relatively more awake and alert breathing is still uncomfortable with intermittent wheezing and cough denies any chest pain wheezing has not improved significantly on current therapy, patient is being started on IV steroids 82-year-old female seen eval examined on the selective care this patient sees Dr. Loni Saxena for primary care activity has been admitted into service of Dr. Weston the patient has a significant cardiovascular disease and significant for mechanical aortic valve, paroxysmal atrial fibrillation, COPD, diabetes mellitus type 2, hypertension, dementia and hypothyroidism. She was a transfer from [facility] secondary to concerns for a DKA and a higher level of care. Patient states that she went to the emergency room for worsening shortness of breath for the past 2 days. But then states that her shortness of breath is similar to her chronic COPD. Patient does admit to a dry cough. Denies any fever or chills or sweats. She has a history of recent the COPD exacerbation and tracheobronchitis was treated with oral steroids and antibiotics on outpatient basis about a month ago patient does take nebulizer treatment at home, patient has history of intermittent wheezing When patient was transferred into the hospital the sugars were over 500 however they are more stabilized and currently she is off of insulin drip Objective - Vital Signs Vital signs: Vital Signs Temp 97 F L 12/13/17 08:02 Pulse 76 12/13/17 08:59 Resp 18 12/13/17 08:02 BP 103/50 12/13/17 08:02 Pulse Ox 97 12/13/17 08:02 Intake & Output 12/12/17 12/13/17 12/13/17 18:59 06:59 18:59 Intake Total 946.698 702.018 246.733 Output Total 900 Balance 46.698 702.018 246.733 Weight 69.4 kg Intake: IV 160 0.9 160 Intake, IV Titration 536.698 62.018 6.733 Amount Insulin Regular 100 unit 36.698 62.018 6.733 In Sodium Chloride 0.9% 100 ml @ Titrate IV .Q0M JUST[facility] Rx#:[id number] Magnesium Sulfate-D5w Pmx 500 1 gm In Dextrose/Water 1 100ml.bag @ 100 mls/hr IVPB Q1H JUST[facility] Rx#: [id number] Oral 410 480 240 Output: Urine 900 Other: Voiding Method Toilet Toilet Toilet # Voids 1 2 # Bowel Movements 6 - Exam Constitutional General appearance: average body habitus, cooperative, disheveled, no acute distress - EENT Eyes: PERRLA, normal appearance ENT: normal oropharynx Ears: bilateral: normal - Neck Carotids: bilateral: upstroke normal, bruit absent Thyroid: bilateral: normal size - Respiratory Respiratory: Improved air entry compared to yesterday exam no significant wheezing or rhonchi noted today - Cardiovascular Rhythm: regular Heart sounds: normal: S1, S2 - Integumentary Integumentary: normal, normal turgor - Neurologic Remarkable within normal limits Neurologic: CNII-XII intact - Musculoskeletal Musculoskeletal: gait normal, generalized weakness, strength equal bilaterally - Psychiatric Psychiatric: A&O x's 3, appropriate affect, intact judgment & insight - Labs CBC & Chem 7: 12/13/17 05:43 12/13/17 05:43 Labs: Abnormal Lab Results - Last 24 Hours (Table) 12/12/17 12/12/17 12/12/17 Range/Units 11:12 14:02 14:21 WBC (3.8-10.6) k/uL Hgb (11.4-16.0) gm/dL Hct (34.0-46.0) % MCV (80.0-100.0) fL MCH (25.0-35.0) pg MCHC (31.0-37.0) g/dL RDW (11.5-15.5) % Neutrophils # (1.3-7.7) k/uL Lymphocytes # (1.0-4.8) k/uL PT (9.0-12.0) sec INR (<1.2) Potassium 3.4 L (3.5-5.1) mmol/L Chloride (98-107) mmol/L BUN (7-17) mg/dL Glucose (74-99) mg/dL POC Glucose (mg/dL) 257 H 378 H (75-99) mg/dL AST (14-36) U/L ALT (9-52) U/L Total Protein (6.3-8.2) g/dL Albumin (3.5-5.0) g/dL 12/12/17 12/12/17 12/12/17 Range/Units 16:37 18:33 21:01 WBC (3.8-10.6) k/uL Hgb (11.4-16.0) gm/dL Hct (34.0-46.0) % MCV (80.0-100.0) fL MCH (25.0-35.0) pg MCHC (31.0-37.0) g/dL RDW (11.5-15.5) % Neutrophils # (1.3-7.7) k/uL Lymphocytes # (1.0-4.8) k/uL PT (9.0-12.0) sec INR (<1.2) Potassium (3.5-5.1) mmol/L Chloride (98-107) mmol/L BUN (7-17) mg/dL Glucose (74-99) mg/dL POC Glucose (mg/dL) 246 H 222 H 381 H (75-99) mg/dL AST (14-36) U/L ALT (9-52) U/L Total Protein (6.3-8.2) g/dL Albumin (3.5-5.0) g/dL 12/12/17 12/13/17 12/13/17 Range/Units 22:57 01:10 03:50 WBC (3.8-10.6) k/uL Hgb (11.4-16.0) gm/dL Hct (34.0-46.0) % MCV (80.0-100.0) fL MCH (25.0-35.0) pg MCHC (31.0-37.0) g/dL RDW (11.5-15.5) % Neutrophils # (1.3-7.7) k/uL Lymphocytes # (1.0-4.8) k/uL PT (9.0-12.0) sec INR (<1.2) Potassium (3.5-5.1) mmol/L Chloride (98-107) mmol/L BUN (7-17) mg/dL Glucose (74-99) mg/dL POC Glucose (mg/dL) 430 H 190 H 141 H (75-99) mg/dL AST (14-36) U/L ALT (9-52) U/L Total Protein (6.3-8.2) g/dL Albumin (3.5-5.0) g/dL 12/13/17 12/13/17 12/13/17 Range/Units 05:43 05:43 05:43 WBC 19.7 H (3.8-10.6) k/uL Hgb 8.9 L (11.4-16.0) gm/dL Hct 30.3 L (34.0-46.0) % MCV 76.2 L (80.0-100.0) fL MCH 22.5 L (25.0-35.0) pg MCHC 29.5 L (31.0-37.0) g/dL RDW 18.2 H (11.5-15.5) % Neutrophils # 18.1 H (1.3-7.7) k/uL Lymphocytes # 0.7 L (1.0-4.8) k/uL PT 30.7 H (9.0-12.0) sec INR 3.4 H (<1.2) Potassium (3.5-5.1) mmol/L Chloride 97 L (98-107) mmol/L BUN 46 H (7-17) mg/dL Glucose 190 H (74-99) mg/dL POC Glucose (mg/dL) (75-99) mg/dL AST 76 H (14-36) U/L ALT 107 H (9-52) U/L Total Protein 5.6 L (6.3-8.2) g/dL Albumin 3.1 L (3.5-5.0) g/dL 12/13/17 12/13/17 Range/Units 05:54 07:57 WBC (3.8-10.6) k/uL Hgb (11.4-16.0) gm/dL Hct (34.0-46.0) % MCV (80.0-100.0) fL MCH (25.0-35.0) pg MCHC (31.0-37.0) g/dL RDW (11.5-15.5) % Neutrophils # (1.3-7.7) k/uL Lymphocytes # (1.0-4.8) k/uL PT (9.0-12.0) sec INR (<1.2) Potassium (3.5-5.1) mmol/L Chloride (98-107) mmol/L BUN (7-17) mg/dL Glucose (74-99) mg/dL POC Glucose (mg/dL) 229 H 354 H (75-99) mg/dL AST (14-36) U/L ALT (9-52) U/L Total Protein (6.3-8.2) g/dL Albumin (3.5-5.0) g/dL Assessment and Plan Assessment: COPD exacerbation, acute Purulent Tracheobronchitis Leukocytosis Hypokalemia Uncontrolled diabetes and hyperglycemia Diabetic ketoacidosis resolved and improved History of aortic mechanical valve replacement now back on Coumadin now therapeutic PT/INR , a murmur around 2.5-3.5 Hypothyroidism Hypertension hypertensive cardiovascular disease Plan: Continue breathing treatments Continue deep breathing exercises incentive spirometry Pulmicort via nebulizer 2 times a day She clinically appears to have responded with IV steroids, we will start tapering it down we will change it to once daily starting today Continue IV antibiotics with Rocephin once daily Recommend to resume Coumadin, and adjustment of dose as per primary service Further recommendations pending plan of care as per clinical response of the patient Time with Patient: Greater than 30
[2017-12-13 10:29] LABS: Glucose,Whole Blood 300 mg/dL (75-99)
[2017-12-13] MEDS: INSULIN REGULAR 100 UNIT in SODIUM CHLORIDE 0.9% 100 ML IV SCH (10:39)
--- NOTE | 2017-12-13 11:28 | P.PN ---
Subjective Progress Note Date: 12/13/17 This is a 82-year-old female, patient of [facility]. She has a known past medical history of mechanical aortic valve, paroxysmal atrial fibrillation, COPD, diabetes mellitus type 2, hypertension, dementia and hypothyroidism. She was a transfer from [facility] secondary to concerns for a DKA and a higher level of care. Patient states that she went to the emergency room for worsening shortness of breath for the past 2 days. But then states that her shortness of breath is similar to her chronic COPD. Patient does admit to a dry cough. Denies any fever or chills or sweats. Has been having some diarrhea. Stool is been ordered for C. diff. She was recently treated about a month ago for a bronchitis and had been on steroids and antibiotics. Nebulizer treatments have been continued. White count and [place] was 15.25 and here 12.6. Acetone also reported as negative. She did require an insulin drip on admission due to a blood sugar of 556 at [facility]. Blood sugars have improved. And she is currently off of the insulin drip. Patient denies any chest pain. Denies any nausea or vomiting. Denies any burning with urination. Patient is wheezing during exam. She does not use home oxygen. On 12/09/2017 patient was seen and examined she is alert and oriented in no apparent distress she complains of chronic she complains of significant shortness of breath when she tries to ambulate otherwise she denies any complaints there is no fever or chills no dizziness no chest pain no nausea or vomiting no abdominal pain and no urinary symptoms. On 12/10/2017 Patient is alert and oriented in no distress, still reporting severe shortness of breath without any improvement, patient initially admitted with COPD exacerbation she was started on inhaled bronchodilators and inhaled steroids and IV antibiotics. IV steroids were was held due to significant hyperglycemia however in view of no significant improvement over the last 2 days at this time will proceed with IV Solu-Medrol and change insulin to insulin drip to control hyperglycemia, otherwise patient denies any other symptoms there is no fever or chills no dizziness no headache, no chest pain no nausea or vomiting no abdominal pain no diarrhea and no urinary symptoms. On 12/11/2017 patient is alert and oriented she states she is feeling better shortness of breath has improved significantly with the use of IV steroids she is currently maintained on insulin drip and her glucose is well-controlled. She is complaining of constipation, otherwise she denies any other complaints at this time. 12/12/2017 patient is feeling better she is alert and oriented 3 she was seen and examined on the 6 floor she is able to ambulate easier without severe shortness of breath she is maintained on IV Solu-Medrol dose was decreased down to 40 mg IV every 12 hours she is also maintained on IV antibiotics and inhaled bronchodilators and insulin drip. This morning her potassium and magnesium levels are low and she was started on replacement protocols she is complaining of constipation and was given a dose of lactulose, INR is near therapeutic range at 2.3 Will stop subcu Lovenox and give a dose of Coumadin 2.5 mg today and recheck INR in a.m.. On 12/13/2017 patient is alert and oriented 3 in no apparent distress she is able to ambulate, she is still complaining of shortness of breath with activity , she is complaining of occasional cough, otherwise no complaints, there is no chest pain no dizziness no nausea or vomiting no abdominal pain no diarrhea and no urinary symptoms. Objective - Vital Signs Vital signs: Vital Signs Temp 97 F L 12/13/17 08:02 Pulse 76 12/13/17 08:59 Resp 18 12/13/17 08:02 BP 103/50 12/13/17 08:02 Pulse Ox 97 12/13/17 08:02 Intake & Output 12/12/17 12/13/17 12/13/17 18:59 06:59 18:59 Intake Total 946.698 702.018 265.433 Output Total 900 Balance 46.698 702.018 265.433 Weight 69.4 kg Intake: IV 160 0.9 160 Intake, IV Titration 536.698 62.018 25.433 Amount Insulin Regular 100 unit 36.698 62.018 25.433 In Sodium Chloride 0.9% 100 ml @ Titrate IV .Q0M [facility] Rx#:[id number] Magnesium Sulfate-D5w Pmx 500 1 gm In Dextrose/Water 1 100ml.bag @ 100 mls/hr IVPB Q1H [facility] Rx#: [id number] Oral 410 480 240 Output: Urine 900 Other: Voiding Method Toilet Toilet Toilet # Voids 1 2 # Bowel Movements 6 - Exam In general patient is alert and oriented in no apparent distress HEENT head normocephalic and atraumatic Neck is supple no JVD no goiter no lymphadenopathy Chest exam reveals a few scattered crackles no wheezing Cardiac exam reveals regular heart sounds S1 and S2 no gallops no murmurs Abdomen is soft nontender no organomegaly with normal bowel sounds Extremity exam reveals no edema no cyanosis or clubbing - Labs CBC & Chem 7: 12/13/17 05:43 12/13/17 05:43 Labs: Abnormal Lab Results - Last 24 Hours (Table) 12/12/17 12/12/17 12/12/17 Range/Units 14:02 14:21 16:37 WBC (3.8-10.6) k/uL Hgb (11.4-16.0) gm/dL Hct (34.0-46.0) % MCV (80.0-100.0) fL MCH (25.0-35.0) pg MCHC (31.0-37.0) g/dL RDW (11.5-15.5) % Neutrophils # (1.3-7.7) k/uL Lymphocytes # (1.0-4.8) k/uL PT (9.0-12.0) sec INR (<1.2) Potassium 3.4 L (3.5-5.1) mmol/L Chloride (98-107) mmol/L BUN (7-17) mg/dL Glucose (74-99) mg/dL POC Glucose (mg/dL) 378 H 246 H (75-99) mg/dL AST (14-36) U/L ALT (9-52) U/L Total Protein (6.3-8.2) g/dL Albumin (3.5-5.0) g/dL 12/12/17 12/12/17 12/12/17 Range/Units 18:33 21:01 22:57 WBC (3.8-10.6) k/uL Hgb (11.4-16.0) gm/dL Hct (34.0-46.0) % MCV (80.0-100.0) fL MCH (25.0-35.0) pg MCHC (31.0-37.0) g/dL RDW (11.5-15.5) % Neutrophils # (1.3-7.7) k/uL Lymphocytes # (1.0-4.8) k/uL PT (9.0-12.0) sec INR (<1.2) Potassium (3.5-5.1) mmol/L Chloride (98-107) mmol/L BUN (7-17) mg/dL Glucose (74-99) mg/dL POC Glucose (mg/dL) 222 H 381 H 430 H (75-99) mg/dL AST (14-36) U/L ALT (9-52) U/L Total Protein (6.3-8.2) g/dL Albumin (3.5-5.0) g/dL 12/13/17 12/13/17 12/13/17 Range/Units 01:10 03:50 05:43 WBC (3.8-10.6) k/uL Hgb (11.4-16.0) gm/dL Hct (34.0-46.0) % MCV (80.0-100.0) fL MCH (25.0-35.0) pg MCHC (31.0-37.0) g/dL RDW (11.5-15.5) % Neutrophils # (1.3-7.7) k/uL Lymphocytes # (1.0-4.8) k/uL PT (9.0-12.0) sec INR (<1.2) Potassium (3.5-5.1) mmol/L Chloride 97 L (98-107) mmol/L BUN 46 H (7-17) mg/dL Glucose 190 H (74-99) mg/dL POC Glucose (mg/dL) 190 H 141 H (75-99) mg/dL AST 76 H (14-36) U/L ALT 107 H (9-52) U/L Total Protein 5.6 L (6.3-8.2) g/dL Albumin 3.1 L (3.5-5.0) g/dL 12/13/17 12/13/17 12/13/17 Range/Units 05:43 05:43 05:54 WBC 19.7 H (3.8-10.6) k/uL Hgb 8.9 L (11.4-16.0) gm/dL Hct 30.3 L (34.0-46.0) % MCV 76.2 L (80.0-100.0) fL MCH 22.5 L (25.0-35.0) pg MCHC 29.5 L (31.0-37.0) g/dL RDW 18.2 H (11.5-15.5) % Neutrophils # 18.1 H (1.3-7.7) k/uL Lymphocytes # 0.7 L (1.0-4.8) k/uL PT 30.7 H (9.0-12.0) sec INR 3.4 H (<1.2) Potassium (3.5-5.1) mmol/L Chloride (98-107) mmol/L BUN (7-17) mg/dL Glucose (74-99) mg/dL POC Glucose (mg/dL) 229 H (75-99) mg/dL AST (14-36) U/L ALT (9-52) U/L Total Protein (6.3-8.2) g/dL Albumin (3.5-5.0) g/dL 12/13/17 12/13/17 Range/Units 07:57 10:27 WBC (3.8-10.6) k/uL Hgb (11.4-16.0) gm/dL Hct (34.0-46.0) % MCV (80.0-100.0) fL MCH (25.0-35.0) pg MCHC (31.0-37.0) g/dL RDW (11.5-15.5) % Neutrophils # (1.3-7.7) k/uL Lymphocytes # (1.0-4.8) k/uL PT (9.0-12.0) sec INR (<1.2) Potassium (3.5-5.1) mmol/L Chloride (98-107) mmol/L BUN (7-17) mg/dL Glucose (74-99) mg/dL POC Glucose (mg/dL) 354 H 300 H (75-99) mg/dL AST (14-36) U/L ALT (9-52) U/L Total Protein (6.3-8.2) g/dL Albumin (3.5-5.0) g/dL Assessment and Plan Plan: 1. Diabetes mellitus type 2, with uncontrolled blood sugars and evidence of hyperglycemia. Patient required insulin drip. Acetone was negative at [facility]. Blood sugars have improved. Insulin drip discontinued. Patient's home diabetic medications have been restarted 2. Acute tracheobronchitis: Patient has cough and wheezing. Check chest x- ray. Will start Rocephin. Unable to start azithromycin interacts with the Symbicort. Consult pulmonary service. 3. Acute COPD exacerbation: Continue nebulizer treatments. While patient evaluated by pulmonary service. Hesitant to start steroids due to elevated blood sugars. Patient had no significant improvement over the last 2 days at this point will start IV Solu-Medrol 60 mg IV every 8 hours and change insulin to insulin drip. 4. Constipation will give 1 dose of lactulose today 5. History of mechanical aortic valve anticoagulated with Coumadin INR 3.4, will give Coumadin 2 mg today and recheck INR in the am 6. Essential hypertension 7. Hypothyroidism GI prophylaxis Pepcid and DVT prophylaxis Coumadin
[2017-12-13 11:46] LABS: Glucose,Whole Blood 244 mg/dL (75-99)
[2017-12-13 16:37] LABS: Glucose,Whole Blood 385 mg/dL (75-99)
[2017-12-13] MEDS ORDERED: WARFARIN 2 MG TAB PO ONE (18:00)
[2017-12-13] MEDS: METOPROLOL SUCCINATE (ER) 50 MG TAB.ER.24H PO SCH (19:47)
[2017-12-13] MEDS: METOPROLOL SUCCINATE (ER) 100 MG TAB.ER.24H PO SCH (19:47)
[2017-12-13] MEDS: VERAPAMIL SR 180 MG TABLET.ER PO SCH (19:47)
[2017-12-13 21:19] LABS: Glucose,Whole Blood 413 mg/dL (75-99)
[2017-12-13] MEDS: ATORVASTATIN 10 MG TAB PO SCH (21:28)
[2017-12-14 05:27] LABS: Glucose,Whole Blood 316 mg/dL (75-99)
[2017-12-14 06:03] LABS: Glucose,Whole Blood 310 mg/dL (75-99)
[2017-12-14 06:39] LABS: INR 3.7 (<1.2)
[2017-12-14 06:43] LABS: Anisocytosis Slight; Basophils % (A) 0 %; Eosinophils % (A) 0 %; HCT 31.7 % (34.0-46.0); HGB 9.1 gm/dL (11.4-16.0); Hypochromasia Marked; Lymphocytes % (A) 6 %; MCH 21.9 pg (25.0-35.0); MCHC 28.7 g/dL (31.0-37.0); MCV 76.3 fL (80.0-100.0); Mean Platelet Volume 7.6; Microcytosis Slight; Monocytes # (A) 1.1 k/uL (0-1.0); Monocytes % (A) 7 %; Neutrophils % (A) 85 %; Platelet Count 357 k/uL (150-450); RBC 4.15 m/uL (3.80-5.40); RDW 18.2 % (11.5-15.5); WBC 16.5 k/uL (3.8-10.6)
[2017-12-14 06:47] LABS: Albumin 3.1 g/dL (3.5-5.0); Potassium 3.6 mmol/L (3.5-5.1); Total Bilirubin 0.4 mg/dL (0.2-1.3); Total Protein 5.6 g/dL (6.3-8.2)
[2017-12-14] MEDS: LEVOTHYROXINE 88 MCG TAB PO SCH (07:16)
[2017-12-14] MEDS: GLIMEPIRIDE 4 MG TAB PO SCH (07:16)
[2017-12-14] MEDS: INSULIN ASPART 100 UNIT/ML 1 ML 10 ML VIAL SQ SCH ×7 (07:17→20:51)
[2017-12-14] MEDS: BUDESONIDE 0.5 MG/2 ML NEBU INHALATION SCH ×2 (08:31→19:54)
[2017-12-14] MEDS: IPRATROPIUM-ALBUTEROL 3 ML NEB INHALATION SCH ×4 (08:31→19:54)
[2017-12-14] MEDS ORDERED: methylPREDNISolone SOD SUCCI 40 MG/ML 1 ML VIAL IV SCH (09:00)
[2017-12-14] MEDS: cefTRIAXone IN SWFI 1,000 MG/10 ML SYRINGE IVP SCH (09:15)
[2017-12-14] MEDS: NON-FORMULARY DRUG (Empagliflozin [Jardiance] 25 MG) PO SCH (09:15)
[2017-12-14] MEDS: ASPIRIN 81 MG PO SCH (09:15)
[2017-12-14] MEDS: ALPRAZolam 0.25 MG TAB PO SCH ×2 (09:15→20:50)
[2017-12-14] MEDS: MECLIZINE 12.5 MG TAB PO SCH ×3 (09:16→20:52)
[2017-12-14] MEDS: FAMOTIDINE 20 MG TAB PO SCH (09:16)
[2017-12-14] MEDS: FUROSEMIDE 40 MG TAB PO SCH ×2 (09:16→15:21)
[2017-12-14] MEDS: metFORMIN 500 MG TAB PO SCH ×2 (09:16→20:51)
[2017-12-14 10:23] VITALS: BMI 27.8
[2017-12-14 11:37] LABS: Glucose,Whole Blood 252 mg/dL (75-99)
--- NOTE | 2017-12-14 12:08 | P.CRDCN ---
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 She has a history of aortic valve replacement 20 years ago, hypertension, hypothyroidism, permanent pacemaker, nicotine dependence, prior TIA, asthma, COPD, diabetes, chronic persistent atrial fibrillation hypothyroidism, GERD, she presented to [facility] approximately a week ago with symptoms of progressively worsening shortness of breath. Blood sugars are [facility] in the 500 range, was transferred here for higher level of care. According to the patient, approximately a month before her admission to the hospital she has been treated as an outpatient for a possible bronchitis. Patient has known chronic persistent atrial fibrillation, today it was noted that her heart rate went up into the 30s and for this reason a cardiology consultation is now requested. Rest x-ray performed on the reveal chronic changes with improved small to tiny bilateral effusions. No new infiltrate. White blood cell count 16.5, hemoglobin 9.1, INR 3.7, sodium 135, potassium 3.6, BUN 42, creatinine 0.7. AST 73, ALT 144. Blood pressure 108/80 with a heart rate in the 130s. At the time of my examination this morning, patient actually feels well, she states that her breathing is stable. Denies any palpitations. Past Medical History Past Medical History: Atrial Fibrillation, Asthma, CVA/TIA, Dementia, Diabetes Mellitus, Eye Disorder, GERD/Reflux, Hyperlipidemia, Hypertension, Pneumonia, Thyroid Disorder Additional Past Medical History / Comment(s): Cataract removal, hay fever History of Any Multi-Drug Resistant Organisms: None Reported Past Surgical History: Appendectomy, Cardiac Valve Replacement, Pacemaker, Tonsillectomy Additional Past Surgical History / Comment(s): Aortic valve replacement Past Anesthesia/Blood Transfusion Reactions: No Reported Reaction Type of Cardiac Device: Unknown Device Placement Date:: unsure Past Psychological History: No Psychological Hx Reported Smoking Status: Former smoker Past Alcohol Use History: None Reported Past Drug Use History: None Reported - Past Family History Father Family Medical History: Myocardial Infarction (ME) Sister(s) Family Medical History: Cancer Medications and Allergies Home Medications Medication Instructions Recorded Confirmed Type ALPRAZolam [Xanax] 0.25 mg PO BID 04/12/17 12/07/17 History Aspirin 81 mg PO DAILY 04/12/17 12/07/17 History Levothyroxine Sodium [Synthroid] 88 mcg PO DAILY 04/12/17 12/07/17 History Meclizine [Antivert] 12.5 mg PO TID 04/12/17 12/07/17 History Ranitidine HCl [Zantac] 150 mg PO BID 04/12/17 12/07/17 History Simvastatin [Zocor] 20 mg PO HS 04/12/17 12/07/17 History metFORMIN HCL [Glucophage] 500 mg PO BID 04/12/17 12/07/17 History Nitroglycerin Sl Tabs [Nitrostat] 0.4 mg SUBLINGUAL Q5M PRN tab 04/18/17 Rx Empagliflozin [Jardiance] 25 mg PO DAILY 12/07/17 12/07/17 History Fluticasone/Vilanterol [Breo 1 inhalation PO Q24HR 12/07/17 12/07/17 History Ellipta 100-25 Mcg Inhaler] Furosemide [Lasix] 40 mg PO BID 12/07/17 12/07/17 History Glimepiride [Amaryl] 4 mg PO AC-BRKFST 12/07/17 12/07/17 History Ipratropium-Albuterol Nebulize 3 ml INHALATION RT-QID PRN 12/07/17 12/07/17 History [Duoneb 0.5 mg-3 mg/3 ml Soln] Metoprolol Succinate (ER) [Toprol 100 mg PO HS 12/07/17 12/07/17 History XL] Metoprolol Succinate (ER) [Toprol 50 mg PO HS 12/07/17 12/07/17 History Xl] Tiotropium [place] [Spiriva] 1 cap INHALATION DAILY 12/07/17 12/07/17 History Verapamil HCl [Verelan] 360 mg PO HS 12/07/17 12/07/17 History Warfarin [Coumadin] 2.5 mg PO HS 12/07/17 12/07/17 History Allergies Allergy/AdvReac Type Severity Reaction Status Date / Time codeine AdvReac Unknown Verified 12/07/17 21:46 Physical Exam Vitals: Vital Signs Temp Pulse Pulse Resp BP Pulse Ox 12/14/17 11:37 97 F L 134 H 18 108/80 97 12/14/17 08:49 82 12/14/17 08:34 74 97 12/14/17 08:00 97 F L 131 H 18 117/64 94 L 12/14/17 04:15 97.8 F 70 18 106/59 93 L 12/13/17 23:32 98.5 F 129 H 19 123/62 94 L 12/13/17 20:46 100 12/13/17 20:35 104 H 12/13/17 19:51 97.8 F 130 H 17 124/69 95 12/13/17 16:26 116 H 12/13/17 16:15 124 H 12/13/17 15:14 97.1 F L 100 18 134/72 96 12/13/17 13:23 80 12/13/17 13:13 80 12/13/17 12:08 97.1 F L 73 18 125/62 Intake and Output 12/13/17 12/14/17 12/14/17 22:59 06:59 14:59 Intake Total 720 490 360 Balance 720 490 360 Intake: IV 10 0.9 10 Oral 720 480 360 Other: Voiding Method Toilet Toilet Toilet # Voids 1 5 Weight 69.2 kg 69.2 kg PHYSICAL EXAMINATION: HEENT: [Head is atraumatic, normocephalic. Pupils equal, round. Neck is supple. There is no elevated jugular venous pressure] HEART EXAMINATION: Heart S1 and S2 irregularly irregular systolic murmur is heard. CHEST EXAMINATION: Lungs are clear with mild decreased air exchange ABDOMEN:[ Soft, nontender. Bowel sounds are heard. No organomegaly note]. EXTREMITIES[ 2+ peripheral pulses with no evidence of peripheral edema and no calf tenderness note]. NEUROLOGIC[patient is awake, alert and oriented -3] . Results 12/14/17 06:00 12/14/17 06:00 Cardiac Enzymes 12/14/17 Range/Units 06:00 AST 73 H (14-36) U/L Coagulation 12/14/17 Range/Units 06:00 PT 33.0 H (9.0-12.0) sec CBC 12/14/17 Range/Units 06:00 WBC 16.5 H (3.8-10.6) k/uL RBC 4.15 (3.80-5.40) m/uL Hgb 9.1 L (11.4-16.0) gm/dL Hct 31.7 L (34.0-46.0) % Plt Count 357 (150-450) k/uL Comprehensive Metabolic Panel 12/14/17 Range/Units 06:00 Sodium 135 L (137-145) mmol/L Potassium 3.6 (3.5-5.1) mmol/L Chloride 96 L (98-107) mmol/L Carbon Dioxide 27 (22-30) mmol/L BUN 42 H (7-17) mg/dL Creatinine 0.79 (0.52-1.04) mg/dL Glucose 304 H (74-99) mg/dL Calcium 9.0 (8.4-10.2) mg/dL AST 73 H (14-36) U/L ALT 144 H (9-52) U/L Alkaline Phosphatase 104 (38-126) U/L Total Protein 5.6 L (6.3-8.2) g/dL Albumin 3.1 L (3.5-5.0) g/dL Current Medications Generic Name Dose Route Start Last Admin Trade Name Freq PRN Reason Stop Dose Admin Albuterol/Ipratropium 3 ml 12/08/17 08:00 12/14/17 08:31 Duoneb 0.5 Mg-3 Mg/3 Ml Soln INHALATION 3 ml RT-QID JUSTINA Administration Albuterol/Ipratropium 3 ml 12/07/17 21:50 12/10/17 02:28 Duoneb 0.5 Mg-3 Mg/3 Ml Soln INHALATION 3 ml RT-Q4H PRN Administration Shortness Of Breath Or Wheezing Alprazolam 0.25 mg 12/08/17 09:00 12/14/17 09:15 Xanax PO 0.25 mg BID JUSTINA Administration Aspirin 81 mg 12/08/17 09:00 12/14/17 09:15 Aspirin PO 81 mg DAILY JUSTINA Administration Atorvastatin Calcium 10 mg 12/08/17 21:00 12/13/17 21:28 Lipitor PO 10 mg HS JUSTINA Administration Budesonide 0.5 mg 12/09/17 20:00 12/14/17 08:31 Pulmicort INHALATION 0.5 mg RT-BID JUSTINA Administration Ceftriaxone Sodium 1,000 mg 12/08/17 14:30 12/14/17 09:15 Rocephin IVP 1,000 mg Q24HR JUSTINA Administration Famotidine 20 mg 12/08/17 09:00 12/14/17 09:16 Pepcid PO 20 mg DAILY JUSTINA Administration Furosemide 40 mg 12/08/17 09:00 12/14/17 09:16 Lasix PO 40 mg BID@0900,1600 JUSTINA Administration Glimepiride 4 mg 12/08/17 07:30 12/14/17 07:16 Amaryl PO 4 mg AC-BRKFST JUSTINA Administration Insulin Aspart 9 unit 12/11/17 17:30 12/14/17 07:17 Novolog 0.13 unit/kg (9 unit) 9 unit SQ Administration AC-TID JUSTINA Insulin Aspart 0 unit 12/13/17 12:30 12/14/17 07:17 Novolog SQ 4 unit ACHS JUSTINA Administration Protocol Levothyroxine Sodium 88 mcg 12/08/17 07:30 12/14/17 07:16 Synthroid PO 88 mcg 0630 JUSTINA Administration Meclizine HCl 12.5 mg 12/08/17 09:00 12/14/17 09:16 Antivert PO 12.5 mg TID JUSTINA Administration Metformin HCl 500 mg 12/08/17 09:00 12/14/17 09:16 Glucophage PO 500 mg BID JUSTINA Administration Metoprolol Succinate 50 mg 12/08/17 21:00 12/13/17 19:47 Toprol Xl PO 50 mg HS JUSTINA Administration Metoprolol Succinate 100 mg 12/08/17 21:00 12/13/17 19:47 Toprol Xl PO 100 mg HS JUSTINA Administration Miscellaneous Information 1 each 12/12/17 08:13 Magnesium Per Protocol MISCELLANE DAILY PRN Per Protocol Protocol Miscellaneous Information 1 each 12/12/17 08:14 Potassium Per Protocol MISCELLANE DAILY PRN Per Protocol Protocol Non-Formulary Medication 25 mg 12/08/17 09:00 12/14/17 09:15 Empagliflozin [Jardiance] PO Not Given DAILY [facility] Prednisone 20 mg 12/15/17 09:00 PO DAILY JUSTINA Verapamil HCl 360 mg 12/08/17 21:00 12/13/17 19:47 Isoptin Sr PO 360 mg HS JUSTINA Administration Intake and Output 12/13/17 12/14/1718 22:59 06:59 14:59 Intake Total 720 490 360 Balance 720 490 360 Intake: IV 10 0.9 10 Oral 720 480 360 Other: Voiding Method Toilet Toilet Toilet # Voids 1 5 Weight 69.2 kg 69.2 kg Patient Weight 12/15/17 06:59 Weight 69.2 kg 12/14/17 06:00 12/14/17 06:00 EKG Interpretations (text) EKG shows atrial fibrillation with a rapid ventricular response Assessment and Plan Plan: Assessment and plan #1 acute tracheobronchitis, improving. #2 uncontrolled blood sugars #3 acute COPD exacerbation #4 history of mechanical aortic valve, anticoagulated with Coumadin #5 chronic persistent atrial fibrillation #6 hypothyroidism #7 prior TIA #8 prior pacemaker implantation Plan Patient's heart rate was up in the 130s, at the time of her examination is back down into the 70s again. Fluctuation in heart rate could be secondary to the patient's lung status. We would recommend at this time to continue current dose of beta apurva and Cardizem. Thank you for this consultation, further recommendations to follow. DNP note has been reviewed, I agree with a documented findings and plan of care. Patient was seen and examined.
[2017-12-14] MEDS ORDERED: METOPROLOL SUCCINATE (ER) 100 MG TAB.ER.24H PO SCH ×2 (12:17→14:39)
--- NOTE | 2017-12-14 12:17 | P.PN ---
Subjective Progress Note Date: 12/14/17 This is a 82-year-old female, patient of [facility]. She has a known past medical history of mechanical aortic valve, paroxysmal atrial fibrillation, COPD, diabetes mellitus type 2, hypertension, dementia and hypothyroidism. She was a transfer from [facility] secondary to concerns for a DKA and a higher level of care. Patient states that she went to the emergency room for worsening shortness of breath for the past 2 days. But then states that her shortness of breath is similar to her chronic COPD. Patient does admit to a dry cough. Denies any fever or chills or sweats. Has been having some diarrhea. Stool is been ordered for C. diff. She was recently treated about a month ago for a bronchitis and had been on steroids and antibiotics. Nebulizer treatments have been continued. White count and [place] was 15.25 and here 12.6. Acetone also reported as negative. She did require an insulin drip on admission due to a blood sugar of 556 at [facility]. Blood sugars have improved. And she is currently off of the insulin drip. Patient denies any chest pain. Denies any nausea or vomiting. Denies any burning with urination. Patient is wheezing during exam. She does not use home oxygen. On 12/09/2017 patient was seen and examined she is alert and oriented in no apparent distress she complains of chronic she complains of significant shortness of breath when she tries to ambulate otherwise she denies any complaints there is no fever or chills no dizziness no chest pain no nausea or vomiting no abdominal pain and no urinary symptoms. On 12/10/2017 Patient is alert and oriented in no distress, still reporting severe shortness of breath without any improvement, patient initially admitted with COPD exacerbation she was started on inhaled bronchodilators and inhaled steroids and IV antibiotics. IV steroids were was held due to significant hyperglycemia however in view of no significant improvement over the last 2 days at this time will proceed with IV Solu-Medrol and change insulin to insulin drip to control hyperglycemia, otherwise patient denies any other symptoms there is no fever or chills no dizziness no headache, no chest pain no nausea or vomiting no abdominal pain no diarrhea and no urinary symptoms. On 12/11/2017 patient is alert and oriented she states she is feeling better shortness of breath has improved significantly with the use of IV steroids she is currently maintained on insulin drip and her glucose is well-controlled. She is complaining of constipation, otherwise she denies any other complaints at this time. 12/12/2017 patient is feeling better she is alert and oriented 3 she was seen and examined on the 6 floor she is able to ambulate easier without severe shortness of breath she is maintained on IV Solu-Medrol dose was decreased down to 40 mg IV every 12 hours she is also maintained on IV antibiotics and inhaled bronchodilators and insulin drip. This morning her potassium and magnesium levels are low and she was started on replacement protocols she is complaining of constipation and was given a dose of lactulose, INR is near therapeutic range at 2.3 Will stop subcu Lovenox and give a dose of Coumadin 2.5 mg today and recheck INR in a.m.. On 12/13/2017 patient is alert and oriented 3 in no apparent distress she is able to ambulate, she is still complaining of shortness of breath with activity , she is complaining of occasional cough, otherwise no complaints, there is no chest pain no dizziness no nausea or vomiting no abdominal pain no diarrhea and no urinary symptoms. 12/14/2017 patient reports improvement in her shortness of breath and cough. She has been tachycardic with heart rate ranging in the 130s starting in the evening yesterday. She did require her verapamil and metoprolol to be given early in the evening. This morning she remains in the 130s. Cardiology has been consulted. Upon their evaluation her heart rate was back into the 70s. This felt likely her fluctuating heart rate is due to her respiratory status. And they recommended no change in her medications. White count is trending down 65. Blood sugars remain uncontrolled due to the steroids. No further wheezing. Discontinue the IV Solu-Medrol place her on prednisone. Patient reports having bowel movement. Denies any burning with urination. Denies any chest pain. Has been up and ambulating. Objective - Vital Signs Vital signs: Vital Signs Temp 97 F L 12/14/17 11:37 Pulse 134 H 12/14/17 11:37 Resp 18 12/14/17 11:37 BP 108/80 12/14/17 11:37 Pulse Ox 97 12/14/17 11:37 Intake & Output 12/13/17 12/14/17 12/14/17 18:59 06:59 18:59 Intake Total 985.433 970 360 Balance 985.433 970 360 Weight 69.2 kg 69.2 kg Intake: IV 10 0.9 10 Intake, IV Titration 25.433 Amount Insulin Regular 100 unit 25.433 In Sodium Chloride 0.9% 100 ml @ Titrate IV .Q0M JUSTINA Rx#:[id number] Oral 960 960 360 Other: Voiding Method Toilet Toilet Toilet # Voids 5 - Exam Head normocephalic Neck supple Lungs clear to auscultation bilaterally no wheezing or crackles Heart tachycardic Abdomen is soft nontender nondistended positive bowel sounds no hepatosplenomegaly Extremities no edema Neuro alert and orientated to 3 - Labs CBC & Chem 7: 12/14/17 06:00 12/14/17 06:00 Labs: Abnormal Lab Results - Last 24 Hours (Table) 12/13/17 12/13/17 12/14/17 Range/Units 16:19 21:09 05:26 WBC (3.8-10.6) k/uL Hgb (11.4-16.0) gm/dL Hct (34.0-46.0) % MCV (80.0-100.0) fL MCH (25.0-35.0) pg MCHC (31.0-37.0) g/dL RDW (11.5-15.5) % Neutrophils # (1.3-7.7) k/uL Monocytes # (0-1.0) k/uL PT (9.0-12.0) sec INR (<1.2) Sodium (137-145) mmol/L Chloride (98-107) mmol/L BUN (7-17) mg/dL Glucose (74-99) mg/dL POC Glucose (mg/dL) 385 H 413 H 316 H (75-99) mg/dL AST (14-36) U/L ALT (9-52) U/L Total Protein (6.3-8.2) g/dL Albumin (3.5-5.0) g/dL 12/14/17 12/14/17 12/14/17 Range/Units 05:56 06:00 06:00 WBC 16.5 H (3.8-10.6) k/uL Hgb 9.1 L (11.4-16.0) gm/dL Hct 31.7 L (34.0-46.0) % MCV 76.3 L (80.0-100.0) fL MCH 21.9 L (25.0-35.0) pg MCHC 28.7 L (31.0-37.0) g/dL RDW 18.2 H (11.5-15.5) % Neutrophils # 14.0 H (1.3-7.7) k/uL Monocytes # 1.1 H (0-1.0) k/uL PT 33.0 H (9.0-12.0) sec INR 3.7 H (<1.2) Sodium (137-145) mmol/L Chloride (98-107) mmol/L BUN (7-17) mg/dL Glucose (74-99) mg/dL POC Glucose (mg/dL) 310 H (75-99) mg/dL AST (14-36) U/L ALT (9-52) U/L Total Protein (6.3-8.2) g/dL Albumin (3.5-5.0) g/dL 12/14/17 12/14/17 Range/Units 06:00 11:21 WBC (3.8-10.6) k/uL Hgb (11.4-16.0) gm/dL Hct (34.0-46.0) % MCV (80.0-100.0) fL MCH (25.0-35.0) pg MCHC (31.0-37.0) g/dL RDW (11.5-15.5) % Neutrophils # (1.3-7.7) k/uL Monocytes # (0-1.0) k/uL PT (9.0-12.0) sec INR (<1.2) Sodium 135 L (137-145) mmol/L Chloride 96 L (98-107) mmol/L BUN 42 H (7-17) mg/dL Glucose 304 H (74-99) mg/dL POC Glucose (mg/dL) 252 H (75-99) mg/dL AST 73 H (14-36) U/L ALT 144 H (9-52) U/L Total Protein 5.6 L (6.3-8.2) g/dL Albumin 3.1 L (3.5-5.0) g/dL Assessment and Plan Assessment: 1. Diabetes mellitus type 2, with uncontrolled blood sugars and evidence of hyperglycemia. Patient required insulin drip. Acetone was negative at [facility]. Blood sugars have improved. Insulin drip discontinued. Patient's home diabetic medications have been restarted. Anticipate improvement in blood sugars with the discontinuation of the IV Solu-Medrol. 2. Acute tracheobronchitis: Patient has cough and wheezing. Check chest x- ray. Will start Rocephin. Unable to start azithromycin interacts with the Symbicort. Pulmonary following 3. Acute COPD exacerbation: Continue nebulizer treatments. Discontinue IV Solu -Medrol. Start prednisone 20 mg daily. 4. Constipation: Resolved with lactulose 5. History of mechanical aortic valve anticoagulated with Coumadin INR 3.7: Will give Coumadin 2 mg tonight. Check PT/INR in a.m. 6. Essential hypertension 7. Hypothyroidism 8. Chronic persistent atrial fibrillation: With elevated heart rate into the 130s. Heart rate has been fluctuating. Patient was evaluated by cardiology. At this time they're not recommending any change medication and likely fluctuate heart rates are due to respiratory status. Also will check thyroid level and magnesium level. GI prophylaxis Pepcid and DVT prophylaxis Coumadin I performed an examination of the patient and discussed their management with the physician Radon Inspector. I have reviewed the Physician Radon Inspector's notes and agree with the documented findings and plan of care Anticipate discharge home possibly tomorrow
--- NOTE | 2017-12-14 12:22 | P.PN ---
Progress Note - Text This is an addendum to the dictated cardiology consultation. The patient has a history of chronic persistent atrial fibrillation, aortic valve replacement who presented was progressive dyspnea and exacerbation of COPD. Cardiology consultation was requested because of episodes of rapid ventricle response. The patient has no symptoms of chest discomfort, no peripheral edema. She feels the palpitations at times. Is in the hospital in March 2017 and at that time she is no evidence of inducible ischemia by MPI and her echo showed a normal systolic function with normal function of her aortic valve bioprosthesis. Her lung examination revealed mild decrease in the breath sounds and she is in atrial fibrillation with a systolic murmur but no diastolic murmur. Patient presents with exacerbation of COPD and elevated blood sugar. She has episode of atrial fibrillation with rapid ventricle response. I will increase the dose beta apurva and continue her verapamil as present. Depending on her response further recommendations will be made. Thank you for this consult we will follow with you.
[2017-12-14 12:29] LABS: Magnesium 1.7 mg/dL (1.6-2.3)
[2017-12-14 13:29] LABS: T4, Free (Free Thyroxine) 1.49 ng/dL (0.78-2.19)
--- NOTE | 2017-12-14 15:01 | P.PN ---
Subjective Progress Note Date: 12/14/17 Principal diagnosis: COPD exacerbation, tracheobronchitis, uncontrolled diabetes and hyperglycemia, diabetic ketoacidosis, generalized weakness and medical debility, hypothyroidism , hypertension hypertensive cardiovascular disease, history of the aortic valve replacement with mechanical valve 12/14/2017, patient seen eval examined doing well clinically has improved no wheezing are present sugars continue to be on the higher side, labs reviewed medications reviewed, PT/INR is well therapeutic range 12/13/2017, patient seen eval examined during the rounds clinically doing well awake and alert breathing comfortably cuff congestion shortness breath is improved INR is well therapeutic, leukocytosis is improving we will lower down the Solu-Medrol further and after today's dose can be monitored off of his steroids on breathing treatments 12/12/2017, patient seen eval examined during the rounds she is undergoing breathing treatment via nebulizer she is less short of breath cough congestion is improved significantly she remains on IV steroids breathing treatment antibiotics noted leukocytosis likely related to steroids which are being titrated, PT/INR is improved to 20.5 and 2.3, potassium is slightly low at 3.4 blood sugar is in mid 200 range 12/11/2017, patient seen and evaluated examined during the rounds clinically she is feels better no significant wheezing have been present breathing more comfortably, labs reviewed medications reviewed patient has been subtherapeutic with Coumadin, leukocytosis likely appears to be related to steroids 12/10/2017, patient seen and evaluated examined on 6 floor she is relatively more awake and alert breathing is still uncomfortable with intermittent wheezing and cough denies any chest pain wheezing has not improved significantly on current therapy, patient is being started on IV steroids 82-year-old female seen eval examined on the selective care this patient sees Dr. Loni Saxena for primary care activity has been admitted into service of Dr. Weston the patient has a significant cardiovascular disease and significant for mechanical aortic valve, paroxysmal atrial fibrillation, COPD, diabetes mellitus type 2, hypertension, dementia and hypothyroidism. She was a transfer from [facility] secondary to concerns for a DKA and a higher level of care. Patient states that she went to the emergency room for worsening shortness of breath for the past 2 days. But then states that her shortness of breath is similar to her chronic COPD. Patient does admit to a dry cough. Denies any fever or chills or sweats. She has a history of recent the COPD exacerbation and tracheobronchitis was treated with oral steroids and antibiotics on outpatient basis about a month ago patient does take nebulizer treatment at home, patient has history of intermittent wheezing When patient was transferred into the hospital the sugars were over 500 however they are more stabilized and currently she is off of insulin drip Objective - Vital Signs Vital signs: Vital Signs Temp 97 F L 12/14/17 11:37 Pulse 77 12/14/17 13:27 Resp 16 12/14/17 13:27 BP 108/80 12/14/17 11:37 Pulse Ox 97 12/14/17 13:17 Intake & Output 12/13/17 12/14/17 12/14/17 18:59 06:59 18:59 Intake Total 985.433 970 540 Balance 985.433 970 540 Weight 69.2 kg 69.2 kg Intake: IV 10 0.9 10 Intake, IV Titration 25.433 Amount Insulin Regular 100 unit 25.433 In Sodium Chloride 0.9% 100 ml @ Titrate IV .Q0M [facility] Rx#:[id number] Oral 960 960 540 Other: Voiding Method Toilet Toilet Toilet # Voids 5 2 - Exam Constitutional General appearance: average body habitus, cooperative, disheveled, no acute distress - EENT Eyes: PERRLA, normal appearance ENT: normal oropharynx Ears: bilateral: normal - Neck Carotids: bilateral: upstroke normal, bruit absent Thyroid: bilateral: normal size - Respiratory Respiratory: Improved air entry compared to yesterday exam no significant wheezing or rhonchi noted today - Cardiovascular Rhythm: regular Heart sounds: normal: S1, S2 - Integumentary Integumentary: normal, normal turgor - Neurologic Remarkable within normal limits Neurologic: CNII-XII intact - Musculoskeletal Musculoskeletal: gait normal, generalized weakness, strength equal bilaterally - Psychiatric Psychiatric: A&O x's 3, appropriate affect, intact judgment & insight - Labs CBC & Chem 7: 12/14/17 06:00 12/14/17 06:00 Labs: Abnormal Lab Results - Last 24 Hours (Table) 12/13/17 12/13/17 12/14/17 Range/Units 16:19 21:09 05:26 WBC (3.8-10.6) k/uL Hgb (11.4-16.0) gm/dL Hct (34.0-46.0) % MCV (80.0-100.0) fL MCH (25.0-35.0) pg MCHC (31.0-37.0) g/dL RDW (11.5-15.5) % Neutrophils # (1.3-7.7) k/uL Monocytes # (0-1.0) k/uL PT (9.0-12.0) sec INR (<1.2) Sodium (137-145) mmol/L Chloride (98-107) mmol/L BUN (7-17) mg/dL Glucose (74-99) mg/dL POC Glucose (mg/dL) 385 H 413 H 316 H (75-99) mg/dL AST (14-36) U/L ALT (9-52) U/L Total Protein (6.3-8.2) g/dL Albumin (3.5-5.0) g/dL TSH (0.465-4.680) mIU/L 12/14/17 12/14/17 12/14/17 Range/Units 05:56 06:00 06:00 WBC 16.5 H (3.8-10.6) k/uL Hgb 9.1 L (11.4-16.0) gm/dL Hct 31.7 L (34.0-46.0) % MCV 76.3 L (80.0-100.0) fL MCH 21.9 L (25.0-35.0) pg MCHC 28.7 L (31.0-37.0) g/dL RDW 18.2 H (11.5-15.5) % Neutrophils # 14.0 H (1.3-7.7) k/uL Monocytes # 1.1 H (0-1.0) k/uL PT 33.0 H (9.0-12.0) sec INR 3.7 H (<1.2) Sodium (137-145) mmol/L Chloride (98-107) mmol/L BUN (7-17) mg/dL Glucose (74-99) mg/dL POC Glucose (mg/dL) 310 H (75-99) mg/dL AST (14-36) U/L ALT (9-52) U/L Total Protein (6.3-8.2) g/dL Albumin (3.5-5.0) g/dL TSH (0.465-4.680) mIU/L 12/14/17 12/14/17 12/14/17 Range/Units 06:00 06:00 11:21 WBC (3.8-10.6) k/uL Hgb (11.4-16.0) gm/dL Hct (34.0-46.0) % MCV (80.0-100.0) fL MCH (25.0-35.0) pg MCHC (31.0-37.0) g/dL RDW (11.5-15.5) % Neutrophils # (1.3-7.7) k/uL Monocytes # (0-1.0) k/uL PT (9.0-12.0) sec INR (<1.2) Sodium 135 L (137-145) mmol/L Chloride 96 L (98-107) mmol/L BUN 42 H (7-17) mg/dL Glucose 304 H (74-99) mg/dL POC Glucose (mg/dL) 252 H (75-99) mg/dL AST 73 H (14-36) U/L ALT 144 H (9-52) U/L Total Protein 5.6 L (6.3-8.2) g/dL Albumin 3.1 L (3.5-5.0) g/dL TSH 0.293 L (0.465-4.680) mIU/L Assessment and Plan Assessment: COPD exacerbation, acute Purulent Tracheobronchitis Leukocytosis Hypokalemia Uncontrolled diabetes and hyperglycemia Diabetic ketoacidosis resolved and improved History of aortic mechanical valve replacement now back on Coumadin now therapeutic PT/INR , a murmur around 2.5-3.5 Hypothyroidism Hypertension hypertensive cardiovascular disease Plan: Continue breathing treatments Continue deep breathing exercises incentive spirometry Pulmicort via nebulizer 2 times a day She clinically appears to have responded with IV steroids, we will stop it today Continue IV antibiotics with Rocephin once daily, can be switched to oral like Ceftin 250 twice a day for another 4-5 days Recommend to resume Coumadin, and adjustment of dose as per primary service Further recommendations pending plan of care as per clinical response of the patient Time with Patient: Greater than 30
[2017-12-14 16:50] LABS: Glucose,Whole Blood 385 mg/dL (75-99)
[2017-12-14] MEDS ORDERED: WARFARIN 1 MG TAB PO ONE (18:00)
[2017-12-14 20:33] LABS: Glucose,Whole Blood 384 mg/dL (75-99)
[2017-12-14] MEDS: VERAPAMIL SR 180 MG TABLET.ER PO SCH (20:51)
[2017-12-15 06:33] LABS: Glucose,Whole Blood 337 mg/dL (75-99)
[2017-12-15 06:45] LABS: Anisocytosis Slight; Basophils % (A) 0 %; Eosinophils # (A) 0.1 k/uL (0-0.7); Eosinophils % (A) 0 %; HCT 32.7 % (34.0-46.0); HGB 9.5 gm/dL (11.4-16.0); Hypochromasia Marked; Lymphocytes # (A) 1.7 k/uL (1.0-4.8); Lymphocytes % (A) 11 %; Mean Platelet Volume 7.5; Microcytosis Slight; Monocytes # (A) 1.3 k/uL (0-1.0); Monocytes % (A) 8 %; Neutrophils % (A) 78 %; Platelet Count 363 k/uL (150-450); RBC 4.31 m/uL (3.80-5.40); RDW 18.1 % (11.5-15.5); WBC 15.3 k/uL (3.8-10.6)
[2017-12-15] MEDS: INSULIN ASPART 100 UNIT/ML 1 ML 10 ML VIAL SQ SCH ×4 (06:48→12:09)
[2017-12-15] MEDS: LEVOTHYROXINE 88 MCG TAB PO SCH (06:48)
[2017-12-15] MEDS: GLIMEPIRIDE 4 MG TAB PO SCH (06:48)
[2017-12-15 06:56] LABS: INR 2.9 (<1.2); Prothrombin Time 26.2 sec (9.0-12.0)
[2017-12-15 07:12] LABS: Calcium 9.2 mg/dL (8.4-10.2); Potassium 3.8 mmol/L (3.5-5.1); Total Bilirubin 0.5 mg/dL (0.2-1.3); Total Protein 5.5 g/dL (6.3-8.2)
--- NOTE | 2017-12-15 08:38 | P.PN ---
Subjective Progress Note Date: 12/15/17 Principal diagnosis: COPD exacerbation, tracheobronchitis, uncontrolled diabetes and hyperglycemia, diabetic ketoacidosis, generalized weakness and medical debility, hypothyroidism , hypertension hypertensive cardiovascular disease, history of the aortic valve replacement with mechanical valve 12/15/2017, patient seen and evaluated examined she is breathing and updated denies any chest pain cough shortness of breath has wheezing improved significantly patient being monitored off of IV steroids, patient likely will be discharged later on today we'll follow up on outpatient setting 12/14/2017, patient seen eval examined doing well clinically has improved no wheezing are present sugars continue to be on the higher side, labs reviewed medications reviewed, PT/INR is well therapeutic range 12/13/2017, patient seen eval examined during the rounds clinically doing well awake and alert breathing comfortably cuff congestion shortness breath is improved INR is well therapeutic, leukocytosis is improving we will lower down the Solu-Medrol further and after today's dose can be monitored off of his steroids on breathing treatments 12/12/2017, patient seen eval examined during the rounds she is undergoing breathing treatment via nebulizer she is less short of breath cough congestion is improved significantly she remains on IV steroids breathing treatment antibiotics noted leukocytosis likely related to steroids which are being titrated, PT/INR is improved to 20.5 and 2.3, potassium is slightly low at 3.4 blood sugar is in mid 200 range 12/11/2017, patient seen and evaluated examined during the rounds clinically she is feels better no significant wheezing have been present breathing more comfortably, labs reviewed medications reviewed patient has been subtherapeutic with Coumadin, leukocytosis likely appears to be related to steroids 12/10/2017, patient seen and evaluated examined on 6 floor she is relatively more awake and alert breathing is still uncomfortable with intermittent wheezing and cough denies any chest pain wheezing has not improved significantly on current therapy, patient is being started on IV steroids 82-year-old female seen eval examined on the selective care this patient sees Dr. Loni Saxena for primary care activity has been admitted into service of Dr. Weston the patient has a significant cardiovascular disease and significant for mechanical aortic valve, paroxysmal atrial fibrillation, COPD, diabetes mellitus type 2, hypertension, dementia and hypothyroidism. She was a transfer from [facility] secondary to concerns for a DKA and a higher level of care. Patient states that she went to the emergency room for worsening shortness of breath for the past 2 days. But then states that her shortness of breath is similar to her chronic COPD. Patient does admit to a dry cough. Denies any fever or chills or sweats. She has a history of recent the COPD exacerbation and tracheobronchitis was treated with oral steroids and antibiotics on outpatient basis about a month ago patient does take nebulizer treatment at home, patient has history of intermittent wheezing When patient was transferred into the hospital the sugars were over 500 however they are more stabilized and currently she is off of insulin drip Objective - Vital Signs Vital signs: Vital Signs Temp 97.1 F L 12/15/17 04:45 Pulse 71 12/15/17 04:45 Resp 17 12/15/17 04:45 BP 95/55 12/15/17 04:45 Pulse Ox 93 L 12/15/17 04:45 Intake & Output 12/14/17 12/15/17 12/15/17 18:59 06:59 18:59 Intake Total 770 970 240 Output Total 1200 Balance -430 970 240 Weight 69.2 kg 67.1 kg Intake: IV 10 0.9 10 Oral 770 960 240 Output: Urine 1200 Other: Voiding Method Toilet Toilet # Voids 2 4 - Labs CBC & Chem 7: 12/15/17 06:29 12/15/17 06:29 Labs: Abnormal Lab Results - Last 24 Hours (Table) 12/14/17 12/14/17 12/14/17 Range/Units 06:00 11:21 16:31 WBC (3.8-10.6) k/uL Hgb (11.4-16.0) gm/dL Hct (34.0-46.0) % MCV (80.0-100.0) fL MCH (25.0-35.0) pg MCHC (31.0-37.0) g/dL RDW (11.5-15.5) % Neutrophils # (1.3-7.7) k/uL Monocytes # (0-1.0) k/uL PT (9.0-12.0) sec INR (<1.2) Chloride (98-107) mmol/L Carbon Dioxide (22-30) mmol/L BUN (7-17) mg/dL Glucose (74-99) mg/dL POC Glucose (mg/dL) 252 H 385 H (75-99) mg/dL AST (14-36) U/L ALT (9-52) U/L Total Protein (6.3-8.2) g/dL Albumin (3.5-5.0) g/dL TSH 0.293 L (0.465-4.680) mIU/L 12/14/17 12/15/17 12/15/17 Range/Units 20:22 06:29 06:29 WBC 15.3 H (3.8-10.6) k/uL Hgb 9.5 L (11.4-16.0) gm/dL Hct 32.7 L (34.0-46.0) % MCV 76.0 L (80.0-100.0) fL MCH 22.0 L (25.0-35.0) pg MCHC 29.0 L (31.0-37.0) g/dL RDW 18.1 H (11.5-15.5) % Neutrophils # 12.0 H (1.3-7.7) k/uL Monocytes # 1.3 H (0-1.0) k/uL PT 26.2 H (9.0-12.0) sec INR 2.9 H (<1.2) Chloride (98-107) mmol/L Carbon Dioxide (22-30) mmol/L BUN (7-17) mg/dL Glucose (74-99) mg/dL POC Glucose (mg/dL) 384 H (75-99) mg/dL AST (14-36) U/L ALT (9-52) U/L Total Protein (6.3-8.2) g/dL Albumin (3.5-5.0) g/dL TSH (0.465-4.680) mIU/L 12/15/17 12/15/17 Range/Units 06:29 06:32 WBC (3.8-10.6) k/uL Hgb (11.4-16.0) gm/dL Hct (34.0-46.0) % MCV (80.0-100.0) fL MCH (25.0-35.0) pg MCHC (31.0-37.0) g/dL RDW (11.5-15.5) % Neutrophils # (1.3-7.7) k/uL Monocytes # (0-1.0) k/uL PT (9.0-12.0) sec INR (<1.2) Chloride 93 L (98-107) mmol/L Carbon Dioxide 32 H (22-30) mmol/L BUN 43 H (7-17) mg/dL Glucose 318 H (74-99) mg/dL POC Glucose (mg/dL) 337 H (75-99) mg/dL AST 42 H (14-36) U/L ALT 120 H (9-52) U/L Total Protein 5.5 L (6.3-8.2) g/dL Albumin 3.0 L (3.5-5.0) g/dL TSH (0.465-4.680) mIU/L Assessment and Plan Assessment: COPD exacerbation, acute Purulent Tracheobronchitis Leukocytosis Hypokalemia Uncontrolled diabetes and hyperglycemia Diabetic ketoacidosis resolved and improved History of aortic mechanical valve replacement now back on Coumadin now therapeutic PT/INR , a murmur around 2.5-3.5 Hypothyroidism Hypertension hypertensive cardiovascular disease Plan: Continue breathing treatments Continue deep breathing exercises incentive spirometry Pulmicort via nebulizer 2 times a day She clinically appears to have responded with IV steroids, we will stop it today Continue IV antibiotics with Rocephin once daily, can be switched to oral like Ceftin 250 twice a day for another 4-5 days Recommend to resume Coumadin, and adjustment of dose as per primary service Further recommendations pending plan of care as per clinical response of the patient Time with Patient: Greater than 30
[2017-12-15] MEDS ORDERED: predniSONE 20 MG TAB PO SCH (09:00)
[2017-12-15] MEDS: BUDESONIDE 0.5 MG/2 ML NEBU INHALATION SCH (09:50)
[2017-12-15] MEDS: IPRATROPIUM-ALBUTEROL 3 ML NEB INHALATION SCH ×2 (09:51→10:42)
[2017-12-15] MEDS: ALPRAZolam 0.25 MG TAB PO SCH (10:08)
[2017-12-15] MEDS: ASPIRIN 81 MG PO SCH (10:08)
[2017-12-15] MEDS: NON-FORMULARY DRUG (Empagliflozin [Jardiance] 25 MG) PO SCH (10:08)
[2017-12-15] MEDS: FUROSEMIDE 40 MG TAB PO SCH (10:09)
[2017-12-15] MEDS: MECLIZINE 12.5 MG TAB PO SCH (10:09)
[2017-12-15] MEDS: metFORMIN 500 MG TAB PO SCH (10:09)
[2017-12-15] MEDS: FAMOTIDINE 20 MG TAB PO SCH (10:09)
[2017-12-15 11:26] LABS: Glucose,Whole Blood 226 mg/dL (75-99)
--- NOTE | 2017-12-15 11:29 | P.DS ---
Providers Date of admission: 12/07/17 21:49 Expected date of discharge: 12/15/17 Attending physician: Mary Weston Consults: 12/08/17 14:26 Consult Physician Routine Consulting Provider: Nikunj Israel Consult Reason/Comments: bronchitis, COPD Do you want consulting provider notified?: Yes 12/14/17 10:16 Consult Physician Routine Consulting Provider: Tara Figueroa Consult Reason/Comments: tachycardia Do you want consulting provider notified?: Yes Primary care physician: Loni Saxena [facility] Course: Discharge diagnosis 1. Diabetes mellitus type 2, with uncontrolled blood sugars and evidence of hyperglycemia. No evidence of DKA. Patient required insulin drip. Acetone was negative at [facility]. 2. Acute tracheobronchitis: Patient has cough and wheezing. Check chest x- ray. Continue Ceftin for 5 more days 3. Acute COPD exacerbation: Continue nebulizer treatments. Patient will continue prednisone 10 mg daily for 2 more days 4. Constipation: Resolved with lactulose 5. History of mechanical aortic valve anticoagulated with Coumadin INR 2.9 at discharge. Coumadin dose will be decreased to 2 mg daily 6. Essential hypertension 7. Hypothyroidism: TSH low at 0.293 and free T4 1.49. Synthroid dose decreased to 75 g daily 8. Chronic persistent atrial fibrillation: With elevated heart rate into the 130s. Evidence of an atrial fibrillation with rapid ventricular response. Heart rate has been fluctuating. Patient was evaluated by cardiology. Possibly related to patient's respiratory status. Cardiology has increased the metoprolol to 200 mg daily. Also note the patient's Synthroid dose will be decreased. This may also have contributed to her elevated heart rate 9. Elevated LFTs: Likely related to patient's statin. Statin was discontinued. LFTs are trending down. While patient check LFTs in 1 week and address further 1 statin can be restarted Hospital course This is a 82-year-old female, patient of [facility]. She has a known past medical history of mechanical aortic valve, paroxysmal atrial fibrillation, COPD, diabetes mellitus type 2, hypertension, dementia and hypothyroidism. She was a transfer from [facility] secondary to concerns for a DKA and a higher level of care. Patient states that she went to the emergency room for worsening shortness of breath for the past 2 days. But then states that her shortness of breath is similar to her chronic COPD. Patient does admit to a dry cough. Denies any fever or chills or sweats. Has been having some diarrhea. Stool is been ordered for C. diff. She was recently treated about a month ago for a bronchitis and had been on steroids and antibiotics. Nebulizer treatments have been continued. White count and [place] was 15.25 and here 12.6. Acetone also reported as negative. She did require an insulin drip on admission due to a blood sugar of 556 at [facility]. Blood sugars have improved. And she is currently off of the insulin drip. Patient denies any chest pain. Denies any nausea or vomiting. Denies any burning with urination. Patient is wheezing during exam. She does not use home oxygen. Patient was initially started on antibiotics and nebulizer treatment for her bronchitis and COPD exacerbation. She did require to be placed on IV steroids for a few days to help with her COPD exacerbation. Patient did show improvement lung triplett and was able to be started on prednisone. She only has 2 more days of prednisone left. We did a short course taper due to her elevated blood sugars. Patient did have elevated uncontrolled blood sugars on admission. Blood sugars did show improvement and she was able to come off of the insulin drip. Blood sugars did remain high during this admission due to the steroids. As well as Jardiance is nonformulary and patient has not been getting this medication. Patient's blood sugars should show improvement with restarting the Jardiance and quick taper of steroids. Pulmonary has cleared her for discharge. Cardiology was consulted due to an elevated heart rate. They have bumped up her metoprolol to 20 mg daily. Heart rate has improved. And have cleared her for discharge. Also note that Synthroid dose was decreased as well. Patient is feeling much better. She's eager for discharge home. She is off of oxygen. She has been up and ambulating without difficulty. Coumadin dose has been adjusted during this admission down to 2 mg daily and INR at discharge is 2.9. Patient medically stable for discharge. Please refer to chart for any further details. I performed an examination of the patient and discussed their management with the physician [employer]. I have reviewed the Physician [employer]'s notes and agree with the documented findings and plan of care Patient Condition at Discharge: Stable Plan - Discharge Summary Discharge Rx Participant: No New Discharge Prescriptions: New Cefuroxime [Ceftin] 250 mg PO BID #10 tablet Metoprolol Succinate (ER) [Toprol XL] 200 mg PO HS #30 tab.er.24h predniSONE 10 mg PO DAILY #2 tab Warfarin Sodium [Coumadin] 2 mg PO DAILY #30 tablet Continue metFORMIN HCL [Glucophage] 500 mg PO BID Ranitidine HCl [Zantac] 150 mg PO BID Meclizine [Antivert] 12.5 mg PO TID Aspirin 81 mg PO DAILY Levothyroxine Sodium [Synthroid] 88 mcg PO DAILY ALPRAZolam [Xanax] 0.25 mg PO BID Nitroglycerin Sl Tabs [Nitrostat] 0.4 mg SUBLINGUAL Q5M PRN tab PRN Reason: Chest Pain Fluticasone/Vilanterol [Breo Ellipta 100-25 Mcg Inhaler] 1 inhalation PO Q24HR Tiotropium Ketchum [Spiriva] 1 cap INHALATION DAILY Ipratropium-Albuterol Nebulize [Duoneb 0.5 mg-3 mg/3 ml Soln] 3 ml INHALATION RT-QID PRN PRN Reason: Shortness Of Breath Verapamil HCl [Verelan] 360 mg PO HS Glimepiride [Amaryl] 4 mg PO AC-BRKFST Furosemide [Lasix] 40 mg PO BID Empagliflozin [Jardiance] 25 mg PO DAILY Discontinued Simvastatin [Zocor] 20 mg PO HS Warfarin [Coumadin] 2.5 mg PO HS Metoprolol Succinate (ER) [Toprol Xl] 50 mg PO HS Metoprolol Succinate (ER) [Toprol XL] 100 mg PO HS Discharge Medication List ALPRAZolam [Xanax] 0.25 mg PO BID 04/12/17 [History] Aspirin 81 mg PO DAILY 04/12/17 [History] Levothyroxine Sodium [Synthroid] 88 mcg PO DAILY 04/12/17 [History] Meclizine [Antivert] 12.5 mg PO TID 04/12/17 [History] Ranitidine HCl [Zantac] 150 mg PO BID 04/12/17 [History] metFORMIN HCL [Glucophage] 500 mg PO BID 04/12/17 [History] Nitroglycerin Sl Tabs [Nitrostat] 0.4 mg SUBLINGUAL Q5M PRN tab 04/18/17 [Rx] Empagliflozin [Jardiance] 25 mg PO DAILY 12/07/17 [History] Fluticasone/Vilanterol [Breo Ellipta 100-25 Mcg Inhaler] 1 inhalation PO Q24HR 12/07/17 [History] Furosemide [Lasix] 40 mg PO BID 12/07/17 [History] Glimepiride [Amaryl] 4 mg PO AC-BRKFST 12/07/17 [History] Ipratropium-Albuterol Nebulize [Duoneb 0.5 mg-3 mg/3 ml Soln] 3 ml INHALATION RT -QID PRN 12/07/17 [History] Tiotropium Ketchum [Spiriva] 1 cap INHALATION DAILY 12/07/17 [History] Verapamil HCl [Verelan] 360 mg PO HS 12/07/17 [History] Cefuroxime [Ceftin] 250 mg PO BID #10 tablet 12/15/17 [Rx] Metoprolol Succinate (ER) [Toprol XL] 200 mg PO HS #30 tab.er.24h 12/15/17 [Rx] Warfarin Sodium [Coumadin] 2 mg PO DAILY #30 tablet 12/15/17 [Rx] predniSONE 10 mg PO DAILY #2 tab 12/15/17 [Rx] Follow up Appointment(s)/Referral(s): Nikunj Israel MD [STAFF PHYSICIAN] - 1 Week Loni Saxena DO [Primary Care Provider] - 12/25/17 11:00 am (Monday) Sukhdev Melton MD [REFERRING] - 12/29/17 8:45 am (Monday) Ambulatory/Diagnostic Orders: Prothrombin Time INR [LAB.AMB] Time Frame: 1 Week, Location: Determined By Patient Patient Instructions/Handouts: COPD (Chronic Obstructive Pulmonary Disease) (DC ), Diabetic Hyperglycemia (DC) Activity/Diet/Wound Care/Special Instructions: [facility]idential Home [facility] [phone] Diet: cardiac, diabetic Activity: as tolerated Discharge Disposition: HOME WITH HOME HEALTH SERVICES
[2017-12-15] MEDS: cefTRIAXone IN SWFI 1,000 MG/10 ML SYRINGE IVP SCH (11:53)
[2017-12-15 12:02] VITALS: BP 121/62; PULSE 67; RESP 18; TEMP 97.4
--- NOTE | 2017-12-15 14:43 | P.PN ---
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 She has a history of aortic valve replacement 20 years ago, hypertension, hypothyroidism, permanent pacemaker, nicotine dependence, prior TIA, asthma, COPD, diabetes, chronic persistent atrial fibrillation hypothyroidism, GERD, she presented to [facility] approximately a week ago with symptoms of progressively worsening shortness of breath. Blood sugars are [facility] in the 500 range, was transferred here for higher level of care. According to the patient, approximately a month before her admission to the hospital she has been treated as an outpatient for a possible bronchitis. Patient has known chronic persistent atrial fibrillation, today it was noted that her heart rate went up into the 30s and for this reason a cardiology consultation is now requested. Rest x-ray performed on the reveal chronic changes with improved small to tiny bilateral effusions. No new infiltrate. White blood cell count 16.5, hemoglobin 9.1, INR 3.7, sodium 135, potassium 3.6, BUN 42, creatinine 0.7. AST 73, ALT 144. Blood pressure 108/80 with a heart rate in the 130s. At the time of my examination this morning, patient actually feels well, she states that her breathing is stable. Denies any palpitations. 12/15/2017 Patient seen and examined this morning, feeling better overall. Continues to be in atrial fibrillation, rate under adequate control today. Hoping to be discharged home today. INR 2.9 today. Objective - Vital Signs Vital signs: Vital Signs Temp 97.4 F L 12/15/17 11:59 Pulse 67 12/15/17 11:59 Resp 18 12/15/17 11:59 BP 121/62 12/15/17 11:59 Pulse Ox 95 12/15/17 11:59 Intake & Output 12/14/17 12/15/17 12/15/17 18:59 06:59 18:59 Intake Total 770 970 480 Output Total 1200 Balance -430 970 480 Weight 69.2 kg 67.1 kg Intake: IV 10 0.9 10 Oral 770 960 480 Output: Urine 1200 Other: Voiding Method Toilet Toilet Toilet # Voids 2 4 1 - Exam PHYSICAL EXAMINATION: HEENT: [Head is atraumatic, normocephalic. Pupils equal, round. Neck is supple. There is no elevated jugular venous pressure] HEART EXAMINATION: Heart S1 and S2 irregularly irregular systolic murmur is heard. CHEST EXAMINATION: Lungs are clear with mild decreased air exchange ABDOMEN:[ Soft, nontender. Bowel sounds are heard. No organomegaly note]. EXTREMITIES[ 2+ peripheral pulses with no evidence of peripheral edema and no calf tenderness note]. NEUROLOGIC[patient is awake, alert and oriented -3] - Labs CBC & Chem 7: 12/15/17 06:29 12/15/17 06:29 Labs: Abnormal Lab Results - Last 24 Hours (Table) 12/14/17 12/14/17 12/15/17 Range/Units 16:31 20:22 06:29 WBC 15.3 H (3.8-10.6) k/uL Hgb 9.5 L (11.4-16.0) gm/dL Hct 32.7 L (34.0-46.0) % MCV 76.0 L (80.0-100.0) fL MCH 22.0 L (25.0-35.0) pg MCHC 29.0 L (31.0-37.0) g/dL RDW 18.1 H (11.5-15.5) % Neutrophils # 12.0 H (1.3-7.7) k/uL Monocytes # 1.3 H (0-1.0) k/uL PT (9.0-12.0) sec INR (<1.2) Chloride (98-107) mmol/L Carbon Dioxide (22-30) mmol/L BUN (7-17) mg/dL Glucose (74-99) mg/dL POC Glucose (mg/dL) 385 H 384 H (75-99) mg/dL AST (14-36) U/L ALT (9-52) U/L Total Protein (6.3-8.2) g/dL Albumin (3.5-5.0) g/dL 12/15/17 12/15/17 12/15/17 Range/Units 06:29 06:29 06:32 WBC (3.8-10.6) k/uL Hgb (11.4-16.0) gm/dL Hct (34.0-46.0) % MCV (80.0-100.0) fL MCH (25.0-35.0) pg MCHC (31.0-37.0) g/dL RDW (11.5-15.5) % Neutrophils # (1.3-7.7) k/uL Monocytes # (0-1.0) k/uL PT 26.2 H (9.0-12.0) sec INR 2.9 H (<1.2) Chloride 93 L (98-107) mmol/L Carbon Dioxide 32 H (22-30) mmol/L BUN 43 H (7-17) mg/dL Glucose 318 H (74-99) mg/dL POC Glucose (mg/dL) 337 H (75-99) mg/dL AST 42 H (14-36) U/L ALT 120 H (9-52) U/L Total Protein 5.5 L (6.3-8.2) g/dL Albumin 3.0 L (3.5-5.0) g/dL 12/15/17 Range/Units 11:16 WBC (3.8-10.6) k/uL Hgb (11.4-16.0) gm/dL Hct (34.0-46.0) % MCV (80.0-100.0) fL MCH (25.0-35.0) pg MCHC (31.0-37.0) g/dL RDW (11.5-15.5) % Neutrophils # (1.3-7.7) k/uL Monocytes # (0-1.0) k/uL PT (9.0-12.0) sec INR (<1.2) Chloride (98-107) mmol/L Carbon Dioxide (22-30) mmol/L BUN (7-17) mg/dL Glucose (74-99) mg/dL POC Glucose (mg/dL) 226 H (75-99) mg/dL AST (14-36) U/L ALT (9-52) U/L Total Protein (6.3-8.2) g/dL Albumin (3.5-5.0) g/dL Assessment and Plan Plan: Assessment and plan #1 acute tracheobronchitis, improving. #2 uncontrolled blood sugars #3 acute COPD exacerbation #4 history of mechanical aortic valve, anticoagulated with Coumadin #5 chronic persistent atrial fibrillation #6 hypothyroidism #7 prior TIA #8 prior pacemaker implantation Plan From cardiology's perspective, we'll recommend the patient continue on her current medications. She may be able to be discharged once cleared by primary. She can follow-up with Dr. Melton her conduit mechanic as an outpatient. DNP note has been reviewed, I agree with a documented findings and plan of care. Patient was seen and examined.
--- NOTE | 2017-12-19 18:24 | CDI ---
Last Revision, July 2017 Documentation Clarification Form Date: 12/19/17 From: Joana Armando Dortohy Brar, License Issuer between 8:30 am & 5 pm Rosita Admit Date: 12/07/2017 9:49:00 PM Patient Name: Kathya Rose Visit Number: [id number] Discharge Date: 12/15/17 ATTENTION: The Clinical Documentation Specialists (CDI) and [facility] Coding Staff appreciate your assistance in clarifying documentation. Please respond to the clarification below the line at the bottom and electronically sign. The CDI & [facility] Coding staff will review the response and follow-up if needed. Please note: Queries are made part of the Legal Health Record. If you have any questions, please contact the author of this message via ITS. Dr. Mary Weston On 12/12 the patient's magnesium were low at 1.3, she was started on replacement protocols. Labs continued to be monitored. Clinical significance of diagnostic testing and treatment CANNOT be assumed or coded without physician documentation of significance if any. Please clarify what abnormal laboratory signifies: Disease process, please specify Abnormal Lab Value Unable to determine Other, please specify Please continue to document in your progress notes and discharge summary in order to capture severity of illness and risk of mortality. Include clinical findings that support your diagnosis. Hypomagnesium MTDD
== END 2017-12-15 14:59 | disposition home health service (06) | DRG 638 ==
LOC: EC 20:53 → 6SEL 21:49
PROVIDERS: ADMIT Internal Medicine; ATTEND Internal Medicine
DX: E11.65 Type 2 diabetes mellitus with hyperglycemia (principal); J44.0 Chronic obstructive pulmonary disease with (acute) lower respiratory infection; J44.1 Chronic obstructive pulmonary disease with (acute) exacerbation; I48.2 Chronic atrial fibrillation; E83.42 Hypomagnesemia; J20.9 Acute bronchitis, unspecified; F03.90 Unspecified dementia, unspecified severity, without behavioral disturbance, psychotic disturbance, mood disturbance, and anxiety; I11.9 Hypertensive heart disease without heart failure; E03.9 Hypothyroidism, unspecified; E78.5 Hyperlipidemia, unspecified; E87.6 Hypokalemia; J30.1 Allergic rhinitis due to pollen; R19.7 Diarrhea, unspecified; I25.10 Atherosclerotic heart disease of native coronary artery without angina pectoris; K59.00 Constipation, unspecified; D72.829 Elevated white blood cell count, unspecified; T38.0X5A Adverse effect of glucocorticoids and synthetic analogues, initial encounter; R74.0 Nonspecific elevation of levels of transaminase and lactic acid dehydrogenase [LDH]; K21.9 Gastro-esophageal reflux disease without esophagitis; Z79.01 Long term (current) use of anticoagulants; Z79.82 Long term (current) use of aspirin; Z79.84 Long term (current) use of oral hypoglycemic drugs; Z79.890 Hormone replacement therapy; Z79.51 Long term (current) use of inhaled steroids; Z79.899 Other long term (current) drug therapy; Z87.01 Personal history of pneumonia (recurrent); Z95.0 Presence of cardiac pacemaker; Z95.2 Presence of prosthetic heart valve; Z90.49 Acquired absence of other specified parts of digestive tract; Z87.891 Personal history of nicotine dependence; Z98.49 Cataract extraction status, unspecified eye; Z88.5 Allergy status to narcotic agent; Z82.49 Family history of ischemic heart disease and other diseases of the circulatory system; Z80.9 Family history of malignant neoplasm, unspecified; Z86.73 Personal history of transient ischemic attack (TIA), and cerebral infarction without residual deficits
CPT/HCPCS: 36415; 71045; 71046; 80051; 80053; 82565; 82728; 82947; 83036; 83540; 83550; 83735; 84100; 84132; 84439; 84443; 84520; 85025; 85610; 94640; 94760; 99285